=== PATIENT | female | born 1950 | race Caucasian/White ===

== ENCOUNTER → 2022-03-23 | Outpatient (CLI) | payer SELFPAY ==
[2022-03-23 19:45] LABS: Body Fluid QC Type(s) BF1Q; Source- Body Fluid SYNOVIAL
[2022-03-24 13:05] LABS: Pathologist Review Reviewed
== END | disposition home or self-care (01) ==
PROVIDERS: Visit Provider Specialist
DX: M25.461 Effusion, right knee (principal); Z96.651 Presence of right artificial knee joint
CPT/HCPCS: 87015; 87070; 87075; 87101; 87116; 87205; 87206; 89060

== ENCOUNTER 2022-06-10 05:58 | Inpatient (IN) | payer MEDICARE, BC, SELFPAY ==
--- NOTE | 2022-05-27 22:52 | PCM.HP.BLA ---
History and Physical History and Physical [facility] Patient Name: Ana Connolly : 1950 From:? RAJESH PUENTE PA-C? DATE OF SURGERY:? 06/10/2022 SCHEDULED PROCEDURE:? right knee irrigation and debridement with placement of? static antibiotic spacer HISTORY OF PRESENT ILLNESS: Preoperative history and physical exam was performed on May 25, 2022.? This is a 71-year-old female who has had ongoing pain for the past 5-6 months.? Patient states she twisted her knee in December 2021.? She has had a previous total knee arthroplasty in 2008 followed by a quadriceps tear in 2019.? She was treated surgically with a direct repair with suture anchors.? Patient has had difficulty with inclines and stairs after the tendon repair.? She had an injury in December when she was in [place] and had increased pain and inability to extend the knee.? She has been treated with a TROM brace for her knee.? Patient was seen by outside surgeons and was referred to a tertiary care center where she was counseled on extensor mechanism reconstruction with mesh.? Patient did have lab work to review inflammatory markers.? They were elevated with the CRP at 10.8 and ESR is 69.? She had aspiration which she had a positive synovasure.? Patient was also having some calf pain with swelling and tenderness in which she underwent a Doppler ultrasound.? It was found she had a DVT in the right lower leg.? She is being currently managed by her primary care provider Guerda Torrez in which she is currently on Rivaroxaban 20 mg.? After discussion with Dr. Enmanuel Munoz, the patient does wish to proceed with a right knee irrigation and debridement with placement of static antibiotic spacer.? We will proceed with a two-stage procedure.? Patient has medical history pertinent for previous colon cancer in 2016, hypertension, history of DVT.? We are getting clearance from the primary care provider as well as perioperative management of the Xarelto.? Patient currently denies any chest pain, shortness of breath, fevers chills. REVIEW OF SYSTEMS: Review Of Systems: Constitutional: Denies change in appetite, fever and weight change. Cardiovasular: Denies chest pain, heart murmur and irregular heartbeat. Respiratory: Reports wheezing, but denies cough, pneumonia, shortness of breath and tuberculosis. Gastrointestinal: Denies constipation, diarrhea, heartburn, nausea, rectal itching, bloody stools and vomiting. Musculoskeletal: Reports gait disturbance, leg swelling, trouble walking and weakness, but denies pain. Skin: Denies Raynaud's, history of shingles and tattoo. Neurological: Denies ambulatory dysfunction, dizziness, numbness/tingling and tremor. Psychiatric: Denies anxiety, insomnia and stress. Hematologic/Lymphatic: Denies anemia, bleeding/bruising tendency and past transfusion. Reviewed, no changes. PAST MEDICAL HISTORY: Advance Care Plan: Other Directive, LIVING WILL Effective Date: 05/25/2022 Other Directive, POA Effective Date: 05/25/2022 Past Medical History: Medical Problems: Cancer - (2015) COLON High Blood Pressure Covid- 19 - (2019) History Of Blood Clots/ DVT Accidents: RT Quad Tendon Tear - (08/13/2019) Other - RT SPRAINED ANKLE / EARLY 1999'S? Surgical Hx: Cataracts - (2019) , [place] Cataracts - (2016) ,[place] Hernia Repair - (2016) MEDICAL- X2 & OBSTRUCTED BOWEL Hysterectomy - (1999) Tonsillectomy - (1957) Knee Replacement LT - (2013) Knee Replacement RT - (2008) Face Lift - (2009) Tummy Tuck - (2009) Vein Surgery - (1995) Anesthesia Complications: None Assistive Devices: Walker Reviewed and updated. SOCIAL HISTORY: Social History: Marital: .Occupation: Retired.Work Status: Retired.Hand Dominance: Left-handed. Personal Habits:? Cigarette Use: Never Smoked Cigarettes.Smokeless Tobacco: Never Used Smokeless Tobacco.E-Cigarette Use: Never used.Alcohol: Occasionally.Drug Use: Denies Use.Enjoy Exercising: Exercises 1-3 x/month. Reviewed, no changes. VITALS: Ht: 66 Wt: 234lb Wt k.142 BMI: 37.8 BP: 132/88 Pulse: 83 Resp: 18 T: 97.8 T: 36.6C Pain Level: 7 O2SatR: 99 ALLERGIES: No Known Drug Allergy? MEDICATIONS: Xarelto 20 mg 1 by mouth every day, Etodolac 400 mg 1 by mouth twice a day, Latanoprost 0.005 % 1 drops in each eye at bedtime, Pramipexole Dihydrochloride 0.5 mg 1 1/2 by mouth every day, Losartan Potassium 50 mg 1 by mouth every day, Escitalopram Oxalate 10 mg 1 by mouth every day PRE-OP EXAM:? General appearance:NORMAL? ? ? Other: Eyes: Conjunctivae and lids: NORMAL? Pupils: ERR Ears, Nose, Mouth, and Throat: NORMAL? Other: Inspection of lips, teeth and gums: NORMAL? ?Other: Neck: Examination of neck: no masses noted. Respiratory: Assessment of respiratory effort: NORMAL? ?Other: ?Auscultation of lungs: clear to auscultation no wheezes, rhonchi or rales. Cardiovascular:? Auscultation of heart: regular rate and rhythm, no murmurs, gallops or rubs. PHYSICAL EXAMINATION: Patient walks with an antalgic gait with use of walker.? Previous incisions are well healed with the right knee.? She has moderate effusion.? Tenderness to palpation over the medial and lateral joint line.? There is a palpable defect proximal to the patella.? She has 30 lag with flexion to 115.? 3/5 knee extension strength.? Sensation intact to light touch. IMAGING STUDIES: Previous x-rays show a press-fit total knee replacement which appeared to be well fixed.? No gross lucencies are appreciated.? Tibia is in mild varus alignment. Previous MRI report did reveal 80-90% repeat tear of the quadriceps tendon with 7.3 cm of retraction. IMPRESSION: 1.? 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 Hypertension 3.? History of DVT: Currently on Xarelto 4.? Previous history of colon cancer 2016 PLAN: Dr. Enmanuel Munoz did discuss and review with the patient all treatment options including surgical versus nonsurgical options.? Patient does wish to proceed with the above-stated procedure.? Potential risks, benefits, and complications of the procedure were discussed in detail including but not limited to , infection, nerve and blood vessel damage, persistent pain, numbness, tingling, paresthesias, blood clot, pulmonary embolism, and requirement for possible further surgery.? The patient expressed full understanding and has no further questions for the doctor.? Patient does agree to proceed with the above-stated procedure and has signed the surgery consent form. We discussed the current risks associated with COVID 19.? This does include the risk of exposure while in the hospital.? Patient was reassured local hospitals have low infection rates and are taking all necessary precautions to avoid exposure to patients.? In addition, we discussed strategies that can be used to help limit exposure including those that limit the patient's time in the hospital.? Also using strategies to limit the patient's need for continued inpatient services after being discharged from the hospital.? Patient was notified that we will need to comply with any screening or testing the hospital wishes to perform or that surgery may be delayed for any positive results. This dictation was created using voice recognition software. Phonetic and/or grammatical errors may exist. ___? I have re-examined the patient.? There are no clinical changes since date of exam. ___? See progress notes for changes. ___? Dictated on admission Date: ? ? ?Time: Signature:
--- NOTE | 2022-06-02 09:40 | EKG12_ITS ---
Test Reason : PRE-OP Blood Pressure : / mmHG Vent. Rate : 075 BPM Atrial Rate : 075 BPM P-R Int : 178 ms QRS Dur : 092 ms QT Int : 408 ms P-R-T Axes : 052 027 048 degrees QTc Int : 455 ms Sinus rhythm with occasional Premature ventricular complexes Nonspecific T wave abnormality Confirmed by GABINO BELLO, MATTHEW ([id number]), visual effects editor MENDEZ COPPOLA ([id number]) on 06/03/2022 11:32:04 AM Referred By: ARI Confirmed By:MATTHEW LLOYD MD
[2022-06-02 10:26] LABS: Absolute Lymphocyte Count 0.89 X10^3/uL (0.83-4.51); Absolute Neutrophil Count 5.3 X10^3/uL (2.0-7.7); Basophil# 0.04 X10^3/uL; Basophil% 0.6 % (0-1); Eosinophil# 0.31 X10^3/uL; Eosinophils% 4.5 % (0-5); Hematocrit 34.1 % (37-47); Hemoglobin 10.2 g/dL (12.0-15.0); Lymphocyte # 0.89 X10^3/ul (0.83-4.51); Lymphocyte % 12.8 % (19-41); Mean Corp Hgb Conc 29.9 g/dL (32-36); Mean Corpuscular Volume 86.8 fL (81-99); Mean Platelet Vol. 10.4 fl (6.2-12.0); Monocyte% 5.8 % (0-10); NRBC Flagged by Analyzer 0 % (0-5); Neutrophil # 5.27 X10^3/uL (2.7-7.7); Platelet Count 360 K/mm3 (150-450); RBC Distribution Width CV 15.3 % (11.6-14.6); RBC Distribution Width SD 48.7 fl (35.1-43.9); Red Blood Count 3.93 M/mm3 (4.2-5.4); White Blood Count 6.9 K/mm3 (4.4-11.0)
[2022-06-02 10:59] LABS: Magnesium 2.4 mg/dL (1.6-2.6)
[2022-06-02 11:02] LABS: Albumin, Serum 2.7 g/dL (3.2-5.0); Anion Gap 4 (5-15); BUN 19 mg/dL (7-18); BUN/Creat Ratio 29.6 RATIO (10-20); Chloride 105 mmol/L (98-107); Creatinine, Serum 0.64 mg/dL (0.55-1.02); EST Glomerular Filtration Rate 96 mL/min (>60); Est Glom Filt Rate - Afr Amer 117 mL/min (>60); Glucose 103 mg/dL (74-106); Potassium 3.9 mmol/L (3.5-5.1); Sodium Level 138 mmol/L (136-145)
--- NOTE | 2022-06-02 15:24 | CASEMGMT ---
AJIT AU Assessment: TC to pt for initial transition planning/care coordination assessment. AJIT AU introduced self and role at [facility], pt voices understanding and consents to assessment. Pt is currently staying with her sister and the assessment is answered based on her home. Care providers, pharmacy, and demographics verified/updated. 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 She is aware it is not on file at [facility] and she may bring in to be scanned into her chart when she has surgery. LNOK: Ana Alonzo, sister Living Arrangements: Pt lives with sister temporarily in a single story house with 4 steps to get to the main floor with a rail and one step to enter the house. Pt reports now she is I in ADL's and denies concerns at home. Transportation: Pt is not driving currently. Pt sister or brother in law transports pt to medical appts. DME/HHC/SNF: Pt has a FWW and w/c. She denies hx of HHC or SNF stays. Pt states she has been told she may need IV atb and/or a wound vac after surgery. Discussed options of this including HHC vs SNF stay. Pt states she does not have an able cg to learn IV's if she needs it. She states should she need a wound vac or IV atb, she would prefer to go to a SNF. Pt states if she does not need these items, it depends on how well she gets around after surgery as to if she can go home to her sister's house or a SNF. Pt states no further concerns/needs. CM to follow. Advised pt to ask CM if any further question/concerns/needs arise, voices understanding. Pt Goal: TBD pending course of hospitalization Plan: TBD pending course of hospitalization
[2022-06-10] VITALS (13 sets, daily range): BP systolic 88–119; BP diastolic 46–72; PULSE 60–95; RESP 10–18; TEMP 36–37.4; O2SAT 88–100; BMI 37.5
[2022-06-10] MEDS: Lactated Ringers 1,000 ML 999 ML IV ×2 (07:17→13:30)
[2022-06-10] MEDS: Acetaminophen 500 MG Tablet 1000 MG PO ×3 (07:18→22:22)
[2022-06-10] MEDS: Lactated Ringers 1,000 ML 75 ML IV (07:18)
[2022-06-10] MEDS: Gabapentin 600 MG Tablet PO (07:18)
[2022-06-10] MEDS: Celecoxib 200 MG Capsule 400 MG PO (07:18)
[2022-06-10 07:20] LABS: Bedside Glucose 100 mg/dL (74-106)
[2022-06-10] MEDS: Cefazolin 2 GM in 0.9% Normal Saline 100 ML IV (10:35)
[2022-06-10] MEDS: Cefazolin 1 GM/5 ML Vial 2 GM OPERA.SITE (12:12)
[2022-06-10] MEDS: Vancomycin IV 1,000 MG/20 ML Vial 6000 MG OPERA.SITE (12:12)
[2022-06-10] MEDS: dexAMETHasone 10 MG/ML Vial IV (12:16)
[2022-06-10] MEDS: TXA in NS 100ml (Placed in Wound) OPERA.SITE (12:26)
--- NOTE | 2022-06-10 12:52 | OP.PCM_ITS ---
Report of Operation Date of Procedure: 06/10/22 Pre-Operative Diagnosis: 1. 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 Right knee periprosthetic joint infection Post-Operative Diagnosis: 1. 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 Right knee periprosthetic joint infection Surgery/Procedure Performed:: 1. Irrigation debridement right knee with placement of nonbiodegradable antibiotic delivery system and static antibiotic spacer 2. Right knee patellectomy me Description of Surgical Findings:: Patella was removed in its entirety measured at 48 mm wide by 47 mm in height. Surgeon: Enmanuel Munoz wheel and axle inspector: Mynor Ayers Type of Anesthesia: Spinal Anesthesiologist: González Sanchez Special Medications: 2 g Ancef, 1 g TXA at incision, 1 g TXA closure, 10 mg Decadron, joint cocktail (5 mg Duramorph, 30 mL of 0.5% Ropivicaine, 1000 units of epinephrine, 30 mg of Toradol). Additional antibiotics were placed into the cement vancomycin Ancef and tobramycin. Specimen's removed: 3 separate specimens were sent to microbiology Estimated Blood Loss (mL): 200 mL Fluids Replaced: 1300 mL crystalloid Description of Procedure: Implants used: Ashley straight femoral nail 11 mm x 280 mm Procedure: On the date of procedure patient's r lower extremity was marked in the preoperative area. The patient was then taken back to the operating room where the patient was placed on the table in the supine position. All bony prominences were identified a well-padded. Anesthesia assumed control of the C-spine and airway and remained controlled throughout the remainder of the procedure. A tourniquet was placed on the r upper thigh and the leg was prepped in a sterile fashion. The surgeon then scrubbed at this time. Upon reentering the room r lower extremity was draped in a standard orthopedic fashion. A timeout was then called and everyone agreed upon the side, the site, the procedure to be performed, patient's identity and antibiotics given. An Esmarch bandage was used to exsanguinate the extremity and the tourniquet was placed up to 250 mmHg with the knee in flexion. A midline skin incision was made using the previous incision and extending it proximally and distally to identify normal tissue planes. Medial and lateral flaps were developed appropriate releases. At this time we were able to identify the area of the defect in the tissue associated with the retracted quadriceps tendon. We carefully made a midline incision in line with our skin incision through the soft tissues splitting the quadriceps and patella tendons and half. We then did use the Bovie to carefully debride the soft tissue from the patella bony structures. After the patella bone was completely resected it was measured at 48 mm in width x 47 mm in length. At this time an aggressive synovectomy was performed re-creating the medial gutter first, then the suprapatellar pouch than the lateral gutter. Once this was completed the knee was flexed up an osteotome was used to remove the tibial polyethylene. The remainder of the synovium was debrided. The standard deep MCL and lateral collateral release was done. Next our attention was directed to the femur. Where flexible osteotomes and TPS saw were used to break up the implant cement interface. This was done both medially and laterally. After this a bone tamp was used to remove the femur component from the end of the bone. This was done with minimal bone loss. At this time attention was now directed towards the proximal tibia. Possible osteotome and TPS saw were then used to break up the proximal tibia implant interface and stacked osteotomes were used to remove the tibial implant. This was done with minimal bone loss. At this point, the flexible guide was placed up both canals 1 at a time. We first reamed the tibia to 12 mm then reamed the femoral canal to 12 mm. The intramedullary flexible guide yael was removed and based on this reaming we elected to open up a 280 mm x 11 mm [place] femoral nail to help with the static spacer. Final components were verified and opened, 6 liters of normal saline were irrigated throughout the joint under low-pressure lavage. Then the cement was mixed on the back table by hand first using half a batch with the vancomycin and Ancef and tobramycin mixture of cement infused and placing this down the central portion of the nail. Once this was done and the irrigation of the low-pressure lavage was done the tourniquet was let down and hemostasis was obtained. We did not appreciate any arterial bleeding in the posterior knee. Patient did require significant posterior debridement. We then passed the yael retrograde up the femoral canal and then advance it antegrade down the tibial canal in order to get it equally down the femur and tibia. 2 more batches of cement were mixed by hand on the back table with the remainder of the antibiotics in the cement. My cement tester assistant then held traction on the knee while carefully packed the area between the 2 bones with cement. Excess cement was removed and the cement was allowed to cure while the leg was being held in traction. After the cement cured there was rotational stability and minimal motion with flexion. The wound was copiously irrigated with normal saline. Once the final components were placed a dilute Betadine lavage for 3 minutes followed by a chlorhexidine lavage was used and the wound was copiously irrigated with normal saline solution and the remainder of the periarticular injection was given. The wound was closed in a layer mcmillan fashion using #1 vicryl interrupted sutures for the arthrotomy followed by a running looped #1 PDS, 2-0 interrupted Vicryl for the subcuticular layer and douglas for final skin closure. A sterile compressive dressing was then placed. The patient was then awakened from anesthesia, transferred to the [facility] and transferred to the PACU for recovery. Post op plan DVT ppx: Patient will resume her prescribed Xarelto, she has an IVC filter, thigh high compression stockings Follow up: in office in 2 weeks for wound check PT: to start POD #0 at hospital, outpatient PT should be arranged. PJI: Infectious disease will be consulted postoperatively for antibiotic management. My physician cement tester assistant was a vital part of this case. He was important in appropriate retraction during the case, and protection of soft tissues during bony cuts. His intimate knowledge of the case and my steps aided in safe and expedient completion of the procedure as well as appropriate position of the leg during the case. He was also vital in assisting with closure under my direct supervision. Complications No intraoperative complications Admit VTE Documentation VTE Present on Admission: No VTE Mechan Device Prophylaxis: SCD's and Thigh High JUDITH Hose VTE Pharm Prophylaxis ordered?: Yes
--- NOTE | 2022-06-10 13:30 | RAD_ITS ---
STUDY: X-RAY - RIGHT KNEE REASON FOR EXAM: Postoperative evaluation of right knee. TECHNIQUE: 2 view(s) of the knee. COMPARISON: None. FINDINGS: There is removal of an arthroplasty with methylmethacrylate transfixing the distal femur and proximal tibia with an intramedullary yael. There is resection of the patella. There is soft tissue gas in the anterior knee. Electronically Signed: Candido Peres MD at 14:18 EDT , RAD/Knee 1 or 2 Views IMPRESSION: undefined
--- NOTE | 2022-06-10 14:30 | SUR.PHASEI ---
PATIENT GIVEN O.5MG OF DILAUDID BEFORE GOING UP TO THE FLOOR BECAUSE SHE WAS WAITING TO GO UP HER PAIN STARTED IN HER RIGHT LEG. SHE IS RATING IT A 5/10.
--- NOTE | 2022-06-10 15:02 | CON.PCM.ID_ITS ---
Assessment & Plan Assessment/Plan (1) Infection of prosthetic knee joint: PLAN: Now s/p R knee spacer placement 06/10/[address] Munoz. Aspiration 03/2022 with neg cx. Surg cx pending. On cefazolin stefany-op. Will add vanc. Plan will be for 6 weeks iv abx, will have micro lab hold cxs for 2 weeks. Unvaccinated for covid, encouraged her to get the vaccine, she will think about it. Will follow, thank you HPI Consult Data Date of Consult: 06/10/22 HPI Narrative Reason for Consultation: PJI HPI Narrative: SHAYY MASON, is a 71 F who presented today for R knee pain and swelling. Had replacement done in 2008. Had quadriceps tear repair in 2019. In December, t wisted her R ankle, then had ongoing pain in RLE. Aspiration done 03/2022 with neg cx and neg for crystals but (+) synovasure. Recent dx DVT. Taken to OR today by Dr. Munoz for spacer placement. Pain controlled, no fever, no outpt abx. Full ROS performed and neg except as noted above. [facility] Medical History Anemia Arthritis Cancer Chronic cough DVT (deep venous thrombosis) History of edema History of pain when walking History of stress test Hx of vaginal delivery Hypertension Open wound Post-menopausal Restless legs Shortness of breath on exertion Walker as ambulation aid Wears glasses Home Medications cholecalciferol (vitamin D3) 25 mcg (1,000 unit) capsule (Vitamin D3) 25 mcg PO DAILY SUPPLEMENT 05/27/22 [History Last Taken Unknown] escitalopram oxalate 10 mg tablet 10 mg PO DAILY DEPRESSION 05/27/22 [History Last Taken Unknown] etodolac 400 mg tablet 400 mg PO BID PAIN 05/27/22 [History Last Taken Unknown] latanoprost 0.005 % eye drops 1 drp EACH EYE QPM GLAUCOMA 05/27/22 [History Last Taken Unknown] losartan 50 mg tablet 50 mg PO DAILY BP 05/27/22 [History Last Taken 06/10/22] pramipexole 1.5 mg tablet 0.5 mg PO QHS RESTLESS LEG 05/27/22 [History Last Taken Unknown] rivaroxaban 20 mg tablet (Xarelto) 20 mg PO DAILY DVT 05/27/22 [History Last Taken 06/04/22] Allergy/AdvReac Type Severity Reaction Status Date / Time No Known Allergies Allergy Verified 06/10/22 07:03 Surgical History (Updated 05/27/22 @ 09:10 by Bea Tolbert) History of facelift Hx of appendectomy Hx of colonoscopy Hx of hernia repair Hx of hysterectomy Hx of knee surgery Hx of surgical procedure Hx of tonsillectomy Hx of total knee replacement Social History Smoking Status: Never smoker Physical Exam Const alert, oriented x3 and no apparent distress General Appearance: cooperative HEENT normocephalic and head/scalp atraumatic Eyes PERRL and EOMs intact bilaterally Neck supple and No nodes Resp normal air movement and clear to auscultation bilaterally Cardio regular rate and regular rhythm GI soft to palpation, non-tender and non-distended Extremity General Extremity: Negative for edema Skin Skin Narrative: R knee wrapped Neuro CN's II-XII intact bilaterally Lab / Micro Data Attestation: I reviewed the patient's lab results. Result Diagrams: 06/02/22 09:56 06/02/22 09:56 Labs: Laboratory Results - last 24 hr 06/10/22 07:02: POC Glucose 100 Radiology Impression Knee X-Ray 06/10/22 13:30 IMPRESSION: undefined
[2022-06-10] MEDS: Morphine 4 MG/ML Syringe IV ×2 (15:26→19:48)
[2022-06-10] MEDS: 0.9% Saline Lock 10 ML Syringe IV ×2 (15:26→19:48)
[2022-06-10] MEDS: Lactated Ringers 1,000 ML 125 ML IV (15:30)
--- NOTE | 2022-06-10 15:40 | PHA.PHARE_ITS ---
Consult Pharmacy has been consulted to manage selected antiobiotic: Vancomycin Type of Consult: New start Suspected Infection: Other Prior Doses of Antibiotics Received/Current Regimen: the patient received a preop dose of vanc 1500mg IV x1 starting at 07:54 today Labs: Sodium 138 mmol/L (136-145) 06/02/22 09:56 Potassium 3.9 mmol/L (3.5-5.1) 06/02/22 09:56 Chloride 105 mmol/L (98-107) 06/02/22 09:56 Carbon Dioxide 29.0 mmol/L (21.0-32.0) 06/02/22 09:56 Anion Gap 4 (5-15) L 06/02/22 09:56 BUN 19 mg/dL (7-18) H 06/02/22 09:56 Creatinine 0.64 mg/dL (0.55-1.02) 06/02/22 09:56 Est GFR (MDRD) Af Amer 117 mL/min (>60) 06/02/22 09:56 Est GFR (MDRD) Non-Af 96 mL/min (>60) 06/02/22 09:56 BUN/Creatinine Ratio 29.6 RATIO (10-20) H 06/02/22 09:56 Glucose 103 mg/dL (74-106) 06/02/22 09:56 Microbiology: Microbiology 06/10/22 11:58 Tissue - Knee Gram Stain - Final 06/10/22 12:06 Tissue - Knee Gram Stain - Final 06/10/22 12:09 Tissue - Knee Gram Stain - Final 06/02/22 09:56 Swab (Method) Nasal Screen MRSA/MSSA - Final Weight used for dosin.7 kg Estimated Creatinine Clearance: 77ml/min Goal Trough: 15-20 mcg/mL Pharmacy Plan for Drug Dosing: Starting 12 hours after the preop dose, will continue with vanc 1500mg IV q12h per [facility] dosing protocol. A vanc trough will be ordered to be checked before the 4th total dose. The patient's CrCl of 77ml/min was calculated using an adjusted body weight of 77.9kg and SCr rounded up to 0.8 since the patient is >65 years old. Pharmacy Service will continue to monitor and adjust dosing as required. Follow-Up Labs: Trough Vancomycin Labs to be done on [date and time ordered]: 06/11/22 19:30
--- NOTE | 2022-06-10 16:40 | PN.HOSP_ITS ---
Subjective Subjective Patient was seen and examined today at the request of orthopedic surgery, she is postop for removal of knee hardware in the right leg with removal of patella. Patient was seen and evaluated as an outpatient and her she underwent aspiration of her knee which did not grow out any organisms but the aspirate looked pu rulent, it was determined that she should have surgery for removal of hardware in her right knee from a previous right knee replacement done approximately 15 years ago. 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 Chronic medical problems include chronic depression and essential hypertension, patient also had a DVT diagnosed in the right leg approximately 2 months ago, she had a vena caval filter inserted yesterday and she was on Xarelto which was stopped for the surgery. Orthopedic surgery has ordered the Xarelto restarted tomorrow. Infectious diseases saw the patient today and she will need outpatient IV antibiotics, again the organism is not known at this time. At the time of my examination, patient has no complaints of any fevers or chills, she has no complaints of any shortness of breath or chest discomfort. Objective Data Objective Data Vital Signs: Vital Signs Temp Pulse Resp BP Pulse Ox O2 Del Method O2 Flow Rate 97.6 F L 62 15 114/56 L 99 Nasal Cannula 4 06/10/22 14:58 06/10/22 14:58 06/10/22 14:58 06/10/22 14:58 06/10/22 14:58 06/10/22 14:58 06/10/22 14:58 Oxygen Flow Rate (L/min) 4 Oxygen Delivery Method Nasal Cannula Weight: 105.687 kg Body Mass Index (BMI) 37.5 Intake & Output: Intake and Output for Last 24 Hours 06/08/22 06/09/22 06/10/22 23:59 23:59 23:59 Intake Total 2742 / 2742 Balance 2742 / 2742 Lab / Micro Data Result Diagrams: 06/02/22 09:56 06/02/22 09:56 Labs: Laboratory Results - last 24 hr 06/10/22 07:02: POC Glucose 100 Micro: Microbiology 06/10/22 11:58 Tissue - Knee Gram Stain - Final 06/10/22 12:06 Tissue - Knee Gram Stain - Final 06/10/22 12:09 Tissue - Knee Gram Stain - Final 06/02/22 09:56 Swab (Method) Nasal Screen MRSA/MSSA - Final Radiography Diagnostic Testing: Radiology Impression Knee X-Ray 06/10/22 13:30 IMPRESSION: undefined Physical Exam Const alert, oriented x3, no apparent distress, average body habitus and healthy appearing General Appearance: cooperative, well kempt and well developed Orientation / Consciousness: awake, oriented to person, oriented to place and oriented to time HEENT normocephalic, head/scalp atraumatic and moist oral mucous membranes Eyes PERRL, EOMs intact bilaterally and conjunctivae normal Neck supple, no JVD, thyroid normal and no carotid bruits General: trachea midline Resp normal respiratory effort, no retractions, no use of accessory muscles and clear to auscultation bilaterally Auscultation: Negative for rales, rhonchi or wheezes Cardio regular rate, regular rhythm, S1 normal heart sound, S2 normal heart sound, no murmurs, no rub and no gallops GI normal to inspection, nondistended, normoactive bowel sounds, soft to palpation, non-tender and non-distended Skin no rashes or lesions noted General Skin Exam: no breakdown Neuro oriented x3, CN's II-XII intact bilaterally, no focal motor deficits and no sensory deficits noted Sensorium / Orientation: awake and alert Speech: speech normal Psych affect normal Assessment & Plan Assessment/Plan (1) Infection of prosthetic knee joint: PLAN: Plan 1. Essential hypertension-patient is on losartan at home, this will be continued in the hospital #2 chronic depression-patient is on Lexapro, she will continue this medication in the hospital #3 DVT right leg-patient will resume Xarelto tomorrow, again patient underwent insertion of a vena caval filter yesterday by Dr. Frazier in [facility]. 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
[2022-06-10] MEDS: oxyCODONE 5 MG Tablet PO ×2 (18:04→22:22)
[2022-06-10] MEDS: Cefazolin 1 GM/50 ML BAG IV (18:05)
[2022-06-10] MEDS: Ensure Surgery 237 ML LIQUID PO (18:09)
--- NOTE | 2022-06-10 19:37 | NURSING ---
LG AMT DRNG TO RT KNEE DRSG NOTED AFTER GETTING UP TO [facility]. DRSG TO 3 SIDES. DRSG REMOVED AND DISTAL END WAS JUST CONTINUOUSLY OOZING. PRESSURE WAS HELD TO KNEE FOR APPROX 45 MINUTES BEFORE FINALLY RECEIVING ORDERS FROM DR CHAPMAN TO APPLY PRESSURE DRSG.
[2022-06-10] MEDS: Latanoprost 0.005% 1 Bottle 1 DRP EACH EYE (22:07)
[2022-06-10] MEDS: Pramipexole Di-HCl 0.5 MG Tablet PO (22:22)
[2022-06-10] MEDS: Senna/Docusate Sodium 1 Tablet 2 TABLET PO (22:22)
[2022-06-11] MEDS: Cefazolin 1 GM/50 ML BAG IV (01:29)
[2022-06-11] MEDS: oxyCODONE 5 MG Tablet PO ×2 (02:41→22:17)
[2022-06-11 02:46] VITALS: BP 127/57; PULSE 57; RESP 16; TEMP 36.6; O2SAT 99
[2022-06-11] MEDS: Acetaminophen 500 MG Tablet 1000 MG PO ×3 (06:12→22:18)
[2022-06-11 06:13] LABS: Hematocrit 27.6 % (37-47); Hemoglobin 8.3 g/dL (12.0-15.0); Mean Corp Hgb Conc 30.1 g/dL (32-36); Mean Corpuscular Hgb 26.6 pg (27.0-32.0); Mean Corpuscular Volume 88.5 fL (81-99); Mean Platelet Vol. 11.1 fl (6.2-12.0); Platelet Count 304 K/mm3 (150-450); RBC Distribution Width CV 15.3 % (11.6-14.6); RBC Distribution Width SD 49.2 fl (35.1-43.9); Red Blood Count 3.12 M/mm3 (4.2-5.4); White Blood Count 8.6 K/mm3 (4.4-11.0)
[2022-06-11 06:40] LABS: Anion Gap 4 (5-15); BUN 18 mg/dL (7-18); BUN/Creat Ratio 28.8 RATIO (10-20); Calcium,Total 8.3 mg/dL (8.5-10.1); Chloride 105 mmol/L (98-107); Creatinine, Serum 0.62 mg/dL (0.55-1.02); EST Glomerular Filtration Rate 99 mL/min (>60); Est Glom Filt Rate - Afr Amer 120 mL/min (>60); Glucose 136 mg/dL (74-106); Potassium 5.3 mmol/L (3.5-5.1); Sodium Level 138 mmol/L (136-145)
[2022-06-11 06:49] VITALS: O2SAT 97
[2022-06-11 07:49] VITALS: BP 115/50; PULSE 58; RESP 18; TEMP 36.6; O2SAT 97
--- NOTE | 2022-06-11 07:49 | PCM.PN.HOSP ---
Subjective Subjective Complains of knee pain. Just took oral pain meds. Objective Data Objective Data Vital Signs: Vital Signs Temp Pulse Resp BP Pulse Ox O2 Del Method O2 Flow Rate 36.6 C 57 L 16 127/57 H 97 Nasal Cannula 2 06/11/22 02:46 06/11/22 02:46 06/11/22 02:46 06/11/22 02:46 06/11/22 06:49 06/11/22 06:49 06/11/22 06:49 Oxygen Flow Rate (L/min) 2 Oxygen Delivery Method Nasal Cannula Weight: 105.687 kg Body Mass Index (BMI) 37.5 Intake & Output: Intake and Output for Last 24 Hours 06/09/22 06/10/22 06/11/22 23:59 23:59 23:59 Intake Total 5263.67 / 5263.67 1014.58 / 1014.58 Output Total 350 / 350 400 / 400 Balance 4913.67 / 4913.67 614.58 / 614.58 Lab / Micro Data Result Diagrams: 06/11/22 05:35 06/11/22 05:35 Labs: Laboratory Results - last 24 hr 06/11/22 05:35: WBC 8.6, RBC 3.12 L, Hgb 8.3 L, Hct 27.6 L, MCV 88.5, MCH 26.6 L, MCHC 30.1 L, RDW Std Deviation 49.2 H, RDW Coeff of Karina 15.3 H, Plt Count 304, MPV 11.1 06/11/22 05:35: Sodium 138, Potassium 5.3 H, Chloride 105, Carbon Dioxide 29.0, Anion Gap 4 L, BUN 18, Creatinine 0.62, Estim Creat Clear Calc 46.90, Est GFR (MDRD) Af Amer 120, Est GFR (MDRD) Non-Af 99, BUN/Creatinine Ratio 28.8 H, Glucose 136 H, Calcium 8.3 L Micro: Microbiology 06/10/22 11:58 Tissue - Knee Gram Stain - Final 06/10/22 12:06 Tissue - Knee Gram Stain - Final 06/10/22 12:09 Tissue - Knee Gram Stain - Final 06/02/22 09:56 Swab (Method) Nasal Screen MRSA/MSSA - Final Radiography Diagnostic Testing: Radiology Impression Knee X-Ray 06/10/22 13:30 IMPRESSION: undefined Physical Exam Const no apparent distress Constitutional Narrative: up in chair. HEENT head/scalp atraumatic Resp normal respiratory effort, no retractions, no use of accessory muscles and clear to auscultation bilaterally Cardio regular rate, regular rhythm, S1 normal heart sound and S2 normal heart sound GI normal to inspection, nondistended, normoactive bowel sounds and soft to palpation Extremity Extremity Narrative: right leg in immobilizer. 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 (2) Acute blood loss anemia: PLAN: Hg dropped from 10.2 to 8.3 No need for transfusion at this time Monitor Transfuse if Hg 7 or less (3) Hyperkalemia: PLAN: Mild elevation monitor, no treatment at this time Consider DC ARB if persists (4) DVT (deep venous thrombosis): QUALIFIERS: DVT location: lower extremity Affected thrombotic vein of extremity: unspecified vein of extremity Chronicity: chronic Laterality: unspecified laterality Qualified Code(s): I82.509 - Chronic embolism and thrombosis of unspecified deep veins of unspecified lower extremity PLAN: DVT right leg Resumed on Xarelto Patient underwent insertion of a vena caval filter 06/[address] Frazier in [facility]. PLAN: Plan Chronic conditions: Essential hypertension-patient is on losartan at home, this will be continued in the hospital chronic depression-patient is on Lexapro, she will continue this medication in the hospital LEONILA Ayers. Tentative plan is for TCU where ID will continue to follow. Charges/Coding Visit Charges Inpatient E&M: 67459 Subs Hosp L2
[2022-06-11] MEDS: 0.9% Saline Lock 10 ML Syringe IV ×2 (07:54→20:28)
[2022-06-11] MEDS: Cholecalciferol (VIT D3) 25 MCG TABLET (1,000 UNITS) PO (08:05)
[2022-06-11] MEDS: Ensure Surgery 237 ML LIQUID PO ×3 (08:05→17:55)
[2022-06-11] MEDS: Escitalopram Oxalate 10 MG Tablet PO (08:05)
[2022-06-11] MEDS: Senna/Docusate Sodium 1 Tablet 2 TABLET PO ×2 (08:05→21:16)
[2022-06-11] MEDS: Losartan Potassium 50 MG Tablet PO (08:06)
--- NOTE | 2022-06-11 09:38 | CASEMGMT ---
Discussed pt care with Mynor MCGRAW and pt will need IV antibiotics as well as a wound vac. AJIT AU in to pt room, discussed plan with patient as per prior tc pt stated if she had IV's or a wound vac, she would need to go to a facility. Pt states this is still the case as she does not have a cg who can assist at home. Pt states she would like to go to [facility]. Made pt aware AJIT AU will notify SW of this and she will be in with choices for facilities. Pt agreeable.
--- NOTE | 2022-06-11 09:45 | PN.ORTHO_ITS ---
Subjective Subjective The patient was sitting in bedside chair upon examination. Patient denies any chest pain, shortness of breath, dizziness, lightheadedness, nausea or vomiting, or calf pain. Pain is controlled on medications. Patient has had drainage from the incision since yesterday. They have been doing compressive dressing ch anges. Otherwise she has tolerated therapy. Infectious disease is currently involved with management of antibiotics postoperatively. Plan will be for IV antibiotics for 6 weeks postoperatively. Objective Data Objective Data Vital Signs: Vital Signs Temp Pulse Resp BP Pulse Ox O2 Del Method O2 Flow Rate 97.8 F 58 L 18 115/50 L 97 Nasal Cannula 2 06/11/22 07:49 06/11/22 07:49 06/11/22 07:49 06/11/22 07:49 06/11/22 07:49 06/11/22 07:49 06/11/22 07:49 Oxygen Flow Rate (L/min) 2 Oxygen Delivery Method Nasal Cannula Weight: 105.687 kg Body Mass Index (BMI) 37.5 Intake & Output: Intake and Output for Last 24 Hours 06/09/22 06/10/22 06/11/22 23:59 23:59 23:59 Intake Total 5263.67 / 5263.67 1014.58 / 1014.58 Output Total 350 / 350 400 / 400 Balance 4913.67 / 4913.67 614.58 / 614.58 Lab / Micro Data Result Diagrams: 06/11/22 05:35 06/11/22 05:35 Labs: Laboratory Results - last 24 hr 06/11/22 05:35: WBC 8.6, RBC 3.12 L, Hgb 8.3 L, Hct 27.6 L, MCV 88.5, MCH 26.6 L , MCHC 30.1 L, RDW Std Deviation 49.2 H, RDW Coeff of Karina 15.3 H, Plt Count 304, MPV 11.1 06/11/22 05:35: Sodium 138, Potassium 5.3 H, Chloride 105, Carbon Dioxide 29.0, Anion Gap 4 L, BUN 18, Creatinine 0.62, Estim Creat Clear Calc 46.90, Est GFR (MDRD) Af Amer 120, Est GFR (MDRD) Non-Af 99, BUN/Creatinine Ratio 28.8 H, Glucose 136 H, Calcium 8.3 L Micro: Microbiology 06/10/22 12:09 Tissue - Knee Gram Stain - Final 06/10/22 12:09 Tissue - Knee Wound Culture - Preliminary No growth-Final to follow 06/10/22 12:06 Tissue - Knee Gram Stain - Final 06/10/22 11:58 Tissue - Knee Gram Stain - Final 06/10/22 11:58 Tissue - Knee Wound Culture - Preliminary No growth-Final to follow 06/02/22 09:56 Swab (Method) Nasal Screen MRSA/MSSA - Final Radiography Diagnostic Testing: Radiology Impression Knee X-Ray 06/10/22 13:30 IMPRESSION: undefined Physical Exam Narrative Vital signs stable and afebrile. Patient is able to plantarflex and dorsiflex actively. Sensation is intact to light touch to saphenous, sural, superficial and deep peroneal, and tibial distribution. Knee immobilizer in place. This was removed and incision evaluated. Patient does have saturated ABDs and Tino wrap. There was no active drainage upon evaluation of the incision. Patient just finished physical therapy and had increased drainage. No erythema. Negative Homans bilaterally, negative signs and symptoms of DVT. Const alert, oriented x3 and no apparent distress Assessment & Plan Assessment/Plan (1) Infection of prosthetic knee joint: PLAN: 1. S/P irrigation debridement right knee with placement of nonbiodegradable antibiotic delivery system and static antibiotic spacer POD #1 2. Continue Pain Medications: Tylenol and oxycodone 3. DVT Prophylaxis: Patient will resume her Xarelto today. Patient also has an IVC filter 4. PT/OT: Toe-touch weightbearing right lower extremity with knee immobilizer for the first 2 weeks. Plan will be for 50% weightbearing at 2 weeks postoperatively. 5. H & H: 8.3/27.6, asymptomatic. Postoperative anemia secondary to acute bloo d loss from surgery without any intra operative complications. 6. Continue antibiotics per infectious disease: Patient currently on ceftriaxone and vancomycin. Plan will be for PICC line placement and IV antibiotics for 6 weeks postoperatively. Appreciate recommendations with regards to cultures and changes to antibiotics. Currently Gram stain shows no organisms and cultures are pending. 7. Continue postoperative medical management per medicine: Patient with slight elevated potassium and will be monitored per medicine. We will continue to monitor hemoglobin. 8. Encouraged Incentive Spirometry 9. Draining incision: At this time due to the continuous draining patient has been requiring multiple dressing changes. Order for wound VAC placement has been placed in chart. Recommend wound VAC continuous setting 75 mmHg with twice weekly changes. 10. Disposition: Patient currently is not ready for discharge. Patient will require IV antibiotics and PICC line. Patient will also need further assistance upon discharge and will require custodial facility. Case management is currently involved with appropriate discharge planning. Patient did have continued drainage overnight and we will place wound VAC for the right knee. If patient is stable tomorrow and PICC line has been established possible discharge pending insurance. I have reviewed the [place] Automated Rx Reporting System (OARRS) report for this patient for refill pattern and other prescriber involvement as part of the appropriate surveillance for the provision of acute and chronic controlled medications. The report was requested and reviewed on the date of this entry and was considered in the prescribing process. This dictation was created using voice recognition software. Phonetic and/or grammatical errors may exist. (2) DVT (deep venous thrombosis):
--- NOTE | 2022-06-11 09:49 | CASEMGMT ---
Social Work SW in to meet with pt. Introduced self and role at the hospital. Pt voiced understanding and agreeable to discharge planning with this SW. ?A list of SNF providers including quality and resources use date that is consistent with patient's preferred geographical region, medical needs, and insurances network were provided via the [employer] Link.?Pt's preferred provider is [facility]. Pt's second choice is [facility] [place]. SHEELA informed [facility]. [facility] able to accept pt. SW informed pt may be medically ready tomorrow 06/12 per P.A. Mynor COKER informed pt she is accepted at TCU. SW to follow and assist with discharge when pt is medically ready PLAN: TCU, when medically ready. REN Wood
--- NOTE | 2022-06-11 10:14 | PCM.PN.ID ---
Physical Exam Narrative Feeling better, no fever, no n/v/d. Const alert and no apparent distress Resp normal air movement and clear to auscultation bilaterally Cardio regular rate and regular rhythm GI soft to palpation, non-tender and non-distended Skin Skin Narrative: R knee wrapped ID ID: Route of nutrition/ use of supplements: [] Nutritional Intake: [] IV Site: [] Mustafa Catheter: [] Assessment & Plan Assessment/Plan (1) Infection of prosthetic knee joint: PLAN: Now s/p R knee spacer placement 06/10/[address] Munoz. Aspiration 03/2022 with neg cx. Surg cx neg so far. On empiric vanc/ceftriaxone. Plan will be for 6 weeks iv abx with stop date 07/22/22 and weekly labs, will have micro lab hold cxs for 2 weeks. Unvaccinated for covid, encouraged her to get the vaccine, she will think about it. Will follow, d/w director of casework services and ortho. If she does not go to TCU, followup with me in 2 weeks.
[2022-06-11 10:49] VITALS: O2SAT 94
[2022-06-11 15:05] VITALS: BP 104/44; PULSE 75; RESP 18; TEMP 36.6; O2SAT 97
[2022-06-11] MEDS: Rivaroxaban 20 MG Tablet PO (17:55)
[2022-06-11 20:05] VITALS: BP 110/44; PULSE 86; RESP 16; TEMP 36.6; O2SAT 95
[2022-06-11 20:25] LABS: Vancomycin, Trough Level 16.5 ug/mL (5.0-15.0)
[2022-06-11] MEDS: Latanoprost 0.005% 1 Bottle 1 DRP EACH EYE (20:25)
--- NOTE | 2022-06-11 20:49 | PCM.RX.CS ---
Consult Pharmacy has been consulted to manage selected antiobiotic: Vancomycin Type of Consult: Follow-up Suspected Infection: Skin/Soft tissue Prior Doses of Antibiotics Received/Current Regimen: 06/10 @ 0754, 06/10 @ 1936, 06/11 @ 0753 Labs: Sodium 138 mmol/L (136-145) 06/11/22 05:35 Potassium 5.3 mmol/L (3.5-5.1) H 06/11/22 05:35 Chloride 105 mmol/L (98-107) 06/11/22 05:35 Carbon Dioxide 29.0 mmol/L (21.0-32.0) 06/11/22 05:35 Anion Gap 4 (5-15) L 06/11/22 05:35 BUN 18 mg/dL (7-18) 06/11/22 05:35 Creatinine 0.62 mg/dL (0.55-1.02) 06/11/22 05:35 Est GFR (MDRD) Af Amer 120 mL/min (>60) 06/11/22 05:35 Est GFR (MDRD) Non-Af 99 mL/min (>60) 06/11/22 05:35 BUN/Creatinine Ratio 28.8 RATIO (10-20) H 06/11/22 05:35 Glucose 136 mg/dL (74-106) H 06/11/22 05:35 Vancomycin Trough 16.5 ug/mL (5.0-15.0) H 06/11/22 19:30 Microbiology: Microbiology 06/10/22 12:09 Tissue - Knee Gram Stain - Final 06/10/22 12:09 Tissue - Knee Wound Culture - Preliminary No growth-Final to follow 06/10/22 12:06 Tissue - Knee Gram Stain - Final 06/10/22 11:58 Tissue - Knee Gram Stain - Final 06/10/22 11:58 Tissue - Knee Wound Culture - Preliminary No growth-Final to follow 06/02/22 09:56 Swab (Method) Nasal Screen MRSA/MSSA - Final Weight used for dosin.9 kg Estimated Creatinine Clearance: 76 Goal Trough: 15-20 mcg/mL Pharmacy Plan for Drug Dosing: Continue 1500mg q12h Pharmacy Service will continue to monitor and adjust dosing as required. Follow-Up Labs: Trough Vancomycin Labs to be done on [date and time ordered]: 06/13/22 @ 0700
[2022-06-11] MEDS: Pramipexole Di-HCl 0.5 MG Tablet PO (21:16)
[2022-06-12 02:05] VITALS: BP 130/49; PULSE 80; RESP 16; TEMP 37; O2SAT 96
[2022-06-12] MEDS: oxyCODONE 5 MG Tablet PO (06:03)
[2022-06-12] MEDS: Acetaminophen 500 MG Tablet 1000 MG PO (06:04)
[2022-06-12 06:15] LABS: Hematocrit 26.6 % (37-47); Hemoglobin 7.8 g/dL (12.0-15.0); Mean Corp Hgb Conc 29.3 g/dL (32-36); Mean Corpuscular Hgb 25.9 pg (27.0-32.0); Mean Corpuscular Volume 88.4 fL (81-99); Mean Platelet Vol. 10.6 fl (6.2-12.0); Platelet Count 285 K/mm3 (150-450); RBC Distribution Width CV 15.5 % (11.6-14.6); RBC Distribution Width SD 50.4 fl (35.1-43.9); Red Blood Count 3.01 M/mm3 (4.2-5.4); White Blood Count 8.3 K/mm3 (4.4-11.0)
[2022-06-12 06:41] LABS: Anion Gap 3 (5-15); BUN 16 mg/dL (7-18); BUN/Creat Ratio 24.9 RATIO (10-20); Calcium,Total 8.3 mg/dL (8.5-10.1); Chloride 108 mmol/L (98-107); Creatinine, Serum 0.64 mg/dL (0.55-1.02); EST Glomerular Filtration Rate 96 mL/min (>60); Est Glom Filt Rate - Afr Amer 116 mL/min (>60); Glucose 96 mg/dL (74-106); Potassium 4.5 mmol/L (3.5-5.1); Sodium Level 141 mmol/L (136-145)
--- NOTE | 2022-06-12 06:52 | PN.HOSP_ITS ---
Subjective Subjective Feels well. Objective Data Objective Data Vital Signs: Vital Signs Temp Pulse Resp BP Pulse Ox O2 Del Method O2 Flow Rate 37.0 C 80 16 130/49 H 96 Room Air 1 06/12/22 02:05 06/12/22 02:05 06/12/22 02:05 06/12/22 02:05 06/12/22 02:05 06/12/22 02:05 06/11/22 09:17 Oxygen Flow Rate (L/min) 1 Oxygen Delivery Method Room Air Weight: 105.687 kg Body Mass Index (BMI) 37.5 Intake & Output: Intake and Output for Last 24 Hours 06/10/22 06/11/22 06/12/22 23:59 23:59 23:59 Intake Total 5263.67 / 5263.67 3124.58 / 3124.58 41.5 / 41.5 Output Total 350 / 350 900 / 900 Balance 4913.67 / 4913.67 2224.58 / 2224.58 41.5 / 41.5 Lab / Micro Data Result Diagrams: 06/12/22 05:35 06/12/22 05:35 Labs: Laboratory Results - last 24 hr 06/11/22 19:30: Vancomycin Trough 16.5 H 06/12/22 05:35: WBC 8.3, RBC 3.01 L, Hgb 7.8 L, Hct 26.6 L, MCV 88.4, MCH 25.9 L , MCHC 29.3 L, RDW Std Deviation 50.4 H, RDW Coeff of Karina 15.5 H, Plt Count 285, MPV 10.6 06/12/22 05:35: Sodium 141, Potassium 4.5, Chloride 108 H, Carbon Dioxide 30.0, Anion Gap 3 L, BUN 16, Creatinine 0.64, Estim Creat Clear Calc 46.90, Est GFR (MDRD) Af Amer 116, Est GFR (MDRD) Non-Af 96, BUN/Creatinine Ratio 24.9 H, Glucose 96, Calcium 8.3 L Micro: Microbiology 06/10/22 12:09 Tissue - Knee Gram Stain - Final 06/10/22 12:09 Tissue - Knee Wound Culture - Preliminary No growth-Final to follow 06/10/22 12:06 Tissue - Knee Gram Stain - Final 06/10/22 11:58 Tissue - Knee Gram Stain - Final 06/10/22 11:58 Tissue - Knee Wound Culture - Preliminary No growth-Final to follow 06/02/22 09:56 Swab (Method) Nasal Screen MRSA/MSSA - Final Physical Exam Const alert and no apparent distress Resp normal respiratory effort, no retractions, no use of accessory muscles and clear to auscultation bilaterally Cardio regular rate, regular rhythm, S1 normal heart sound and S2 normal heart sound GI normal to inspection, nondistended, normoactive bowel sounds and soft to palpation Psych affect normal Assessment & Plan Assessment/Plan (1) Infection of prosthetic knee joint: QUALIFIERS: Encounter type: subsequent encounter Qualified Code(s): T84.59XD - Infection and inflammatory reaction due to other internal joint prosthesis, subsequent encounter; Z96.659 - Presence of unspecified artificial knee joint PLAN: right knee periprosthetic joint infection status post removal of hardware and patella 06/10 PT and OT will see the patient, Mgmt per orthopedic surgery and ID Follow up cultures On CTX and vancomycin PICC line ordered. (2) Acute blood loss anemia: PLAN: Hg dropped from 10.2 to 7.8 No need for transfusion at this time Monitor Transfuse if Hg 7 or less Add [id number] dose of ferrous sulfate for 2 weeks (3) Hyperkalemia: PLAN: Mild elevation, now resolved monitor, no treatment at this time (4) DVT (deep venous thrombosis): QUALIFIERS: Affected thrombotic vein of extremity: unspecified vein of extremity Chronicity: chronic DVT location: lower extremity Laterality: unspecified laterality Qualified Code(s): I82.509 - Chronic embolism and thrombosis of unspecified deep veins of unspecified lower extremity PLAN: DVT right leg Resumed on Xarelto Patient underwent insertion of a vena caval filter 06/[address] Frazier in [facility]. Patient will need to follow-up with as outpatient to have the filter removed within 6 months. Discussed this with the patient. PLAN: Plan Chronic conditions: * Essential hypertension-patient is on losartan at home, this will be continued in the hospital * chronic depression-patient is on Lexapro, she will continue this medication in the hospital Ok to transfer to TCU from medical standpoint. ID to follow while there. Charges/Coding Visit Charges Inpatient E&M: 85532 Subs Hosp L2
--- NOTE | 2022-06-12 06:59 | PN.ORTHO_ITS ---
Subjective Subjective The patient was sitting in bed sleeping upon examination. Patient denies any chest pain, shortness of breath, dizziness, lightheadedness, nausea or vomiting, or calf pain. Pain is controlled on medications. No adverse overnight events. Patient states sleeping is difficult with the knee immobilizer. However she does not complain of any dizziness or lightheadedness. No episodes of syncope. They did place a wound VAC yesterday and there is currently no drainage in the canister or tubing. Patient states she has struggled with normal movements secondary to the knee immobilizer and no bending of the knee. She is adjusting to this. Plan is for patient to go to the transitional care unit. She does have a drop in hemoglobin but she did come in anemic at 10.2. Her vitals have been stable and she is currently asymptomatic. Infectious disease has also been involved and is managing the antibiotics and she is currently on empiric vancomycin and ceftriaxone. Objective Data Objective Data Vital Signs: Vital Signs Temp Pulse Resp BP Pulse Ox O2 Del Method O2 Flow Rate 98.6 F 80 16 130/49 H 96 Room Air 1 06/12/22 02:05 06/12/22 02:05 06/12/22 02:05 06/12/22 02:05 06/12/22 02:05 06/12/22 02:05 06/11/22 09:17 Oxygen Flow Rate (L/min) 1 Oxygen Delivery Method Room Air Weight: 105.687 kg Body Mass Index (BMI) 37.5 Intake & Output: Intake and Output for Last 24 Hours 06/10/22 06/11/22 06/12/22 23:59 23:59 23:59 Intake Total 5263.67 / 5263.67 3124.58 / 3124.58 41.5 / 41.5 Output Total 350 / 350 900 / 900 Balance 4913.67 / 4913.67 2224.58 / 2224.58 41.5 / 41.5 Lab / Micro Data Result Diagrams: 06/12/22 05:35 06/12/22 05:35 Labs: Laboratory Results - last 24 hr 06/11/22 19:30: Vancomycin Trough 16.5 H 06/12/22 05:35: WBC 8.3, RBC 3.01 L, Hgb 7.8 L, Hct 26.6 L, MCV 88.4, MCH 25.9 L , MCHC 29.3 L, RDW Std Deviation 50.4 H, RDW Coeff of Karina 15.5 H, Plt Count 285, MPV 10.6 06/12/22 05:35: Sodium 141, Potassium 4.5, Chloride 108 H, Carbon Dioxide 30.0, Anion Gap 3 L, BUN 16, Creatinine 0.64, Estim Creat Clear Calc 46.90, Est GFR (MDRD) Af Amer 116, Est GFR (MDRD) Non-Af 96, BUN/Creatinine Ratio 24.9 H, Glucose 96, Calcium 8.3 L Micro: Microbiology 06/10/22 12:09 Tissue - Knee Gram Stain - Final 06/10/22 12:09 Tissue - Knee Wound Culture - Preliminary No growth-Final to follow 06/10/22 12:06 Tissue - Knee Gram Stain - Final 06/10/22 11:58 Tissue - Knee Gram Stain - Final 06/10/22 11:58 Tissue - Knee Wound Culture - Preliminary No growth-Final to follow 06/02/22 09:56 Swab (Method) Nasal Screen MRSA/MSSA - Final Physical Exam Narrative Vital signs stable and afebrile. Knee immobilizer is in place for the right lower extremity. Patient is able to plantarflex and dorsiflex actively. Sensation is intact to light touch to saphenous, sural, superficial and deep peroneal, and tibial distribution. Wound VAC in place with no drainage in the tubing or canister Negative Homans bilaterally, negative signs and symptoms of DVT. Const alert, oriented x3 and no apparent distress Assessment & Plan Assessment/Plan (1) Infection of prosthetic knee joint: QUALIFIERS: Encounter type: subsequent encounter Qualified Code(s): T84.59XD - Infection and inflammatory reaction due to other internal joint prosthesis, subsequent encounter; Z96.659 - Presence of unspecified artificial knee joint PLAN: 1. S/P irrigation debridement right knee with placement of nonbiodegradable antibiotic delivery system and static antibiotic spacer POD #2 2. Continue Pain Medications: Tylenol and oxycodone 3. DVT Prophylaxis: Currently on Xarelto 20 mg for previous DVT. We will continue and follow with primary care provider. Patient also has an IVC filter 4. PT/OT: Toe-touch weightbearing right lower extremity with knee immobilizer for the first 2 weeks. Plan will be for 50% weightbearing at 2 weeks postoperatively. 5. H & H: 7.8/26.6, asymptomatic. Acute on chronic anemia with postoperative anemia secondary to acute blood loss from surgery without any intra operative complications. Patient on June 02, 2022 had preoperative lab work which her hemoglobin was currently at 10.2. Discussed with Dr. Enmanuel Munoz and at this time we will place her on ferrous sulfate and folic acid. I explained to her that patient had chronic anemia which she has not been treated which is affecting her numbers postoperatively. She did voice understanding and states that she has had anemia for very long time. 6. Continue antibiotics per infectious disease: Patient currently on empiric ceftriaxone and vancomycin. PICC line has been placed for IV antibiotics for 6 weeks postoperatively. Infectious disease currently involved and has prescriptions written on the chart. We will follow recommendations per infectious disease with regards to antibiotics. She will be followed by infectious disease while she is at the transitional care unit. Currently there has been no organisms on all 3 specimens and 2 of the 3 no growth with cultures. One of the 3 cultures are currently still pending. 7. Continue postoperative medical management per medicine: Patient's potassium is back to normal limits and currently 4.5. 8. Encouraged Incentive Spirometry 9. Draining incision: Continue with wound VAC which was placed yesterday and there is currently no drainage in the canister or tubing. Recommend wound VAC continuous setting 75 mmHg with twice weekly changes. Recommend continuation of wound VAC until incision appropriately healed. This will be followed by the wound nurse while at the transitional care unit. 10. Disposition: Plan will be for probable discharge to the transitional care unit at [facility] today as long as patient is medically cleared. Orthopedically patient is doing well. She will continue toe-touch weightbearing with physical therapy with use of the knee immobilizer. Continue with the wound VAC as described above. This will be followed by the wound nurse while at the transitional care unit. Continue with antibiotics per infectious disease. Transitional care unit paperwork will be in chart with prescription for narcotic placed on her chart. She will continue with above recommendations as well as follow-up per postop instructions. She has a follow-up with [facility] on June 25, 2022 at 3:30 PM. Appreciate medicine's input on patient while in the hospital. I have reviewed the [place] Automated Rx Reporting System (OARRS) report for this patient for refill pattern and other prescriber involvement as part of the appropriate surveillance for the provision of acute and chronic controlled medications. The report was requested and reviewed on the date of this entry and was considered in the prescribing process. This dictation was created using voice recognition software. Phonetic and/or grammatical errors may exist. (2) DVT (deep venous thrombosis): QUALIFIERS: DVT location: lower extremity Affected thrombotic vein of extremity: unspecified vein of extremity Chronicity: chronic Later ality: unspecified laterality Qualified Code(s): I82.509 - Chronic embolism and thrombosis of unspecified deep veins of unspecified lower extremity
--- NOTE | 2022-06-12 07:10 | PCM.TXEXTCAR ---
Diet Diet Order/Speech Therapy: 06/10/22 16:59 Diet: Regular - General Is pt able to select menu?: Yes Routine Orders/Code Status Routine Lab Work: CBC (Repeat lab work June 13, 2022 following the anemia. Infectious disease also recommends weekly labs.) and BMP Wound(s) RIGHT KNEE: Wound Type: Surgical Incision RIGHT GROIN IVC FILTER INSERTION: Wound Type: Surgical Incision Therapies Weight Bearing: Toe-touch weight bearing (With walker and knee immobilizer in place) Physical Therapy: Eval and Treat Occupational Therapy: Eval and Treat Problem/Diagnosis (1) Infection of prosthetic knee joint: Status: Acute Code(s): T84.59XA - Infection and inflammatory reaction due to other internal joint prosthesis, initial encounter; Z96.659 - Presence of unspecified artificial knee joint Plan: 1. S/P irrigation debridement right knee with placement of nonbiodegradable antibiotic delivery system and static antibiotic spacer POD #2 2. Continue Pain Medications: Tylenol and oxycodone 3. DVT Prophylaxis: Currently on Xarelto 20 mg for previous DVT. We will continue and follow with primary care provider. Patient also has an IVC filter 4. PT/OT: Toe-touch weightbearing right lower extremity with knee immobilizer for the first 2 weeks. Plan will be for 50% weightbearing at 2 weeks postoperatively. 5. H & H: 7.8/26.6, asymptomatic. Acute on chronic anemia with postoperative anemia secondary to acute blood loss from surgery without any intra operative complications. Patient on June 02, 2022 had preoperative lab work which her hemoglobin was currently at 10.2. Discussed with Dr. Enmanuel Munoz and at this time we will place her on ferrous sulfate and folic acid. I explained to her that patient had chronic anemia which she has not been treated which is affecting her numbers postoperatively. She did voice understanding and states that she has had anemia for very long time. 6. Continue antibiotics per infectious disease: Patient currently on empiric ceftriaxone and vancomycin. PICC line has been placed for IV antibiotics for 6 weeks postoperatively. Infectious disease currently involved and has prescriptions written on the chart. We will follow recommendations per infectious disease with regards to antibiotics. She will be followed by infectious disease while she is at the transitional care unit. Currently there has been no organisms on all 3 specimens and 2 of the 3 no growth with cultures. One of the 3 cultures are currently still pending. 7. Continue postoperative medical management per medicine: Patient's potassium is back to normal limits and currently 4.5. 8. Encouraged Incentive Spirometry 9. Draining incision: Continue with wound VAC which was placed yesterday and there is currently no drainage in the canister or tubing. Recommend wound VAC continuous setting 75 mmHg with twice weekly changes. Recommend continuation of wound VAC until incision appropriately healed. This will be followed by the wound nurse while at the transitional care unit. 10. Disposition: Plan will be for probable discharge to the transitional care unit at [facility] today as long as patient is medically cleared. Orthopedically patient is doing well. She will continue toe-touch weightbearing with physical therapy with use of the knee immobilizer. Continue with the wound VAC as described above. This will be followed by the wound nurse while at the transitional care unit. Continue with antibiotics per infectious disease. Transitional care unit paperwork will be in chart with prescription for narcotic placed on her chart. She will continue with above recommendations as well as follow-up per postop instructions. She has a follow-up with [facility] on June 25, 2022 at 3:30 PM. Appreciate medicine's input on patient while in the hospital. I have reviewed the [place] Automated Rx Reporting System (OARRS) report for this patient for refill pattern and other prescriber involvement as part of the appropriate surveillance for the provision of acute and chronic controlled medications. The report was requested and reviewed on the date of this entry and was considered in the prescribing process. This dictation was created using voice recognition software. Phonetic and/or grammatical errors may exist. (2) DVT (deep venous thrombosis): Status: Acute Code(s): I82.409 - Acute embolism and thrombosis of unspecified deep veins of unspecified lower extremity Allergies/Procedures Done in Hospital Allergies No Known Allergies Allergy (Verified 06/10/22 07:03) Procedures: PICC line placement, Wound Vac placement (Continue with wound VAC for right knee incision continuous setting at 75 mmHg with twice weekly changes. Will be followed by wound nurse) and - (Irrigation debridement Right knee with placement of nonbiodegradable antibiotic delivery system and static antibiotic spacer) Type of Care/Length of Stay Estimated LOS: Convalescent Care Less Than 30 days Type of Care Needed: Skilled Rehab Potential: Good Prognosis: Good Additional Orders/Day of Discharge Day of Discharge: 06/12/22 Discharge Plan Admission Admit Date/Time: 06/10/22 05:58 Attending Provider: Enmanuel Munoz Primary Care Provider: Guerda Torrez NP Consulting Providers: James Rojas ; Azam Quezada Discharge Orders/Prescriptions Prescriptions: New ceftriaxone 2 gram recon soln 2 g IV DAILY Qty: 40 0RF Rx Instructions: stop date 07/22/22 dx: knee PJI weekly bmp, cbc, esr, and vanc trough. Fax to [phone] routine picc care with heparin/saline flush per protocol vancomycin 1.5 gram recon soln 1.5 g IV Q12H Qty: 80 0RF Rx Instructions: stop date 07/22/22 dx: knee PJI weekly bmp, cbc, esr, and vanc trough. Fax to [phone] routine picc care with heparin/saline flush per protocol acetaminophen 500 mg Tablet 1,000 mg PO Q8H 30 Days Qty: 180 0RF Rx Instructions: Do not take more than 3000 mg Tylenol in a 24-hour period. ferrous sulfate [FeroSul] 325 mg (65 mg iron) Tablet 325 mg PO QODAY@1200 14 Days Qty: 0 0RF Rx Instructions: Continue 2 weeks postoperatively folic acid 1 mg Tablet 1 mg PO BREAKFAST 14 Days Qty: 14 0RF Rx Instructions: Continue 2 weeks postoperatively oxycodone 5 mg Tablet 5 - 10 mg PO Q4H PRN PRN (Reason: Pain Score 4-10) 7 Days Qty: 60 0RF sennosides-docusate sodium [Stool Softener-Stimulant Laxat] 8.6-50 mg Tablet 2 tab PO BID 3 Days Qty: 12 0RF Rx Instructions: Postoperative anemia secondary to acute blood loss from surgery without any intra operative complications. Continued losartan 50 mg Tablet 50 mg PO DAILY latanoprost 0.005 % Drops 1 drp EACH EYE QPM pramipexole 1.5 mg Tablet 0.75 mg PO QHS Label Comments: TAKE 1 1/2 TAB BEDTIME cholecalciferol (vitamin D3) [Vitamin D3] 25 mcg (1,000 unit) Capsule 25 mcg PO DAILY escitalopram oxalate 10 mg Tablet 10 mg PO DAILY Xarelto 20 mg Tablet 20 mg PO DAILY Label Comments: PT TO STOP 5 DAYS PRIOR-06/04/22 LAST DOSE Rx Instructions: must administer with evening meal Discontinued etodolac 400 mg Tablet 400 mg PO BID Referrals / Follow Up: James Rojas MD [Med Staff - Active Staff] - (per Infectious disease recommendations) Guerda Torrez NP, CARDIAC CATHETERIZATION TECHNOLOGIST-C [Primary Care Provider] - Mynor Ayers PA-C [Med Staff - Adv Practice Prof] - 06/25/22 3:30 pm Disposition Disposition (needs filled in before D/C Order can be placed[facility] (1) DVT (deep venous thrombosis) Qualifiers: Affected thrombotic vein of extremity: unspecified vein of extremity Chronicity: chronic DVT location: lower extremity Laterality: unspecified laterality Qualified Code(s): I82.509 - Chronic embolism and thrombosis of unspecified deep veins of unspecified lower extremity (2) Infection of prosthetic knee joint Qualifiers: Encounter type: subsequent encounter Qualified Code(s): T84.59XD - Infection and inflammatory reaction due to other internal joint prosthesis, subsequent encounter; Z96.659 - Presence of unspecified artificial knee joint
[2022-06-12 07:11] VITALS: O2SAT 93
--- NOTE | 2022-06-12 07:32 | PCM.DC.SUM ---
Providers Date of Admission: 06/10/22 Date of Discharge: 06/12/22 Primary Care Physician: Guerda Torrez, KEVIN Consultations 06/10/22 13:04 Consult: Hospitalist Routine Consulting Provider: Ramón Trejo Reason for Consult: post op med management EMERGENT Consult: No Notified: Yes Date Notified: 06/10/22 Time Notified: 13:04 Method of Notification: via spok Consult: Infectious Disease Routine Consulting Provider: James Rojas Reason for Consult: r knee pji. pt has previously seen dr aguirre EMERGENT Consult: No Notified: Yes Date Notified: 06/10/22 Time Notified: 13:04 Method of Notification: face to face 06/11/22 09:42 Consult: Onc/Wound/event security officer Routine Comment: Reason for Consult:: Drainage from surgery Comments:: Continuous setting 75 mmHg with changes twice weekly Reason For Visit: RT I&D STATIC ANTIBIOTIC SPACER KNEE Diagnosis Discharge Diagnosis (1) Infection of prosthetic knee joint: Status: Acute Code(s): T84.59XA - Infection and inflammatory reaction due to other internal joint prosthesis, initial encounter; Z96.659 - Presence of unspecified artificial knee joint Qualifiers: Encounter type: subsequent encounter Qualified Code(s): T84.59XD - Infection and inflammatory reaction due to other internal joint prosthesis, subsequent encounter; Z96.659 - Presence of unspecified artificial knee joint Plan: 1. S/P irrigation debridement right knee with placement of nonbiodegradable antibiotic delivery system and static antibiotic spacer POD #2 2. Continue Pain Medications: Tylenol and oxycodone 3. DVT Prophylaxis: Currently on Xarelto 20 mg for previous DVT. We will continue and follow with primary care provider. Patient also has an IVC filter 4. PT/OT: Toe-touch weightbearing right lower extremity with knee immobilizer for the first 2 weeks. Plan will be for 50% weightbearing at 2 weeks postoperatively. 5. H & H: 7.8/26.6, asymptomatic. Acute on chronic anemia with postoperative anemia secondary to acute blood loss from surgery without any intra operative complications. Patient on June 02, 2022 had preoperative lab work which her hemoglobin was currently at 10.2. Discussed with Dr. Enmanuel Munoz and at this time we will place her on ferrous sulfate and folic acid. I explained to her that patient had chronic anemia which she has not been treated which is affecting her numbers postoperatively. She did voice understanding and states that she has had anemia for very long time. 6. Continue antibiotics per infectious disease: Patient currently on empiric ceftriaxone and vancomycin. PICC line has been placed for IV antibiotics for 6 weeks postoperatively. Infectious disease currently involved and has prescriptions written on the chart. We will follow recommendations per infectious disease with regards to antibiotics. She will be followed by infectious disease while she is at the transitional care unit. Currently there has been no organisms on all 3 specimens and 2 of the 3 no growth with cultures. One of the 3 cultures are currently still pending. 7. Continue postoperative medical management per medicine: Patient's potassium is back to normal limits and currently 4.5. 8. Encouraged Incentive Spirometry 9. Draining incision: Continue with wound VAC which was placed yesterday and there is currently no drainage in the canister or tubing. Recommend wound VAC continuous setting 75 mmHg with twice weekly changes. Recommend continuation of wound VAC until incision appropriately healed. This will be followed by the wound nurse while at the transitional care unit. 10. Disposition: Plan will be for probable discharge to the transitional care unit at [facility] today as long as patient is medically cleared. Orthopedically patient is doing well. She will continue toe-touch weightbearing with physical therapy with use of the knee immobilizer. Continue with the wound VAC as described above. This will be followed by the wound nurse while at the transitional care unit. Continue with antibiotics per infectious disease. Transitional care unit paperwork will be in chart with prescription for narcotic placed on her chart. She will continue with above recommendations as well as follow-up per postop instructions. She has a follow-up with [facility] on June 25, 2022 at 3:30 PM. Appreciate medicine's input on patient while in the hospital. I have reviewed the [place] Automated Rx Reporting System (OARRS) report for this patient for refill pattern and other prescriber involvement as part of the appropriate surveillance for the provision of acute and chronic controlled medications. The report was requested and reviewed on the date of this entry and was considered in the prescribing process. This dictation was created using voice recognition software. Phonetic and/or grammatical errors may exist. (2) DVT (deep venous thrombosis): Status: Acute Code(s): I82.409 - Acute embolism and thrombosis of unspecified deep veins of unspecified lower extremity Qualifiers: DVT location: lower extremity Affected thrombotic vein of extremity: unspecified vein of extremity Chronicity: chronic Laterality: unspecified laterality Qualified Code(s): I82.509 - Chronic embolism and thrombosis of unspecified deep veins of unspecified lower extremity Medications at Discharge Home Medications cholecalciferol (vitamin D3) 25 mcg (1,000 unit) capsule (Vitamin D3) 25 mcg PO DAILY SUPPLEMENT 05/27/22 escitalopram oxalate 10 mg tablet 10 mg PO DAILY DEPRESSION 05/27/22 latanoprost 0.005 % eye drops 1 drp EACH EYE QPM GLAUCOMA 05/27/22 losartan 50 mg tablet 50 mg PO DAILY BP 05/27/22 pramipexole 1.5 mg tablet 0.75 mg PO QHS RESTLESS LEG 05/27/22 rivaroxaban 20 mg tablet (Xarelto) 20 mg PO DAILY DVT 05/27/22 ceftriaxone 2 gram intravenous solution 2 g IV DAILY #40 ea 06/11/22 vancomycin 1.5 gram intravenous solution 1.5 g IV Q12H #80 ea 06/11/22 acetaminophen 500 mg tablet 1,000 mg PO Q8H 30 days #180 tabs 06/12/22 ferrous sulfate 325 mg (65 mg iron) tablet (FeroSul) 325 mg PO QODAY@1200 14 days #0 tabs 06/12/22 folic acid 1 mg tablet 1 mg PO BREAKFAST 14 days #14 tabs 06/12/22 oxycodone 5 mg tablet 5 - 10 mg PO Q4H PRN PRN Pain Score 4-10 7 days #60 tabs 06/12/22 sennosides 8.6 mg-docusate sodium 50 mg tablet (Stool Softener-Stimulant Laxative) 2 tab PO BID 3 days #12 tabs 06/12/22 Hospital Course Operations - (Right knee irrigation debridement with placement of antibiotic spacer) Summary of Care Provided Hospital Course: Patient is a 71-year-old female who has had ongoing pain for the past 6 months after twisting type injury in December 2021. She had previous total knee arthroplasty in 2008 with quadriceps tear in 2019. She was initially treated with direct repair with suture anchors. She had another injury in December 2021 when she was in [place] and had increased pain and inability to extend the knee. Patient was seen by Dr. Enmanuel Munoz in which she had elevated inflammatory markers and aspiration with positive Synovasure. She also was found to have a DVT in the right lower extremity which was treated with Xarelto 20 mg. After failing conservative measures, the patient opted to proceed with a right knee irrigation debridement with placement of antibiotic spacer. The patient underwent the above-stated procedure on June 10, 2022. Patient did receive perioperative antibiotics. Intraoperatively was uneventful. For details please see dictated operative note. The patient was placed in thigh-high teds, bilateral SCDs, remained stable in recovery. Patient was also placed in a knee immobilizer and currently toe-touch weightbearing for the right lower extremity. Patient was admitted to the 3rd floor at [facility]. The patient's pain was managed with the use of IV and p.o. pain medications. Patient participated in physical therapy. Infectious disease currently involved and is on empiric vancomycin and ceftriaxone. PICC line was placed and she will receive antibiotics for 6 weeks postoperatively. Patient does have acute on chronic anemia in which we will follow with lab work and she was placed on ferrous sulfate and folic acid. She has remained asymptomatic and vitals stable. Medicine was appropriate for discharge on postoperative day 2 and patient was orthopedically stable. A wound VAC was also placed on postoperative day #1 due to continued drainage. We will continue with the wound VAC continuous setting 75 mmHg with twice weekly change. She will be followed at the transitional care unit by the wound nurse. Patient was discharged on postoperative day #2 to transitional care unit at [facility]. Patient was given medications stated below. Patient will follow up with [facility] per postop instructions for reassessment. Weight / BMI Weight Weight: 105.687 kg Body Mass Index (BMI) 37.5 ABG / Lab / Microbiology Data Result Diagrams: 06/12/22 05:35 06/12/22 05:35 Laboratory: Laboratory Results - last 24 hr 06/11/22 19:30: Vancomycin Trough 16.5 H 06/12/22 05:35: WBC 8.3, RBC 3.01 L, Hgb 7.8 L, Hct 26.6 L, MCV 88.4, MCH 25.9 L, MCHC 29.3 L, RDW Std Deviation 50.4 H, RDW Coeff of Karina 15.5 H, Plt Count 285, MPV 10.6 06/12/22 05:35: Sodium 141, Potassium 4.5, Chloride 108 H, Carbon Dioxide 30.0, Anion Gap 3 L, BUN 16, Creatinine 0.64, Estim Creat Clear Calc 46.90, Est GFR (MDRD) Af Amer 116, Est GFR (MDRD) Non-Af 96, BUN/Creatinine Ratio 24.9 H, Glucose 96, Calcium 8.3 L Microbiology: Microbiology 06/10/22 12:09 Tissue - Knee Gram Stain - Final 06/10/22 12:09 Tissue - Knee Wound Culture - Preliminary No growth-Final to follow 06/10/22 12:06 Tissue - Knee Gram Stain - Final 06/10/22 11:58 Tissue - Knee Gram Stain - Final 06/10/22 11:58 Tissue - Knee Wound Culture - Preliminary No growth-Final to follow 06/02/22 09:56 Swab (Method) Nasal Screen MRSA/MSSA - Final Meaningful Use Info Meaningful Use Diagnoses (Choose all that apply): None applicable Discharge Plan Admission Admit Date/Time: 06/10/22 05:58 Attending Provider: Enmanuel Munoz Primary Care Provider: Guerda Torrez PAD EXTRACTION TENDER Consulting Providers: James Rojas ; Azam Quezada Discharge Orders/Prescriptions Prescriptions: New ceftriaxone 2 gram recon soln 2 g IV DAILY Qty: 40 0RF Rx Instructions: stop date 07/22/22 dx: knee PJI weekly bmp, cbc, esr, and vanc trough. Fax to [phone] routine picc care with heparin/saline flush per protocol vancomycin 1.5 gram recon soln 1.5 g IV Q12H Qty: 80 0RF Rx Instructions: stop date 07/22/22 dx: knee PJI weekly bmp, cbc, esr, and vanc trough. Fax to [phone] routine picc care with heparin/saline flush per protocol acetaminophen 500 mg Tablet 1,000 mg PO Q8H 30 Days Qty: 180 0RF Rx Instructions: Do not take more than 3000 mg Tylenol in a 24-hour period. ferrous sulfate [FeroSul] 325 mg (65 mg iron) Tablet 325 mg PO QODAY@1200 14 Days Qty: 0 0RF Rx Instructions: Continue 2 weeks postoperatively folic acid 1 mg Tablet 1 mg PO BREAKFAST 14 Days Qty: 14 0RF Rx Instructions: Continue 2 weeks postoperatively oxycodone 5 mg Tablet 5 - 10 mg PO Q4H PRN PRN (Reason: Pain Score 4-10) 7 Days Qty: 60 0RF sennosides-docusate sodium [Stool Softener-Stimulant Laxat] 8.6-50 mg Tablet 2 tab PO BID 3 Days Qty: 12 0RF Rx Instructions: Postoperative anemia secondary to acute blood loss from surgery without any intra operative complications. Continued losartan 50 mg Tablet 50 mg PO DAILY latanoprost 0.005 % Drops 1 drp EACH EYE QPM pramipexole 1.5 mg Tablet 0.75 mg PO QHS Label Comments: TAKE 1 1/2 TAB BEDTIME cholecalciferol (vitamin D3) [Vitamin D3] 25 mcg (1,000 unit) Capsule 25 mcg PO DAILY escitalopram oxalate 10 mg Tablet 10 mg PO DAILY Xarelto 20 mg Tablet 20 mg PO DAILY Label Comments: PT TO STOP 5 DAYS PRIOR-06/04/22 LAST DOSE Rx Instructions: must administer with evening meal Discontinued etodolac 400 mg Tablet 400 mg PO BID Referrals / Follow Up: James Rojas MD [Med Staff - Active Staff] - (per Infectious disease recommendations) Guerda Torrez NP, PAD EXTRACTION TENDER-C [Primary Care Provider] - Mynor Ayers PA-C [Med Staff - [facility] Practice [facility]] - 06/25/22 3:30 pm Disposition Disposition (needs filled in before D/C Order can be placed): Longterm Facility
[2022-06-12] MEDS: Ensure Surgery 237 ML LIQUID PO (07:55)
[2022-06-12] MEDS: Folic Acid 1 MG Tablet PO (07:55)
[2022-06-12] MEDS: 0.9% Saline Lock 10 ML Syringe IV (07:57)
[2022-06-12 10:00] VITALS: RESP 18
[2022-06-12] MEDS: Senna/Docusate Sodium 1 Tablet 2 TABLET PO (10:03)
[2022-06-12] MEDS: Escitalopram Oxalate 10 MG Tablet PO (10:03)
[2022-06-12] MEDS: Losartan Potassium 50 MG Tablet PO (10:03)
[2022-06-12] MEDS: Cholecalciferol (VIT D3) 25 MCG TABLET (1,000 UNITS) PO (10:04)
--- NOTE | 2022-06-12 10:17 | CASEMGMT ---
Social Work SW in to pt room to inform of discharge to TCU this morning. Pt voiced understanding. SW inquired about family that pt would like this worker to inform. Pt declined, stated she has her cell phone and will call her sister to update her on the plan. SW faxed orders to TCU, place copies on pt chart and originals with pt. Dispo: TCU, skilled level of care [facility]
--- NOTE | 2022-06-12 11:14 | PCM.PN.ID ---
Physical Exam Narrative Having stable pain in knee, no fever, no n/v/d. Const alert and no apparent distress Resp normal air movement and clear to auscultation bilaterally Cardio regular rate and regular rhythm GI soft to palpation, non-tender and non-distended Skin no rashes or lesions noted Skin Narrative: R knee wound vac ID ID: Route of nutrition/ use of supplements: [] Nutritional Intake: [] IV Site: [] Mustafa Catheter: [] Assessment & Plan Assessment/Plan (1) Infection of prosthetic knee joint: QUALIFIERS: Encounter type: subsequent encounter Qualified Code(s): T84.59XD - Infection and inflammatory reaction due to other internal joint prosthesis, subsequent encounter; Z96.659 - Presence of unspecified artificial knee joint PLAN: Now s/p R knee spacer placement 06/10/[address] Munoz. Aspiration 03/2022 with neg cx. Surg cx neg so far. On empiric vanc/ceftriaxone. Plan is for 6 weeks iv abx with stop date 07/22/22 and weekly labs, will have micro lab hold cxs for 2 weeks. Unvaccinated for covid, encouraged her to get the vaccine, she will think about it. Will follow
[2022-06-12 11:18] VITALS: BP 111/47; PULSE 84; RESP 18; TEMP 36.8; O2SAT 98
== END 2022-06-12 11:25 | disposition skilled nursing facility (03) | DRG 464 ==
LOC: ACINP 09:04 → MS3 13:29
PROVIDERS: Anesthesiology; Internal Medicine Infectious Disease; Admitting Provider Specialist; PCP Registered Nurse; Referring Provider Specialist; Visit Provider Specialist
PROC: 0SPC0JZ Removal of Synthetic Substitute from Right Knee Joint, Open Approach (ICD-10-PCS; CPT 27488; principal; 2022-06-10 08:35)
DX: T84.53XA Infection and inflammatory reaction due to internal right knee prosthesis, initial encounter (principal); D62 Acute posthemorrhagic anemia; I82.501 Chronic embolism and thrombosis of unspecified deep veins of right lower extremity; T84.091A Other mechanical complication of internal left hip prosthesis, initial encounter; G25.81 Restless legs syndrome; I10 Essential (primary) hypertension; F41.9 Anxiety disorder, unspecified; E87.5 Hyperkalemia; F32.A Depression, unspecified; Z78.0 Asymptomatic menopausal state; Z79.899 Other long term (current) drug therapy
CPT/HCPCS: 36415; 36569; 73560; 80048; 80202; 82040; 82962; 83735; 85025; 85027; 87015; 87070; 87075; 87077; 87081; 87102; 87116; 87205; 87206; 87426; 93005; 94762; 97162; 97166; 97530; 97535; 99251; C1776; J7040; J7050; J7120; A4216; G0463; J0696; J2405; J3260; J3475

== ENCOUNTER 2022-06-12 11:40 | Inpatient (IN) | payer MEDICARE, BC, SELFPAY ==
[2022-06-12 11:44] VITALS: BP 110/56; PULSE 79; RESP 18; TEMP 36.6; O2SAT 90; BMI 39.5
[2022-06-12] MEDS: oxyCODONE 5 MG Tablet PO ×3 (13:13→22:00)
[2022-06-12] MEDS: Acetaminophen 500 MG Tablet 1000 MG PO ×2 (13:14→21:04)
[2022-06-12] MEDS: Ferrous Sulfate 325 MG Tablet PO (13:14)
--- NOTE | 2022-06-12 13:51 | PCM.HP.STD ---
[facility] - General General Date of Admission: 06/12/22 Date of Service: 06/12/22 Chief Complaint: Here for rehab, intravenous antibiotics. [facility] Emelina MASON, is a 71 Female who presents with right prosthetic knee infection, right quadriceps tendon repair, right lower extremity DVT. 06/10/2022 Dr. Munoz performed right knee explant, antibiotic spacer placement, right patellectomy. 06/11/2022 Right knee pain. PT/OT debility. Vancomycin, Ceftriaxone IV right prosthetic knee infection. Hemoglobin 8.3. Xarelto for right lower extremity DVT. 06/11/2022 Dr. Rojas surgical cultures negative to date. Vancomycin, Ceftriaxone IV x 6 weeks, Stop date 07/22/2022. 06/12/2022 PICC line right upper extremity. Hemoglobin 7.8. Patient had IVC filter 06/09/[address] Frazier. 06/12/2022 Admit to TCU with debility, here for rehabilitation, strengthening, intravenous antibiotics, prior to discharge home alone. [facility] Medical History Anemia Arthritis Cancer Chronic cough DVT (deep venous thrombosis) History of edema History of pain when walking History of stress test Hx of vaginal delivery Hypertension Open wound Post-menopausal Restless legs Shortness of breath on exertion Walker as ambulation aid Wears glasses Home Medications cholecalciferol (vitamin D3) 25 mcg (1,000 unit) capsule (Vitamin D3) 25 mcg PO DAILY SUPPLEMENT 05/27/22 [History Last Taken Unknown] escitalopram oxalate 10 mg tablet 10 mg PO DAILY DEPRESSION 05/27/22 [History Last Taken Unknown] latanoprost 0.005 % eye drops 1 drp EACH EYE QPM GLAUCOMA 05/27/22 [History Last Taken Unknown] losartan 50 mg tablet 50 mg PO DAILY BP 05/27/22 [History Last Taken 06/10/22] pramipexole 1.5 mg tablet 0.75 mg PO QHS RESTLESS LEG 05/27/22 [History Last Taken Unknown] rivaroxaban 20 mg tablet (Xarelto) 20 mg PO DAILY DVT 05/27/22 [History Last Taken 06/04/22] acetaminophen 500 mg tablet 1,000 mg PO Q8H pain 06/12/22 [History Last Taken 06/12/22 06:04] ceftriaxone 2 gram intravenous solution 2 g IV DAILY Antibiotic 06/12/22 [History Last Taken Unknown] ferrous sulfate 325 mg (65 mg iron) tablet (FeroSul) 325 mg PO QODAY@1200 Supplement 06/12/22 [History Last Taken Unknown] folic acid 1 mg tablet 1 mg PO BREAKFAST Supplement 06/12/22 [History Last Taken Unknown] oxycodone 5 mg tablet 5 - 10 mg PO Q4H PRN PRN Pain Score 4-10 7 days #60 tabs 06/12/22 [Rx Last Taken Unknown] sennosides 8.6 mg-docusate sodium 50 mg tablet (Stool Softener-Stimulant Laxative) 2 tab PO BID Constipation 06/12/22 [History Last Taken Unknown] vancomycin 1.5 gram intravenous solution 1.5 g IV Q12H Antibiotic 06/12/22 [History Last Taken Unknown] Allergy/AdvReac Type Severity Reaction Status Date / Time No Known Allergies Allergy Verified 06/10/22 07:03 Surgical History History of facelift Hx of appendectomy Hx of colonoscopy Hx of hernia repair Hx of hysterectomy Hx of knee surgery Hx of surgical procedure Hx of tonsillectomy Hx of total knee replacement Social History (Updated 06/12/22 @ 13:[address] Jerrell Caldera MD) household members: none Smoking Status: Never smoker alcohol intake: current alcohol intake frequency: holidays/special occasions only substance use type: does not use ROS Constitutional Constitutional: Denies chills, fever(s) or weight gain ENT HEENT: Denies headache(s), nasal congestion or nasal discharge Cardiovascular Cardiovascular: Denies chest pain or palpitations Respiratory/Chest Respiratory/Chest: Denies cough, excessive phlegm production or shortness of breath with exertion Gastrointestinal Gastrointestinal: Denies abdominal pain, nausea or vomiting Genitourinary Genitourinary: Denies dysuria Musculoskeletal Musculoskeletal: Denies joint pain or joint swelling Integumentary Integumentary: Denies rash or wounds Neurologic Neurologic: Denies focal weakness, numbness or tingling Psychiatric Psychiatric: Denies anxiety, auditory hallucinations, depression, homicidal ideation or suicidal ideation Vital Signs Vital Signs Vital Signs: 06/12/22 11:44 Temperature 97.9 F Temperature Source Temporal Pulse Rate 79 Respiratory Rate 18 Blood Pressure 110/56 L Blood Pressure Mean 74 Blood Pressure Source Monitor Blood Pressure Position Semi-Fowlers Blood Pressure Location Left Arm Pulse Ox 90 Oxygen Delivery Method Room Air Weight Weight: 111.175 kg Body Mass Index (BMI) 39.5 Physical Exam Const alert General Appearance: cooperative HEENT normocephalic Eyes PERRL and EOMs intact bilaterally Neck supple, no JVD and no carotid bruits Resp normal respiratory effort, normal air movement and clear to auscultation bilaterally Cardio regular rate and regular rhythm GI normal to inspection, nondistended, normoactive bowel sounds, non-tender and non-distended Extremity normal capillary refill Extremity Narrative: Right upper extremity PICC line. Right knee VAC dressing. General Extremity: Negative for edema Skin no rashes or lesions noted General Skin Exam: no breakdown Psych affect normal Appearance: appropriate Assessment & Plan Assessment/Plan (1) Debility: (2) Infection of prosthetic knee joint: QUALIFIERS: Encounter type: subsequent encounter Qualified Code(s): T84.59XD - Infection and inflammatory reaction due to other internal joint prosthesis, subsequent encounter; Z96.659 - Presence of unspecified artificial knee joint (3) Acute blood loss anemia: (4) Hyperkalemia: (5) DVT (deep venous thrombosis): QUALIFIERS: Affected thrombotic vein of extremity: unspecified vein of extremity Chronicity: chronic DVT location: lower extremity Laterality: unspecified laterality Qualified Code(s): I82.509 - Chronic embolism and thrombosis of unspecified deep veins of unspecified lower extremity (6) Hypertension: (7) History of colon cancer: (8) Quadriceps tendon rupture: (9) Glaucoma: PLAN: Plan 71 year old female with below past medical history hospitalized right prosthetic knee infection, right quadriceps tendon tear, underwent right knee explant, antibiotic spacer placement, right patellectomy 06/10/[address] Munoz, admitted to TCU with debility, here for rehabilitation, strengthening, intravenous antibiotics, prior to discharge home alone. Debility - PT/OT. Pain - Tylenol 1000mg q8h, Oxycodone 5-10mg q4h prn. Bowel - senna/colace 2 tablets bid, Dulcolax 10mg daily prn. Adult immunization - Administer pneumonia vaccine, covid19 vaccine, flu vaccine. DVT prophylaxis - Already on Xarelto. Right prosthetic knee infection - Ceftriaxone 2gm iv q24, Vancomycin 1500mg iv q12 thru 07/22/2022, consult Dr. Rojas to follow as needed. Depression - Lexapro 10mg daily. stable chronic custodial use, GDR not recommended. Iron deficiency anemia - Ferrous sulfate 325mg every other day thru 06/24/2022. Folate deficiency - Folic acid 1mg daily thru 06/25/2022. Glaucoma - Latanoprost 0.005% 1gtt ou qhs. Hypertension - Losartan 50mg daily. Restless Leg syndrome - Mirapex 0.75mg qhs. Right lower extremity DVT - Xarelto 20mg daily. Vitamin D deficiency - D3 25mcg daily.
[2022-06-12] MEDS: Senna/Docusate Sodium 1 Tablet 2 TABLET PO (17:30)
[2022-06-12] MEDS: Rivaroxaban 20 MG Tablet PO (17:30)
[2022-06-12] MEDS: 0.9% Saline Lock 10 ML Syringe IV (21:04)
[2022-06-12] MEDS: Pramipexole Di-HCl 0.25 MG Tablet 0.75 MG PO (21:04)
[2022-06-13] MEDS: Escitalopram Oxalate 10 MG Tablet PO (06:45)
[2022-06-13] MEDS: Acetaminophen 500 MG Tablet 1000 MG PO ×3 (06:45→21:58)
[2022-06-13] MEDS: Cholecalciferol (VIT D3) 25 MCG TABLET (1,000 UNITS) PO (06:45)
[2022-06-13] MEDS: Losartan Potassium 50 MG Tablet PO (06:45)
[2022-06-13] MEDS: oxyCODONE 5 MG Tablet PO ×3 (06:49→20:04)
[2022-06-13 08:03] LABS: Absolute Lymphocyte Count 1.23 X10^3/uL (0.83-4.51); Absolute Neutrophil Count 5.4 X10^3/uL (2.0-7.7); Basophil# 0.06 X10^3/uL; Basophil% 0.8 % (0-1); Eosinophil# 0.62 X10^3/uL; Eosinophils% 8.1 % (0-5); Hematocrit 28.6 % (37-47); Hemoglobin 8.7 g/dL (12.0-15.0); Lymphocyte # 1.23 X10^3/ul (0.83-4.51); Mean Corp Hgb Conc 30.4 g/dL (32-36); Mean Corpuscular Hgb 26.6 pg (27.0-32.0); Mean Corpuscular Volume 87.5 fL (81-99); Mean Platelet Vol. 10.4 fl (6.2-12.0); Monocyte# 0.31 X10^3/uL; NRBC Flagged by Analyzer 0 % (0-5); Neutrophil # 5.41 X10^3/uL (2.7-7.7); Neutrophil % 70.6 % (47-70); Platelet Count 317 K/mm3 (150-450); RBC Distribution Width CV 15.8 % (11.6-14.6); RBC Distribution Width SD 50.1 fl (35.1-43.9); Red Blood Count 3.27 M/mm3 (4.2-5.4); White Blood Count 7.7 K/mm3 (4.4-11.0)
[2022-06-13 08:18] LABS: Anion Gap 7 (5-15); BUN 14 mg/dL (7-18); BUN/Creat Ratio 22.8 RATIO (10-20); Calcium,Total 8.6 mg/dL (8.5-10.1); Chloride 103 mmol/L (98-107); Creatinine, Serum 0.62 mg/dL (0.55-1.02); EST Glomerular Filtration Rate 101 mL/min (>60); Est Glom Filt Rate - Afr Amer 122 mL/min (>60); Glucose 102 mg/dL (74-106); Sodium Level 139 mmol/L (136-145)
[2022-06-13 08:25] LABS: Vancomycin, Trough Level 21.5 ug/mL (5.0-15.0)
--- NOTE | 2022-06-13 08:30 | PCM.RX.CS ---
Consult Pharmacy has been consulted to manage selected antiobiotic: Vancomycin Type of Consult: Follow-up Prior Doses of Antibiotics Received/Current Regimen: Medications Vancomycin HCl 1,500 mg/ (Sodium Chloride) 530 mls @ 250 mls/hr IV Q12H BRITTANY Last Admin: 06/12/22 23:12 Dose: Infused Labs: Sodium 139 mmol/L (136-145) 06/13/22 07:30 Potassium 4.0 mmol/L (3.5-5.1) 06/13/22 07:30 Chloride 103 mmol/L (98-107) 06/13/22 07:30 Carbon Dioxide 29.0 mmol/L (21.0-32.0) 06/13/22 07:30 Anion Gap 7 (5-15) 06/13/22 07:30 BUN 14 mg/dL (7-18) 06/13/22 07:30 Creatinine 0.62 mg/dL (0.55-1.02) 06/13/22 07:30 Est GFR (MDRD) Af Amer 122 mL/min (>60) 06/13/22 07:30 Est GFR (MDRD) Non-Af 101 mL/min (>60) 06/13/22 07:30 BUN/Creatinine Ratio 22.8 RATIO (10-20) H 06/13/22 07:30 Glucose 102 mg/dL (74-106) 06/13/22 07:30 Vancomycin Trough 21.5 ug/mL (5.0-15.0) H 06/13/22 07:30 Goal Trough: 15-20 mcg/mL Pharmacy Plan for Drug Dosing: Trough above goal. Was not a true trough but will adjust to 1250mg IV q12h and recheck prior to 4th dose. Pharmacy Service will continue to monitor and adjust dosing as required. Follow-Up Labs: Trough Vancomycin - 06/14 @ 2130
[2022-06-13] MEDS: 0.9% Saline Lock 10 ML Syringe IV ×2 (09:07→21:58)
[2022-06-13] MEDS: Folic Acid 1 MG Tablet PO (09:08)
[2022-06-13 10:00] VITALS: PULSE 85; RESP 18; O2SAT 93
[2022-06-13 10:17] LABS: Erythrocyte Sedimentation Rate 34 mm/hr (0-30)
[2022-06-13] MEDS: Tuberculin,Purif.prot.deriv. 50 TU/ML Vial 0.1 ML ID (11:25)
[2022-06-13 14:58] VITALS: BP 105/48; PULSE 85; RESP 16; TEMP 3.1; TEMP 37.6; O2SAT 93
[2022-06-13] MEDS: Senna/Docusate Sodium 1 Tablet 2 TABLET PO (17:33)
[2022-06-13] MEDS: Rivaroxaban 20 MG Tablet PO (17:33)
[2022-06-13] MEDS: Ensure Plus High Protein 120 ML LIQUID PO (17:47)
--- NOTE | 2022-06-13 18:40 | NURSING ---
Reviewed code status with pt and explained differences. Patient elected to be DNRCC-A no intubation.
[2022-06-13] MEDS: Pramipexole Di-HCl 0.25 MG Tablet 0.75 MG PO (21:58)
[2022-06-13] MEDS: Latanoprost 0.005% 1 Bottle 1 DRP EACH EYE (22:11)
[2022-06-14] MEDS: oxyCODONE 5 MG Tablet PO ×5 (00:14→19:55)
[2022-06-14] MEDS: 0.9% Saline Lock 10 ML Syringe IV ×3 (00:32→22:34)
[2022-06-14] MEDS: Escitalopram Oxalate 10 MG Tablet PO (05:22)
[2022-06-14] MEDS: Acetaminophen 500 MG Tablet 1000 MG PO ×3 (05:22→22:39)
[2022-06-14] MEDS: Losartan Potassium 50 MG Tablet PO (05:22)
[2022-06-14] MEDS: Cholecalciferol (VIT D3) 25 MCG TABLET (1,000 UNITS) PO (05:22)
[2022-06-14 06:52] VITALS: BP 127/54; PULSE 71; RESP 18
[2022-06-14] MEDS: Ensure Plus High Protein 120 ML LIQUID PO ×3 (07:45→16:59)
[2022-06-14] MEDS: Folic Acid 1 MG Tablet PO (07:46)
[2022-06-14] MEDS: Ferrous Sulfate 325 MG Tablet PO (11:40)
[2022-06-14 16:00] VITALS: BP 146/43; PULSE 77; RESP 16; TEMP 35.6; O2SAT 91
[2022-06-14] MEDS: Senna/Docusate Sodium 1 Tablet 2 TABLET PO (16:59)
[2022-06-14] MEDS: Rivaroxaban 20 MG Tablet PO (16:59)
[2022-06-14 20:12] VITALS: PULSE 81; RESP 16; O2SAT 98
[2022-06-14 21:48] LABS: Vancomycin, Trough Level 17.5 ug/mL (5.0-15.0)
--- NOTE | 2022-06-14 22:09 | MDS.RN ---
Addendum entered by Tisha Moreno 06/14/22 23:51: next vanc trough scheduled 06/26/22 @21:30 Original Note: Contacted pharmacist (Azam) regarding vanc trough result, per pharmacist continue vanc as ordered, ok to administer at this time.
--- NOTE | 2022-06-14 22:11 | PCM.RX.CS ---
Consult Pharmacy has been consulted to manage selected antiobiotic: Vancomycin Type of Consult: Follow-up Prior Doses of Antibiotics Received/Current Regimen: Medications Vancomycin HCl 1,250 mg/ (Sodium Chloride) 275 mls @ 167 mls/hr IV Q12H BRITTANY Stop: 07/22/22 23:39 Last Admin: 06/14/22 12:32 Dose: Infused Labs: Sodium 139 mmol/L (136-145) 06/13/22 07:30 Potassium 4.0 mmol/L (3.5-5.1) 06/13/22 07:30 Chloride 103 mmol/L (98-107) 06/13/22 07:30 Carbon Dioxide 29.0 mmol/L (21.0-32.0) 06/13/22 07:30 Anion Gap 7 (5-15) 06/13/22 07:30 BUN 14 mg/dL (7-18) 06/13/22 07:30 Creatinine 0.62 mg/dL (0.55-1.02) 06/13/22 07:30 Est GFR (MDRD) Af Amer 122 mL/min (>60) 06/13/22 07:30 Est GFR (MDRD) Non-Af 101 mL/min (>60) 06/13/22 07:30 BUN/Creatinine Ratio 22.8 RATIO (10-20) H 06/13/22 07:30 Glucose 102 mg/dL (74-106) 06/13/22 07:30 Vancomycin Trough 17.5 ug/mL (5.0-15.0) H 06/14/22 21:07 Weight used for dosin kg Goal Trough: 15-20 mcg/mL Pharmacy Plan for Drug Dosing: Vancomycin trough level was 17.5, within target range of 15-20. Will continue dosing at 1250mg q12h, and re-draw a trough in two days. Pharmacy Service will continue to monitor and adjust dosing as required. Follow-Up Labs: Trough Vancomycin Labs to be done on [date and time ordered]: 06/16/22 @7231
[2022-06-14] MEDS: Latanoprost 0.005% 1 Bottle 1 DRP EACH EYE (22:37)
[2022-06-14] MEDS: Pramipexole Di-HCl 0.25 MG Tablet 0.75 MG PO (22:39)
[2022-06-15] MEDS: oxyCODONE 5 MG Tablet PO ×4 (01:07→17:01)
[2022-06-15] MEDS: Escitalopram Oxalate 10 MG Tablet PO (04:43)
[2022-06-15] MEDS: Senna/Docusate Sodium 1 Tablet 2 TABLET PO ×2 (04:43→16:59)
[2022-06-15] MEDS: Acetaminophen 500 MG Tablet 1000 MG PO ×3 (04:43→21:08)
[2022-06-15] MEDS: Losartan Potassium 50 MG Tablet PO (04:44)
[2022-06-15] MEDS: Cholecalciferol (VIT D3) 25 MCG TABLET (1,000 UNITS) PO (04:44)
[2022-06-15 04:45] VITALS: BP 149/69; PULSE 83
[2022-06-15] MEDS: Ensure Plus High Protein 120 ML LIQUID PO ×4 (08:04→21:06)
[2022-06-15] MEDS: Folic Acid 1 MG Tablet PO (08:04)
[2022-06-15] MEDS: 0.9% Saline Lock 10 ML Syringe IV (09:14)
[2022-06-15 09:31] VITALS: PULSE 90; RESP 18; O2SAT 95
[2022-06-15 15:56] VITALS: BP 117/79; PULSE 58; RESP 18; TEMP 35.7; O2SAT 90
[2022-06-15] MEDS: Rivaroxaban 20 MG Tablet PO (16:58)
[2022-06-15] MEDS: Pramipexole Di-HCl 0.25 MG Tablet 0.75 MG PO (21:08)
[2022-06-15] MEDS: Latanoprost 0.005% 1 Bottle 1 DRP EACH EYE (21:09)
[2022-06-16] MEDS: oxyCODONE 5 MG Tablet PO ×5 (01:12→21:50)
[2022-06-16] MEDS: Senna/Docusate Sodium 1 Tablet 2 TABLET PO ×2 (04:43→17:31)
[2022-06-16] MEDS: Escitalopram Oxalate 10 MG Tablet PO (04:43)
[2022-06-16] MEDS: Acetaminophen 500 MG Tablet 1000 MG PO ×3 (04:43→21:55)
[2022-06-16] MEDS: Cholecalciferol (VIT D3) 25 MCG TABLET (1,000 UNITS) PO (04:43)
[2022-06-16] MEDS: Ensure Plus High Protein 120 ML LIQUID PO ×4 (04:44→21:51)
[2022-06-16] MEDS: Losartan Potassium 50 MG Tablet PO (04:47)
[2022-06-16] MEDS: Folic Acid 1 MG Tablet PO (08:21)
--- NOTE | 2022-06-16 09:33 | PCM.PN.DRR ---
TCU RX Drug Regimen Review Subjective: TCU Admission. 71 YOF hospitalized with right prosthetic knee infection, right quadriceps tendon tear and RLE DVT. Started on vancomycin and ceftriaxone for right prosthetic knee infection. Underwent right knee explant, antibiotic spacer placement, right patellectomy 06/10/[address] Munoz. Admitted to TCU with debility for strengthening and rehabilitation. Objective: Allergies No Known Allergies Allergy (Verified 06/10/22 07:03) Current Medications Generic Name Dose Route Start Last Admin Trade Name Freq PRN Reason Stop Dose Admin Acetaminophen 1,000 mg 06/12/22 14:00 06/16/22 04:43 Acetaminophen 500 Mg Tablet PO 1,000 mg Q8H BRITTANY Administration Bisacodyl 10 mg 06/12/22 14:13 Bisacodyl 5 Mg Tablet PO DAILY PRN Constipation Cholecalciferol 25 mcg 06/13/22 06:00 06/16/22 04:43 Cholecalciferol (Vit D3) 25 Mcg Tablet (1,000 Units) PO 25 mcg DAILY BRITTANY Administration Escitalopram Oxalate 10 mg 06/13/22 06:00 06/16/22 04:43 Escitalopram Oxalate 10 Mg Tablet PO 10 mg DAILY BRITTANY Administration Ferrous Sulfate 325 mg 06/12/22 13:00 06/14/22 11:40 Ferrous Sulfate 325 Mg Tablet PO 06/24/22 12:01 325 mg QODAY@1200 BRITTANY Administration Folic Acid 1 mg 06/13/22 08:00 06/16/22 08:21 Folic Acid 1 Mg Tablet PO 06/25/22 08:01 1 mg BREAKFAST BRITTANY Administration Heparin Sodium (Beef Lung) 50 units 06/12/22 12:14 Heparin Pf Lock 10 Units/Ml 50 Units/5 Ml Syringe IV UD PRN PICC Line Heparin Flush Ceftriaxone Sodium 2 gm/ 50 mls @ 100 mls/hr 06/13/22 10:00 06/15/22 10:15 Sodium Chloride IV 07/22/22 10:01 Infused Q24 BRITTANY Infusion Vancomycin IV-PHARMACY TO DOSE 500 mls @ 250 mls/hr 06/12/22 12:54 1 each/ Sodium Chloride IV X1 PRN Rx to Dose Protocol Sodium Chloride 250 mls @ 15 mls/hr 06/13/22 02:41 06/14/22 09:09 IV 15 mls/hr .[id number] PRN Administration Saline Flush Vancomycin HCl 1,250 mg/ 275 mls @ 167 mls/hr 06/13/22 10:00 06/15/22 23:00 Sodium Chloride IV 07/22/22 23:39 Infused Q12H BRITTANY Infusion Latanoprost 1 drp 06/12/22 22:00 06/15/22 21:09 Latanoprost 0.005% 1 Bottle EACH EYE 1 drp QHS BRITTANY Administration Losartan Potassium 50 mg 06/13/22 06:00 06/16/22 04:47 Losartan Potassium 50 Mg Tablet PO 50 mg DAILY BRITTANY Administration Nutritional Formula (Lactose Free) 120 ml 06/15/22 17:00 06/16/22 04:44 Ensure Plus High Protein 120 Ml Liquid PO 120 ml 4X/DAY BRITTANY Administration Oxycodone HCl 5 - 10 mg 06/12/22 12:15 06/16/22 04:56 Oxycodone 5 Mg Tablet PO 10 mg Q4H PRN PRN Administration Pain Score 4-10 Pramipexole Dihydrochloride 0.75 mg 06/12/22 22:00 06/15/22 21:08 Pramipexole Di-Hcl 0.25 Mg Tablet PO 0.75 mg QHS BRITTANY Administration Rivaroxaban 20 mg 06/12/22 17:00 06/15/22 16:58 Rivaroxaban 20 Mg Tablet PO 20 mg DINNER BRITTANY Administration Senna/Docusate Sodium 2 tablet 06/12/22 18:00 06/16/22 04:43 Senna/Docusate Sodium 1 Tablet PO 2 tablet BID BRITTANY Administration Sodium Chloride 10 - 40 ml 06/12/22 12:14 06/15/22 09:14 0.9% Saline Lock 10 Ml Syringe IV 20 ml UD PRN Administration Open End PICC Flush Sodium Chloride 10 - 40 ml 06/12/22 12:14 0.9 % Nacl (Sterile) Posiflush 10 Ml IV UD PRN Port access or dressing change Tuberculin PPD 0.1 ml 06/20/22 10:00 Tuberculin,Purif.Prot.Deriv. 50 Tu/Ml Vial ID 06/20/22 10:01 X1 ONE Problem List (Last Reviewed 06/12/22 @ 13:[address] Jerrell Caldera MD) Glaucoma (Acute) Quadriceps tendon rupture (Acute) History of colon cancer (Acute) Hypertension (Chronic) Debility (Acute) DVT (deep venous thrombosis) (Acute) Hyperkalemia (Acute) Acute blood loss anemia (Acute) Infection of prosthetic knee joint (Acute) Vital Signs Temp Pulse Resp BP Pulse Ox O2 Del Method 96.3 F L 58 L 18 117/79 90 Room Air 06/15/22 15:56 06/15/22 15:56 06/15/22 15:56 06/15/22 15:56 06/15/22 15:56 06/15/22 15:56 Oxygen Delivery Method Room Air Weight: 111.175 kg Body Mass Index (BMI) 39.5 Sodium 139 mmol/L (136-145) 06/13/22 07:30 Potassium 4.0 mmol/L (3.5-5.1) 06/13/22 07:30 Chloride 103 mmol/L (98-107) 06/13/22 07:30 Carbon Dioxide 29.0 mmol/L (21.0-32.0) 06/13/22 07:30 Anion Gap 7 (5-15) 06/13/22 07:30 BUN 14 mg/dL (7-18) 06/13/22 07:30 Creatinine 0.62 mg/dL (0.55-1.02) 06/13/22 07:30 Est GFR (MDRD) Af Amer 122 mL/min (>60) 06/13/22 07:30 Est GFR (MDRD) Non-Af 101 mL/min (>60) 06/13/22 07:30 BUN/Creatinine Ratio 22.8 RATIO (10-20) H 06/13/22 07:30 Glucose 102 mg/dL (74-106) 06/13/22 07:30 Vancomycin Trough 17.5 ug/mL (5.0-15.0) H 06/14/22 21:07 Assessment/Plan: 1. Pain: acetaminophen 1000mg PO Q8 and oxycodone 5-10mg PO Q4H PRN pain 4-10. Resident has received 17 doses of oxycodone for pain scores of 5-10 in the knee/thigh. Please continue to monitor for increased pain, PRN usage, constipation, and respiratory depression. Resident has not had a documented bowel movement yet. 2. Bowel: senna/docusate 2T PO BID and bisacodyl 10mg PO daily PRN constipation. Please continue to monitor for constipation and PRN usage. No documented bowel movement or doses of bisacodyl. 3. Right prosthetic knee infection: ceftriaxone 2gm IV Q24 thru 07/22/22 and vancomycin IV pharmacy to dose thru 07/22/22. Please continue to monitor renal function, diarrhea and S/S of infection. 4. Iron deficiency anemia: ferrous sulfate 325mg PO every other day thru 06/24/22. Please continue to monitor hemoglobin (last 8.7g/dL), dark stools and constipation. 5. Right lower extremity DVT: rivaroxaban 20mg PO DINNER. Please continue to monitor for S/S of bleeding/DVT and hemoglobin (last 8.7g/dL). 6. Hypertension: losartan 50mg PO daily. Please continue to monitor BP (last 117/79) and renal function. 7. Restless leg syndrome: pramipexole 0.75mg PO QHS. Please continue to monitor for S/S of restless legs. 8. Glaucoma: latanoprost 0.005% 1gtt OU QHS. Please continue to monitor for dry eyes and S/S of glaucoma. 9. Folate and vitamin D deficiency: folic acid 1mg PO daily thru 06/25/22 and cholecalciferol 25mcg PO daily. Please consider ordering a vitamin D level now and then annually if clinically appropriate. Resident does not have one in the chart. Thanks. Assessment/Plan for indications treated with psychotropic medications: 1. Depression: escitalopram 10mg PO daily. Please see physician note regarding GDR. Please continue to monitor for S/S of depression and suicide (black box warning). This medication is on the BEERs list for falls/fractures. Please continue to monitor. Medical chart and medication regimen reviewed. The following medication irregularities or issues were identified: *1. Cholecalciferol 25mcg PO daily. Please consider ordering a vitamin D level now and then annually if clinically appropriate. Resident does not have one in the chart. Thanks. Date of Note:: 06/16/22
[2022-06-16] MEDS: 0.9% Saline Lock 10 ML Syringe IV ×2 (09:50→23:16)
[2022-06-16] MEDS: Ferrous Sulfate 325 MG Tablet PO (11:38)
--- NOTE | 2022-06-16 12:03 | WOUNDNOTE ---
wound photo: right knee
[2022-06-16 16:00] VITALS: BP 112/54; PULSE 79; RESP 18; TEMP 36.3; O2SAT 95
[2022-06-16] MEDS: Rivaroxaban 20 MG Tablet PO (17:32)
[2022-06-16] MEDS: Latanoprost 0.005% 1 Bottle 1 DRP EACH EYE (21:53)
[2022-06-16] MEDS: Pramipexole Di-HCl 0.25 MG Tablet 0.75 MG PO (21:54)
[2022-06-16 22:00] VITALS: PULSE 80; RESP 16; O2SAT 94
[2022-06-16 22:47] LABS: Creatinine, Serum 0.91 mg/dL (0.55-1.02); EST Glomerular Filtration Rate 64 mL/min (>60); Est Glom Filt Rate - Afr Amer 78 mL/min (>60); Estimated Creatinine Clearance 51.54 ml/min
[2022-06-16 22:49] LABS: Vancomycin, Trough Level 17.8 ug/mL (5.0-15.0)
--- NOTE | 2022-06-16 23:15 | NURSING ---
PICC line right arm flushes with some difficulty, no blood return. Vanco trough drawn, within limits. Per pharmacy, to continue current orders.
--- NOTE | 2022-06-16 23:15 | PCM.RX.CS ---
Consult Pharmacy has been consulted to manage selected antiobiotic: Vancomycin Type of Consult: Follow-up Prior Doses of Antibiotics Received/Current Regimen: Medications Vancomycin HCl 1,250 mg/ (Sodium Chloride) 275 mls @ 167 mls/hr IV Q12H BRITTANY Stop: 07/22/22 23:39 Last Admin: 06/16/22 12:52 Dose: Infused Labs: Sodium 139 mmol/L (136-145) 06/13/22 07:30 Potassium 4.0 mmol/L (3.5-5.1) 06/13/22 07:30 Chloride 103 mmol/L (98-107) 06/13/22 07:30 Carbon Dioxide 29.0 mmol/L (21.0-32.0) 06/13/22 07:30 Anion Gap 7 (5-15) 06/13/22 07:30 BUN 14 mg/dL (7-18) 06/13/22 07:30 Creatinine 0.91 mg/dL (0.55-1.02) 06/16/22 21:29 Est GFR (MDRD) Af Amer 78 mL/min (>60) 06/16/22 21:29 Est GFR (MDRD) Non-Af 64 mL/min (>60) 06/16/22 21:29 BUN/Creatinine Ratio 22.8 RATIO (10-20) H 06/13/22 07:30 Glucose 102 mg/dL (74-106) 06/13/22 07:30 Vancomycin Trough 17.8 ug/mL (5.0-15.0) H 06/16/22 21:29 Weight used for dosin kg Goal Trough: 15-20 mcg/mL Pharmacy Plan for Drug Dosing: Vancomycin trough level of 17.8 was within target range of 15-20. Will continue dosing at 1250mg q12h, and re-draw a trough level in 4 days. Pharmacy Service will continue to monitor and adjust dosing as required. Follow-Up Labs: Trough Vancomycin Labs to be done on [date and time ordered]: 06/20/22 @2309
[2022-06-17] MEDS: oxyCODONE 5 MG Tablet PO ×3 (04:13→14:17)
[2022-06-17] MEDS: Losartan Potassium 50 MG Tablet PO (05:47)
[2022-06-17] MEDS: Escitalopram Oxalate 10 MG Tablet PO (05:47)
[2022-06-17] MEDS: Cholecalciferol (VIT D3) 25 MCG TABLET (1,000 UNITS) PO (05:47)
[2022-06-17] MEDS: Acetaminophen 500 MG Tablet 1000 MG PO ×3 (05:48→21:12)
[2022-06-17] MEDS: Ensure Plus High Protein 120 ML LIQUID PO ×2 (05:48→12:50)
[2022-06-17] MEDS: Senna/Docusate Sodium 1 Tablet 2 TABLET PO ×2 (05:48→17:41)
[2022-06-17] MEDS: Folic Acid 1 MG Tablet PO (09:45)
[2022-06-17] MEDS: 0.9% Saline Lock 10 ML Syringe IV (09:48)
--- NOTE | 2022-06-17 11:30 | CASEMGMT ---
Social Work Met with patient to complete initial assessment. Introduced self and role. Verified/updated contacts. Discussed code status and MOLST form. Pt confirms DNR-CCA, no intubation. MOLST completed, placed in Dr folder. Educated to Medicare benefit; benefit period; confirmed pt has no part B benefit, thus no outpatient therapy/ HHC/ DME coverage; 60 consecutive day break in service for new 100 day benefit period; encouraged to contact secondary insurance to ensure copay coverage, specifically if pt needs to return for rehab after knee replacement surgery. Pt expressed understanding. [place] permanently resides in [place], where dtr lives as well - moved there in 2018. Pt began having medical issues in February 2022 and temporarily moved in with sister and SUSAN in [place], [place], Pts plan is to remain living with sister until after right knee replacement and recovery is completed. Pt is aware she will remain TTWB for next 6-8 weeks; goal is to remain in TCU through end of IV ATB 10/12. Encouraged to build ramp to enter sister's home as pt will most likely be TTWB at time of DC prior to surgery. Pt expressed understanding. See SW assessment for further details on mental health history. SW to continue to follow for DC planning and support. Treva Cordoba, HEAVY EQUIPMENT SALES ASSOCIATE NATIONAL EXPANSION RECRUITER
--- NOTE | 2022-06-17 13:10 | CASEMGMT ---
Social Work IDT met with patient, sister and SUSAN for care plan meeting. Discussed patient's progress in PT/OT/SN. Educated to Medicare benefit. Encouraged to contact secondary insurance to ensure copay coverage. Reiterated the 100 day Medicare benefit, no part B coverage, and needing a break in service before restarting Medicare benefit. Pt plans on getting knee replacement in about 8-10 weeks and returning for rehab to use remaining Medicare days. Pt/sister expressed understanding. SW reiterated the offer for ongoing supportive visits. Pt is on IV ATB through 07/22 and TTWB. Pt will return to living with sister. IDT recommending ramp to enter house and pt will be TTWB at time of DC. Provided SUSAN with resources on ramps. SW to continue to follow for discharge planning and support. Treva Cordoba, NOTCHER FOOD SERVICE SALES REPRESENTATIVES
[2022-06-17 14:16] VITALS: BP 128/67
[2022-06-17 16:00] VITALS: BP 116/42; PULSE 72; RESP 17; TEMP 35.7; O2SAT 91
[2022-06-17] MEDS: Rivaroxaban 20 MG Tablet PO (17:41)
[2022-06-17] MEDS: Pramipexole Di-HCl 0.25 MG Tablet 0.75 MG PO (21:12)
[2022-06-17] MEDS: Latanoprost 0.005% 1 Bottle 1 DRP EACH EYE (21:12)
[2022-06-18] MEDS: 0.9% Saline Lock 10 ML Syringe IV ×2 (00:39→10:26)
[2022-06-18] MEDS: oxyCODONE 5 MG Tablet PO ×4 (02:09→21:00)
[2022-06-18] MEDS: Cholecalciferol (VIT D3) 25 MCG TABLET (1,000 UNITS) PO (05:50)
[2022-06-18] MEDS: Escitalopram Oxalate 10 MG Tablet PO (05:50)
[2022-06-18] MEDS: Losartan Potassium 50 MG Tablet PO (05:50)
[2022-06-18] MEDS: Senna/Docusate Sodium 1 Tablet 2 TABLET PO (05:50)
[2022-06-18] MEDS: Acetaminophen 500 MG Tablet 1000 MG PO ×3 (05:51→21:01)
[2022-06-18 07:53] VITALS: BP 153/70; PULSE 87
[2022-06-18] MEDS: Folic Acid 1 MG Tablet PO (08:47)
[2022-06-18] MEDS: Ferrous Sulfate 325 MG Tablet PO (11:56)
--- NOTE | 2022-06-18 12:11 | MDS.RN ---
Pain interview for REFUGIO 06/18/22 completed.
[2022-06-18 15:02] VITALS: BP 111/56; PULSE 79; RESP 16; TEMP 36.2; O2SAT 98
--- NOTE | 2022-06-18 15:32 | CHAPLAIN ---
Type of Pastoral Visit _x__ Initial Visit ___ Follow-up Visit ___ On-call Visit ___ General Patient Visit ___ Spiritual Assessment ___ Family Conference ___ Bereavement ___ Rapid Response ___ Code Blue ___ Other (describe below) Pastoral Care Referral From ___ Patient ___ Family ___ Nurse ___ Physician _x__ Animal Groomer ___ Prescription Clerk Lenses ___ Other (describe below) Sacrament/Intervention _x__ Active listening ___ Anointing ___ Scientologist ___ Bereavement ___ Communion ___ Flavia exploration ___ _x__ Life review _x__ Prayer ___ Reconciliation ___ Sacrament of Sick _x__ Supportive presence ___ Wedding ___ Other (describe below) Pastoral Comments patient was referred by SW for spiritual care support; pt welcomed this surface miner; pt speaks of her health issues and coming to [place] for different doctors and to stay with her sister; SW had identified spiritual distress for this patient and this topic is approached; pt acknowledges her disappointments, and difficulty with falvia and the organized temple of her heritage; pt would welcome support for these concerns in the future; today the patient would only acknowledge the issues and invited this surface miner to return for future visits; pt expects to be in TCU for at least six weeks; prayer and presence were welcomed
[2022-06-18] MEDS: Rivaroxaban 20 MG Tablet PO (17:22)
[2022-06-18] MEDS: Pramipexole Di-HCl 0.25 MG Tablet 0.75 MG PO (21:02)
[2022-06-18] MEDS: Latanoprost 0.005% 1 Bottle 1 DRP EACH EYE (21:03)
[2022-06-18 21:05] VITALS: PULSE 74; RESP 16; O2SAT 96
[2022-06-19] MEDS: oxyCODONE 5 MG Tablet PO ×5 (04:20→21:57)
[2022-06-19] MEDS: Escitalopram Oxalate 10 MG Tablet PO (04:39)
[2022-06-19] MEDS: Acetaminophen 500 MG Tablet 1000 MG PO ×3 (04:39→21:59)
[2022-06-19] MEDS: Losartan Potassium 50 MG Tablet PO (04:39)
[2022-06-19] MEDS: Senna/Docusate Sodium 1 Tablet 2 TABLET PO ×2 (04:39→17:38)
[2022-06-19] MEDS: Cholecalciferol (VIT D3) 25 MCG TABLET (1,000 UNITS) PO (04:39)
[2022-06-19] MEDS: Folic Acid 1 MG Tablet PO (08:00)
[2022-06-19 10:00] VITALS: PULSE 104; RESP 18; O2SAT 93
[2022-06-19] MEDS: 0.9% Saline Lock 10 ML Syringe IV ×2 (10:31→22:02)
--- NOTE | 2022-06-19 11:51 | NURSING ---
Attempted to contact Dr. Rojas's office for consult. Office closed on .
[2022-06-19 13:53] VITALS: BP 149/69; PULSE 84; RESP 14; TEMP 36.6; O2SAT 96
--- NOTE | 2022-06-19 14:21 | NURSING ---
Noise Abatement Engineer Note: Interview and Section F of MDS complete.
--- NOTE | 2022-06-19 14:28 | CASEMGMT ---
Social Work BIMS () and PHQ-9 (05/06) completed for MDS assessment. PHQ-9 score indicates mild depression. SW explored positive responses. Pt identified she is moving slower each day, feels like she is overeating, and has moments of feeling down. Pt expressed when she does feel down she looks at her grandchildren's pictures. Pt expressed at times she feels overwhelmed, a lot going on in her head. SW discussed grounding exercises and offered an anxiety medication. Pt agreed to medication. SW offered ongoing supportive visits. Pt appreciative. SW verbally communicated pt's interest in antianxiety mediation to who was present on unit. agreed and started medication. SW updated pt. Treva Cordoba, LATHE SPOTTER TRAIN CLERK
[2022-06-19] MEDS: Rivaroxaban 20 MG Tablet PO (17:38)
[2022-06-19] MEDS: Pramipexole Di-HCl 0.25 MG Tablet 0.75 MG PO (21:58)
[2022-06-19] MEDS: Latanoprost 0.005% 1 Bottle 1 DRP EACH EYE (21:59)
[2022-06-20] MEDS: oxyCODONE 5 MG Tablet PO ×5 (02:08→20:24)
[2022-06-20 06:15] VITALS: BP 141/78; PULSE 83
[2022-06-20] MEDS: Acetaminophen 500 MG Tablet 1000 MG PO ×3 (06:24→21:48)
[2022-06-20] MEDS: Cholecalciferol (VIT D3) 25 MCG TABLET (1,000 UNITS) PO (06:24)
[2022-06-20] MEDS: Escitalopram Oxalate 20 MG Tablet PO (06:24)
[2022-06-20] MEDS: Losartan Potassium 50 MG Tablet PO (06:24)
[2022-06-20] MEDS: Senna/Docusate Sodium 1 Tablet 2 TABLET PO ×2 (06:24→16:41)
[2022-06-20] MEDS: Ensure Clear 120 ML Liquid PO ×3 (08:04→16:41)
[2022-06-20] MEDS: Folic Acid 1 MG Tablet PO (08:05)
[2022-06-20 08:48] LABS: Absolute Neutrophil Count 3.8 X10^3/uL (2.0-7.7); Basophil# 0.06 X10^3/uL; Eosinophil# 0.44 X10^3/uL; Eosinophils% 7.5 % (0-5); Hemoglobin 9.1 g/dL (12.0-15.0); Lymphocyte % 20.5 % (19-41); Mean Corp Hgb Conc 29.4 g/dL (32-36); Mean Corpuscular Hgb 26.5 pg (27.0-32.0); Mean Corpuscular Volume 90.4 fL (81-99); Mean Platelet Vol. 10.4 fl (6.2-12.0); Monocyte# 0.32 X10^3/uL; Monocyte% 5.5 % (0-10); NRBC Flagged by Analyzer 0 % (0-5); Neutrophil # 3.78 X10^3/uL (2.7-7.7); Neutrophil % 64.6 % (47-70); Platelet Count 290 K/mm3 (150-450); RBC Distribution Width CV 17.2 % (11.6-14.6); RBC Distribution Width SD 54.9 fl (35.1-43.9); Red Blood Count 3.43 M/mm3 (4.2-5.4); White Blood Count 5.9 K/mm3 (4.4-11.0)
[2022-06-20 09:05] LABS: Anion Gap 6 (5-15); BUN 12 mg/dL (7-18); BUN/Creat Ratio 14.6 RATIO (10-20); Calcium,Total 9.1 mg/dL (8.5-10.1); Chloride 105 mmol/L (98-107); Creatinine, Serum 0.82 mg/dL (0.55-1.02); EST Glomerular Filtration Rate 72 mL/min (>60); Est Glom Filt Rate - Afr Amer 87 mL/min (>60); Glucose 132 mg/dL (74-106); Potassium 3.9 mmol/L (3.5-5.1); Sodium Level 138 mmol/L (136-145)
[2022-06-20 09:08] LABS: Erythrocyte Sedimentation Rate 47 mm/hr (0-30)
[2022-06-20] MEDS: 0.9% Saline Lock 10 ML Syringe IV ×2 (09:51→21:49)
[2022-06-20] MEDS: Tuberculin,Purif.prot.deriv. 50 TU/ML Vial 0.1 ML ID (11:03)
[2022-06-20] MEDS: Ferrous Sulfate 325 MG Tablet PO (12:39)
[2022-06-20 16:00] VITALS: BP 131/62; PULSE 92; RESP 18; TEMP 36.8; O2SAT 95
[2022-06-20] MEDS: Rivaroxaban 20 MG Tablet PO (16:41)
[2022-06-20] MEDS: Latanoprost 0.005% 1 Bottle 1 DRP EACH EYE (20:28)
[2022-06-20 20:35] VITALS: O2SAT 95
[2022-06-20] MEDS: Pramipexole Di-HCl 0.25 MG Tablet 0.75 MG PO (21:48)
--- NOTE | 2022-06-20 22:00 | NURSING ---
Had just hung 0 dose of vanco, Tony from pharmacy called and said to stop it d/t high vanc trough, pt received 25ml of dose. Stopped infusion and PICC line flushed, good blood return, pt notified of plans to recheck vanc trough in am.
[2022-06-20 22:07] LABS: Vancomycin, Trough Level 20.5 ug/mL (5.0-15.0)
--- NOTE | 2022-06-20 22:17 | PCM.RX.CS ---
Consult Pharmacy has been consulted to manage selected antiobiotic: Vancomycin Type of Consult: Follow-up Labs: Sodium 138 mmol/L (136-145) 06/20/22 08:23 Potassium 3.9 mmol/L (3.5-5.1) 06/20/22 08:23 Chloride 105 mmol/L (98-107) 06/20/22 08:23 Carbon Dioxide 27.0 mmol/L (21.0-32.0) 06/20/22 08:23 Anion Gap 6 (5-15) 06/20/22 08:23 BUN 12 mg/dL (7-18) 06/20/22 08:23 Creatinine 0.82 mg/dL (0.55-1.02) 06/20/22 08:23 Est GFR (MDRD) Af Amer 87 mL/min (>60) 06/20/22 08:23 Est GFR (MDRD) Non-Af 72 mL/min (>60) 06/20/22 08:23 BUN/Creatinine Ratio 14.6 RATIO (10-20) 06/20/22 08:23 Glucose 132 mg/dL (74-106) H 06/20/22 08:23 Vancomycin Trough 20.5 ug/mL (5.0-15.0) H 06/20/22 21:44 Microbiology: Microbiology 06/19/22 04:43 Nasal Secretion SARS-CoV-2 Antigen (Rapid) - Final Goal Trough: 15-20 mcg/mL Pharmacy Plan for Drug Dosing: Pharmacy Service will continue to monitor and adjust dosing as required. TROUGH 20.5 AT 11 HRS. HOLD CURRENT DOSE (RAN ABOUT 10 MINUTES PRIOR TO STOPPING) AND DRAW RANDOM LEVEL IN 12 HOURS. Follow-Up Labs: Trough Vancomycin Labs to be done on [date and time ordered]: 06/21 @ 0930 RANDOM
[2022-06-21] MEDS: oxyCODONE 5 MG Tablet PO ×5 (02:06→22:43)
[2022-06-21 06:00] VITALS: BP 140/75; PULSE 80
[2022-06-21] MEDS: Cholecalciferol (VIT D3) 25 MCG TABLET (1,000 UNITS) PO (06:11)
[2022-06-21] MEDS: Senna/Docusate Sodium 1 Tablet 2 TABLET PO ×2 (06:11→17:55)
[2022-06-21] MEDS: Escitalopram Oxalate 20 MG Tablet PO (06:11)
[2022-06-21] MEDS: Losartan Potassium 50 MG Tablet PO (06:11)
[2022-06-21] MEDS: Acetaminophen 500 MG Tablet 1000 MG PO ×3 (06:11→22:43)
[2022-06-21] MEDS: Ensure Clear 120 ML Liquid PO ×3 (08:44→17:54)
[2022-06-21] MEDS: Folic Acid 1 MG Tablet PO (08:44)
[2022-06-21] MEDS: 0.9% Saline Lock 10 ML Syringe IV (09:44)
[2022-06-21 10:26] LABS: Vancomycin, Random Level 15.2 ug/mL (0.0-15.0)
[2022-06-21 15:20] VITALS: BP 129/64; PULSE 74; RESP 16; TEMP 36.3; O2SAT 95
[2022-06-21] MEDS: Rivaroxaban 20 MG Tablet PO (17:53)
[2022-06-21] MEDS: Vancomycin IV 1,000 MG/200 ML BAG 200 MG IV (18:00)
--- NOTE | 2022-06-21 19:00 | PCM.RX.CS ---
Consult Pharmacy has been consulted to manage selected antiobiotic: Vancomycin Type of Consult: Follow-up Suspected Infection: Other Labs: Sodium 138 mmol/L (136-145) 06/20/22 08:23 Potassium 3.9 mmol/L (3.5-5.1) 06/20/22 08:23 Chloride 105 mmol/L (98-107) 06/20/22 08:23 Carbon Dioxide 27.0 mmol/L (21.0-32.0) 06/20/22 08:23 Anion Gap 6 (5-15) 06/20/22 08:23 BUN 12 mg/dL (7-18) 06/20/22 08:23 Creatinine 0.82 mg/dL (0.55-1.02) 06/20/22 08:23 Est GFR (MDRD) Af Amer 87 mL/min (>60) 06/20/22 08:23 Est GFR (MDRD) Non-Af 72 mL/min (>60) 06/20/22 08:23 BUN/Creatinine Ratio 14.6 RATIO (10-20) 06/20/22 08:23 Glucose 132 mg/dL (74-106) H 06/20/22 08:23 Vancomycin Trough 20.5 ug/mL (5.0-15.0) H 06/20/22 21:44 Random Vancomycin 15.2 ug/mL (0.0-15.0) H 06/21/22 09:27 Microbiology: Microbiology 06/19/22 04:43 Nasal Secretion SARS-CoV-2 Antigen (Rapid) - Final Goal Trough: 15-20 mcg/mL Pharmacy Plan for Drug Dosing: VANCOMYCIN LEVEL RECEIVED Current Vancomycin Dose: on hold due to elevated trough Number of Doses Received: Vancomycin Level: 15.2 (random level) Hours Since Last Dose: 23.5 Renal Function: SrCr 0.82 Renal Function Trend: Lab/Micro: Vancomycin Plan/Comments: recommend re starting Vancomycin at a dose of 1000mg q12h starting 06/21/22 at 1800. Trough before the 3rd dose Pending Level: 06/23/22 at 0530 Pharmacy Service will continue to monitor and adjust dosing as required. Follow-Up Labs: Trough Vancomycin - 06/23/22 at 0530
[2022-06-21] MEDS: Pramipexole Di-HCl 0.25 MG Tablet 0.75 MG PO (22:43)
[2022-06-21] MEDS: Latanoprost 0.005% 1 Bottle 1 DRP EACH EYE (22:44)
[2022-06-22] MEDS: oxyCODONE 5 MG Tablet PO ×4 (03:30→21:17)
[2022-06-22] MEDS: Acetaminophen 500 MG Tablet 1000 MG PO ×3 (06:20→21:18)
[2022-06-22] MEDS: Senna/Docusate Sodium 1 Tablet 2 TABLET PO ×2 (06:20→17:19)
[2022-06-22] MEDS: Escitalopram Oxalate 20 MG Tablet PO (06:20)
[2022-06-22] MEDS: Cholecalciferol (VIT D3) 25 MCG TABLET (1,000 UNITS) PO (06:20)
[2022-06-22] MEDS: Vancomycin IV 1,000 MG/200 ML BAG 200 MG IV ×2 (06:23→17:30)
[2022-06-22] MEDS: 0.9% Saline Lock 10 ML Syringe IV ×3 (06:23→17:29)
[2022-06-22] MEDS: Losartan Potassium 50 MG Tablet PO (06:30)
[2022-06-22] MEDS: Folic Acid 1 MG Tablet PO (07:48)
[2022-06-22] MEDS: Ensure Clear 120 ML Liquid PO ×2 (08:54→13:57)
[2022-06-22] MEDS: Ferrous Sulfate 325 MG Tablet PO (11:29)
[2022-06-22 14:37] VITALS: BP 133/56; PULSE 80; RESP 18; TEMP 36.2; O2SAT 95
--- NOTE | 2022-06-22 14:37 | WOUNDNOTE ---
wound photo: right knee
--- NOTE | 2022-06-22 14:41 | PCM.PN.ID ---
Physical Exam Narrative Feeling well, no fever, knee is swollen, no n/v/d. Const alert and no apparent distress Resp normal air movement and clear to auscultation bilaterally Cardio regular rate and regular rhythm GI soft to palpation, non-tender and non-distended Extremity General Extremity: edema Skin Skin Narrative: R knee incision healing well ID ID: Route of nutrition/ use of supplements: [] Nutritional Intake: [] IV Site: [] Mustafa Catheter: [] Assessment & Plan Assessment/Plan (1) Infection of prosthetic knee joint: QUALIFIERS: Encounter type: subsequent encounter Qualified Code(s): T84.59XD - Infection and inflammatory reaction due to other internal joint prosthesis, subsequent encounter; Z96.659 - Presence of unspecified artificial knee joint PLAN: Now s/p R knee spacer placement 06/10/[address] Munoz.? Aspiration 03/2022 with neg cx.? Surg cx neg so far.? On empiric vanc/ceftriaxone. Plan is for 6 weeks iv abx with stop date 07/22/22 and weekly labs, micro lab holding cxs for 2 weeks. Will follow, thank you, reviewed photos
[2022-06-22] MEDS: Rivaroxaban 20 MG Tablet PO (17:19)
[2022-06-22 21:00] VITALS: PULSE 81; RESP 16; O2SAT 95
[2022-06-22] MEDS: Pramipexole Di-HCl 0.25 MG Tablet 0.75 MG PO (21:18)
[2022-06-22] MEDS: Latanoprost 0.005% 1 Bottle 1 DRP EACH EYE (21:18)
[2022-06-23] MEDS: oxyCODONE 5 MG Tablet PO ×4 (02:40→18:31)
[2022-06-23] MEDS: Losartan Potassium 50 MG Tablet PO (04:56)
[2022-06-23] MEDS: Cholecalciferol (VIT D3) 25 MCG TABLET (1,000 UNITS) PO (04:56)
[2022-06-23] MEDS: Acetaminophen 500 MG Tablet 1000 MG PO ×3 (04:56→22:30)
[2022-06-23] MEDS: Escitalopram Oxalate 20 MG Tablet PO (04:56)
[2022-06-23] MEDS: Senna/Docusate Sodium 1 Tablet 2 TABLET PO ×2 (04:56→18:30)
[2022-06-23 05:07] VITALS: BP 150/62; PULSE 75; RESP 16
[2022-06-23 06:23] LABS: Vancomycin, Trough Level 15.1 ug/mL (5.0-15.0)
--- NOTE | 2022-06-23 06:34 | PCM.RX.CS ---
Consult Pharmacy has been consulted to manage selected antiobiotic: Vancomycin Type of Consult: Follow-up Suspected Infection: Skin/Soft tissue Prior Doses of Antibiotics Received/Current Regimen: 06/21@ 1800,06/22@0623, 06/22 @ 1733 Labs: Sodium 138 mmol/L (136-145) 06/20/22 08:23 Potassium 3.9 mmol/L (3.5-5.1) 06/20/22 08:23 Chloride 105 mmol/L (98-107) 06/20/22 08:23 Carbon Dioxide 27.0 mmol/L (21.0-32.0) 06/20/22 08:23 Anion Gap 6 (5-15) 06/20/22 08:23 BUN 12 mg/dL (7-18) 06/20/22 08:23 Creatinine 0.82 mg/dL (0.55-1.02) 06/20/22 08:23 Est GFR (MDRD) Af Amer 87 mL/min (>60) 06/20/22 08:23 Est GFR (MDRD) Non-Af 72 mL/min (>60) 06/20/22 08:23 BUN/Creatinine Ratio 14.6 RATIO (10-20) 06/20/22 08:23 Glucose 132 mg/dL (74-106) H 06/20/22 08:23 Vancomycin Trough 15.1 ug/mL (5.0-15.0) H 06/23/22 05:30 Random Vancomycin 15.2 ug/mL (0.0-15.0) H 06/21/22 09:27 Microbiology: Microbiology 06/19/22 04:43 Nasal Secretion SARS-CoV-2 Antigen (Rapid) - Final Estimated Creatinine Clearance: 57 Goal Trough: 15-20 mcg/mL Pharmacy Plan for Drug DosinMG EVERY 12 HOURS Pharmacy Service will continue to monitor and adjust dosing as required. Follow-Up Labs: Trough Vancomycin Labs to be done on [date and time ordered]: 06/24/22 @ 1800
--- NOTE | 2022-06-23 06:38 | NURSING ---
Contacted pharmacist regarding vanc trough level, per pharmacist safe to hang dose at this time, continue as ordered.
[2022-06-23] MEDS: 0.9% Saline Lock 10 ML Syringe IV ×4 (06:42→22:27)
[2022-06-23] MEDS: Vancomycin IV 1,000 MG/200 ML BAG 200 MG IV ×2 (06:42→18:39)
[2022-06-23] MEDS: Folic Acid 1 MG Tablet PO (07:59)
[2022-06-23 10:30] VITALS: PULSE 71; RESP 18; O2SAT 93
--- NOTE | 2022-06-23 11:24 | MDS.RN ---
Information for the mds was obtained from review of the clinical record, interview of resident, staff, and direct observation of resident's care.
[2022-06-23] MEDS: Ensure Clear 120 ML Liquid PO (12:43)
[2022-06-23 15:17] VITALS: BP 127/58; PULSE 77; RESP 18; TEMP 36.4; O2SAT 93
[2022-06-23] MEDS: Rivaroxaban 20 MG Tablet PO (18:30)
[2022-06-23] MEDS: Latanoprost 0.005% 1 Bottle 1 DRP EACH EYE (22:29)
[2022-06-23] MEDS: Pramipexole Di-HCl 0.25 MG Tablet 0.75 MG PO (22:31)
[2022-06-24] MEDS: oxyCODONE 5 MG Tablet PO ×5 (00:02→23:02)
[2022-06-24] MEDS: Senna/Docusate Sodium 1 Tablet 2 TABLET PO (07:01)
[2022-06-24] MEDS: Escitalopram Oxalate 20 MG Tablet PO (07:01)
[2022-06-24] MEDS: Acetaminophen 500 MG Tablet 1000 MG PO ×3 (07:01→20:56)
[2022-06-24] MEDS: Cholecalciferol (VIT D3) 25 MCG TABLET (1,000 UNITS) PO (07:01)
[2022-06-24] MEDS: Losartan Potassium 50 MG Tablet PO (07:02)
[2022-06-24] MEDS: 0.9% Saline Lock 10 ML Syringe IV ×2 (07:02→10:41)
[2022-06-24] MEDS: Vancomycin IV 1,000 MG/200 ML BAG 200 MG IV ×2 (07:02→18:28)
[2022-06-24] MEDS: Folic Acid 1 MG Tablet PO (08:38)
[2022-06-24] MEDS: Ensure Clear 120 ML Liquid PO ×3 (08:41→18:29)
[2022-06-24] MEDS: Pneumococcal Vaccine 20 Valent 0.5 ML Syringe IM (11:39)
[2022-06-24] MEDS: Ferrous Sulfate 325 MG Tablet PO (11:43)
[2022-06-24 15:58] VITALS: BP 141/72; PULSE 80; RESP 16; TEMP 36.7; O2SAT 95
[2022-06-24 18:16] LABS: Vancomycin, Trough Level 16.5 ug/mL (5.0-15.0)
[2022-06-24] MEDS: Rivaroxaban 20 MG Tablet PO (18:29)
[2022-06-24 20:30] VITALS: PULSE 76; RESP 16; O2SAT 94
--- NOTE | 2022-06-24 20:36 | PCM.RX.CS ---
Consult Pharmacy has been consulted to manage selected antiobiotic: Vancomycin Type of Consult: Follow-up Suspected Infection: Skin/Soft tissue Labs: Sodium 138 mmol/L (136-145) 06/20/22 08:23 Potassium 3.9 mmol/L (3.5-5.1) 06/20/22 08:23 Chloride 105 mmol/L (98-107) 06/20/22 08:23 Carbon Dioxide 27.0 mmol/L (21.0-32.0) 06/20/22 08:23 Anion Gap 6 (5-15) 06/20/22 08:23 BUN 12 mg/dL (7-18) 06/20/22 08:23 Creatinine 0.82 mg/dL (0.55-1.02) 06/20/22 08:23 Est GFR (MDRD) Af Amer 87 mL/min (>60) 06/20/22 08:23 Est GFR (MDRD) Non-Af 72 mL/min (>60) 06/20/22 08:23 BUN/Creatinine Ratio 14.6 RATIO (10-20) 06/20/22 08:23 Glucose 132 mg/dL (74-106) H 06/20/22 08:23 Vancomycin Trough 16.5 ug/mL (5.0-15.0) H 06/24/22 17:30 Random Vancomycin 15.2 ug/mL (0.0-15.0) H 06/21/22 09:27 Microbiology: Microbiology 06/19/22 04:43 Nasal Secretion SARS-CoV-2 Antigen (Rapid) - Final Goal Trough: 15-20 mcg/mL Pharmacy Plan for Drug Dosing: VANCOMYCIN LEVEL RECEIVED Current Vancomycin Dose: 1G IV Q12H Number of Doses Received: 8 (of current regimen) Vancomycin Level: 16.5 Hours Since Last Dose: 10.5hr Renal Function: 0.82 (labs from 06/20) Renal Function Trend: stable Lab/Micro: no new data Vancomycin Plan/Comments: patient had a trough drawn which resulted in a value of 16.5 (goal trough 15-20). Will continue to maintain patient on current regimen. Will recheck trough in a few days to assess dosing at that time Pending Level: 06/26/22 @1730 Pharmacy Service will continue to monitor and adjust dosing as required.
[2022-06-24] MEDS: Latanoprost 0.005% 1 Bottle 1 DRP EACH EYE (20:56)
[2022-06-24] MEDS: Pramipexole Di-HCl 0.25 MG Tablet 0.75 MG PO (20:56)
[2022-06-25] MEDS: oxyCODONE 5 MG Tablet PO ×4 (05:35→22:48)
[2022-06-25] MEDS: Vancomycin IV 1,000 MG/200 ML BAG 200 MG IV ×2 (05:37→17:05)
[2022-06-25] MEDS: Losartan Potassium 50 MG Tablet PO (05:42)
[2022-06-25] MEDS: Senna/Docusate Sodium 1 Tablet 2 TABLET PO ×2 (05:42→16:59)
[2022-06-25] MEDS: Escitalopram Oxalate 20 MG Tablet PO (05:42)
[2022-06-25] MEDS: Acetaminophen 500 MG Tablet 1000 MG PO ×3 (05:42→22:50)
[2022-06-25] MEDS: Cholecalciferol (VIT D3) 25 MCG TABLET (1,000 UNITS) PO (05:42)
[2022-06-25 05:45] VITALS: BP 128/72; PULSE 87
[2022-06-25] MEDS: Folic Acid 1 MG Tablet PO (08:32)
[2022-06-25] MEDS: Ensure Clear 120 ML Liquid PO ×2 (08:33→18:38)
[2022-06-25 08:40] VITALS: PULSE 91; RESP 18; O2SAT 94
[2022-06-25 10:25] VITALS: BP 107/62; PULSE 79; RESP 18; TEMP 36.2; O2SAT 96
[2022-06-25] MEDS: 0.9% Saline Lock 10 ML Syringe IV ×2 (10:33→17:05)
--- NOTE | 2022-06-25 15:41 | NURSING ---
PT LEFT BY COT TO SEE DR. CHAPMAN AT 1430.
[2022-06-25] MEDS: Rivaroxaban 20 MG Tablet PO (16:59)
--- NOTE | 2022-06-25 17:19 | NURSING ---
PT RETURNED TO FLOOR AT 1600. NEW ORDERS. OFFICE NEEDS CALLED TO [facility] IF PT IS SUPPOSE TO WEAR IMMOBILIZER.
--- NOTE | 2022-06-25 20:04 | NURSING ---
DR. CHAPMAN OFFICE NEEDS CALLED FOR CARNIFICATION ON INSTRUCTIONS ON WEARING BRACE.
[2022-06-25] MEDS: Pramipexole Di-HCl 0.25 MG Tablet 0.75 MG PO (22:49)
[2022-06-25] MEDS: Latanoprost 0.005% 1 Bottle 1 DRP EACH EYE (22:50)
[2022-06-26] MEDS: oxyCODONE 5 MG Tablet PO ×5 (02:53→23:06)
[2022-06-26] MEDS: Cholecalciferol (VIT D3) 25 MCG TABLET (1,000 UNITS) PO (05:50)
[2022-06-26] MEDS: Senna/Docusate Sodium 1 Tablet 2 TABLET PO ×2 (05:50→17:59)
[2022-06-26] MEDS: Escitalopram Oxalate 20 MG Tablet PO (05:50)
[2022-06-26] MEDS: Acetaminophen 500 MG Tablet 1000 MG PO ×3 (05:50→21:45)
[2022-06-26] MEDS: Losartan Potassium 50 MG Tablet PO (05:51)
[2022-06-26] MEDS: 0.9% Saline Lock 10 ML Syringe IV ×3 (06:29→22:35)
[2022-06-26] MEDS: Vancomycin IV 1,000 MG/200 ML BAG 200 MG IV ×2 (06:29→20:23)
[2022-06-26 10:20] VITALS: PULSE 77; RESP 16; O2SAT 96
[2022-06-26 13:49] VITALS: BP 114/85; PULSE 85; RESP 16; TEMP 36.6; O2SAT 95
[2022-06-26] MEDS: Rivaroxaban 20 MG Tablet PO (18:00)
[2022-06-26 19:25] LABS: Vancomycin, Trough Level 16.7 ug/mL (5.0-15.0)
--- NOTE | 2022-06-26 19:58 | PCM.RX.CS ---
Consult Pharmacy has been consulted to manage selected antiobiotic: Vancomycin Type of Consult: Follow-up Suspected Infection: Skin/Soft tissue Prior Doses of Antibiotics Received/Current Regimen: Currently on 1000mg iv q12h. Labs: Sodium 138 mmol/L (136-145) 06/20/22 08:23 Potassium 3.9 mmol/L (3.5-5.1) 06/20/22 08:23 Chloride 105 mmol/L (98-107) 06/20/22 08:23 Carbon Dioxide 27.0 mmol/L (21.0-32.0) 06/20/22 08:23 Anion Gap 6 (5-15) 06/20/22 08:23 BUN 12 mg/dL (7-18) 06/20/22 08:23 Creatinine 0.82 mg/dL (0.55-1.02) 06/20/22 08:23 Est GFR (MDRD) Af Amer 87 mL/min (>60) 06/20/22 08:23 Est GFR (MDRD) Non-Af 72 mL/min (>60) 06/20/22 08:23 BUN/Creatinine Ratio 14.6 RATIO (10-20) 06/20/22 08:23 Glucose 132 mg/dL (74-106) H 06/20/22 08:23 Vancomycin Trough 16.7 ug/mL (5.0-15.0) H 06/26/22 18:10 Random Vancomycin 15.2 ug/mL (0.0-15.0) H 06/21/22 09:27 Microbiology: Microbiology 06/25/22 14:10 Nasal Secretion SARS-CoV-2 Antigen (Rapid) - Final 06/19/22 04:43 Nasal Secretion SARS-CoV-2 Antigen (Rapid) - Final Weight used for dosin.8 kg Estimated Creatinine Clearance: 57 ml/min Goal Trough: 15-20 mcg/mL Pharmacy Plan for Drug Dosing: Trough today 16.7 and in therapeutic range of 15-20mcg/ml. Last Cr on 06.20.22 was 0.82 with SCrCl ~57 ml/min. Will continue same dose and frequency. New trough level ordered to be done in 4 days. Pharmacy Service will continue to monitor and adjust dosing as required. Follow-Up Labs: Trough Vancomycin - 06.30.22 @1730 before 1800 dose
--- NOTE | 2022-06-26 20:19 | NURSING ---
Addendum entered by Tisha Moreno 06/26/22 20:45: Pharmacist Darren contacts this nurse via phone, states time change not necessary related to vanc trough at 1800 and vanc admin at 2030 due to trough, per Darren hang next dose at 0600 continue with current times. Original Note: contacted pharmacist regarding vanc trough level, per pharmacist continue vanc as ordered.
[2022-06-26] MEDS: Latanoprost 0.005% 1 Bottle 1 DRP EACH EYE (21:43)
[2022-06-26] MEDS: Pramipexole Di-HCl 0.25 MG Tablet 0.75 MG PO (21:46)
[2022-06-27] MEDS: oxyCODONE 5 MG Tablet PO ×5 (05:49→22:21)
[2022-06-27] MEDS: 0.9% Saline Lock 10 ML Syringe IV ×3 (05:52→18:00)
[2022-06-27] MEDS: Cholecalciferol (VIT D3) 25 MCG TABLET (1,000 UNITS) PO (05:55)
[2022-06-27] MEDS: Escitalopram Oxalate 20 MG Tablet PO (05:55)
[2022-06-27] MEDS: Losartan Potassium 50 MG Tablet PO (05:55)
[2022-06-27] MEDS: Acetaminophen 500 MG Tablet 1000 MG PO ×3 (05:55→22:22)
[2022-06-27] MEDS: Senna/Docusate Sodium 1 Tablet 2 TABLET PO ×2 (05:55→18:01)
[2022-06-27] MEDS: Vancomycin IV 1,000 MG/200 ML BAG 200 MG IV ×2 (05:57→18:02)
[2022-06-27 07:37] LABS: Erythrocyte Sedimentation Rate 27 mm/hr (0-30)
[2022-06-27 07:39] LABS: Absolute Neutrophil Count 2.7 X10^3/uL (2.0-7.7); Basophil# 0.08 X10^3/uL; Basophil% 1.8 % (0-1); Eosinophil# 0.48 X10^3/uL; Eosinophils% 10.7 % (0-5); Hematocrit 30.1 % (37-47); Hemoglobin 8.8 g/dL (12.0-15.0); Lymphocyte % 22.2 % (19-41); Mean Corp Hgb Conc 29.2 g/dL (32-36); Mean Corpuscular Hgb 26.7 pg (27.0-32.0); Mean Corpuscular Volume 91.5 fL (81-99); Mean Platelet Vol. 10.9 fl (6.2-12.0); Monocyte# 0.26 X10^3/uL; Monocyte% 5.8 % (0-10); NRBC Flagged by Analyzer 0 % (0-5); Neutrophil # 2.66 X10^3/uL (2.7-7.7); Neutrophil % 59.1 % (47-70); Platelet Count 223 K/mm3 (150-450); RBC Distribution Width CV 18.1 % (11.6-14.6); RBC Distribution Width SD 59.8 fl (35.1-43.9); Red Blood Count 3.29 M/mm3 (4.2-5.4); White Blood Count 4.5 K/mm3 (4.4-11.0)
[2022-06-27 07:49] LABS: Anion Gap 6 (5-15); BUN 10 mg/dL (7-18); BUN/Creat Ratio 14.3 RATIO (10-20); Chloride 106 mmol/L (98-107); EST Glomerular Filtration Rate 87 mL/min (>60); Est Glom Filt Rate - Afr Amer 105 mL/min (>60); Glucose 111 mg/dL (74-106); Potassium 3.6 mmol/L (3.5-5.1); Sodium Level 143 mmol/L (136-145)
[2022-06-27] MEDS: Ensure Clear 120 ML Liquid PO ×3 (08:47→17:59)
[2022-06-27 09:45] VITALS: PULSE 92; RESP 16; O2SAT 93
[2022-06-27 14:35] VITALS: BP 151/60; PULSE 90; RESP 18; TEMP 36.7; O2SAT 99
[2022-06-27] MEDS: Rivaroxaban 20 MG Tablet PO (18:01)
[2022-06-27] MEDS: Pramipexole Di-HCl 0.25 MG Tablet 0.75 MG PO (22:23)
[2022-06-27] MEDS: Latanoprost 0.005% 1 Bottle 1 DRP EACH EYE (22:24)
[2022-06-28] MEDS: oxyCODONE 5 MG Tablet PO ×5 (02:33→20:42)
[2022-06-28 06:00] VITALS: BP 128/70; PULSE 87
[2022-06-28] MEDS: Senna/Docusate Sodium 1 Tablet 2 TABLET PO ×2 (06:41→16:10)
[2022-06-28] MEDS: Cholecalciferol (VIT D3) 25 MCG TABLET (1,000 UNITS) PO (06:42)
[2022-06-28] MEDS: Acetaminophen 500 MG Tablet 1000 MG PO ×3 (06:42→20:44)
[2022-06-28] MEDS: Losartan Potassium 50 MG Tablet PO (06:43)
[2022-06-28] MEDS: Escitalopram Oxalate 20 MG Tablet PO (06:43)
[2022-06-28] MEDS: Vancomycin IV 1,000 MG/200 ML BAG 200 MG IV ×2 (06:44→17:17)
[2022-06-28] MEDS: Ensure Clear 120 ML Liquid PO ×2 (08:09→16:08)
[2022-06-28 10:00] VITALS: RESP 16; O2SAT 94
[2022-06-28] MEDS: 0.9% Saline Lock 10 ML Syringe IV ×2 (10:49→17:22)
[2022-06-28 14:18] VITALS: BP 119/76; PULSE 83; RESP 16; TEMP 36.8; O2SAT 95
[2022-06-28] MEDS: Rivaroxaban 20 MG Tablet PO (16:09)
[2022-06-28] MEDS: Pramipexole Di-HCl 0.25 MG Tablet 0.75 MG PO (20:43)
[2022-06-28] MEDS: Latanoprost 0.005% 1 Bottle 1 DRP EACH EYE (20:46)
[2022-06-29] MEDS: oxyCODONE 5 MG Tablet PO ×5 (00:42→21:34)
[2022-06-29] MEDS: Losartan Potassium 50 MG Tablet PO (05:19)
[2022-06-29] MEDS: Escitalopram Oxalate 20 MG Tablet PO (05:20)
[2022-06-29] MEDS: Acetaminophen 500 MG Tablet 1000 MG PO ×3 (05:20→21:34)
[2022-06-29] MEDS: Senna/Docusate Sodium 1 Tablet 2 TABLET PO ×2 (05:20→17:00)
[2022-06-29] MEDS: Cholecalciferol (VIT D3) 25 MCG TABLET (1,000 UNITS) PO (05:21)
[2022-06-29] MEDS: Vancomycin IV 1,000 MG/200 ML BAG 200 MG IV ×2 (05:25→16:59)
[2022-06-29] MEDS: 0.9% Saline Lock 10 ML Syringe IV ×2 (10:28→16:52)
--- NOTE | 2022-06-29 10:50 | NURSING ---
Resident educated on the COVID 19 Vaccine and she does not want to receive it.
[2022-06-29] MEDS: Ensure Clear 120 ML Liquid PO ×2 (13:06→16:58)
--- NOTE | 2022-06-29 13:48 | PCM.PN.ID ---
Physical Exam Narrative Feeling better, able to do some walking with support. No fever, no n/v/d. Const alert and no apparent distress Resp normal air movement and clear to auscultation bilaterally Cardio regular rate and regular rhythm GI soft to palpation, non-tender and non-distended Skin Skin Narrative: RLE wrapped ID ID: Route of nutrition/ use of supplements: [] Nutritional Intake: [] IV Site: [] Mustafa Catheter: [] Assessment & Plan Assessment/Plan (1) Infection of prosthetic knee joint: QUALIFIERS: Encounter type: subsequent encounter Qualified Code(s): T84.59XD - Infection and inflammatory reaction due to other internal joint prosthesis, subsequent encounter; Z96.659 - Presence of unspecified artificial knee joint PLAN: Now s/p R knee spacer placement 06/10/[address] Munoz.? Aspiration 03/2022 with neg cx.? Surg cx neg after two weeks.? On empiric vanc/ceftriaxone. Plan is for 6 weeks iv abx with stop date 07/22/22 and weekly labs. Tolerating abx well so far. Will follow
[2022-06-29 14:10] VITALS: BP 128/69; PULSE 93; RESP 18; TEMP 36.3; O2SAT 98
--- NOTE | 2022-06-29 15:14 | NURSING ---
Addendum entered by Bridger Ham 06/29/22 15:34: PER BRACE MUST BE WORN WHEN UP AND CAN BE OFF AT REST. Original Note: CALLED DR. CHAPMAN OFFICE FOR CLARIFICATION ON PT LEG BRACE. NURSE STATED SHE WOULD GET BACK WITH US OR SEND A FAX OVER. RN AWARE
[2022-06-29] MEDS: Rivaroxaban 20 MG Tablet PO (16:46)
[2022-06-29] MEDS: Latanoprost 0.005% 1 Bottle 1 DRP EACH EYE (21:33)
[2022-06-29] MEDS: Pramipexole Di-HCl 0.25 MG Tablet 0.75 MG PO (21:34)
[2022-06-29 21:42] VITALS: PULSE 88; RESP 16; O2SAT 97
[2022-06-30] MEDS: oxyCODONE 5 MG Tablet PO ×5 (03:32→22:31)
[2022-06-30] MEDS: Vancomycin IV 1,000 MG/200 ML BAG 200 MG IV ×2 (06:42→17:52)
[2022-06-30] MEDS: Acetaminophen 500 MG Tablet 1000 MG PO ×3 (06:44→22:31)
[2022-06-30] MEDS: Cholecalciferol (VIT D3) 25 MCG TABLET (1,000 UNITS) PO (06:44)
[2022-06-30] MEDS: Escitalopram Oxalate 20 MG Tablet PO (06:44)
[2022-06-30] MEDS: Losartan Potassium 50 MG Tablet PO (06:44)
[2022-06-30] MEDS: Senna/Docusate Sodium 1 Tablet 2 TABLET PO ×2 (06:44→17:01)
[2022-06-30] MEDS: 0.9% Saline Lock 10 ML Syringe IV ×3 (06:44→17:52)
[2022-06-30] MEDS: Ensure Clear 120 ML Liquid PO ×3 (07:32→16:59)
--- NOTE | 2022-06-30 12:43 | WOUNDNOTE ---
wound photo: right knee
[2022-06-30 14:04] VITALS: BP 116/42; PULSE 89; RESP 14; TEMP 36.6; O2SAT 95
[2022-06-30] MEDS: Rivaroxaban 20 MG Tablet PO (17:00)
[2022-06-30 18:36] LABS: Vancomycin, Trough Level 16.4 ug/mL (5.0-15.0)
[2022-06-30 20:28] VITALS: PULSE 87
[2022-06-30] MEDS: Latanoprost 0.005% 1 Bottle 1 DRP EACH EYE (22:30)
[2022-06-30] MEDS: Pramipexole Di-HCl 0.25 MG Tablet 0.75 MG PO (22:30)
--- NOTE | 2022-06-30 23:18 | PCM.RX.CS ---
Consult Pharmacy has been consulted to manage selected antiobiotic: Vancomycin Type of Consult: Follow-up Prior Doses of Antibiotics Received/Current Regimen: Medications Vancomycin HCl (Vancomycin) 1,000 mg in 200 mls @ 200 mls/hr IV Q12H BRITTANY Last Admin: 06/30/22 19:24 Dose: Infused Labs: Sodium 143 mmol/L (136-145) 06/27/22 06:30 Potassium 3.6 mmol/L (3.5-5.1) 06/27/22 06:30 Chloride 106 mmol/L (98-107) 06/27/22 06:30 Carbon Dioxide 31.0 mmol/L (21.0-32.0) 06/27/22 06:30 Anion Gap 6 (5-15) 06/27/22 06:30 BUN 10 mg/dL (7-18) 06/27/22 06:30 Creatinine 0.70 mg/dL (0.55-1.02) 06/27/22 06:30 Est GFR (MDRD) Af Amer 105 mL/min (>60) 06/27/22 06:30 Est GFR (MDRD) Non-Af 87 mL/min (>60) 06/27/22 06:30 BUN/Creatinine Ratio 14.3 RATIO (10-20) 06/27/22 06:30 Glucose 111 mg/dL (74-106) H 06/27/22 06:30 Vancomycin Trough 16.4 ug/mL (5.0-15.0) H 06/30/22 17:16 Random Vancomycin 15.2 ug/mL (0.0-15.0) H 06/21/22 09:27 Microbiology: Microbiology 06/25/22 14:10 Nasal Secretion SARS-CoV-2 Antigen (Rapid) - Final 06/19/22 04:43 Nasal Secretion SARS-CoV-2 Antigen (Rapid) - Final Weight used for dosin kg Estimated Creatinine Clearance: 92 Goal Trough: 15-20 mcg/mL Pharmacy Plan for Drug Dosing: Vancomycin trough level of 16.4 was within target range of 15-20. Will continue dosing at 1000mg q12h, and draw another trough in five days. Pharmacy Service will continue to monitor and adjust dosing as required. Follow-Up Labs: Trough Vancomycin Labs to be done on [date and time ordered]: 07/05/22 @3303
[2022-07-01] MEDS: oxyCODONE 5 MG Tablet PO ×4 (03:44→23:55)
[2022-07-01] MEDS: Escitalopram Oxalate 20 MG Tablet PO (07:00)
[2022-07-01] MEDS: Acetaminophen 500 MG Tablet 1000 MG PO ×3 (07:00→20:24)
[2022-07-01] MEDS: Cholecalciferol (VIT D3) 25 MCG TABLET (1,000 UNITS) PO (07:00)
[2022-07-01] MEDS: Losartan Potassium 50 MG Tablet PO (07:00)
[2022-07-01] MEDS: Vancomycin IV 1,000 MG/200 ML BAG 200 MG IV ×2 (07:01→18:09)
[2022-07-01] MEDS: 0.9% Saline Lock 10 ML Syringe IV ×4 (07:01→23:55)
--- NOTE | 2022-07-01 14:22 | CHAPLAIN ---
Type of Pastoral Visit ___ Initial Visit __x_ Follow-up Visit ___ On-call Visit ___ General Patient Visit ___ Spiritual Assessment ___ Family Conference ___ Bereavement ___ Rapid Response ___ Code Blue ___ Other (describe below) Pastoral Care Referral From __x_ Patient ___ Family ___ Nurse ___ Physician ___ Ammonia Box Tender ___ Jewelry Sales ___ Other (describe below) Sacrament/Intervention _x__ Active listening ___ Anointing ___ Taoism ___ Bereavement ___ Communion ___ Flavia exploration ___ ___ Life review ___ Prayer ___ Reconciliation ___ Sacrament of Sick ___ Supportive presence ___ Wedding ___ Other (describe below) Pastoral Comments follow up visit to check on patient; pt is lying in bed and states that her stomach is upset; pt welcomes a short visit and asks various questions of casual nature; pt would welcome a follow up visit on another day;
[2022-07-01 15:55] VITALS: BP 161/80; PULSE 83; RESP 18; TEMP 36.6; O2SAT 95
[2022-07-01] MEDS: Rivaroxaban 20 MG Tablet PO (16:16)
[2022-07-01] MEDS: Petrolatum 33% Tube 1 APPLIC TOPICAL (16:18)
[2022-07-01] MEDS: Pramipexole Di-HCl 0.25 MG Tablet 0.75 MG PO (20:24)
[2022-07-01] MEDS: Latanoprost 0.005% 1 Bottle 1 DRP EACH EYE (20:24)
[2022-07-02 05:16] VITALS: BP 148/67; PULSE 87; RESP 18; O2SAT 95
[2022-07-02] MEDS: Vancomycin IV 1,000 MG/200 ML BAG 200 MG IV ×2 (05:17→18:24)
[2022-07-02] MEDS: Escitalopram Oxalate 20 MG Tablet PO (05:19)
[2022-07-02] MEDS: Cholecalciferol (VIT D3) 25 MCG TABLET (1,000 UNITS) PO (05:19)
[2022-07-02] MEDS: Acetaminophen 500 MG Tablet 1000 MG PO ×3 (05:19→20:53)
[2022-07-02] MEDS: 0.9% Saline Lock 10 ML Syringe IV (05:19)
[2022-07-02] MEDS: Losartan Potassium 50 MG Tablet PO (05:19)
[2022-07-02] MEDS: Petrolatum 33% Tube 1 APPLIC TOPICAL ×2 (05:20→18:14)
[2022-07-02] MEDS: oxyCODONE 5 MG Tablet PO ×3 (05:57→18:24)
[2022-07-02 16:00] VITALS: BP 126/66; PULSE 79; RESP 16; TEMP 36.5; O2SAT 95
[2022-07-02] MEDS: Senna/Docusate Sodium 1 Tablet 2 TABLET PO (18:14)
[2022-07-02] MEDS: Rivaroxaban 20 MG Tablet PO (18:14)
[2022-07-02] MEDS: Pramipexole Di-HCl 0.25 MG Tablet 0.75 MG PO (20:52)
[2022-07-02] MEDS: Latanoprost 0.005% 1 Bottle 1 DRP EACH EYE (20:54)
[2022-07-02 22:00] VITALS: O2SAT 96
[2022-07-03] MEDS: oxyCODONE 5 MG Tablet PO ×4 (00:49→20:50)
[2022-07-03] MEDS: Losartan Potassium 50 MG Tablet PO (04:58)
[2022-07-03] MEDS: Escitalopram Oxalate 20 MG Tablet PO (04:59)
[2022-07-03] MEDS: Cholecalciferol (VIT D3) 25 MCG TABLET (1,000 UNITS) PO (04:59)
[2022-07-03] MEDS: Acetaminophen 500 MG Tablet 1000 MG PO ×3 (04:59→20:37)
[2022-07-03] MEDS: Senna/Docusate Sodium 1 Tablet 2 TABLET PO (04:59)
[2022-07-03] MEDS: Vancomycin IV 1,000 MG/200 ML BAG 200 MG IV ×2 (05:05→18:07)
[2022-07-03] MEDS: Petrolatum 33% Tube 1 APPLIC TOPICAL ×2 (05:06→18:01)
[2022-07-03 10:00] VITALS: RESP 18; O2SAT 97
[2022-07-03 14:35] VITALS: BP 139/56; PULSE 79; RESP 14; TEMP 36.2; O2SAT 94
[2022-07-03] MEDS: Rivaroxaban 20 MG Tablet PO (18:00)
[2022-07-03] MEDS: Pramipexole Di-HCl 0.25 MG Tablet 0.75 MG PO (20:36)
[2022-07-03] MEDS: Latanoprost 0.005% 1 Bottle 1 DRP EACH EYE (20:39)
[2022-07-04] MEDS: Vancomycin IV 1,000 MG/200 ML BAG 200 MG IV ×2 (04:59→17:44)
[2022-07-04] MEDS: Acetaminophen 500 MG Tablet 1000 MG PO ×3 (05:05→21:20)
[2022-07-04] MEDS: Cholecalciferol (VIT D3) 25 MCG TABLET (1,000 UNITS) PO (05:05)
[2022-07-04] MEDS: Senna/Docusate Sodium 1 Tablet 2 TABLET PO ×2 (05:05→17:34)
[2022-07-04] MEDS: Losartan Potassium 50 MG Tablet PO (05:06)
[2022-07-04] MEDS: Escitalopram Oxalate 20 MG Tablet PO (05:06)
[2022-07-04] MEDS: Petrolatum 33% Tube 1 APPLIC TOPICAL ×2 (05:06→17:33)
[2022-07-04] MEDS: oxyCODONE 5 MG Tablet PO ×2 (05:17→14:40)
[2022-07-04 07:34] LABS: Erythrocyte Sedimentation Rate 28 mm/hr (0-30)
[2022-07-04 07:40] LABS: Absolute Lymphocyte Count 0.91 X10^3/uL (0.83-4.51); Absolute Neutrophil Count 2.6 X10^3/uL (2.0-7.7); Basophil# 0.06 X10^3/uL; Basophil% 1.3 % (0-1); Eosinophil# 0.57 X10^3/uL; Eosinophils% 12.8 % (0-5); Hematocrit 29.5 % (37-47); Hemoglobin 8.8 g/dL (12.0-15.0); Lymphocyte # 0.91 X10^3/ul (0.83-4.51); Lymphocyte % 20.4 % (19-41); Mean Corp Hgb Conc 29.8 g/dL (32-36); Mean Corpuscular Hgb 26.8 pg (27.0-32.0); Mean Corpuscular Volume 89.9 fL (81-99); Mean Platelet Vol. 10.9 fl (6.2-12.0); Monocyte# 0.27 X10^3/uL; Monocyte% 6.1 % (0-10); NRBC Flagged by Analyzer 0 % (0-5); Neutrophil # 2.64 X10^3/uL (2.7-7.7); Neutrophil % 59.4 % (47-70); Platelet Count 225 K/mm3 (150-450); RBC Distribution Width CV 17.5 % (11.6-14.6); RBC Distribution Width SD 58.2 fl (35.1-43.9); Red Blood Count 3.28 M/mm3 (4.2-5.4); White Blood Count 4.5 K/mm3 (4.4-11.0)
[2022-07-04 07:44] LABS: Anion Gap 5 (5-15); BUN 9 mg/dL (7-18); Calcium,Total 9.2 mg/dL (8.5-10.1); Chloride 106 mmol/L (98-107); Creatinine, Serum 0.69 mg/dL (0.55-1.02); EST Glomerular Filtration Rate 88 mL/min (>60); Est Glom Filt Rate - Afr Amer 106 mL/min (>60); Glucose 116 mg/dL (74-106); Potassium 3.7 mmol/L (3.5-5.1); Sodium Level 141 mmol/L (136-145)
[2022-07-04] MEDS: 0.9% Saline Lock 10 ML Syringe IV ×2 (10:18→17:40)
[2022-07-04 16:00] VITALS: BP 147/76; PULSE 88; RESP 17; TEMP 35.7; O2SAT 94
[2022-07-04] MEDS: Rivaroxaban 20 MG Tablet PO (17:35)
[2022-07-04] MEDS: Pramipexole Di-HCl 0.25 MG Tablet 0.75 MG PO (21:20)
[2022-07-04] MEDS: Latanoprost 0.005% 1 Bottle 1 DRP EACH EYE (21:20)
[2022-07-05] MEDS: oxyCODONE 5 MG Tablet PO ×3 (03:25→21:29)
[2022-07-05] MEDS: Vancomycin IV 1,000 MG/200 ML BAG 200 MG IV ×2 (05:56→18:26)
[2022-07-05] MEDS: 0.9% Saline Lock 10 ML Syringe IV ×2 (06:15→09:51)
[2022-07-05] MEDS: Cholecalciferol (VIT D3) 25 MCG TABLET (1,000 UNITS) PO (06:21)
[2022-07-05] MEDS: Losartan Potassium 50 MG Tablet PO (06:21)
[2022-07-05] MEDS: Acetaminophen 500 MG Tablet 1000 MG PO ×3 (06:22→21:30)
[2022-07-05] MEDS: Escitalopram Oxalate 20 MG Tablet PO (06:22)
[2022-07-05] MEDS: Senna/Docusate Sodium 1 Tablet 2 TABLET PO (06:22)
[2022-07-05] MEDS: Petrolatum 33% Tube 1 APPLIC TOPICAL ×2 (06:23→16:52)
[2022-07-05 10:35] VITALS: PULSE 88; RESP 18; O2SAT 95
[2022-07-05 16:00] VITALS: BP 129/54; PULSE 84; RESP 16; TEMP 36.6; O2SAT 97
[2022-07-05] MEDS: Rivaroxaban 20 MG Tablet PO (16:51)
[2022-07-05 18:15] LABS: Vancomycin, Trough Level 15.2 ug/mL (5.0-15.0)
--- NOTE | 2022-07-05 18:18 | NURSING ---
JOAQUIN RAY IN PHARMACY TO RUN VANCOMYCIN.
--- NOTE | 2022-07-05 18:27 | PCM.RX.CS ---
Consult Pharmacy has been consulted to manage selected antiobiotic: Vancomycin Type of Consult: Follow-up Prior Doses of Antibiotics Received/Current Regimen: current dose is vanc 1000mg IV q12h Labs: Sodium 141 mmol/L (136-145) 07/04/22 06:45 Potassium 3.7 mmol/L (3.5-5.1) 07/04/22 06:45 Chloride 106 mmol/L (98-107) 07/04/22 06:45 Carbon Dioxide 30.0 mmol/L (21.0-32.0) 07/04/22 06:45 Anion Gap 5 (5-15) 07/04/22 06:45 BUN 9 mg/dL (7-18) 07/04/22 06:45 Creatinine 0.69 mg/dL (0.55-1.02) 07/04/22 06:45 Est GFR (MDRD) Af Amer 106 mL/min (>60) 07/04/22 06:45 Est GFR (MDRD) Non-Af 88 mL/min (>60) 07/04/22 06:45 BUN/Creatinine Ratio 13.0 RATIO (10-20) 07/04/22 06:45 Glucose 116 mg/dL (74-106) H 07/04/22 06:45 Vancomycin Trough 15.2 ug/mL (5.0-15.0) H 07/05/22 17:29 Random Vancomycin 15.2 ug/mL (0.0-15.0) H 06/21/22 09:27 Microbiology: Microbiology 06/25/22 14:10 Nasal Secretion SARS-CoV-2 Antigen (Rapid) - Final 06/19/22 04:43 Nasal Secretion SARS-CoV-2 Antigen (Rapid) - Final Weight used for dosin.8 kg Estimated Creatinine Clearance: 80 ml/min Goal Trough: 15-20 mcg/mL Pharmacy Plan for Drug Dosing: The vanc trough drawn at 17:29 tonight (approx 11.5 hours after the previous dose) was 15.2. This is again within goal range so will keep same dosing. Will check another trough in 4 days since it is on the lower part of the goal range. Hesitant to increase the dose just yet since a slightly higher dose previously resulted in a high trough a few days ago. The patient's CrCl of 80 ml/min was calculated using an adjusted body weight of 81.5kg. Pharmacy Service will continue to monitor and adjust dosing as required. Follow-Up Labs: Trough Vancomycin Labs to be done on [date and time ordered]: 07/09/22 05:30
[2022-07-05] MEDS: Latanoprost 0.005% 1 Bottle 1 DRP EACH EYE (21:30)
[2022-07-05] MEDS: Pramipexole Di-HCl 0.25 MG Tablet 0.75 MG PO (21:30)
[2022-07-06] MEDS: oxyCODONE 5 MG Tablet PO ×3 (04:39→20:31)
[2022-07-06] MEDS: Cholecalciferol (VIT D3) 25 MCG TABLET (1,000 UNITS) PO (04:42)
[2022-07-06] MEDS: Escitalopram Oxalate 20 MG Tablet PO (04:42)
[2022-07-06] MEDS: Losartan Potassium 50 MG Tablet PO (04:42)
[2022-07-06] MEDS: Acetaminophen 500 MG Tablet 1000 MG PO ×3 (04:42→20:39)
[2022-07-06] MEDS: Petrolatum 33% Tube 1 APPLIC TOPICAL ×2 (04:43→17:17)
[2022-07-06] MEDS: 0.9% Saline Lock 10 ML Syringe IV ×2 (04:43→09:03)
[2022-07-06] MEDS: Senna/Docusate Sodium 1 Tablet 2 TABLET PO ×2 (04:44→17:16)
[2022-07-06] MEDS: Vancomycin IV 1,000 MG/200 ML BAG 200 MG IV ×2 (06:23→17:27)
[2022-07-06 15:34] VITALS: BP 153/74; PULSE 83; RESP 16; TEMP 36.6; O2SAT 95
[2022-07-06] MEDS: Rivaroxaban 20 MG Tablet PO (17:17)
--- NOTE | 2022-07-06 20:11 | PN.TCU_ITS ---
Subjective Subjective Resident seen, examined for regulatory visit. She has no new problems, concerns, issues, complaints. She is tolerating her antibiotics. Objective Data Objective Data Vital Signs: Vital Signs Temp Pulse Resp BP Pulse Ox O2 Del Method 97.9 F 83 16 153/74 H 95 Room Air 07/06/22 15:34 07/06/22 15:34 07/06/22 15:34 07/06/22 15:34 07/06/22 15:34 07/06/22 15:34 Oxygen Delivery Method Room Air Weight: 114.804 kg Body Mass Index (BMI) 39.5 Intake & Output: Intake and Output for Last 24 Hours 07/04/22 07/05/22 07/06/22 23:59 23:59 23:59 Intake Total 1429 / 1429 1609.75 / 1609.75 790 / 790 Balance 1429 / 1429 1609.75 / 1609.75 790 / 790 Lab / Micro Data Result Diagrams: 07/04/22 06:45 07/04/22 06:45 Micro: Microbiology 06/25/22 14:10 Nasal Secretion SARS-CoV-2 Antigen (Rapid) - Final 06/19/22 04:43 Nasal Secretion SARS-CoV-2 Antigen (Rapid) - Final Physical Exam Const alert General Appearance: cooperative HEENT normocephalic Eyes PERRL and EOMs intact bilaterally Neck supple, no JVD and no carotid bruits Resp normal respiratory effort, normal air movement and clear to auscultation bilaterally Cardio regular rate and regular rhythm GI normal to inspection, nondistended, normoactive bowel sounds, non-tender and non-distended Extremity normal capillary refill Extremity Narrative: Right upper extremity PICC line. Right knee VAC dressing. General Extremity: Negative for edema Skin no rashes or lesions noted General Skin Exam: no breakdown Psych affect normal Appearance: appropriate Assessment & Plan Assessment/Plan (1) Debility: (2) Infection of prosthetic knee joint: QUALIFIERS: Encounter type: subsequent encounter Qualified Code(s): T84.59XD - Infection and inflammatory reaction due to other internal joint prosthesis, subsequent encounter; Z96.659 - Presence of unspecified artificial knee joint (3) Acute blood loss anemia: (4) Hyperkalemia: (5) DVT (deep venous thrombosis): QUALIFIERS: DVT location: lower extremity Affected thrombotic v ein of extremity: unspecified vein of extremity Chronicity: chronic Laterality: unspecified laterality Qualified Code(s): I82.509 - Chronic embolism and thrombosis of unspecified deep veins of unspecified lower extremity (6) Hypertension: (7) History of colon cancer: (8) Quadriceps tendon rupture: (9) Glaucoma: PLAN: Plan 71 year old female with below past medical history hospitalized right prosthetic knee infection, right quadriceps tendon tear, underwent right knee explant, antibiotic spacer placement, right patellectomy 06/10/[address] Munoz, admitted to TCU with debility, here for rehabilitation, strengthening, intravenous antibiotics, prior to discharge home alone. * Debility - PT/OT. * Pain - Tylenol 1000mg q8h, Oxycodone 5-10mg q6h prn. * Bowel - senna/colace 2 tablets bid, Dulcolax 10mg daily prn. * Adult immunization - Administer pneumonia vaccine, covid19 vaccine, flu vaccine. * DVT prophylaxis - Already on Xarelto. * Right prosthetic knee infection - Ceftriaxone 2gm iv q24, Vancomycin 1000mg iv q12 thru 07/22/2022, consult Dr. Rojas to follow as needed. * Depression - Lexapro 20mg daily. 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 * Glaucoma - Latanoprost 0.005% 1gtt ou qhs. * Hypertension - Losartan 50mg daily. * Restless Leg syndrome - Mirapex 0.75mg qhs. * Right lower extremity DVT - Xarelto 20mg daily. * Vitamin D deficiency - D3 25mcg daily. * Skin irritation - Eucerin topical bid. Capacity Capacity Assessment Tool Can the patient make a choice & communicate that choice?: Yes Can the patient understand benefits, risks and alternatives?: Yes Can the patient make a logical, rational choice?: Yes Is the choice the patient makes consistent w/ their values?: Yes Is there an impending, emergent risk to the patient?: No Does the patient have an Advance Directive?: Yes Is there a Surrogate Available?: Yes i.e. HCPOA: Yes i.e. close relative (spouse, child, parent, sibling)?: Yes
[2022-07-06] MEDS: Latanoprost 0.005% 1 Bottle 1 DRP EACH EYE (20:39)
[2022-07-06] MEDS: Pramipexole Di-HCl 0.25 MG Tablet 0.75 MG PO (20:40)
[2022-07-07] MEDS: 0.9% Saline Lock 10 ML Syringe IV ×3 (06:12→16:49)
[2022-07-07] MEDS: Vancomycin IV 1,000 MG/200 ML BAG 200 MG IV ×2 (06:15→16:50)
[2022-07-07] MEDS: Losartan Potassium 50 MG Tablet PO (06:17)
[2022-07-07] MEDS: Cholecalciferol (VIT D3) 25 MCG TABLET (1,000 UNITS) PO (06:18)
[2022-07-07] MEDS: Senna/Docusate Sodium 1 Tablet 2 TABLET PO ×2 (06:18→16:50)
[2022-07-07] MEDS: Acetaminophen 500 MG Tablet 1000 MG PO ×3 (06:18→20:08)
[2022-07-07] MEDS: Escitalopram Oxalate 20 MG Tablet PO (06:19)
[2022-07-07] MEDS: Petrolatum 33% Tube 1 APPLIC TOPICAL ×2 (06:20→16:52)
[2022-07-07] MEDS: oxyCODONE 5 MG Tablet PO ×3 (08:12→20:14)
[2022-07-07 08:36] VITALS: O2SAT 96
[2022-07-07 14:56] VITALS: BP 150/80; PULSE 90; RESP 16; TEMP 36.5; O2SAT 98
--- NOTE | 2022-07-07 15:10 | CHAPLAIN ---
Type of Pastoral Visit ___ Initial Visit _x__ Follow-up Visit ___ On-call Visit ___ General Patient Visit ___ Spiritual Assessment ___ Family Conference ___ Bereavement ___ Rapid Response ___ Code Blue ___ Other (describe below) Pastoral Care Referral From _x__ Patient ___ Family ___ Nurse ___ Physician ___ Change Agent ___ Medical Underwriter ___ Other (describe below) Sacrament/Intervention _x__ Active listening ___ Anointing ___ Samaritan ___ Bereavement ___ Communion _x__ Flavia exploration ___ _x__ Life review _x__ Prayer ___ Reconciliation ___ Sacrament of Sick _x__ Supportive presence ___ Wedding ___ Other (describe below) Pastoral Comments patient was able to talk more about her emotional and spiritual distress with past family decisions and divorce; pt is tearful at times; pt receives affirmation and words of compassion for her situation; pt expresses her worries about the treatment not being effective and that I would have to do this all over again; presence and prayer given
[2022-07-07] MEDS: Rivaroxaban 20 MG Tablet PO (16:51)
[2022-07-07] MEDS: Latanoprost 0.005% 1 Bottle 1 DRP EACH EYE (20:07)
[2022-07-07] MEDS: Pramipexole Di-HCl 0.25 MG Tablet 0.75 MG PO (20:08)
[2022-07-08] MEDS: oxyCODONE 5 MG Tablet PO ×3 (04:40→21:27)
[2022-07-08] MEDS: Escitalopram Oxalate 20 MG Tablet PO (04:40)
[2022-07-08] MEDS: Losartan Potassium 50 MG Tablet PO (04:40)
[2022-07-08] MEDS: Vancomycin IV 1,000 MG/200 ML BAG 200 MG IV ×2 (04:40→17:43)
[2022-07-08] MEDS: Acetaminophen 500 MG Tablet 1000 MG PO ×3 (04:40→21:27)
[2022-07-08] MEDS: Senna/Docusate Sodium 1 Tablet 2 TABLET PO ×2 (04:40→17:44)
[2022-07-08] MEDS: Petrolatum 33% Tube 1 APPLIC TOPICAL ×2 (04:40→17:45)
[2022-07-08] MEDS: Cholecalciferol (VIT D3) 25 MCG TABLET (1,000 UNITS) PO (04:40)
[2022-07-08] MEDS: 0.9% Saline Lock 10 ML Syringe IV (09:03)
[2022-07-08 15:29] VITALS: BP 143/74; PULSE 99; RESP 16; TEMP 37; O2SAT 95
[2022-07-08] MEDS: Rivaroxaban 20 MG Tablet PO (17:44)
[2022-07-08] MEDS: Pramipexole Di-HCl 0.25 MG Tablet 0.75 MG PO (21:26)
[2022-07-08] MEDS: Latanoprost 0.005% 1 Bottle 1 DRP EACH EYE (21:29)
[2022-07-08 22:00] VITALS: PULSE 100; RESP 18; O2SAT 96
[2022-07-09] MEDS: oxyCODONE 5 MG Tablet PO ×4 (05:09→22:56)
[2022-07-09] MEDS: Losartan Potassium 50 MG Tablet PO (05:10)
[2022-07-09] MEDS: Escitalopram Oxalate 20 MG Tablet PO (05:10)
[2022-07-09] MEDS: Acetaminophen 500 MG Tablet 1000 MG PO ×3 (05:11→20:41)
[2022-07-09] MEDS: Senna/Docusate Sodium 1 Tablet 2 TABLET PO ×2 (05:11→16:52)
[2022-07-09] MEDS: Cholecalciferol (VIT D3) 25 MCG TABLET (1,000 UNITS) PO (05:13)
[2022-07-09] MEDS: Petrolatum 33% Tube 1 APPLIC TOPICAL (05:13)
[2022-07-09] MEDS: Vancomycin IV 1,000 MG/200 ML BAG 200 MG IV ×2 (06:02→16:54)
--- NOTE | 2022-07-09 06:21 | PHA.PHARE_ITS ---
Consult Pharmacy has been consulted to manage selected antiobiotic: Vancomycin Type of Consult: Follow-up Labs: Sodium 141 mmol/L (136-145) 07/04/22 06:45 Potassium 3.7 mmol/L (3.5-5.1) 07/04/22 06:45 Chloride 106 mmol/L (98-107) 07/04/22 06:45 Carbon Dioxide 30.0 mmol/L (21.0-32.0) 07/04/22 06:45 Anion Gap 5 (5-15) 07/04/22 06:45 BUN 9 mg/dL (7-18) 07/04/22 06:45 Creatinine 0.69 mg/dL (0.55-1.02) 07/04/22 06:45 Est GFR (MDRD) Af Amer 106 mL/min (>60) 07/04/22 06:45 Est GFR (MDRD) Non-Af 88 mL/min (>60) 07/04/22 06:45 BUN/Creatinine Ratio 13.0 RATIO (10-20) 07/04/22 06:45 Glucose 116 mg/dL (74-106) H 07/04/22 06:45 Vancomycin Trough 15.0 ug/mL (5.0-15.0) 07/09/22 05:25 Random Vancomycin 15.2 ug/mL (0.0-15.0) H 06/21/22 09:27 Microbiology: Microbiology 06/25/22 14:10 Nasal Secretion SARS-CoV-2 Antigen (Rapid) - Final 06/19/22 04:43 Nasal Secretion SARS-CoV-2 Antigen (Rapid) - Final Goal Trough: 15-20 mcg/mL Pharmacy Plan for Drug Dosing: VANCOMYCIN LEVEL RECEIVED Current Vancomycin Dose: 1000mg IV Q12hr Number of Doses Received: 35 Vancomycin Level: 15 Hours Since Last Dose: 11.5hr Renal Function: 0.69 Renal Function Trend: stable Lab/Micro: no new Vancomycin Plan/Comments: Trough drawn and resulted in a value of 15 (goal 15- 20). The patient has had multiple troughs within therapeutic range. Will continue current dose and recheck a trough in 7 days since troughs have been therapeutic. If renal function changes, will draw a trough sooner Pending Level: 07/15/22 @0530 Pharmacy Service will continue to monitor and adjust dosing as required.
[2022-07-09 07:17] VITALS: BP 152/65; PULSE 99
--- NOTE | 2022-07-09 08:57 | NURSING ---
Addendum entered by Shonda Garcia 07/09/22 14:55: results of xrays faxed to DR Munoz, will await any orders if needed Addendum entered by Shonda Garcia 07/09/22 10:19: new order for xray knee and femur. pt off unit to xray via wc at this time Original Note: Dr Munoz's office notified of pt c/o RT lateral thigh pain, sharp, aching 07/20 no redness/warmth/fevers. awaiting return call for orders. pt suppose to see him on 07/20 but may need sooner appt.
[2022-07-09] MEDS: 0.9% Saline Lock 10 ML Syringe IV ×2 (09:05→16:55)
--- NOTE | 2022-07-09 09:58 | RAD_ITS ---
STUDY: X-RAY - RIGHT KNEE REASON FOR EXAM: Female, 71 years old. Proximal and distal thigh pain TECHNIQUE: 3 view(s) of the knee. COMPARISON: Comparison is made with prior study dated 06/10/2022. FINDINGS: The patient is status post fusion of the knee joint with a intramedullary yael fixation device. There has been no change. Diffuse soft tissue swelling. RAD/Knee 1 or 2 Views IMPRESSION: Status post fusion of the knee joint. Diffuse soft tissue swelling. Electronically Signed: Helder Saab MD at 14:22 EDT ,
--- NOTE | 2022-07-09 10:15 | RAD_ITS ---
STUDY: X-RAY - RIGHT FEMUR REASON FOR STUDY: Female, 71 years old. Distal and proximal thigh pain status post surgery TECHNIQUE: 4 view(s) of the femur. COMPARISON: None. FINDINGS: Severe degree of joint space narrowing of the hip joint with acetabular spurring as well as degenerative spur formation along the femoral head. The patient is status post intramedullary yael fixation of the knee joint. Soft tissue swelling RAD/Femur Min 2 Views IMPRESSION: Severe degree of joint space narrowing of the right hip joint with degenerative spur formation as described. Fusion of the knee joint with an intramedullary yael fixation device. Electronically Signed: Helder Saab MD at 14:21 EDT ,
[2022-07-09 13:48] VITALS: BP 113/62; PULSE 85; RESP 18; TEMP 36.2; O2SAT 96
[2022-07-09] MEDS: Rivaroxaban 20 MG Tablet PO (16:52)
--- NOTE | 2022-07-09 18:37 | NURSING ---
picc dressing changed, flushes well but no blood return. will udpate dr arnett
[2022-07-09] MEDS: Latanoprost 0.005% 1 Bottle 1 DRP EACH EYE (20:42)
[2022-07-09] MEDS: Pramipexole Di-HCl 0.25 MG Tablet 0.75 MG PO (20:42)
[2022-07-09 22:47] VITALS: O2SAT 95
[2022-07-10] MEDS: oxyCODONE 5 MG Tablet PO ×4 (05:10→19:58)
[2022-07-10] MEDS: Losartan Potassium 50 MG Tablet PO (05:11)
[2022-07-10] MEDS: Escitalopram Oxalate 20 MG Tablet PO (05:11)
[2022-07-10] MEDS: Senna/Docusate Sodium 1 Tablet 2 TABLET PO ×2 (05:11→17:47)
[2022-07-10] MEDS: Cholecalciferol (VIT D3) 25 MCG TABLET (1,000 UNITS) PO (05:11)
[2022-07-10] MEDS: Vancomycin IV 1,000 MG/200 ML BAG 200 MG IV ×2 (05:29→17:46)
[2022-07-10] MEDS: Acetaminophen 500 MG Tablet 1000 MG PO ×3 (05:30→19:58)
[2022-07-10] MEDS: 0.9% Saline Lock 10 ML Syringe IV ×2 (10:43→17:47)
--- NOTE | 2022-07-10 10:48 | CASEMGMT ---
Social Work Left message with sister requesting to bring in copies of pt's advanced directives. Treva Cordoba, GENERAL CONTRACTOR WAGE CONCILIATOR
[2022-07-10] MEDS: Alteplase 2 MG/2 ML Vial IV (15:03)
[2022-07-10 16:00] VITALS: BP 146/62; PULSE 82; RESP 16; TEMP 36.5; O2SAT 97
[2022-07-10] MEDS: Rivaroxaban 20 MG Tablet PO (17:47)
[2022-07-10] MEDS: Petrolatum 33% Tube 1 APPLIC TOPICAL (17:48)
[2022-07-10] MEDS: Pramipexole Di-HCl 0.25 MG Tablet 0.75 MG PO (19:58)
[2022-07-10] MEDS: Latanoprost 0.005% 1 Bottle 1 DRP EACH EYE (19:59)
[2022-07-11] MEDS: oxyCODONE 5 MG Tablet PO ×4 (01:16→20:38)
[2022-07-11] MEDS: Menthol/Lanolin/Calamine/Znox 113 GM Tube 1 APPLIC TOPICAL ×2 (06:04→17:40)
[2022-07-11] MEDS: Senna/Docusate Sodium 1 Tablet 2 TABLET PO ×2 (06:05→17:37)
[2022-07-11] MEDS: Escitalopram Oxalate 20 MG Tablet PO (06:05)
[2022-07-11] MEDS: Losartan Potassium 50 MG Tablet PO (06:05)
[2022-07-11] MEDS: Acetaminophen 500 MG Tablet 1000 MG PO ×3 (06:05→20:39)
[2022-07-11] MEDS: Cholecalciferol (VIT D3) 25 MCG TABLET (1,000 UNITS) PO (06:05)
[2022-07-11] MEDS: Vancomycin IV 1,000 MG/200 ML BAG 200 MG IV ×2 (06:06→17:40)
[2022-07-11] MEDS: Petrolatum 33% Tube 1 APPLIC TOPICAL ×2 (06:06→17:39)
[2022-07-11 06:26] LABS: Absolute Lymphocyte Count 1.19 X10^3/uL (0.83-4.51); Absolute Neutrophil Count 3.2 X10^3/uL (2.0-7.7); Basophil# 0.05 X10^3/uL; Eosinophils% 7.7 % (0-5); Hematocrit 31.3 % (37-47); Hemoglobin 9.5 g/dL (12.0-15.0); Lymphocyte # 1.19 X10^3/ul (0.83-4.51); Lymphocyte % 22.8 % (19-41); Mean Corp Hgb Conc 30.4 g/dL (32-36); Mean Corpuscular Hgb 26.8 pg (27.0-32.0); Mean Corpuscular Volume 88.2 fL (81-99); Mean Platelet Vol. 10.2 fl (6.2-12.0); Monocyte# 0.35 X10^3/uL; Monocyte% 6.7 % (0-10); NRBC Flagged by Analyzer 0 % (0-5); Neutrophil % 61.4 % (47-70); Platelet Count 243 K/mm3 (150-450); RBC Distribution Width CV 17.5 % (11.6-14.6); RBC Distribution Width SD 57.4 fl (35.1-43.9); Red Blood Count 3.55 M/mm3 (4.2-5.4); White Blood Count 5.2 K/mm3 (4.4-11.0)
[2022-07-11 06:52] LABS: Anion Gap 6 (5-15); BUN 14 mg/dL (7-18); BUN/Creat Ratio 20.6 RATIO (10-20); Chloride 106 mmol/L (98-107); Creatinine, Serum 0.68 mg/dL (0.55-1.02); EST Glomerular Filtration Rate 90 mL/min (>60); Erythrocyte Sedimentation Rate 32 mm/hr (0-30); Est Glom Filt Rate - Afr Amer 109 mL/min (>60); Glucose 99 mg/dL (74-106); Potassium 3.8 mmol/L (3.5-5.1); Sodium Level 140 mmol/L (136-145)
[2022-07-11 12:33] VITALS: BP 130/52; PULSE 87; RESP 18; TEMP 37.1; O2SAT 96
[2022-07-11] MEDS: Rivaroxaban 20 MG Tablet PO (17:37)
[2022-07-11] MEDS: 0.9% Saline Lock 10 ML Syringe IV (17:38)
[2022-07-11] MEDS: Pramipexole Di-HCl 0.25 MG Tablet 0.75 MG PO (20:40)
[2022-07-11] MEDS: Latanoprost 0.005% 1 Bottle 1 DRP EACH EYE (20:40)
[2022-07-12] MEDS: oxyCODONE 5 MG Tablet PO ×4 (01:51→19:13)
[2022-07-12] MEDS: Cholecalciferol (VIT D3) 25 MCG TABLET (1,000 UNITS) PO (06:47)
[2022-07-12] MEDS: Senna/Docusate Sodium 1 Tablet 2 TABLET PO ×2 (06:48→18:05)
[2022-07-12] MEDS: Acetaminophen 500 MG Tablet 1000 MG PO ×3 (06:48→20:12)
[2022-07-12] MEDS: Petrolatum 33% Tube 1 APPLIC TOPICAL ×2 (06:49→18:05)
[2022-07-12] MEDS: Losartan Potassium 50 MG Tablet PO (06:49)
[2022-07-12] MEDS: Escitalopram Oxalate 20 MG Tablet PO (06:49)
[2022-07-12] MEDS: Vancomycin IV 1,000 MG/200 ML BAG 200 MG IV ×2 (06:59→18:06)
[2022-07-12] MEDS: 0.9% Saline Lock 10 ML Syringe IV ×3 (07:03→18:06)
[2022-07-12 14:29] VITALS: BP 131/50; PULSE 103; RESP 18; TEMP 36.8; O2SAT 93
[2022-07-12] MEDS: Rivaroxaban 20 MG Tablet PO (18:04)
[2022-07-12] MEDS: Pramipexole Di-HCl 0.25 MG Tablet 0.75 MG PO (20:12)
[2022-07-12] MEDS: Latanoprost 0.005% 1 Bottle 1 DRP EACH EYE (20:14)
[2022-07-13] MEDS: oxyCODONE 5 MG Tablet PO ×4 (02:13→21:13)
[2022-07-13] MEDS: Vancomycin IV 1,000 MG/200 ML BAG 200 MG IV ×2 (05:49→17:45)
[2022-07-13] MEDS: Senna/Docusate Sodium 1 Tablet 2 TABLET PO ×2 (05:49→17:33)
[2022-07-13] MEDS: Escitalopram Oxalate 20 MG Tablet PO (05:50)
[2022-07-13] MEDS: Cholecalciferol (VIT D3) 25 MCG TABLET (1,000 UNITS) PO (05:50)
[2022-07-13] MEDS: Acetaminophen 500 MG Tablet 1000 MG PO ×3 (05:50→21:14)
[2022-07-13] MEDS: Losartan Potassium 50 MG Tablet PO (05:50)
[2022-07-13] MEDS: Menthol/Lanolin/Calamine/Znox 113 GM Tube 1 APPLIC TOPICAL (05:53)
--- NOTE | 2022-07-13 09:02 | NURSING ---
Addendum entered by Bridger Ham 07/13/22 11:36: PT IS TO BE TOE TOUCH WEIGHT BEARING AND ORDER FOR DOPPLER OF RIGHT LEG. Addendum entered by Bridger Ham 07/13/22 10:26: PT RETURNED TO FLOOR WITH TRANSPORT FROM APPOINTMENT. NEW ORDERS. Original Note: PT LEFT BY TRANSPORT AT [address] CHAPMAN.
--- NOTE | 2022-07-13 10:32 | NURSING ---
order to do doppler RLE d/t posterior knee pain
[2022-07-13] MEDS: 0.9% Saline Lock 10 ML Syringe IV ×3 (10:57→20:03)
--- NOTE | 2022-07-13 13:24 | NURSING ---
physical therapy technician reported doppler negative.
[2022-07-13 14:00] VITALS: PULSE 97; RESP 18; O2SAT 96
[2022-07-13 14:25] VITALS: BP 146/77; PULSE 89; RESP 21; TEMP 36.8; O2SAT 94
[2022-07-13] MEDS: Rivaroxaban 20 MG Tablet PO (17:33)
[2022-07-13] MEDS: Latanoprost 0.005% 1 Bottle 1 DRP EACH EYE (21:13)
[2022-07-13] MEDS: Pramipexole Di-HCl 0.25 MG Tablet 0.75 MG PO (21:15)
[2022-07-13] MEDS: Petrolatum 33% Tube 1 APPLIC TOPICAL (21:15)
[2022-07-14] MEDS: oxyCODONE 5 MG Tablet PO ×4 (02:20→22:30)
[2022-07-14] MEDS: Petrolatum 33% Tube 1 APPLIC TOPICAL ×2 (05:25→22:31)
[2022-07-14] MEDS: Vancomycin IV 1,000 MG/200 ML BAG 200 MG IV ×2 (05:26→17:08)
[2022-07-14] MEDS: 0.9% Saline Lock 10 ML Syringe IV ×3 (05:26→17:03)
[2022-07-14] MEDS: Menthol/Lanolin/Calamine/Znox 113 GM Tube 1 APPLIC TOPICAL (05:33)
[2022-07-14] MEDS: Senna/Docusate Sodium 1 Tablet 2 TABLET PO ×2 (05:34→17:00)
[2022-07-14] MEDS: Losartan Potassium 50 MG Tablet PO (05:34)
[2022-07-14] MEDS: Escitalopram Oxalate 20 MG Tablet PO (05:34)
[2022-07-14] MEDS: Cholecalciferol (VIT D3) 25 MCG TABLET (1,000 UNITS) PO (05:35)
[2022-07-14] MEDS: Acetaminophen 500 MG Tablet 1000 MG PO ×3 (05:35→22:32)
[2022-07-14 13:41] VITALS: BP 161/76; PULSE 108; RESP 21; TEMP 36.7; O2SAT 94
[2022-07-14] MEDS: Rivaroxaban 20 MG Tablet PO (17:00)
[2022-07-14 22:30] VITALS: BP 134/83; PULSE 98; RESP 18; TEMP 36.2; O2SAT 92
[2022-07-14] MEDS: Pramipexole Di-HCl 0.25 MG Tablet 0.75 MG PO (22:31)
[2022-07-14] MEDS: Latanoprost 0.005% 1 Bottle 1 DRP EACH EYE (22:32)
[2022-07-15] MEDS: oxyCODONE 5 MG Tablet PO ×4 (03:28→18:42)
[2022-07-15 06:00] VITALS: BP 140/62; PULSE 83; RESP 17; TEMP 36; O2SAT 96
[2022-07-15] MEDS: Cholecalciferol (VIT D3) 25 MCG TABLET (1,000 UNITS) PO (06:46)
[2022-07-15 06:47] LABS: Vancomycin, Trough Level 11.7 ug/mL (5.0-15.0)
[2022-07-15] MEDS: Escitalopram Oxalate 20 MG Tablet PO (06:47)
[2022-07-15] MEDS: Petrolatum 33% Tube 1 APPLIC TOPICAL ×2 (06:47→18:44)
[2022-07-15] MEDS: Losartan Potassium 50 MG Tablet PO (06:47)
[2022-07-15] MEDS: Acetaminophen 500 MG Tablet 1000 MG PO ×3 (06:47→21:37)
[2022-07-15] MEDS: Senna/Docusate Sodium 1 Tablet 2 TABLET PO ×2 (06:47→18:39)
--- NOTE | 2022-07-15 07:09 | PCM.RX.CS ---
Consult Pharmacy has been consulted to manage selected antiobiotic: Vancomycin Type of Consult: Follow-up Prior Doses of Antibiotics Received/Current Regimen: current dose is vanc 1000mg IV q12h Labs: Sodium 140 mmol/L (136-145) 07/11/22 06:11 Potassium 3.8 mmol/L (3.5-5.1) 07/11/22 06:11 Chloride 106 mmol/L (98-107) 07/11/22 06:11 Carbon Dioxide 28.0 mmol/L (21.0-32.0) 07/11/22 06:11 Anion Gap 6 (5-15) 07/11/22 06:11 BUN 14 mg/dL (7-18) 07/11/22 06:11 Creatinine 0.68 mg/dL (0.55-1.02) 07/11/22 06:11 Est GFR (MDRD) Af Amer 109 mL/min (>60) 07/11/22 06:11 Est GFR (MDRD) Non-Af 90 mL/min (>60) 07/11/22 06:11 BUN/Creatinine Ratio 20.6 RATIO (10-20) H 07/11/22 06:11 Glucose 99 mg/dL (74-106) 07/11/22 06:11 Vancomycin Trough 11.7 ug/mL (5.0-15.0) 07/15/22 05:18 Random Vancomycin 15.2 ug/mL (0.0-15.0) H 06/21/22 09:27 Microbiology: Microbiology 06/25/22 14:10 Nasal Secretion SARS-CoV-2 Antigen (Rapid) - Final 06/19/22 04:43 Nasal Secretion SARS-CoV-2 Antigen (Rapid) - Final Weight used for dosin kg Estimated Creatinine Clearance: 80ml/min Goal Trough: 15-20 mcg/mL Pharmacy Plan for Drug Dosing: The vanc trough drawn at 05:18 today (approximately 12 hours after the previous dose) was 11.7. The trough has consistently been dropping slightly in the goal range the last few draws and now it is below goal so will increase dose to 1250mg IV q12h, starting this morning since this dose has not been given yet. Will order another trough before the 4th new dose tomorrow night. The patient's CrCl of 80ml/min was calculated using an adjusted body weight. Pharmacy Service will continue to monitor and adjust dosing as required. Follow-Up Labs: Trough Vancomycin Labs to be done on [date and time ordered]: 07/16/22 19:30
[2022-07-15] MEDS: 0.9% Saline Lock 10 ML Syringe IV ×3 (08:35→20:01)
--- NOTE | 2022-07-15 11:45 | CASEMGMT ---
Social Work Spoke with pt about DC plans. Pt states she will be ready to DC after her IV ATB are finished. Pt does not have part B benefits to cover DME or therapy. SW offered to make referrals and get pricing. Pt denies therapy needs and will complete HEP. Pt requesting hospital bed. SW spoke with [facility] Liaison for pricing - $150 for 10 months rental. Pt would like hospital bed private pay. SW made referral to [facility]. Sister to transport at DC. Plan: DC to sister's home 07/23, hospital bed Treva Cordoba, HANNAH MCCLURE
[2022-07-15 14:39] VITALS: BP 135/68; PULSE 85; RESP 16; TEMP 36.2; O2SAT 97
--- NOTE | 2022-07-15 17:43 | DS.PCM_ITS ---
Providers Date of Admission: 06/12/22 Primary Care Physician: KEVIN Stock Consultations 06/12/22 12:28 Consult: Onc/Wound/straight slicing machine operator Routine Comment: 06/12/22 14:13 Consult: Infectious Disease Routine Consulting Provider: James Rojas Reason for Consult: Right knee PJI, s/p explant, spacer placement. EMERGENT Consult: No MD Notified: Yes Date Notified: 06/22/22 Time Notified: 09:13 Method of Notification: Verbal Comments:: Spoke with Trini Reason For Visit: RIGHT I & D STATIC ANTIOBIOTIC SPACER OF KNEE Diagnosis Discharge Diagnosis (1) Debility: Status: Acute Code(s): R53.81 - Other malaise (2) Infection of prosthetic knee joint: Status: Acute Code(s): T84.59XA - Infection and inflammatory reaction due to other internal joint prosthesis, initial encounter; Z96.659 - Presence of unspecified artificial knee joint Qualifiers: Encounter type: subsequent encounter Qualified Code(s): T84.59XD - Infection and inflammatory reaction due to other internal joint prosthesis, subsequent encounter; Z96.659 - Presence of unspecified artificial knee joint (3) Acute blood loss anemia: Status: Acute Code(s): D62 - Acute posthemorrhagic anemia (4) Hyperkalemia: Status: Acute Code(s): E87.5 - Hyperkalemia (5) DVT (deep venous thrombosis): Status: Acute Code(s): I82.409 - Acute embolism and thrombosis of unspecified deep veins of unspecified lower extremity Qualifiers: DVT location: lower extremity Affected thrombotic vein of extremity: unspecified vein of extremity Chronicity: chronic Laterality: unspecified laterality Qualified Code(s): I82.509 - Chronic embolism and thrombosis of unspecified deep veins of unspecified lower extremity (6) Hypertension: Status: Chronic Code(s): I10 - Essential (primary) hypertension (7) History of colon cancer: Status: Acute Code(s): Z85.038 - Personal history of other malignant neoplasm of large intestine (8) Quadriceps tendon rupture: Status: Acute Code(s): S76.119A - Strain of unspecified quadriceps muscle, fascia and tendon, initial encounter (9) Glaucoma: Status: Acute Code(s): H40.9 - Unspecified glaucoma Plan 71 year old female with below past medical history hospitalized right prosthetic knee infection, right quadriceps tendon tear, underwent right knee explant, antibiotic spacer placement, right patellectomy 06/10/[address] Munoz, admitted to TCU with debility, here for rehabilitation, strengthening, intrave nous antibiotics, prior to discharge home alone. * Debility - PT/OT. * Pain - Tylenol 1000mg q8h, Oxycodone 5-10mg q6h prn. * Bowel - senna/colace 2 tablets bid, Dulcolax 10mg daily prn. * Adult immunization - Administer pneumonia vaccine, covid19 vaccine, flu vaccine. * DVT prophylaxis - Already on Xarelto. * Right prosthetic knee infection - Ceftriaxone 2gm iv q24, Vancomycin 1000mg iv q12 thru 07/22/2022, consult Dr. Rojas to follow as needed. * Depression - Lexapro 20mg daily. stable chronic mcfp use, GDR not recommended. * Glaucoma - Latanoprost 0.005% 1gtt ou qhs. * Hypertension - Losartan 50mg daily. * Restless Leg syndrome - Mirapex 0.75mg qhs. * Right lower extremity DVT - Xarelto 20mg daily. * Vitamin D deficiency - D3 25mcg daily. * Skin irritation - Eucerin topical bid. Medications at Discharge Home Medications cholecalciferol (vitamin D3) 25 mcg (1,000 unit) capsule (Vitamin D3) 25 mcg PO DAILY SUPPLEMENT 05/27/22 latanoprost 0.005 % eye drops 1 drp EACH EYE QPM GLAUCOMA 05/27/22 losartan 50 mg tablet 50 mg PO DAILY BP 05/27/22 pramipexole 1.5 mg tablet 0.75 mg PO QHS RESTLESS LEG 05/27/22 rivaroxaban 20 mg tablet (Xarelto) 20 mg PO DAILY DVT 05/27/22 acetaminophen 500 mg tablet 1,000 mg PO Q8H pain 06/12/22 sennosides 8.6 mg-docusate sodium 50 mg tablet (Stool Softener-Stimulant Laxative) 2 tab PO BID Constipation 06/12/22 escitalopram oxalate 20 mg tablet 20 mg PO DAILY 30 days #30 tabs 07/15/22 oxycodone 5 mg tablet 5 - 10 mg PO Q4H PRN PRN Pain Score 4-10 7 days #42 tabs 07/15/22 Hospital Course Operations - (See below.) Procedures None Summary of Care Provided Minutes Spent on Discharge: 35 Hospital Course: 71 year old female with below past medical history hospitalized right prosthetic knee infection, right quadriceps tendon tear, underwent right knee explant, antibiotic spacer placement, right patellectomy 06/10/[address] Munoz, admitted to TCU with debility, here for rehabilitation, strengthening, intravenous antibiotics, prior to discharge home alone. Discharge to sister Gali silva 07/23/2022, Hospital bed. Physical Exam Const alert General Appearance: cooperative HEENT normocephalic Eyes PERRL and EOMs intact bilaterally Neck supple, no JVD and no carotid bruits Resp normal respiratory effort, normal air movement and clear to auscultation bilaterally Cardio regular rate and regular rhythm GI normal to inspection, nondistended, normoactive bowel sounds, non-tender and non-distended Extremity normal capillary refill General Extremity: Negative for edema Skin no rashes or lesions noted General Skin Exam: no breakdown Psych affect normal Appearance: appropriate Weight / BMI Weight Weight: 112.945 kg Body Mass Index (BMI) 39.5 ABG / Lab / Microbiology Data Result Diagrams: 07/11/22 06:11 07/11/22 06:11 Laboratory: Laboratory Results - last 24 hr 07/15/22 05:18: Vancomycin Trough 11.7 Microbiology: Microbiology 06/25/22 14:10 Nasal Secretion SARS-CoV-2 Antigen (Rapid) - Final 06/19/22 04:43 Nasal Secretion SARS-CoV-2 Antigen (Rapid) - Final D/C Instructions Discharge Diet: No restrictions Discharge Activity: Return to Normal Activity, May Shower and Use Walker Weight Bearing Status: Toe touch weight bearing (Right lower extremity.) Call your doctor if you observe: Fever of 101 or Higher, Inability to urinate, Inability to have a bowel movement, Shortness of breath, Dizziness, Fainting spells, Swelling in the ankles, Chest pain and Uncontrolled pain Please Follow Up With: Rusty Munoz MD When: 1 week. Meaningful Use Info Meaningful Use Diagnoses (Choose all that apply): None applicable Discharge Plan Admission Admit Date/Time: 06/12/22 11:40 Primary Reason for Your Visit: Debility. Attending Provider: Jerrell Caldera Chi Primary Care Provider: Guerda Torrez NP Consulting Providers: James Rojas Instructions Additional Instructions / Restrictions: Discharge to sister Gali silva 07/23/2022, Hospital bed. Discharge Orders/Prescriptions Prescriptions: New oxycodone 5 mg Tablet 5 - 10 mg PO Q4H PRN PRN (Reason: Pain Score 4-10) 7 Days Qty: 42 0RF escitalopram oxalate 20 mg Tablet 20 mg PO DAILY 30 Days Qty: 30 0RF Continued losartan 50 mg Tablet 50 mg PO DAILY latanoprost 0.005 % Drops 1 drp EACH EYE QPM pramipexole 1.5 mg Tablet 0.75 mg PO QHS Label Comments: TAKE 1 1/2 TAB BEDTIME cholecalciferol (vitamin D3) [Vitamin D3] 25 mcg (1,000 unit) Capsule 25 mcg PO DAILY Xarelto 20 mg Tablet 20 mg PO DAILY Label Comments: PT TO STOP 5 DAYS PRIOR-06/04/22 LAST DOSE Rx Instructions: must administer with evening meal sennosides-docusate sodium [Stool Softener-Stimulant Laxat] 8.6-50 mg tablet 2 tab PO BID Rx Instructions: Postoperative anemia secondary to acute blood loss from surgery without any intra operative complications. acetaminophen 500 mg tablet 1,000 mg PO Q8H Rx Instructions: Do not take more than 3000 mg Tylenol in a 24-hour period. Discontinued escitalopram oxalate 10 mg Tablet 10 mg PO DAILY oxycodone 5 mg Tablet 5 - 10 mg PO Q4H PRN PRN (Reason: Pain Score 4-10) 7 Days Qty: 60 0RF ceftriaxone 2 gram recon soln 2 g IV DAILY Rx Instructions: stop date 07/22/22 dx: knee PJI weekly bmp, cbc, esr, and vanc trough. Fax to [phone] routine picc care with heparin/saline flush per protocol ferrous sulfate [FeroSul] 325 mg (65 mg iron) tablet 325 mg PO QODAY@1200 Rx Instructions: Continue 2 weeks postoperatively folic acid 1 mg tablet 1 mg PO BREAKFAST Rx Instructions: Continue 2 weeks postoperatively vancomycin 1.5 gram recon soln 1.5 g IV Q12H Rx Instructions: stop date 07/22/22 dx: knee PJI weekly bmp, cbc, esr, and vanc trough. Fax to [phone] routine picc care with heparin/saline flush per protocol Referrals / Follow Up: nEmanuel Munoz MD [Med Staff - Active Staff] - Guerda Torrez NP, PROFILE SAW OPERATOR-C [Primary Care Provider] - Disposition Disposition (needs filled in before D/C Order can be placed): Home, Self Care
[2022-07-15] MEDS: Rivaroxaban 20 MG Tablet PO (18:39)
[2022-07-15] MEDS: Latanoprost 0.005% 1 Bottle 1 DRP EACH EYE (21:37)
[2022-07-15] MEDS: Pramipexole Di-HCl 0.25 MG Tablet 0.75 MG PO (21:37)
[2022-07-16] MEDS: oxyCODONE 5 MG Tablet PO ×4 (02:52→22:21)
[2022-07-16] MEDS: Acetaminophen 500 MG Tablet 1000 MG PO ×3 (06:13→21:32)
[2022-07-16] MEDS: Cholecalciferol (VIT D3) 25 MCG TABLET (1,000 UNITS) PO (06:13)
[2022-07-16] MEDS: Losartan Potassium 50 MG Tablet PO (06:13)
[2022-07-16] MEDS: Escitalopram Oxalate 20 MG Tablet PO (06:13)
[2022-07-16] MEDS: Senna/Docusate Sodium 1 Tablet 2 TABLET PO (06:13)
[2022-07-16] MEDS: Petrolatum 33% Tube 1 APPLIC TOPICAL ×2 (06:19→21:31)
[2022-07-16 06:20] VITALS: BP 139/74; PULSE 103; RESP 16
[2022-07-16] MEDS: 0.9% Saline Lock 10 ML Syringe IV ×2 (07:51→21:26)
--- NOTE | 2022-07-16 14:00 | NURSING ---
PICC DRESSING CHANGED,PT TOLERATED WELL.
--- NOTE | 2022-07-16 15:21 | CHAPLAIN ---
Type of Pastoral Visit ___ Initial Visit _x__ Follow-up Visit ___ On-call Visit ___ General Patient Visit ___ Spiritual Assessment ___ Family Conference ___ Bereavement ___ Rapid Response ___ Code Blue ___ Other (describe below) Pastoral Care Referral From _x__ Patient ___ Family ___ Nurse ___ Physician ___ Cartographic Engineer ___ Audit Manager ___ Other (describe below) Sacrament/Intervention ___ Active listening ___ Anointing ___ Scientology ___ Bereavement ___ Communion ___ Flavia exploration ___ ___ Life review ___ Prayer ___ Reconciliation ___ Sacrament of Sick _x__ Supportive presence ___ Wedding ___ Other (describe below) Pastoral Comments patient is pleasant and thankful for offer of support and visit; pt states that she has had a busy day and welcomes a visit at a different time; pt gives brief update on her care and on her plans for discharge; pt concern is that her illness will be resolved
[2022-07-16 15:50] VITALS: BP 145/48; PULSE 83; RESP 17; TEMP 36.4; O2SAT 93
[2022-07-16] MEDS: Rivaroxaban 20 MG Tablet PO (16:48)
[2022-07-16 16:53] VITALS: PULSE 85; RESP 18; O2SAT 94
[2022-07-16 20:19] LABS: Vancomycin, Trough Level 14.4 ug/mL (5.0-15.0)
[2022-07-16] MEDS: Pramipexole Di-HCl 0.25 MG Tablet 0.75 MG PO (21:32)
[2022-07-16] MEDS: Latanoprost 0.005% 1 Bottle 1 DRP EACH EYE (21:32)
--- NOTE | 2022-07-17 00:17 | PCM.RX.CS ---
Consult Pharmacy has been consulted to manage selected antiobiotic: Vancomycin Type of Consult: Follow-up Labs: Sodium 140 mmol/L (136-145) 07/11/22 06:11 Potassium 3.8 mmol/L (3.5-5.1) 07/11/22 06:11 Chloride 106 mmol/L (98-107) 07/11/22 06:11 Carbon Dioxide 28.0 mmol/L (21.0-32.0) 07/11/22 06:11 Anion Gap 6 (5-15) 07/11/22 06:11 BUN 14 mg/dL (7-18) 07/11/22 06:11 Creatinine 0.68 mg/dL (0.55-1.02) 07/11/22 06:11 Est GFR (MDRD) Af Amer 109 mL/min (>60) 07/11/22 06:11 Est GFR (MDRD) Non-Af 90 mL/min (>60) 07/11/22 06:11 BUN/Creatinine Ratio 20.6 RATIO (10-20) H 07/11/22 06:11 Glucose 99 mg/dL (74-106) 07/11/22 06:11 Vancomycin Trough 14.4 ug/mL (5.0-15.0) 07/16/22 19:06 Random Vancomycin 15.2 ug/mL (0.0-15.0) H 06/21/22 09:27 Microbiology: Microbiology 06/25/22 14:10 Nasal Secretion SARS-CoV-2 Antigen (Rapid) - Final 06/19/22 04:43 Nasal Secretion SARS-CoV-2 Antigen (Rapid) - Final Goal Trough: 15-20 mcg/mL Pharmacy Plan for Drug Dosing: Pharmacy Service will continue to monitor and adjust dosing as required. TROUGH 14.1 @ 11 HRS. INCREASE TO 1500 MG Q12H AND FOLLOW UP TROUGH PRIOR TO 4TH DOSE Follow-Up Labs: Trough Vancomycin Labs to be done on [date and time ordered]: 07/18 @ 1930
[2022-07-17] MEDS: Petrolatum 33% Tube 1 APPLIC TOPICAL ×2 (04:32→17:28)
[2022-07-17] MEDS: Menthol/Lanolin/Calamine/Znox 113 GM Tube 1 APPLIC TOPICAL (04:32)
[2022-07-17] MEDS: Losartan Potassium 50 MG Tablet PO (04:32)
[2022-07-17] MEDS: Senna/Docusate Sodium 1 Tablet 2 TABLET PO ×2 (04:33→17:25)
[2022-07-17] MEDS: Acetaminophen 500 MG Tablet 1000 MG PO ×3 (04:33→21:00)
[2022-07-17] MEDS: Cholecalciferol (VIT D3) 25 MCG TABLET (1,000 UNITS) PO (04:33)
[2022-07-17] MEDS: oxyCODONE 5 MG Tablet PO ×4 (04:34→22:03)
[2022-07-17] MEDS: Escitalopram Oxalate 20 MG Tablet PO (04:52)
[2022-07-17 15:20] VITALS: BP 136/62; PULSE 86; RESP 14; TEMP 37.3; O2SAT 97
[2022-07-17] MEDS: Rivaroxaban 20 MG Tablet PO (17:25)
[2022-07-17] MEDS: Latanoprost 0.005% 1 Bottle 1 DRP EACH EYE (21:01)
[2022-07-17] MEDS: Pramipexole Di-HCl 0.25 MG Tablet 0.75 MG PO (21:01)
[2022-07-17 22:00] VITALS: PULSE 84; RESP 16; O2SAT 97
[2022-07-17] MEDS: 0.9% Saline Lock 10 ML Syringe IV (22:07)
[2022-07-18] MEDS: Acetaminophen 500 MG Tablet 1000 MG PO ×3 (06:59→20:48)
[2022-07-18] MEDS: Escitalopram Oxalate 20 MG Tablet PO (06:59)
[2022-07-18] MEDS: Losartan Potassium 50 MG Tablet PO (06:59)
[2022-07-18] MEDS: Cholecalciferol (VIT D3) 25 MCG TABLET (1,000 UNITS) PO (06:59)
[2022-07-18] MEDS: oxyCODONE 5 MG Tablet PO ×3 (06:59→20:47)
[2022-07-18] MEDS: Petrolatum 33% Tube 1 APPLIC TOPICAL ×2 (07:00→18:40)
[2022-07-18 07:12] VITALS: BP 142/60; PULSE 87; RESP 16
[2022-07-18 07:41] LABS: Absolute Lymphocyte Count 0.72 X10^3/uL (0.83-4.51); Absolute Neutrophil Count 4.1 X10^3/uL (2.0-7.7); Basophil# 0.05 X10^3/uL; Basophil% 0.9 % (0-1); Eosinophil# 0.31 X10^3/uL; Eosinophils% 5.6 % (0-5); Hemoglobin 8.9 g/dL (12.0-15.0); Lymphocyte # 0.72 X10^3/ul (0.83-4.51); Lymphocyte % 13.1 % (19-41); Mean Corp Hgb Conc 29.7 g/dL (32-36); Mean Corpuscular Hgb 26.6 pg (27.0-32.0); Mean Corpuscular Volume 89.6 fL (81-99); Mean Platelet Vol. 11.4 fl (6.2-12.0); Monocyte# 0.33 X10^3/uL; NRBC Flagged by Analyzer 0 % (0-5); Neutrophil # 4.06 X10^3/uL (2.7-7.7); Platelet Count 220 K/mm3 (150-450); RBC Distribution Width SD 56.2 fl (35.1-43.9); Red Blood Count 3.35 M/mm3 (4.2-5.4); White Blood Count 5.5 K/mm3 (4.4-11.0)
[2022-07-18 07:51] LABS: Erythrocyte Sedimentation Rate 22 mm/hr (0-30)
[2022-07-18 07:56] LABS: Anion Gap 5 (5-15); BUN 12 mg/dL (7-18); Calcium,Total 8.7 mg/dL (8.5-10.1); Chloride 105 mmol/L (98-107); EST Glomerular Filtration Rate 104 mL/min (>60); Est Glom Filt Rate - Afr Amer 126 mL/min (>60); Glucose 101 mg/dL (74-106); Potassium 3.6 mmol/L (3.5-5.1); Sodium Level 139 mmol/L (136-145)
[2022-07-18] MEDS: 0.9% Saline Lock 10 ML Syringe IV (08:26)
[2022-07-18 15:04] VITALS: BP 144/55; PULSE 89; RESP 18; TEMP 36.2; O2SAT 95
[2022-07-18] MEDS: Rivaroxaban 20 MG Tablet PO (18:39)
[2022-07-18] MEDS: Pramipexole Di-HCl 0.25 MG Tablet 0.75 MG PO (20:47)
[2022-07-18] MEDS: Latanoprost 0.005% 1 Bottle 1 DRP EACH EYE (20:50)
[2022-07-18 20:54] LABS: Vancomycin, Trough Level 19.2 ug/mL (5.0-15.0)
[2022-07-18 21:48] VITALS: O2SAT 96
[2022-07-19] MEDS: Acetaminophen 500 MG Tablet 1000 MG PO ×3 (05:27→20:10)
[2022-07-19] MEDS: Escitalopram Oxalate 20 MG Tablet PO (05:28)
[2022-07-19] MEDS: Losartan Potassium 50 MG Tablet PO (05:28)
[2022-07-19] MEDS: Cholecalciferol (VIT D3) 25 MCG TABLET (1,000 UNITS) PO (05:28)
[2022-07-19] MEDS: Petrolatum 33% Tube 1 APPLIC TOPICAL ×2 (05:29→17:28)
[2022-07-19] MEDS: oxyCODONE 5 MG Tablet PO ×4 (05:31→20:07)
[2022-07-19] MEDS: Menthol/Lanolin/Calamine/Znox 113 GM Tube 1 APPLIC TOPICAL (05:33)
--- NOTE | 2022-07-19 07:23 | RAD_ITS ---
We are attempting to reach an attending provider to discuss findings. An addendum with communication details will be sent when the communication is complete. EXAM: XR CHEST, 2 VIEWS CLINICAL INDICATION: Cough TECHNIQUE: Frontal and lateral views of the chest. This report was created using [employer] report generation technology. COMPARISON: None. FINDINGS: LUNGS AND PLEURAL SPACES: Suspicious 2.5 cm right perihilar mass. No pneumothorax. No effusion. HEART: Mild cardiomegaly. MEDIASTINUM: Central airways and mediastinal contour are unremarkable. BONES/JOINTS: Unremarkable. SOFT TISSUES: Unremarkable. RAD/Chest PA and Lateral IMPRESSION: Suspicious 2.5 cm right perihilar mass. RECOMMENDATION: CT chest with IV contrast for further evaluation. Electronically Signed: Chapito Day MD at 8:21 EDT ,
--- NOTE | 2022-07-19 07:25 | NURSING ---
Pt c/o intermittent cough and states she coughed up bloody sputum 2 days ago. Also states having shortness of breath on exertion. Dr. Caldera notified and CXR ordered.
--- NOTE | 2022-07-19 09:04 | NURSING ---
Call from radiology that they have critical results from xray, want to speak with Dr. Caldera. Had corner cutter machine operator page Dr. Caldera to call radiologist. Call from Dr. Caldera to RN regarding xray results, new verbal orders for patient to have chest CT with contrast after mass shown on xray. Order faxed to CT.
[2022-07-19 10:39] VITALS: BP 141/64; PULSE 87; RESP 18; TEMP 36.9; O2SAT 95
[2022-07-19 10:54] VITALS: RESP 18; O2SAT 96
[2022-07-19] MEDS: Potassium Chloride Oral Tablet 20 MEQ PO (15:02)
[2022-07-19] MEDS: Furosemide 40 MG Tablet PO (15:03)
[2022-07-19] MEDS: Rivaroxaban 20 MG Tablet PO (17:27)
[2022-07-19] MEDS: Pramipexole Di-HCl 0.25 MG Tablet 0.75 MG PO (20:10)
[2022-07-19] MEDS: Latanoprost 0.005% 1 Bottle 1 DRP EACH EYE (20:11)
[2022-07-20] MEDS: oxyCODONE 5 MG Tablet PO ×4 (02:59→21:42)
[2022-07-20] MEDS: Acetaminophen 500 MG Tablet 1000 MG PO ×3 (04:53→21:42)
[2022-07-20] MEDS: Losartan Potassium 50 MG Tablet PO (04:54)
[2022-07-20] MEDS: Escitalopram Oxalate 20 MG Tablet PO (04:54)
[2022-07-20] MEDS: Senna/Docusate Sodium 1 Tablet 2 TABLET PO ×2 (04:54→17:11)
--- NOTE | 2022-07-20 04:56 | PCM.RX.CS ---
Consult Pharmacy has been consulted to manage selected antiobiotic: Vancomycin Type of Consult: Follow-up Labs: Sodium 139 mmol/L (136-145) 07/18/22 06:53 Potassium 3.6 mmol/L (3.5-5.1) 07/18/22 06:53 Chloride 105 mmol/L (98-107) 07/18/22 06:53 Carbon Dioxide 29.0 mmol/L (21.0-32.0) 07/18/22 06:53 Anion Gap 5 (5-15) 07/18/22 06:53 BUN 12 mg/dL (7-18) 07/18/22 06:53 Creatinine 0.60 mg/dL (0.55-1.02) 07/18/22 06:53 Est GFR (MDRD) Af Amer 126 mL/min (>60) 07/18/22 06:53 Est GFR (MDRD) Non-Af 104 mL/min (>60) 07/18/22 06:53 BUN/Creatinine Ratio 20.0 RATIO (10-20) 07/18/22 06:53 Glucose 101 mg/dL (74-106) 07/18/22 06:53 Vancomycin Trough 19.2 ug/mL (5.0-15.0) H 07/18/22 19:35 Random Vancomycin 15.2 ug/mL (0.0-15.0) H 06/21/22 09:27 Microbiology: Microbiology 06/25/22 14:10 Nasal Secretion SARS-CoV-2 Antigen (Rapid) - Final 06/19/22 04:43 Nasal Secretion SARS-CoV-2 Antigen (Rapid) - Final Goal Trough: 15-20 mcg/mL Pharmacy Plan for Drug Dosing: Pharmacy Service will continue to monitor and adjust dosing as required. Follow-Up Labs: Trough Vancomycin Labs to be done on [date and time ordered]: LAB NOT DRAWN, RESHEDULE PRIOR TO NEXT DOSE
[2022-07-20] MEDS: Furosemide 40 MG Tablet PO (05:02)
[2022-07-20] MEDS: Petrolatum 33% Tube 1 APPLIC TOPICAL (05:03)
[2022-07-20 08:00] VITALS: PULSE 91; RESP 18; O2SAT 95
[2022-07-20] MEDS: Cholecalciferol (VIT D3) 25 MCG TABLET (1,000 UNITS) PO (08:26)
[2022-07-20] MEDS: Potassium Chloride Oral Tablet 20 MEQ PO (08:27)
[2022-07-20 08:37] LABS: Vancomycin, Trough Level 23.5 ug/mL (5.0-15.0)
--- NOTE | 2022-07-20 09:01 | NURSING ---
PER PHARMACY, HOLD THE 0800 VANCOMYCIN. TROF WAS 23.5
[2022-07-20] MEDS: 0.9% Saline Lock 10 ML Syringe IV (09:07)
--- NOTE | 2022-07-20 14:26 | PCM.RX.CS ---
Consult Pharmacy has been consulted to manage selected antiobiotic: Vancomycin Type of Consult: Follow-up Labs: Sodium 139 mmol/L (136-145) 07/18/22 06:53 Potassium 3.6 mmol/L (3.5-5.1) 07/18/22 06:53 Chloride 105 mmol/L (98-107) 07/18/22 06:53 Carbon Dioxide 29.0 mmol/L (21.0-32.0) 07/18/22 06:53 Anion Gap 5 (5-15) 07/18/22 06:53 BUN 12 mg/dL (7-18) 07/18/22 06:53 Creatinine 0.60 mg/dL (0.55-1.02) 07/18/22 06:53 Est GFR (MDRD) Af Amer 126 mL/min (>60) 07/18/22 06:53 Est GFR (MDRD) Non-Af 104 mL/min (>60) 07/18/22 06:53 BUN/Creatinine Ratio 20.0 RATIO (10-20) 07/18/22 06:53 Glucose 101 mg/dL (74-106) 07/18/22 06:53 Vancomycin Trough 23.5 ug/mL (5.0-15.0) H 07/20/22 07:38 Random Vancomycin 15.2 ug/mL (0.0-15.0) H 06/21/22 09:27 Microbiology: Microbiology 06/25/22 14:10 Nasal Secretion SARS-CoV-2 Antigen (Rapid) - Final 06/19/22 04:43 Nasal Secretion SARS-CoV-2 Antigen (Rapid) - Final Goal Trough: 15-20 mcg/mL Pharmacy Plan for Drug Dosing: Trough resulted at 25.3. Vancomycin doses held on 07/20/22 due to elevated trough. Medication due to be stopped 07/22/22. Dr. Rojas consulted, and agreed to stop medication as of today, 07/20/22. Pharmacy Service will continue to monitor and adjust dosing as required.
[2022-07-20 14:38] VITALS: BP 143/80; PULSE 100; RESP 17; TEMP 36.8; O2SAT 92
[2022-07-20] MEDS: Rivaroxaban 20 MG Tablet PO (17:12)
[2022-07-20] MEDS: Latanoprost 0.005% 1 Bottle 1 DRP EACH EYE (21:41)
[2022-07-20] MEDS: Pramipexole Di-HCl 0.25 MG Tablet 0.75 MG PO (21:42)
[2022-07-21] MEDS: Acetaminophen 500 MG Tablet 1000 MG PO ×3 (06:31→19:57)
[2022-07-21] MEDS: Furosemide 40 MG Tablet PO (06:31)
[2022-07-21] MEDS: Losartan Potassium 50 MG Tablet PO (06:31)
[2022-07-21] MEDS: Escitalopram Oxalate 20 MG Tablet PO (06:31)
[2022-07-21] MEDS: Cholecalciferol (VIT D3) 25 MCG TABLET (1,000 UNITS) PO (06:31)
[2022-07-21] MEDS: oxyCODONE 5 MG Tablet PO ×3 (06:33→19:56)
[2022-07-21] MEDS: 0.9% Saline Lock 10 ML Syringe IV ×2 (06:33→09:42)
[2022-07-21] MEDS: Petrolatum 33% Tube 1 APPLIC TOPICAL (06:36)
[2022-07-21] MEDS: Potassium Chloride Oral Tablet 20 MEQ PO (08:03)
--- NOTE | 2022-07-21 10:07 | PCM.PN.ID ---
Physical Exam Narrative Feeling ok, having increasing BLE edema, mild R knee redness. No fever. No new tenderness. Const alert and no apparent distress Resp normal air movement and clear to auscultation bilaterally Cardio regular rate and regular rhythm GI soft to palpation, non-tender and non-distended Extremity General Extremity: edema Skin Skin Narrative: R knee incision well healed, some redness around anterior knee ID ID: Route of nutrition/ use of supplements: [] Nutritional Intake: [] IV Site: [] Mustafa Catheter: [] Assessment & Plan Assessment/Plan (1) Infection of prosthetic knee joint: QUALIFIERS: Encounter type: subsequent encounter Qualified Code(s): T84.59XD - Infection and inflammatory reaction due to other internal joint prosthesis, subsequent encounter; Z96.659 - Presence of unspecified artificial knee joint PLAN: Now s/p R knee spacer placement 06/10/[address] Munoz.? Aspiration 03/2022 with neg cx.? Surg cx neg after two weeks.? On empiric vanc/ceftriaxone. Plan is for 6 weeks iv abx with stop date 07/22/22 and weekly labs. Tolerating abx well. Once off abx, will follow up with Dr. Munoz to discuss timing of 2nd stage. Will follow
--- NOTE | 2022-07-21 10:35 | NURSING ---
IN TO SEE PT.
[2022-07-21 15:03] VITALS: BP 139/70; PULSE 82; RESP 18; TEMP 36.5; O2SAT 95
[2022-07-21] MEDS: Rivaroxaban 20 MG Tablet PO (17:30)
[2022-07-21] MEDS: Senna/Docusate Sodium 1 Tablet 2 TABLET PO (17:30)
[2022-07-21] MEDS: Pramipexole Di-HCl 0.25 MG Tablet 0.75 MG PO (19:58)
[2022-07-21] MEDS: Latanoprost 0.005% 1 Bottle 1 DRP EACH EYE (19:58)
[2022-07-21 21:27] VITALS: PULSE 84; RESP 16; O2SAT 96
[2022-07-21 23:11] VITALS: O2SAT 95
[2022-07-22] MEDS: oxyCODONE 5 MG Tablet PO ×3 (04:56→21:27)
[2022-07-22] MEDS: Senna/Docusate Sodium 1 Tablet 2 TABLET PO ×2 (05:04→18:28)
[2022-07-22] MEDS: Acetaminophen 500 MG Tablet 1000 MG PO ×3 (05:04→21:27)
[2022-07-22] MEDS: Escitalopram Oxalate 20 MG Tablet PO (05:05)
[2022-07-22] MEDS: Cholecalciferol (VIT D3) 25 MCG TABLET (1,000 UNITS) PO (05:05)
[2022-07-22] MEDS: Furosemide 40 MG Tablet PO ×2 (05:05→14:15)
[2022-07-22] MEDS: Losartan Potassium 50 MG Tablet PO (05:05)
[2022-07-22] MEDS: Petrolatum 33% Tube 1 APPLIC TOPICAL ×2 (05:06→18:29)
--- NOTE | 2022-07-22 05:42 | NURSING ---
Pt R knee is reddened and warm to the touch. RLE is 2+ pitting. Dr. Rojas visited 07/21 and noted the swelling and redness. Note left for Dr. Caldera asking if he wants to do another doppler or increase lasix. RN aware.
[2022-07-22] MEDS: Potassium Chloride Oral Tablet 20 MEQ PO (08:20)
[2022-07-22 16:00] VITALS: BP 163/58; PULSE 88; RESP 16; TEMP 37; O2SAT 94
--- NOTE | 2022-07-22 16:22 | CASEMGMT ---
Social Work Followed up with pt on postponing discharge due to new medical concerns arising. Educated pt to insurance continuing to cover her for future days to get things resolved, but still pt's decision on discharge remaining 07/22. Pt understands the benefit of staying longer but if she is unable to get answers or fixes on what is going, she would prefer to be at home. SW expressed understanding and pt can make a decision after speaking with Dr. Caldera. Pt appreciative. Treva Cordoba, HEALTH NURSE CLIENT SUPPORT ANALYST
[2022-07-22] MEDS: Rivaroxaban 20 MG Tablet PO (18:28)
--- NOTE | 2022-07-22 18:45 | NURSING ---
Dr. Caldera and this RN in room to speak with patient around 1730. Dr caldera assessed right knee, noted redness/swelling. Last dose of antibiotic completed today. Doppler negative for DVT. Per Dr. Caldera, cancel discharge at this time and update Dr. Munoz about knee assessment. Per Dr. Caldera, Dr. Munoz will make call on what to do next. Patient verbalized understanding, tearful at times and states she's afraid she'll need surgery again. She is in agreement to stay and wait on orders from Dr. Munoz. PICC line to stay in place for now.
[2022-07-22] MEDS: Latanoprost 0.005% 1 Bottle 1 DRP EACH EYE (21:27)
[2022-07-22] MEDS: Pramipexole Di-HCl 0.25 MG Tablet 0.75 MG PO (21:27)
[2022-07-22] MEDS: 0.9% Saline Lock 10 ML Syringe IV (21:31)
[2022-07-23] MEDS: Furosemide 40 MG Tablet PO ×2 (05:13→13:44)
[2022-07-23] MEDS: Escitalopram Oxalate 20 MG Tablet PO (05:13)
[2022-07-23] MEDS: Losartan Potassium 50 MG Tablet PO (05:13)
[2022-07-23] MEDS: Cholecalciferol (VIT D3) 25 MCG TABLET (1,000 UNITS) PO (05:13)
[2022-07-23] MEDS: Senna/Docusate Sodium 1 Tablet 2 TABLET PO (05:13)
[2022-07-23] MEDS: oxyCODONE 5 MG Tablet PO ×3 (05:14→22:08)
[2022-07-23] MEDS: Acetaminophen 500 MG Tablet 1000 MG PO ×3 (05:14→22:08)
[2022-07-23] MEDS: 0.9% Saline Lock 10 ML Syringe IV ×3 (05:17→15:14)
[2022-07-23] MEDS: Potassium Chloride Oral Tablet 20 MEQ PO (08:43)
[2022-07-23] MEDS: Petrolatum 33% Tube 1 APPLIC TOPICAL ×2 (08:47→17:32)
--- NOTE | 2022-07-23 09:08 | NURSING ---
Spoke with Anh in Dr. Munoz's office. She will speak with Dr. Munoz and return call with his orders.
--- NOTE | 2022-07-23 09:51 | NURSING ---
Received return call from Anh in Dr. Munoz's office, he ordered a repeat CBC, CRP AND ESR. Will add orders.
[2022-07-23 10:00] VITALS: PULSE 78; RESP 18; O2SAT 99
[2022-07-23 10:57] LABS: Erythrocyte Sedimentation Rate 25 mm/hr (0-30)
[2022-07-23 10:59] LABS: Absolute Lymphocyte Count 0.86 X10^3/uL (0.83-4.51); Basophil# 0.06 X10^3/uL; Basophil% 1.1 % (0-1); Eosinophil# 0.32 X10^3/uL; Eosinophils% 5.7 % (0-5); Hematocrit 32.5 % (37-47); Hemoglobin 9.7 g/dL (12.0-15.0); Lymphocyte # 0.86 X10^3/ul (0.83-4.51); Lymphocyte % 15.4 % (19-41); Mean Corp Hgb Conc 29.8 g/dL (32-36); Mean Corpuscular Hgb 26.4 pg (27.0-32.0); Mean Corpuscular Volume 88.6 fL (81-99); Mean Platelet Vol. 10.7 fl (6.2-12.0); Monocyte# 0.31 X10^3/uL; Monocyte% 5.6 % (0-10); NRBC Flagged by Analyzer 0 % (0-5); Neutrophil % 71.8 % (47-70); Platelet Count 301 K/mm3 (150-450); RBC Distribution Width CV 16.9 % (11.6-14.6); RBC Distribution Width SD 54.5 fl (35.1-43.9); Red Blood Count 3.67 M/mm3 (4.2-5.4); White Blood Count 5.6 K/mm3 (4.4-11.0)
[2022-07-23 13:49] VITALS: BP 126/59; PULSE 90; RESP 18; TEMP 36.8; O2SAT 96
--- NOTE | 2022-07-23 13:50 | NURSING ---
Contacted Dr. Munoz's office to see if they had reviewed the faxed labs. Anh to contact Dr. Munoz to see if he has reviewed the labs yet.
--- NOTE | 2022-07-23 15:55 | NURSING ---
Received call from Anh in Dr. Munoz's office. He ordered an xray of right knee. Will add order.
--- NOTE | 2022-07-23 16:10 | RAD_ITS ---
STUDY: X-RAY - RIGHT KNEE REASON FOR EXAM: Female, 71 years old. Edema and redness TECHNIQUE: 3 view(s) of the knee. COMPARISON: None. FINDINGS: There is arthrodesis with an intramedullary yael extending from the distal femur across the knee joint into the proximal tibia. There is bone cement seen extending across this site. This intramedullary yael extends anterior to the distal femoral shaft. There is modest soft tissue edema throughout the imaged portion of the thigh and knee and leg. RAD/Knee 3 Views IMPRESSION: Arthrodesis of the knee as above. Electronically Signed: Ramón Lopez MD, BALBIR at 16:47 EDT ,
--- NOTE | 2022-07-23 16:49 | NURSING ---
Received call from Dr. Munoz's officer, per his order pt to be NPO after midnight for surgery in am.
--- NOTE | 2022-07-23 17:24 | NURSING ---
Notified Dr. Munoz that pt is currently on Xarelto, per Dr. Munoz hold Xarelto.
[2022-07-23] MEDS: Menthol/Lanolin/Calamine/Znox 113 GM Tube 1 APPLIC TOPICAL (17:32)
[2022-07-23] MEDS: Pramipexole Di-HCl 0.25 MG Tablet 0.75 MG PO (22:08)
[2022-07-23] MEDS: Latanoprost 0.005% 1 Bottle 1 DRP EACH EYE (22:09)
--- NOTE | 2022-07-24 12:17 | NURSING ---
R' LEAVING UNIT AT THIS TIME FOR SURGERY.
--- NOTE | 2022-07-24 13:44 | HP.PCM_ITS ---
HPI - General General Date of Admission: 06/12/22 Date of Service: 07/24/22 Chief Complaint: Right leg pain HPI Narrative SHAYY MASON, is a 71 F who presents with right leg pain. Patient has a static antibiotic spacer with intramedullary nail spanning her tibia and femur. She was getting ready for discharge when she developed increased swelling in her thigh. She was seen in the office a week ago and had good intramedullary purchase of the nail. However after obtaining blood work showing relatively stable infectious inflammatory lab work compared to previous lab work we elected to get x-rays. This showed a anterior cortical breach of the femoral aspect of the intramedullary nail used to stabilize the static antibiotic spacer. Patient reports 9 out of 10 pain worse with motion better with immobilization. She is recently completed her antibiotics for two-stage revision. She is on Xarelto for DVT prophylaxis/treatment related to recent surgery and previous DVT. She took Xarelto 2 evenings ago. She did not have a dose yesterday. [facility] Medical History Anemia Arthritis Cancer Chronic cough DVT (deep venous thrombosis) History of edema History of pain when walking History of stress test Hx of vaginal delivery Hypertension Open wound Post-menopausal Restless legs Shortness of breath on exertion Walker as ambulation aid Wears glasses Home Medications cholecalciferol (vitamin D3) 25 mcg (1,000 unit) capsule (Vitamin D3) 25 mcg PO DAILY SUPPLEMENT 05/27/22 [History Last Taken Unknown] latanoprost 0.005 % eye drops 1 drp EACH EYE QPM GLAUCOMA 05/27/22 [History Last Taken Unknown] losartan 50 mg tablet 50 mg PO DAILY BP 05/27/22 [History Last Taken 06/10/22] pramipexole 1.5 mg tablet 0.75 mg PO QHS RESTLESS LEG 05/27/22 [History Last Taken Unknown] rivaroxaban 20 mg tablet (Xarelto) 20 mg PO DAILY DVT 05/27/22 [History Last Taken 06/04/22] acetaminophen 500 mg tablet 1,000 mg PO Q8H pain 06/12/22 [History Last Taken 06/12/22 06:04] sennosides 8.6 mg-docusate sodium 50 mg tablet (Stool Softener-Stimulant Laxative) 2 tab PO BID Constipation 06/12/22 [History Last Taken Unknown] escitalopram oxalate 20 mg tablet 20 mg PO DAILY 30 days #30 tabs 07/15/22 [Rx Last Taken Unknown] oxycodone 5 mg tablet 5 - 10 mg PO Q4H PRN PRN Pain Score 4-10 7 days #42 tabs 07/15/22 [Rx Last Taken Unknown] Allergy/AdvReac Type Severity Reaction Status Date / Time No Known Allergies Allergy Verified 06/10/22 07:03 Surgical History History of facelift Hx of appendectomy Hx of colonoscopy Hx of hernia repair Hx of hysterectomy Hx of knee surgery Hx of surgical procedure Hx of tonsillectomy Hx of total knee replacement Social History (Updated 06/12/22 @ 13:[address] Jerrell Caldera MD) household members: none Smoking Status: Never smoker alcohol intake: current alcohol intake frequency: holidays/special occasions only substance use type: does not use ROS Constitutional Constitutional: Reports systems reviewed and no addt'l complaints, except as documented Eyes Eyes: Reports systems reviewed and no addt'l complaints, except as documented ENT HEENT: Reports systems reviewed and no addt'l complaints, except as documented Cardiovascular Cardiovascular: Reports systems reviewed and no addt'l complaints, except as documented Respiratory/Chest Respiratory/Chest: Reports systems reviewed and no addt'l complaints, except as documented Gastrointestinal Gastrointestinal: Reports systems reviewed and no addt'l complaints, except as documented Genitourinary Genitourinary: Reports systems reviewed and no addt'l complaints, except as documented Musculoskeletal Musculoskeletal: Reports systems reviewed and no addt'l complaints, except as documented Integumentary Integumentary: Reports systems reviewed and no addt'l complaints, except as documented Neurologic Neurologic: Reports systems reviewed and no addt'l complaints, except as documented Psychiatric Psychiatric: Reports systems reviewed and no addt'l complaints, except as documented Endocrine Endocrinology: Reports systems reviewed and no addt'l complaints, except as documented Hematologic/Lymphatic Hematologic/Lymphatic: Reports systems reviewed and no addt'l complaints, except as documented Allergic/Immunologic Allergic/Immunologic: Reports systems reviewed and no addt'l complaints, except as documented Vital Signs Vital Signs Vital Signs: 07/23/22 13:49 07/23/22:00 07/24/22 10:00 Temperature 98.2 F Temperature Source Temporal Pulse Rate 90 Pulse Strength Normal (2+) Normal (2+) Respiratory Rate 18 Blood Pressure 126/59 H Blood Pressure Mean 81 Blood Pressure Source Monitor Blood Pressure Position Sitting Blood Pressure Location Left Arm Pulse Ox 96 Oxygen Delivery Method Room Air Weight Weight: 254 lb 4.8 oz Body Mass Index (BMI) 39.5 Physical Exam Const alert, oriented x3 and no apparent distress HEENT normocephalic Eyes PERRL Neck No nuchal rigidity Resp normal respiratory effort Cardio Cardio Narrative: Regular pulse rate GI non-distended Extremity Extremity Narrative: Right lower extremity shows swollen edematous extremity. There is some mild erythema likely reactive in nature. There is swelling of the knee. There is pain with motion. Otherwise neurovascular intact distally. Skin Skin Narrative: Previous incision is healed well. Mild reactive erythema is appreciated likely related to underlying swelling. Neuro oriented x3 Psych mental status grossly normal Results Medical Records Data Attestation: I reviewed the patient's medical records Lab / Micro Data Attestation: I reviewed the patient's lab results. Result Diagrams: 07/23/22 10:39 07/18/22 06:53 Radiology Impression Knee X-Ray 07/23/22 16:10 IMPRESSION: Arthrodesis of the knee as above. Electronically Signed: Ramón Lopez MD, BALBIR at 16:47 EDT , There is anterior cortical breach of the proximal intramedullary nail through the anterior cortex of the femur. Assessment & Plan Assessment/Plan (1) Infection of total right knee replacement: PLAN: Patient is currently under my care for static antibiotic spacer with use of intramedullary device for a two-stage revision of her right knee with failed extensor mechanism and associated infection. During the course of her recovery patient has developed an anterior cortical breach in her femur. This was noted yesterday. Her Xarelto was taken in the evening prior. This was discontinued in order to proceed with surgical intervention today. We are doing a percutaneous procedure. Based on this we have elected to proceed in a shorter than 48-hour window in order to stabilize her leg and allow for mobilization. Images have been reviewed with the patient and her family. I spent time at the bedside answering all their questions. They understand that today's plan is to stabilize the leg using external fixator. This should allow us to continue with eventual reconstruction of her knee however may increase risk of infection down the road due to pin sites. Additionally we discussed risks of surgery and additional risks of care including loss of extremity, loss of life, infections, DVTs PEs and blood loss. Patient and her family agree to proceed with surgical intervention today patient is been adequately consented. Antibiotics on-call to the operating room. After stabilize a fracture patient will be transferred back to the transitional care unit if she remains stable and will continue with outpatient care. [facility] Office:
--- NOTE | 2022-07-24 15:25 | DCINST_ITS ---
Discharge Instructions Diet Discharge Diet: No restrictions Activity Discharge Activity: May Not Drive and Use Walker Weight Bearing Status: Toe touch weight bearing (Right lower extremity.) Keep extremity elevated above heart level: Operative Extremity Dressing / Incision Call your doctor if you observe: Fever of 101 or Higher, Inability to urinate, Inability to have a bowel movement, Shortness of breath, Dizziness, Fainting spells, Swelling in the ankles, Chest pain and Uncontrolled pain Remove Dressing in: 2 days Additional Dressing/Incision Instructions:: On postop day 2 remove dressing and begin pin care. Pin site should be cleaned with 50-50 mixture of hydrogen peroxide and water twice daily. A Q-tip should be used to remove any crusted areas or eschar. Follow Up Care Please Follow Up With: Rusty Munoz MD When: 2 weeks. Prior to that visit patient should have orders already for CBC, ESR and CRP. Test Results: Test results from this visit will be discussed in further detail at your follow- up appointment, if applicable. Discharge Plan Admission Admit Date/Time: 06/12/22 11:40 Primary Reason for Your Visit: Debility. Attending Provider: Jerrell Caldera Chi Primary Care Provider: Guerda Torrez NP Consulting Providers: James Rojas Instructions Additional Instructions / Restrictions: Discharge to sister Gali silva 07/23/2022, Hospital bed. Discharge Orders/Prescriptions Prescriptions: New oxycodone 5 mg Tablet 5 - 10 mg PO Q4H PRN PRN (Reason: Pain Score 4-10) 7 Days Qty: 42 0RF escitalopram oxalate 20 mg Tablet 20 mg PO DAILY 30 Days Qty: 30 0RF Continued losartan 50 mg Tablet 50 mg PO DAILY latanoprost 0.005 % Drops 1 drp EACH EYE QPM pramipexole 1.5 mg Tablet 0.75 mg PO QHS Label Comments: TAKE 1 1/2 TAB BEDTIME cholecalciferol (vitamin D3) [Vitamin D3] 25 mcg (1,000 unit) Capsule 25 mcg PO DAILY Xarelto 20 mg Tablet 20 mg PO DAILY Label Comments: PT TO STOP 5 DAYS PRIOR-06/04/22 LAST DOSE Rx Instructions: must administer with evening meal sennosides-docusate sodium [Stool Softener-Stimulant Laxat] 8.6-50 mg tablet 2 tab PO BID Rx Instructions: Postoperative anemia secondary to acute blood loss from surgery without any intra operative complications. acetaminophen 500 mg tablet 1,000 mg PO Q8H Rx Instructions: Do not take more than 3000 mg Tylenol in a 24-hour period. Discontinued escitalopram oxalate 10 mg Tablet 10 mg PO DAILY oxycodone 5 mg Tablet 5 - 10 mg PO Q4H PRN PRN (Reason: Pain Score 4-10) 7 Days Qty: 60 0RF ceftriaxone 2 gram recon soln 2 g IV DAILY Rx Instructions: stop date 07/22/22 dx: knee PJI weekly bmp, cbc, esr, and vanc trough. Fax to [phone] routine picc care with heparin/saline flush per protocol ferrous sulfate [FeroSul] 325 mg (65 mg iron) tablet 325 mg PO QODAY@1200 Rx Instructions: Continue 2 weeks postoperatively folic acid 1 mg tablet 1 mg PO BREAKFAST Rx Instructions: Continue 2 weeks postoperatively vancomycin 1.5 gram recon soln 1.5 g IV Q12H Rx Instructions: stop date 07/22/22 dx: knee PJI weekly bmp, cbc, esr, and vanc trough. Fax to [phone] routine picc care with heparin/saline flush per protocol Referrals / Follow Up: Enmanuel Munoz MD [Med Staff - Active Staff] - Guerda Torrez NP, SENIOR PRODUCTION MANAGER-C [Primary Care Provider] - Disposition Disposition (needs filled in before D/C Order can be placed): Home, Self Care
--- NOTE | 2022-07-24 15:30 | PCM.OPRPT ---
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 H&P was performed. All parties were consented her sisters were at bedside. Patient agreed to proceed with surgery in the right lower extremity was marked for surgical intervention. Patient was brought back to the operating room where she was transferred the table in the supine position. She was then set up and a spinal anesthetic was administered. After anesthesia ministered spinal anesthetic patient was placed back in supine position and anesthesia assumed control of the C-spine and airway throughout the remainder the procedure. At this time a bump was placed underneath the right hip and blankets were placed underneath the right lower extremity in order to help place the patient in appropriate extension. Live x-ray was used to verify that prior to draping we had appropriate alignment of the lower extremity and nail would reduce appropriately back into the femoral intramedullary canal. Once was done we are happy with the position in the proximal were adequately placed underneath the leg the right lower extremity was prepped in a sterile fashion while the surgeon scrubbed. Upon reentering the room the right lower extremity was draped in a sterile repeat fashion and timeout was called. When agreed upon the side, the site, the shoe to be performed, patient's identity and antibiotics given. Based on the placement of the nail and main concern for our future reconstruction we carefully brought in the fluoroscopic machine prior to making any skin incisions and verified the placement of the proximal pins. After placing the first pin appropriately proximal to the nail using live x-ray to verify the depth and AP position we also verify the position and proximity to the lesser trochanter and hip. After this we identified that we could place on the other pin proximally in order to again keep it from our future plan surgical site. After placing this pin under fluoroscopic guidance we again directed our attention distally. Initial pin placement was based on the length of the 600 mm bar. The guide was used to jordan the skin into skin incisions were made. An attempt to verify our position we then noted that our proximal incision overlap the nail. We again measured with our 600 mm bar and determined to make a go further distal in order to place appropriate pins. 1 more distal hole was marked and made. After making all skin next for the pins blunt dissection was taken down to the bone both on the femur and the tibia. Once we were down to bone on both stab incisions we then drilled anterior to posterior in the tibia bicortically. 2 5.0 mm pins were placed anterior to posterior in line with our femoral pins which were placed anterior to posterior. Once these pins were placed we carefully began constructing our device leaving at least 2 finger space between the skin and the bars. We used two 600 mm x 11 mm bars for the construct. Prior to final tightening live x-ray was used to verify that the knee was in appropriate extension on the lateral view with the nail restored back into the intramedullary canal. Once this was done final tightening commenced we were able to test the stability of the construct which under live fluoroscopy showed good stability. The additional stab incision was closed using nylon suture. Xeroform dressing was placed around the remainder of the stab incisions where the pins were through the skin. Gauze was placed around the stab incisions and Curlex was wrapped around these areas. Finally an Tino bandage was placed. Patient was awakened by anesthesia and transferred back to the PACU for recovery. Postop plan for this patient: Patient will remain toe-touch weightbearing. She will continue her antibiotic holiday and repeat infection lab work in 2 weeks. She should return to the office in 2 weeks for a skin check. The dressing should be removed 48 hours after surgery and pin care should begin. Pin care should be done 2 times every 24 hours using a 50-50 mixture of hydrogen peroxide and water carefully removing any crust or eschar around the pin sites. Patient can resume her Xarelto tomorrow. Complications No intraoperative complications Admit VTE Documentation VTE Present on Admission: No VTE Mechan Device Prophylaxis: SCD's and Thigh High JUDITH Hose VTE Pharm Prophylaxis ordered?: Yes
[2022-07-24 16:42] VITALS: BP 135/56; PULSE 80; RESP 16; TEMP 36.8; O2SAT 96
--- NOTE | 2022-07-24 16:48 | NURSING ---
R' BACK FROM SURGERY FROM EXTERNAL FIXATOR. VS OBTAINED. DENIES PAIN AT THIS TIME. RLE ELEVATED. TOES WARM/MOBILE. HAS IV LEFT JUGULAR.
[2022-07-24] MEDS: Acetaminophen 500 MG Tablet 1000 MG PO ×2 (16:51→19:57)
[2022-07-24] MEDS: oxyCODONE 5 MG Tablet PO (18:32)
--- NOTE | 2022-07-24 18:35 | NURSING ---
NEW ORDERS PER DR CHAPMAN ENTERED. MAY RESUME XARELTO TOMORROW. DRESSING TO BE REMOVED POST OP DAY 2 WITH PIN SITE CARE BID. NEEDS TO F/U IN TWO WEEKS WITH LABS ORDERED PRIOR TO TAKE ALONG- CBC, ESR, CRP. TTWB RLE. ELEVATE RLE ABOVE HEART LEVEL. CONTINUE ANTIBIOTIC HOLIDAY.
[2022-07-24] MEDS: Alteplase 2 MG/2 ML Vial IV (19:48)
[2022-07-24] MEDS: Pramipexole Di-HCl 0.25 MG Tablet 0.75 MG PO (19:56)
[2022-07-24] MEDS: Latanoprost 0.005% 1 Bottle 1 DRP EACH EYE (19:58)
[2022-07-24 20:15] VITALS: PULSE 101; RESP 16; O2SAT 92
--- NOTE | 2022-07-24 21:00 | NURSING ---
Patient back from surgery this evening, requesting left jugular IV be discontinued because of discomfort. PICC sluggish to flush and no blood return. Order from Dr. Caldera for cathflo. Cathflo administered, PICC line now flushing easily, getting blood return. IV removed.
--- NOTE | 2022-07-24 21:25 | RAD_ITS ---
INDICATION: ex-fix -- in PACU EXAMINATION/TECHNIQUE: X-RAY - RIGHT XR Knee 1 or 2 Views 2 VIEWS COMPARISON: 07/09/2020 FINDINGS: SOFT TISSUES: No soft tissue swelling or gas. No radiopaque foreign body. BONES/JOINTS: Redemonstration of intramedullary yael arthrodesis of the knee. There is unchanged alignment. No fracture or hardware failure. Remaining bony elements have normal appearance. RAD/Knee 1 or 2 Views IMPRESSION: 1. Intramedullary yael arthrodesis of the RIGHT knee. No acute fracture or hardware failure. Electronically Signed: Johnny Melchor MD at 22:02 EDT ,
[2022-07-25] MEDS: oxyCODONE 5 MG Tablet PO ×4 (00:42→21:05)
[2022-07-25] MEDS: Menthol/Lanolin/Calamine/Znox 113 GM Tube 1 APPLIC TOPICAL ×2 (04:49→17:08)
[2022-07-25] MEDS: Escitalopram Oxalate 20 MG Tablet PO (04:50)
[2022-07-25] MEDS: Losartan Potassium 50 MG Tablet PO (04:50)
[2022-07-25] MEDS: Acetaminophen 500 MG Tablet 1000 MG PO ×3 (04:51→21:04)
[2022-07-25] MEDS: Cholecalciferol (VIT D3) 25 MCG TABLET (1,000 UNITS) PO (04:51)
[2022-07-25] MEDS: Petrolatum 33% Tube 1 APPLIC TOPICAL (04:53)
[2022-07-25] MEDS: Potassium Chloride Oral Tablet 20 MEQ PO (07:46)
[2022-07-25] MEDS: Ensure Clear 120 ML Liquid PO ×3 (07:51→17:10)
[2022-07-25] MEDS: Furosemide 40 MG Tablet PO ×2 (09:08→14:22)
[2022-07-25 09:10] VITALS: PULSE 93; RESP 18; O2SAT 95
[2022-07-25 14:55] VITALS: BP 156/70; PULSE 89; RESP 20; TEMP 37; O2SAT 95
[2022-07-25] MEDS: Rivaroxaban 20 MG Tablet PO (17:13)
[2022-07-25] MEDS: 0.9% Saline Lock 10 ML Syringe IV ×2 (18:19→20:26)
[2022-07-25] MEDS: Pramipexole Di-HCl 0.25 MG Tablet 0.75 MG PO (21:05)
[2022-07-25] MEDS: Latanoprost 0.005% 1 Bottle 1 DRP EACH EYE (21:06)
[2022-07-26] MEDS: oxyCODONE 5 MG Tablet PO ×3 (03:33→21:11)
[2022-07-26] MEDS: 0.9% Saline Lock 10 ML Syringe IV ×2 (03:35→10:30)
[2022-07-26] MEDS: Menthol/Lanolin/Calamine/Znox 113 GM Tube 1 APPLIC TOPICAL (05:45)
[2022-07-26] MEDS: Furosemide 40 MG Tablet PO ×2 (05:46→13:30)
[2022-07-26] MEDS: Losartan Potassium 50 MG Tablet PO (05:46)
[2022-07-26] MEDS: Senna/Docusate Sodium 1 Tablet 2 TABLET PO ×2 (05:47→17:19)
[2022-07-26] MEDS: Petrolatum 33% Tube 1 APPLIC TOPICAL ×2 (05:47→21:12)
[2022-07-26] MEDS: Acetaminophen 500 MG Tablet 1000 MG PO ×3 (05:47→21:12)
[2022-07-26] MEDS: Escitalopram Oxalate 20 MG Tablet PO (05:48)
[2022-07-26] MEDS: Cholecalciferol (VIT D3) 25 MCG TABLET (1,000 UNITS) PO (05:48)
[2022-07-26] MEDS: Potassium Chloride Oral Tablet 20 MEQ PO (08:17)
[2022-07-26] MEDS: Ensure Clear 120 ML Liquid PO ×2 (11:41→17:22)
[2022-07-26 14:32] VITALS: BP 116/62; PULSE 91; RESP 20; TEMP 36.6; O2SAT 95
[2022-07-26] MEDS: Rivaroxaban 20 MG Tablet PO (17:19)
[2022-07-26 20:00] VITALS: PULSE 77; RESP 16; O2SAT 97
[2022-07-26] MEDS: Pramipexole Di-HCl 0.25 MG Tablet 0.75 MG PO (21:11)
[2022-07-26] MEDS: Latanoprost 0.005% 1 Bottle 1 DRP EACH EYE (21:12)
[2022-07-27] MEDS: oxyCODONE 5 MG Tablet PO ×3 (04:22→18:55)
[2022-07-27] MEDS: Escitalopram Oxalate 20 MG Tablet PO (05:52)
[2022-07-27] MEDS: Cholecalciferol (VIT D3) 25 MCG TABLET (1,000 UNITS) PO (05:52)
[2022-07-27] MEDS: Furosemide 40 MG Tablet PO ×2 (05:52→14:16)
[2022-07-27] MEDS: Losartan Potassium 50 MG Tablet PO (05:52)
[2022-07-27] MEDS: Acetaminophen 500 MG Tablet 1000 MG PO ×3 (05:53→20:53)
[2022-07-27 06:13] VITALS: BP 116/55; PULSE 76; RESP 16
[2022-07-27] MEDS: Potassium Chloride Oral Tablet 20 MEQ PO (08:41)
[2022-07-27] MEDS: Petrolatum 33% Tube 1 APPLIC TOPICAL ×2 (08:42→18:54)
--- NOTE | 2022-07-27 09:05 | RAD_ITS ---
STUDY: X-RAY - RIGHT TIBIA AND FIBULA REASON FOR EXAM: Female, 71 years old. Pain TECHNIQUE: 2 view(s) of the tibia and fibula were obtained. COMPARISON: Comparison is made with prior study dated 07/24/2022. FINDINGS: Months again, there is evidence of an intramedullary yael fixation device transfixing the knee joint with the opaque cement at the level of the knee joint. The alignment is unchanged. No acute fracture or failure is seen. Normal visualized fibula. Soft tissue swelling. RAD/Tibia & Fibula 2 Views IMPRESSION: Stable examination with intramedullary yael fixation device and arthrodesis of the right knee. Electronically Signed: Helder Saab MD at 13:24 EDT ,
[2022-07-27] MEDS: 0.9 % NaCl (Sterile) Posiflush 10 mL IV (10:29)
--- NOTE | 2022-07-27 14:02 | NURSING ---
Call from Dr. Munoz's office that he does not want to see patient until after discharge. Pin care to be done 2x/day with 50/50 hydrogen peroxide and water. Orders already in place.
[2022-07-27 14:14] VITALS: BP 117/55; PULSE 96; RESP 16; TEMP 36.4; O2SAT 96
--- NOTE | 2022-07-27 15:49 | NURSING ---
Removed old dressings around pins, Cleansed with 1/2 NS and 1/2 hydrogen peroxide around each pin. Covered with split gauze and secured with tape. Pt tolerated well. No redness or odor noted, minimal serosang drainage from each pin.
[2022-07-27] MEDS: Rivaroxaban 20 MG Tablet PO (18:55)
[2022-07-27] MEDS: Pramipexole Di-HCl 0.25 MG Tablet 0.75 MG PO (20:52)
[2022-07-27] MEDS: Menthol/Lanolin/Calamine/Znox 113 GM Tube 1 APPLIC TOPICAL (20:53)
[2022-07-27] MEDS: Latanoprost 0.005% 1 Bottle 1 DRP EACH EYE (20:55)
[2022-07-28] MEDS: oxyCODONE 5 MG Tablet PO ×2 (03:27→13:24)
--- NOTE | 2022-07-28 05:22 | PCA ---
patient is doing great at moving around getting to the bathroom. patient hopes to go home on 07/28
[2022-07-28 05:35] LABS: Absolute Lymphocyte Count 1.31 X10^3/uL (0.83-4.51); Absolute Neutrophil Count 3.1 X10^3/uL (2.0-7.7); Basophil# 0.06 X10^3/uL; Basophil% 1.1 % (0-1); Eosinophil# 0.49 X10^3/uL; Eosinophils% 9.1 % (0-5); Hematocrit 34.3 % (37-47); Hemoglobin 10.2 g/dL (12.0-15.0); Lymphocyte # 1.31 X10^3/ul (0.83-4.51); Lymphocyte % 24.3 % (19-41); Mean Corp Hgb Conc 29.7 g/dL (32-36); Mean Corpuscular Hgb 26.1 pg (27.0-32.0); Mean Corpuscular Volume 87.7 fL (81-99); Mean Platelet Vol. 10.7 fl (6.2-12.0); Monocyte# 0.37 X10^3/uL; Monocyte% 6.9 % (0-10); NRBC Flagged by Analyzer 0 % (0-5); Neutrophil # 3.13 X10^3/uL (2.7-7.7); Neutrophil % 58.2 % (47-70); Platelet Count 311 K/mm3 (150-450); RBC Distribution Width SD 54.3 fl (35.1-43.9); Red Blood Count 3.91 M/mm3 (4.2-5.4); White Blood Count 5.4 K/mm3 (4.4-11.0)
[2022-07-28 06:00] LABS: Anion Gap 7 (5-15); BUN 15 mg/dL (7-18); BUN/Creat Ratio 21.6 RATIO (10-20); Calcium,Total 8.8 mg/dL (8.5-10.1); Chloride 104 mmol/L (98-107); EST Glomerular Filtration Rate 88 mL/min (>60); Est Glom Filt Rate - Afr Amer 106 mL/min (>60); Glucose 102 mg/dL (74-106); Potassium 3.8 mmol/L (3.5-5.1); Sodium Level 141 mmol/L (136-145)
[2022-07-28] MEDS: Escitalopram Oxalate 20 MG Tablet PO (06:27)
[2022-07-28] MEDS: Cholecalciferol (VIT D3) 25 MCG TABLET (1,000 UNITS) PO (06:27)
[2022-07-28] MEDS: Losartan Potassium 50 MG Tablet PO (06:27)
[2022-07-28] MEDS: Petrolatum 33% Tube 1 APPLIC TOPICAL (06:28)
[2022-07-28] MEDS: Acetaminophen 500 MG Tablet 1000 MG PO ×2 (06:28→13:22)
[2022-07-28] MEDS: Potassium Chloride Oral Tablet 20 MEQ PO (07:58)
--- NOTE | 2022-07-28 09:39 | CASEMGMT ---
Social Work Spoke with pt whom is requesting to DC home today. IDT agreeable. Family to transport. No needs to order. Pt has hospital bed set up at home. Plan: DC home with sister and SUSAN 07/28, no needs Treva Cordoba ,STATISTICAL MODELER AMBULATORY CARE NURSE
[2022-07-28 10:15] VITALS: PULSE 90; RESP 18; O2SAT 97
--- NOTE | 2022-07-28 11:40 | CASEMGMT ---
Social Work BIMS and PHQ-9 completed for MDS assessment. Treva Cordoba, WARD NURSE NURSING HOME DIRECTOR
[2022-07-28 11:48] VITALS: BP 118/70; PULSE 87; RESP 18; TEMP 36.9; O2SAT 97
--- NOTE | 2022-07-28 14:11 | NURSING ---
Picc Line Discontinued per order. Trim length 39cm Tip Intact and Vaseline dressing applied. Pt tolerated removal of Picc well.
== END 2022-07-28 13:55 | disposition home or self-care (01) | DRG 949 ==
PROVIDERS: Internal Medicine Infectious Disease; Specialist; Admitting Provider Family Medicine Geriatric Medicine; PCP Registered Nurse; Visit Provider Family Medicine Geriatric Medicine
DX: T84.53XD Infection and inflammatory reaction due to internal right knee prosthesis, subsequent encounter (principal); D62 Acute posthemorrhagic anemia; I82.501 Chronic embolism and thrombosis of unspecified deep veins of right lower extremity; I10 Essential (primary) hypertension; G25.81 Restless legs syndrome; E53.8 Deficiency of other specified B group vitamins; E87.5 Hyperkalemia; E55.9 Vitamin D deficiency, unspecified; S76.111D Strain of right quadriceps muscle, fascia and tendon, subsequent encounter; Z23 Encounter for immunization; H40.9 Unspecified glaucoma; Y79.2 Prosthetic and other implants, materials and accessory orthopedic devices associated with adverse incidents; Z79.899 Other long term (current) drug therapy; Z79.01 Long term (current) use of anticoagulants; F32.A Depression, unspecified
CPT/HCPCS: 36415; 71046; 73552; 73560; 73562; 73590; 80048; 80202; 82565; 85025; 85652; 86140; 87426; 87811; 90677; 97110; 97116; 97162; 97165; 97530; 97535; 97802; 97803; G0009; J2997; J7040; J7050; J7120; A4216; J0696

== ENCOUNTER → 2022-07-13 | Outpatient (CLI) | payer BC, SELFPAY ==
--- NOTE | 2022-07-13 11:56 | VDLE_ITS ---
Reason For Study: RLE PAIN RIGHT GSV is normal. CFV is compressible, spontaneous, phasic, competent and demonstrates normal augmentation. FV is compressible, spontaneous, phasic, competent and demonstrates normal augmentation. POP V is compressible, spontaneous, phasic, competent and demonstrates normal augmentation. PTV is compressible. RT PerV is compressible. NON-VASCULAR structure measuring 1.4 x 1.2 in transverse and courses from proximal/medial calf to mid/medial calf. Procedure This is a venous duplex using B-mode, color flow and spectral Doppler. Exam performed portable in patient room. The study was technically difficult. Due to swelling & difficulty tolerating probe pressure. A preliminary report was called and/or faxed to RN @ [facility]. VL/Venous Duplex US, Unilateral Interpretation Summary Deep veins of the right lower extremity are patent and compressible segmentally . There is no evidence of right lower extremity deep vein thrombosis. The right great sapheno us vein appears patent and compressible segmentally. NON-VASCULAR structure measuring 1.4 x 1.2 in transverse and courses from proxi mal/medial calf to mid/medial calf. Ordering Physician: Jerrell Caldera Chi Referring Physician: Guerda Torrez Performed By: Jennifer Valdes, ALTHEA, RVT
== END | disposition home or self-care (01) ==
LOC: CVS 11:55
PROVIDERS: PCP Registered Nurse; Referring Provider Family Medicine Geriatric Medicine; Visit Provider Family Medicine Geriatric Medicine
DX: M79.661 Pain in right lower leg (principal)
CPT/HCPCS: 93971

== ENCOUNTER → 2022-07-19 | Outpatient (CLI) | payer BC, SELFPAY ==
--- NOTE | 2022-07-19 09:24 | CT_ITS ---
EXAM: CT CHEST WITH INTRAVENOUS CONTRAST CLINICAL INDICATION: Suspicious right perihilar mass on chest x-ray. TECHNIQUE: Helically acquired images were obtained of the chest with intravenous contrast. This CT exam was performed using one or more of the following dose reduction techniques: automated exposure control, adjustment of the mA and/or kV according to patient size, and/or use of iterative reconstruction technique. This report was created using [employer] Net[employer] report generation technology. CONTRAST: IV 100mL Isovue-370 RADIATION DOSE: CTDIvol = 16.45 mGy, DLP = 677.64 mGy-cm COMPARISON: None. FINDINGS: LUNGS AND PLEURAL SPACES: No right perihilar mass. Dilated right pulmonary vein more than the left pulmonary vein near the left atrium. Minimal interlobular septal thickening. Bilateral small posterior pleural fluid, left more than right. No suspicious pulmonary nodules or infiltrates. No pneumothorax. HEART: Mild cardiomegaly. Normal pericardium. MEDIASTINUM: Unremarkable. No mediastinal or hilar adenopathy. Esophagus is unremarkable. No hiatal hernia. THYROID: Unremarkable. No thyroid lesions. BONES/JOINTS: Mild old anterior wedge compression fractures involving T5, T6, T7 and T8 vertebral bodies. No suspicious lytic or blastic abnormality. VASCULATURE: 18 mm diameter right lower lobe pulmonary artery at the right main pulmonary artery bifurcation suspicious for pulmonary arterial hypertension. CT/Chest WITH Contrast IMPRESSION: 1. Dilated right pulmonary artery behind the right main pulmonary artery bifurcation is suspicious for mild pulmonary arterial hypertension. This accounts for the mass in the right perihilar region seen on chest x-ray. 2. No CT evidence of pulmonary nodule or mass in the chest. 3. Mild bilateral posterior pleural fluid, left more than right. 4. Cardiomegaly. 5. Mild interlobular septal thickening in both lungs uncertain for chronic CHF. Advise clinical correlation. 6. Multiple old anterior wedge compression fractures involving T5 down to T8 vertebral bodies. Electronically Signed: Chapito Day MD at 10:55 EDT ,
== END | disposition home or self-care (01) ==
LOC: RAD 09:19
PROVIDERS: PCP Registered Nurse; Visit Provider Family Medicine Geriatric Medicine
DX: R91.8 Other nonspecific abnormal finding of lung field (principal)
CPT/HCPCS: 71260; Q9967; A4216

== ENCOUNTER → 2022-07-22 | Outpatient (CLI) | payer BC, SELFPAY ==
--- NOTE | 2022-07-22 09:50 | VDLE_ITS ---
Reason For Study: LEG SWELLING RIGHT GSV is normal. CFV is compressible, spontaneous, competent and demonstrates pulsatile venous flow. FV is compressible, spontaneous, competent and demonstrates pulsatile venous flow. POP V is compressible, spontaneous, competent and demonstrates pulsatile venous flow. T/P Trunk is compressible. PTV is compressible. RT PerV is compressible. Lymph Node measuring 2.30cm x 1.17cm noted in the right inguinal canal. Edema noted in right calf. Procedure This is a venous duplex using B-mode, color flow and spectral Doppler. Exam performed portable in patient room. The exam was diagnostic. Technically difficult study due to edema and patient immobility. A preliminary report was called and/or faxed to TCU floor. VL/Venous Duplex US, Unilateral Interpretation Summary Deep veins of the right lower extremity are patent and compressible segmentally . Valvular competence appears intact within the deep venous system on the right . The right great sap henous vein appears patent and compressible segmentally. Prominent right inguinal lymph node Limited study due to edema Ordering Physician: Jerrell Caldera Chi Referring Physician: Jerrell Caldera Chi Performed By: David Truong RVT
== END | disposition home or self-care (01) ==
LOC: CVS 09:49
PROVIDERS: PCP Registered Nurse; Referring Provider Family Medicine Geriatric Medicine; Visit Provider Family Medicine Geriatric Medicine
DX: R60.0 Localized edema (principal)
CPT/HCPCS: 93971

== ENCOUNTER 2022-07-24 13:21 | Day surgery (SDC) | payer BC, SELFPAY ==
[2022-07-24 12:45] VITALS: BP 130/65; PULSE 81; RESP 16; TEMP 37.6; O2SAT 95; BMI 41.0
[2022-07-24] MEDS: Cefazolin 2 GM in 0.9% Normal Saline 100 ML IV (14:00)
--- NOTE | 2022-07-24 14:00 | RAD_ITS ---
CLINICAL HISTORY: EXTERNAL FIXATOR Date: 07/24/2022 2:21 PM Date of : 1950 Images assigned to this order were provided in conjunction with a surgical procedure performed in the operating room/procedural suite. Please see operative report for details. Fluoroscopic images: 6 Fluoroscopic time: 39.9 seconds Cumulative dose: 8.93, mGym2; NA; mGy Imaging documents intramedullary yael fixation/arthrodesis of the RIGHT knee. There is normal alignment. Refer to procedural note for complete description. Impressions: 1. Fluoroscopic guidance for surgical planning and confirmation Electronically Signed: Johnny Melchor MD at 17:49 EDT , RAD/Knee 1 or 2 Views IMPRESSION: undefined
[2022-07-24 15:22] VITALS: BP 103/55; BP 130/64; PULSE 67; RESP 16; TEMP 36.4; O2SAT 94
[2022-07-24 15:30] VITALS: BP 105/49; BP 130/64; PULSE 67; RESP 16; O2SAT 92
[2022-07-24 15:45] VITALS: BP 114/53; BP 130/64; PULSE 70; RESP 16; O2SAT 95
[2022-07-24 16:00] VITALS: BP 121/82; BP 130/64; PULSE 72; RESP 16; TEMP 36.4; O2SAT 99
[2022-07-24 16:16] VITALS: BP 130/64; BP 146/66; PULSE 73; RESP 16; O2SAT 100
== END 2022-07-24 23:59 | disposition short-term general hospital (02) ==
LOC: SDC 07-27 13:21
PROVIDERS: PCP Registered Nurse; Visit Provider Specialist
PROC: (CPT 27570; principal; 2022-07-24 07:55)
DX: T84.53XA Infection and inflammatory reaction due to internal right knee prosthesis, initial encounter (principal); I10 Essential (primary) hypertension; R05.3 Chronic cough; G25.81 Restless legs syndrome; Z79.899 Other long term (current) drug therapy; Z78.0 Asymptomatic menopausal state; Z86.718 Personal history of other venous thrombosis and embolism
CPT/HCPCS: 27187; 01210; 73560; 76000; C1776

== ENCOUNTER → 2022-08-06 | Outpatient (CLI) | payer BC, SELFPAY ==
[2022-08-06 13:46] LABS: Erythrocyte Sedimentation Rate 17 mm/hr (0-30)
[2022-08-06 13:48] LABS: Absolute Lymphocyte Count 1.15 X10^3/uL (0.83-4.51); Absolute Neutrophil Count 4.5 X10^3/uL (2.0-7.7); Basophil# 0.05 X10^3/uL; Basophil% 0.8 % (0-1); Eosinophil# 0.33 X10^3/uL; Eosinophils% 5.2 % (0-5); Hematocrit 39.5 % (37-47); Hemoglobin 12.2 g/dL (12.0-15.0); Lymphocyte # 1.15 X10^3/ul (0.83-4.51); Mean Corp Hgb Conc 30.9 g/dL (32-36); Mean Corpuscular Hgb 27.1 pg (27.0-32.0); Mean Corpuscular Volume 87.6 fL (81-99); Mean Platelet Vol. 11.5 fl (6.2-12.0); Monocyte# 0.31 X10^3/uL; Monocyte% 4.9 % (0-10); NRBC Flagged by Analyzer 0 % (0-5); Neutrophil # 4.54 X10^3/uL (2.7-7.7); Neutrophil % 70.9 % (47-70); Platelet Count 293 K/mm3 (150-450); RBC Distribution Width CV 16.2 % (11.6-14.6); RBC Distribution Width SD 52.4 fl (35.1-43.9); Red Blood Count 4.51 M/mm3 (4.2-5.4); White Blood Count 6.4 K/mm3 (4.4-11.0)
[2022-08-06 13:50] LABS: CRP 4.81 mg/L (0.0-3.0)
== END | disposition home or self-care (01) ==
LOC: LAB 12:46
PROVIDERS: PCP Registered Nurse; Referring Provider Specialist; Visit Provider Specialist
DX: Z96.651 Presence of right artificial knee joint (principal)
CPT/HCPCS: 36415; 85025; 85652; 86140

== ENCOUNTER 2022-10-21 09:48 | Inpatient (IN) | payer MEDICARE, BC, SELFPAY ==
--- NOTE | 2022-10-02 08:12 | HP.PCM_ITS ---
History and Physical History and Physical [facility] Patient Name: Ana Connolly : 1950 From:? RAJESH PUENTE PA-C? DATE OF SURGERY:? 10/21/2022 SCHEDULED PROCEDURE:? Removal antibiotic spacer with revision right total knee replacement and extensor mechanism repair HISTORY OF PRESENT ILLNESS: Preoperative history and physical exam was performed on October 01, 2022.? This is a 72-year-old female who has extensive history of right knee surgery.? Patient has had previous right total knee arthroplasty in 2008 followed by a quadriceps tear in 2019.? She was treated surgically with a direct repair with suture anchors.? Patient had difficulty with incline and stairs after the tendon repair.? She had an injury in December 2021 when she was in [place] having increased pain and inability to extend the knee.? She was treated at that time with the TROM brace.? She was seen by outside surgeon and at that time referred to a tertiary care center to consider extensor mechanism reconstruction with mesh.? Patient had increased inflammatory markers.? She had a positive synovasure.? She was also found to have a DVT in the right lower leg and which she is currently being managed by primary care provider Guerda Torrez currently taking Rivaroxaban 20 mg.? On June 10, 2022 patient had a right knee irrigation and debridement with placement of static antibiotic spacer by Dr. Enmanuel Munoz.? She was placed on IV antibiotics followed by infectious disease for 6 weeks.? Postoperatively patient had complaints of continued swelling and pain in the knee while at the transitional care unit.? X-rays were obtained that [facility] on July 23, 2022 which did reveal cortical breech of the proximal intramedullary yael breaching the anterior distal femur.? Patient required to undergo an external fixator on July 24, [address] Enmanuel Munoz.? Patient was much more comfortable since the external fixator.? She has continued weightbearing restrictions on the right lower extremity.? Patient today had aspiration by Dr. Enmanuel Munoz.? She does report someone did twist her ankle while putting on a shoe which caused some increased pain.? The pin sites have been clean and stable.? She reports no recent chest pain, shortness of breath, fevers chills or recent infections.? She has been worked up by her primary care physician for hernia type problems which have been going on for years.? We are obtaining surgical clearance from the primary care physician as well as stopping the Xarelto perioperatively.? She will resume this postopera tively.? After discussion with Dr. Enmanuel Munoz the patient does wish to proceed with removal antibiotic spacer with revision right total knee replacement with extensor mechanism repair.? Patient has medical history pertinent for hypertension, previous DVT, previous colon cancer.? Currently denies any chest pain or shortness of breath. REVIEW OF SYSTEMS: Review Of Systems: Constitutional: Denies change in appetite, fever and weight change. Cardiovasular: Denies chest pain, heart murmur and irregular heartbeat. Respiratory: Reports wheezing, but denies cough, pneumonia, shortness of breath and tuberculosis. Gastrointestinal: Denies constipation, diarrhea, heartburn, nausea, rectal itching, bloody stools and vomiting. Musculoskeletal: Reports gait disturbance, leg swelling, trouble walking and weakness, but denies pain. Skin: Denies Raynaud's, history of shingles and tattoo. Neurological: Denies ambulatory dysfunction, dizziness, numbness/tingling and tremor. Psychiatric: Denies anxiety, insomnia and stress. Hematologic/Lymphatic: Denies anemia, bleeding/bruising tendency and past transfusion. Reviewed, no changes. PAST MEDICAL HISTORY: Advance Care Plan: Other Directive, LIVING WILL Effective Date: 05/25/2022 Other Directive, POA Effective Date: 05/25/2022 Past Medical History: Medical Problems: Cancer - (2016) COLON High Blood Pressure Covid- 19 - (2019) History Of Blood Clots/ DVT Accidents: RT Quad Tendon Tear - (08/13/2019) Other - RT SPRAINED ANKLE / EARLY 2000'S? Surgical Hx: Cataracts - (2019) -[place], [place] Cataracts - (2016) -[facility] Hernia Repair - (2016) TM MEDICAL- X2 & OBSTRUCTED BOWEL Hysterectomy - (1999) Tonsillectomy - (1957) Knee Replacement LT - (2013) Knee Replacement RT - (2008) Face Lift - (2009) Tummy Tuck - (2009) Vein Surgery - (1995) Removal Of Right Total Knee W/ Placement Of Antibiotic Spacer - (06/10/2022) SAW @ [facility] Placement of uniplanar external fixator right knee - (07/24/2022) Dr. Munoz @ [facility] Anesthesia Complications: None Assistive Devices: Walker Reviewed, no changes. SOCIAL HISTORY: Social History: Marital: .Occupation: Retired.Work Status: Retired.Hand Dominance: Left-handed. Personal Habits:? Cigarette Use: Never Smoked Cigarettes.Smokeless Tobacco: Never Used Smokeless Tobacco.E-Cigarette Use: Never used.Alcohol: Occasionally.Drug Use: Denies Use.Enjoy Exercising: Exercises 1-3 x/month. Reviewed, no changes. VITALS: BP: 128/80 Pulse: 77 T: 98.0 T: 36.7C Pain Level: 5 O2SatR: 98 ALLERGIES: No Known Drug Allergy No Known Substance Allergies? MEDICATIONS: Amoxicillin 500 mg 4 by mouth 1 h prior to dental procedure, Doxycycline Monohydrate 100 mg 1 by mouth twice a day Begin medication 2 weeks prior to surgery, Acetaminophen 500 mg Do not take more than 3000 mg Tylenol in a 24-hour period., Oxycodone HCL 5 mg every 4 hours as needed, Folic Acid 1 mg 1 by mouth every day, Pramipexole Dihydrochloride 1.5 mg AT bedtime, Latanoprost 0.005 % 1 drops in each eye at bedtime, Losartan Potassium 50 mg 1 by mouth every day, Escitalopram Oxalate 10 mg 1 by mouth every day, Vitamin D3 25 mcg (1000 Ut) take 1 capsule by mouth daily for vitamin, Xarelto 20 mg 1 by mouth every day PRE-OP EXAM:? General appearance:NORMAL? ? ? Other: Eyes: Conjunctivae and lids: NORMAL? Pupils: ERR Ears, Nose, Mouth, and Throat: NORMAL? Other: Inspection of lips, teeth and gums: NORMAL? ?Other: Neck: Examination of neck: no masses noted. Respiratory: Assessment of respiratory effort: NORMAL? ?Other: ?Auscultation of lungs: clear to auscultation no wheezes, rhonchi or rales. Cardiovascular:? Auscultation of heart: regular rate and rhythm, no murmurs, gallops or rubs. PHYSICAL EXAMINATION: Patient currently presents today in wheelchair.? She is nonweightbearing on the right lower extremity.? On exam the external fixator is stable with the pin sites appearing healthy and no signs of drainage or infection.? Continued knee effusion.? Sensation was intact to light touch to sural, saphenous, superficial/deep peroneal, and tibial distribution.? Patient was able to wiggle her toes and flex her ankle.? She does have some mild ankle pain. IMAGING STUDIES: Previous x-rays from our office reveal stable static antibiotic spacer with external fixator in place. IMPRESSION: 1.? Right knee static antibiotic spacer with external fixator with previous quad tendon tear 2.? Hypertension 3.? History of DVT: Currently on Rivaroxaban 4.? History of colon cancer PLAN: Dr. Enmanuel Munoz did discuss and review with the patient all treatment options including surgical versus nonsurgical options.? Patient does wish to proceed with the above-stated procedure.? Potential risks, benefits, and complications of the procedure were discussed in detail including but not limited to , infection, nerve and blood vessel damage, persistent pain, numbness, tingling, paresthesias, blood clot, pulmonary embolism, and requirement for possible further surgery.? The patient expressed full understanding and has no further questions for the doctor.? Patient does agree to proceed with the above-stated procedure and has signed the surgery consent form.? We will undergo preoperative lab work. We discussed the current risks associated with COVID 19.? This does include the risk of exposure while in the hospital.? Patient was reassured local hospitals have low infection rates and are taking all necessary precautions to avoid exposure to patients.? In addition, we discussed strategies that can be used to help limit exposure including those that limit the patient's time in the hospital.? Also using strategies to limit the patient's need for continued inpatient services after being discharged from the hospital.? Patient was notified that we will need to comply with any screening or testing the hospital wishes to perform or that surgery may be delayed for any positive results. This dictation was created using voice recognition software. Phonetic and/or grammatical errors may exist. ___? I have re-examined the patient.? There are no clinical changes since date of exam. ___? See progress notes for changes. ___? Dictated on admission Date: ? ? ?Time: Signature:
[2022-10-21] VITALS (10 sets, daily range): BP systolic 97–136; BP diastolic 45–94; PULSE 59–80; RESP 12–18; TEMP 36.3–36.7; O2SAT 2–100; BMI 36.3
[2022-10-21] MEDS: Lactated Ringers 1,000 ML 999 ML IV (07:52)
[2022-10-21 08:05] LABS: Magnesium 2.2 mg/dL (1.6-2.6)
[2022-10-21] MEDS: Gabapentin 600 MG Tablet PO (08:08)
[2022-10-21] MEDS: Acetaminophen 500 MG Tablet 1000 MG PO ×3 (08:08→21:00)
[2022-10-21 08:30] LABS: Bedside Glucose 92 mg/dL (74-106)
--- NOTE | 2022-10-21 10:45 | BON_PTH ---
PATIENT: SHAYY MASON LOC: [facility] U#:[id number] AGE/SX: 72/F ROOM: [facility]305 RE10/21/[address]: Dr. Enmanuel Munoz MD : 1950 BED: 1 DIS: 10/24/2022 SPEC #: [id number] RECD: 10/21/22 16:18 STATUS: CHELLE REQ #: [id number] TORY: 10/21/22 10:[address]: Enmanuel Munoz DEPT: SURGICAL PATHOLOGY RECD BY: Belkis Arndt ENTERED: 10/22/22 09:58 SP TYPE: Bone OTHR DR: MD Dr. Amira Hastings Dr., MD Dr. Paige Pierce, MD Elizabeth Steiner, CALIBRATOR BAROMETERS-C Tissues: Bone of lower extremity, NOS Procedures: Decalcification bone/plaque Surgery Specimen Level IV HEADER OPERATION: ERAS, removal antibiotic spacer, revision total knee replacement PRE-OP DIAGNOSIS: Right knee static antibiotic spacer with external fixator with previous quad tendon tear TISSUE SUBMITTED: Right femur bone MICROSCOPIC DIAGNOSIS Right femur bone, total joint resection: Severe degenerative joint disease. AM:meredith 10/28/2022 MICROSCOPIC DESCRIPTION Slides are reviewed. GROSS DESCRIPTION Received in fixative is one container labeled with the patient's name and designated right femur bone. The specimen consists of a distal portion of the femoral bone measuring 13 x 8 x 4 cm. The articular surface shows area of erosion. The femoral condyle at the articular surface shows area of erosion. A circular defect is noted consistent with previous spacer. Also present in the container is a detached piece of bone measuring 7.5 x 5 x 1 cm. A central defect is also noted in the portion of bone. The detached portion represents the tibial condyle portion. Mechanical Cad Designer sections are submitted in four cassettes after decalcification. Cassette 1 contains the proximal resection margin femoral bone. / SJ:meredith 10/22/2022 TC:3 CPT: 05140, 05277
[2022-10-21] MEDS: Cefazolin 2 GM in 0.9% Normal Saline 100 ML IV (11:10)
[2022-10-21] MEDS: dexAMETHasone 10 MG/ML Vial IV (11:30)
[2022-10-21] MEDS: Vancomycin IV 1,000 MG/20 ML Vial 1000 MG OPERA.SITE (13:30)
--- NOTE | 2022-10-21 15:45 | PCM.OPRPT ---
Report of Operation Date of Procedure: 10/21/22 Pre-Operative Diagnosis: Right distal femur fracture with previous external fixator Right knee chronic extensor mechanism disruption Right knee antibiotic spacer with previous periprosthetic joint infection Post-Operative Diagnosis: Right distal femur fracture with previous external fixator Right knee chronic extensor mechanism disruption Right knee antibiotic spacer with previous periprosthetic joint infection Surgery/Procedure Performed:: 1. Removal right knee uniplanar external fixator 2. Right knee revision total knee replacement with distal femoral hinged prosthesis. Entire tibial and femoral components 3. Removal nonbiodegradable antibiotic delivery system right knee 4. Mesh repair chronic extensor mechanism disruption 5. Placement long-leg cast right lower extremity Description of Surgical Findings:: Stable mesh repair. Stable well fixed hinged component. Surgeon: Enmanuel Munoz him clerk: Mynor Ayers Type of Anesthesia: Spinal General Anesthesia and Spinal Anesthesiologist: Erasmo Olmos Special Medications: 2 g Ancef, redosed after 2 hours of incision time. TXA. 1 g vancomycin powder in cement. Specimen's removed: 3 separate specimens were sent to microbiology Drains: Superior medial drain. Estimated Blood Loss (mL): 300 Fluids Replaced: 2000 ml Description of Procedure: On the date of the procedure patient was met in the preoperative area. The operative plan was again discussed and verified with the patient. All parties agreed the right lower extremity was appropriate extremity. Patient was then brought back to the operating room where anesthesia assumed control of the C-spine and airway and remained to control throughout the procedure. After administering spinal anesthesia in the PACU patient was transferred to the bed and placed in the supine position. Anesthesia was administered again with anesthesia and control of the C-spine and airway. At this time a bump was placed underneath the right hip and the right lower extremity was positioned and prepped for surgical intervention. Once the patient was in appropriate position timeout was called and everyone agreed we would be removing the external fixator on the right lower extremity. Components were removed and the pins were removed from the femur and tibial bones and curettaged out the wound. At this time the right lower extremity was then prepped in a sterile fashion. We used chlorhexidine and alcohol prep around the incision and on the foot. Throughout the remainder the extremity Betadine prep was used due to the open pin sites for the external fixator. Prior to this we did use our Bard mesh 10 x 14 inch implant we folded it 8 times and used #1 Ethibond locking sutures in order to sew it into place. This was done sterilely and then placed safely on the back table in a sterile place. After preparing the mesh we had broke scrub in order to position the patient and remove the pins. As the leg was being prepped in a sterile fashion we again scrubbed for the procedure. The right lower extremity was then draped in a standard orthopedic fashion. Timeout was called over and agreed upon the site, the site, the procedure to be performed, patient's identity and antibiotics given. Incision was marked out for a long anterior incision using the previous knee replacement incision for medial parapatellar approach. Sterile tourniquet was used and the leg was elevated for extended period of time and tourniquet was placed up to 250 mmHg. At this time incision was then taken through skin sharply and deep dissection was taken down with Bovie cautery to control hemostasis. We carefully created medial and lateral flaps in order to mobilize tissue in preparation for the extensor reconstruction. Once we were done with this we incised the extensor mechanism similar to a medial parapatellar arthrotomy in order to establish adequate lateral tissue. Once we were into the joint we carefully used an osteotome to break up the cement mantle. The intramedullary nail had been filled with antibiotic cement. This nonbiodegradable delivery system was then removed from the knee by driving it proximally into the femur to remove it from the tibia and then removing it distally from the femur. Once the nail was removed as well as the antibiotic spacer, we carefully debrided the distal femur fracture area of soft tissue and excised the bone at the most proximal portion of the fracture. This was placed on the back table to use for measurement for prosthesis. We then carefully debrided around the tibia and expose the tibia proximally. The extra medullary guide was placed in the proximal tibia for a neutral cut. Carefully used a saw to cut the tibia. We debrided any additional tissue from the canal. The canal was then reamed and we reamed for a size C tibial cone. The trial component was then placed and we used the trial component to punch the keel. Once this was done her attention was directed back towards the femur where the femoral canal was reamed to 15 mm using the flexible reamers. Once this was completed we trialed with a 13 mm x 127 mm stem with a 70 mm body and small distal femoral component for the right side. We were able to feel the medial malleolus on the contralateral side on the table and leg lengths felt appropriate with the patient laying on the table. Additionally the soft tissues appear to be adequately tensioned with a 10 mm polyethylene implant. We carefully marked the rotation of the femur and tibia with the Bovie and removed the trial components. The wound was frank irrigated out with 6 L normal saline while implants were assembled on the back table. Our mesh implant was marked at 5 cm and brought up with the rest of the implants. A half batch of tobramycin cement with 1 g of vancomycin was mixed by hand and after assembling the femur the body portion of the femur was coated with antibiotic laden cement. 2 batches of cement were mixed for the tibia. The cement restrictor was put into place. The cone was put into place. The mesh was then placed to be 5 cm of depth after coating it with cement distally and the tibial canal was pressurized. After the tibial canal was pressurized the tibial implant was impacted into place. We held the tibial implant in place until the cemented cured. The mesh contract was adequately secured. At this time we directed our attention towards the femur where the cement was mixed for the femoral canal. The femoral canal was pressurized and the distal femoral implant was put into place in the appropriate rotation based on previous markings. After the cemented cured we again trialed with a 10 mm polyethylene which gave us adequate leg lengths and appropriate tissue tensioning. The final implants were then opened trials were removed and the hinge component was constructed. Tourniquet was let down at this point and hemostasis was obtained. We then began the reconstruction of the soft tissues with the mesh carefully sewing the mesh over the vastus lateralis making sure soft tissue was on the posterior portion of the mesh so as not to abrade the implants. The VMO was then medialized in order to bring the VMO over top of the mesh. These were sewn into place using #1 Nurolon interrupted sutures reinforced with #2 FiberWire suture. Prior to closing the VMO we did place a drain medially through the knee we are able to see the tissue layers and no vital structures were punctured. We then closed down the VMO with interrupted sutures. Knee was held in complete extension during this time. We also irrigated out the wound with Betadine and chlorhexidine prior to final closure. Once this layer was closed and copiously irrigated out the superficial layer and began closing. Proximally closed with #1 Vicryl for deep fatty layer. We closed the deep soft tissues #1 Vicryl and skin with 2-0 Vicryl. Approximate skin was closed with Vicryl. Final closure was done with nylon sutures. We then directed our attention to the previous pin sites from the external fixator. Any unhealthy skin was ellipsed and nylon suture was used to close these areas. Xeroform dressing was placed over the wound. Sterile dressings were then placed with a compressive dressing over top. At this time the sterile drapes were removed and the leg remained in extension throughout. We then constructed a long-leg cast including the foot up to the thigh. Once the cast is adequately cured it was windowed anteriorly. The drain was brought through the window. The dressings deep remained over the wound to keep it covered. The window was then replaced and a elastic dressing was used to hold the window into place. Patient was then awakened by anesthesia and transferred to the PACU for recovery. My physician delivery table operator (PE) was a vital part of this case. They were important in appropriate retraction during the case, and protection of soft tissues during bony cuts. Their intimate knowledge of the case and my steps aided in safe and expedient completion of the procedure as well as appropriate position of the leg during the case. They were also vital in assisting with closure under my direct supervision. Postop plan: We will continue to assess the wound while in house. We will consider wound VAC dressing as needed for drainage. Plan will be for 12 weeks of cast immobilization we will continue to check the wound at the 2-week visit and remove sutures. Plan will be to change the cast at a minimum in 6 weeks. After 3 months we will begin range of motion with a hinged brace full-time over the following 3 months. We will allow 45 degrees flexion for the first month, 60 degrees flexion for the second month and up to 90 degrees for the third month. Patient will be able to bear weight with brace locked in extension at that time. We will focus on active gravity flexion exercises in the brace. DVT prophylaxis: Patient will resume Xarelto tomorrow for history of VTE, patient will remain on her doxycycline postoperatively as we follow wound cultures and wound healing. We will use this for a minimum of 4 weeks. Patient will be toe-touch weightbearing. Implants: Ashley distal femoral replacement 13 mm x 127 mm femoral stem with 70 mm body and small right distal femur, 10 mm polyethylene. 3 degree bumper. S2 tibial baseplate with 80 mm stem. Size C tibial cone. Due to the complex nature of this case and this patient's history modifier 22 should be considered. Standard revision total knee replacement takes roughly 120 minutes. This case took at least 240 minutes. Extenuating circumstances addressed during surgery are patient severe adhesions related to prolonged static antibiotic spacer. Significant tissue atrophy and tissue mobilization in order to perform the appropriate extensor mechanism reconstruction and tenuous closure related to tenuous tissues from multiple previous surgeries. Complications none Admit VTE Documentation VTE Present on Admission: No VTE Mechan Device Prophylaxis: SCD's VTE Pharm Prophylaxis ordered?: Yes
--- NOTE | 2022-10-21 15:51 | PN.HOSP_ITS ---
Subjective Subjective The patient is a 72 y/o F w/ PMHx: Obesity, RLS, HTN, Hx VTE, Anxiety and Depression, Chronic anemia who presents to the [facility] on 10/21/22 secondary to history of extensive right knee surgery including previous right total knee arthroplasty in 2008 unfortunately following which she had a quadriceps tear in 2019 which was treated surgically with increasing pain and debility with outside facility tertiary care provider evaluation while on a trip to [place] with positive Synovasure increased inflammatory markers with DVT diagnosis at that time with follow-up 06/10/2022 right knee irrigation and debridement with placement of static antibiotic spacer per Dr. Munoz with ABX therapy x6 weeks per infectious disease who now represents for removal of antibiotic spacer with revision of right total knee replacement and extensor mechanism repair. Hospitalist service consultation requested for medical management. Pain currently denies any pain. She is able to move her toes and reports normal sensation. She is awake and alert and notes she has actually moved to [place] but came back specifically to have surgery per Dr. Munoz. Patient denies fevers, chills, nausea, emesis, abdominal pain, chest pain or dyspnea. Objective Data Objective Data Vital Signs: Vital Signs Temp Pulse Resp BP Pulse Ox O2 Del Method 98 F 80 18 125/64 H 98 Room Air 10/21/22 07:54 10/21/22 07:54 10/21/22 07:54 10/21/22 07:54 10/21/22 07:54 10/21/22 07:54 Oxygen Delivery Method Room Air Weight: 225 lb Body Mass Index (BMI) 36.3 Intake & Output: Intake and Output for Last 24 Hours 10/19/22 10/20/22 10/21/22 23:59 23:59 23:59 Intake Total 212 / 212 Balance 212 / 212 Lab / Micro Data Labs: Laboratory Results - last 24 hr 10/21/22 07:45: Magnesium 2.2 10/21/22 07:51: POC Glucose 92 Micro: Microbiology 10/01/22 14:17 Fluid - Synovial (joint) Gram Stain - Final 10/01/22 14:17 Fluid - Synovial (joint) Body Fluid Culture - Final Culture exhibits no growth. 10/01/22 14:17 Fluid - Synovial (joint) Anaerobic Culture - Final No growth in 5 days. Physical Exam Narrative Physical Examination: General: Awake, alert, oriented x 3 and cooperative, laying in the PACU bed, notes pain controlled, status post recent intervention per Dr. Munoz. Skin: Normal color, normal turgor, no icterus, no cyanosis except right lower extremity which is elevated and in a very lengthy cast from toes to knee, able to wiggle toes and sensation intact. HEENT: AT/NC, EOMI, PERRLA, mildly dry MM, no carotid bruits or JVD noted. Lungs: CTA bilaterally, moderate effort, mild decrease BL bases, no rales, ronchi or wheezing. Heart: Regular rate and rhythm; no gallop, rub audible. Abdomen: Soft, obese, NTTP, ND, distant normal BS, no HSM. Extremities: No cyanosis, no clubbing, see skin. Neurological: Patient awake, alert, oriented as noted, cognitive function intact; pupils equally reactive to light and accommodation, cranial nerves II- XII grossly normal, moving all 4 extremities except expected limitation right lower extremity given recent surgery with significant casting, strength accordingly moderately to severely global decreased. Psychiatric: Affect appears normal, very talkative, no acute evidence of depressive or anxiety feelings. Assessment & Plan Assessment/Plan (1) Joint infection: PLAN: Plan The patient is a 72 y/o F w/ PMHx: Obesity, RLS, HTN, Hx VTE, Anxiety and Depression, Chronic anemia who presents to the [facility] on 10/21/[address] Munoz for removal of antibiotic spacer with revision of right total knee replacement and extensor mechanism repair. Hospitalist service consultation requested for medical management. #1. Severe Right Knee Osteoarthritis, Hx periprosthetic joint infection s/p abx spacer placement prior: As noted patient treated with 6-week course of antibiotic therapy and 06/10/2022 right knee I&D with placement static antibiotic spacer per Dr. Munoz at that time, admitted per Dr. Munoz for removal antibiotic spacer with revision right total knee replacement and extensor mechanism repair, post-operative pain management, bowel regimen, DVT Prophylaxis, PT/OT/CM per Orthopedic surgery discretion. #2. Chronic anemia, normocytic: Most recent noted hemoglobin prior 08/06/22 12.2; however, prior to this baseline appears primarily 8-9, will encourage trending especially given recent OR. #3 restless leg syndrome: We will continue patient home nightly pramipexole regimen. #4. Hypertension: Continue home regimen including losartan, PRN hydralazine. #5. Obesity: Weight loss and lifestyle changes encouraged. #6. History of VTE: Patient with history of DVT, resume patient home Xarelto regimen once cleared by surgery given recent OR. #7. Anxiety and depression: We will continue patient home Lexapro regimen. #8. Glaucoma: We will continue patient home eyedrops. #9. DVT prophylaxis: SCDs, resumption of patient home Xarelto regimen once cleared per surgery. Admission Evaluation Time spent evaluating chart, patient history, patient evaluation, care planning and discussion with specialists: 50 minutes. Charges/Coding Visit Charges Inpatient E&M: 27227 [facility] Hosp L3
--- NOTE | 2022-10-21 16:07 | RAD_ITS ---
INDICATION: post op EXAMINATION/TECHNIQUE: X-RAY - RIGHT XR Knee 1 or 2 Views 2 VIEWS COMPARISON: 07/24/2022 FINDINGS: Status post revision arthroplasty in overall anatomic alignment. Subcutaneous emphysema anterior to the prosthesis with surgical drain in place. No acute fracture or pathologic lucency identified. RAD/Knee 1 or 2 Views IMPRESSION: Status post revision arthroplasty right knee. Electronically Signed: Shiv Gilbert MD at 16:53 EST ,
[2022-10-21] MEDS: Lactated Ringers 1,000 ML 125 ML IV (17:57)
[2022-10-21] MEDS: oxyCODONE 5 MG Tablet PO ×2 (18:15→22:16)
[2022-10-21] MEDS: Cefazolin 1 GM/50 ML BAG IV (18:35)
[2022-10-21] MEDS: Pramipexole Di-HCl 0.25 MG Tablet 0.75 MG PO (21:00)
[2022-10-21] MEDS: Senna/Docusate Sodium 1 Tablet 2 TABLET PO (21:01)
[2022-10-21] MEDS: Latanoprost 0.005% 1 Bottle 1 DRP EACH EYE (21:17)
[2022-10-22] VITALS (8 sets, daily range): BP systolic 100–126; BP diastolic 47–62; PULSE 73–81; RESP 18–20; TEMP 36.2–36.9; O2SAT 94–97
[2022-10-22] MEDS: Ketorolac 15 MG/ML Vial IV ×2 (00:41→08:15)
[2022-10-22] MEDS: Morphine 4 MG/ML Syringe IV ×3 (00:53→18:33)
[2022-10-22] MEDS: oxyCODONE 5 MG Tablet PO ×4 (02:17→17:48)
[2022-10-22] MEDS: Cefazolin 1 GM/50 ML BAG IV (02:23)
--- NOTE | 2022-10-22 04:32 | NURSING ---
Patient states not able to ambulate in hallway. Is too nauseous. Patient has been dry heaving much of the shift despite Zofran and Phenergan.
[2022-10-22 06:23] LABS: Hematocrit 32.9 % (37-47); Hemoglobin 10.2 g/dL (12.0-15.0); Mean Corpuscular Hgb 27.3 pg (27.0-32.0); Mean Corpuscular Volume 88.2 fL (81-99); Mean Platelet Vol. 11.4 fl (6.2-12.0); Platelet Count 219 K/mm3 (150-450); RBC Distribution Width CV 16.6 % (11.6-14.6); Red Blood Count 3.73 M/mm3 (4.2-5.4); White Blood Count 10.6 K/mm3 (4.4-11.0)
[2022-10-22] MEDS: Acetaminophen 500 MG Tablet 1000 MG PO ×3 (06:38→21:09)
[2022-10-22 07:01] LABS: Anion Gap 6 (5-15); BUN 20 mg/dL (7-18); BUN/Creat Ratio 29.1 RATIO (10-20); Calcium,Total 8.8 mg/dL (8.5-10.1); Chloride 102 mmol/L (98-107); Creatinine, Serum 0.69 mg/dL (0.55-1.02); EST Glomerular Filtration Rate 89 mL/min (>60); Est Glom Filt Rate - Afr Amer 108 mL/min (>60); Glucose 128 mg/dL (74-106); Potassium 4.6 mmol/L (3.5-5.1); Sodium Level 137 mmol/L (136-145)
[2022-10-22] MEDS: Ensure Surgery 237 ML LIQUID PO ×2 (08:02→11:58)
[2022-10-22] MEDS: FLU VACC QS2022-23(6MOS UP)/PF 60 MCG/0.5 ML SYRINGE IM (08:03)
[2022-10-22] MEDS: Losartan Potassium 50 MG Tablet PO (08:04)
[2022-10-22] MEDS: Escitalopram Oxalate 20 MG Tablet PO (08:04)
[2022-10-22] MEDS: Cholecalciferol (VIT D3) 25 MCG TABLET (1,000 UNITS) PO (08:04)
[2022-10-22] MEDS: Famotidine 20 MG Tablet PO (08:04)
[2022-10-22] MEDS: Senna/Docusate Sodium 1 Tablet 2 TABLET PO ×2 (08:04→21:09)
[2022-10-22] MEDS: Doxycycline 100 MG CAPSULE PO ×2 (08:04→21:10)
[2022-10-22] MEDS: 0.9% Saline Lock 10 ML Syringe IV ×4 (08:15→21:11)
--- NOTE | 2022-10-22 08:44 | WOUNDNOTE ---
wound photo: right knee
--- NOTE | 2022-10-22 08:50 | PN.HOSP_ITS ---
Subjective Subjective Sitting up in chair, reports primarily having pain in right ankle and foot, no other complaints at this time Objective Data Objective Data Vital Signs: Vital Signs Temp Pulse Resp BP Pulse Ox O2 Del Method O2 Flow Rate 98 F 73 18 100/51 L 94 Room Air 2 10/22/22 08:40 10/22/22 08:40 10/22/22 08:40 10/22/22 08:40 10/22/22 08:40 10/22/22 08:40 10/21/22 20:50 Oxygen Flow Rate (L/min) 2 Oxygen Delivery Method Room Air Weight: 102.058 kg Body Mass Index (BMI) 36.3 Intake & Output: Intake and Output for Last 24 Hours 10/20/22 10/21/22 10/22/22 23:59 23:59 23:59 Intake Total 1262 / 1262 1050 / 1050 Output Total 90 / 90 1080 / 1080 Balance 1172 / 1172 -30 / -30 Lab / Micro Data Result Diagrams: 10/22/22 04:28 10/22/22 04:28 Labs: Laboratory Results - last 24 hr 10/22/22 04:28: WBC 10.6, RBC 3.73 L, Hgb 10.2 L, Hct 32.9 L, MCV 88.2, MCH 27.3, MCHC 31.0 L, RDW Std Deviation 54.0 H, RDW Coeff of Karina 16.6 H, Plt Count 219, MPV 11.4 10/22/22 04:28: Sodium 137, Potassium 4.6, Chloride 102, Carbon Dioxide 29.0, Anion Gap 6, BUN 20 H, Creatinine 0.69, Estim Creat Clear Calc 46.20, Est GFR (MDRD) Af Amer 108, Est GFR (MDRD) Non-Af 89, BUN/Creatinine Ratio 29.1 H, Glucose 128 H, Calcium 8.8 Micro: Microbiology 10/01/22 14:17 Fluid - Synovial (joint) Gram Stain - Final 10/01/22 14:17 Fluid - Synovial (joint) Body Fluid Culture - Final Culture exhibits no growth. 10/01/22 14:17 Fluid - Synovial (joint) Anaerobic Culture - Final No growth in 5 days. Radiography Diagnostic Testing: Radiology Impression Knee X-Ray 10/21/22 16:07 IMPRESSION: Status post revision arthroplasty right knee. Electronically Signed: Shiv Gilbert MD at 16:53 EST Reading Location ID and State: [facility] / [place] Tel , Service support , Physical Exam Const alert and no apparent distress Constitutional Narrative: Oriented HEENT normocephalic and head/scalp atraumatic Eyes Eyes Narrative: EOM grossly intact, anicteric Neck supple Resp normal respiratory effort and clear to auscultation bilaterally Cardio regular rate and regular rhythm GI soft to palpation, non-tender and non-distended Extremity Extremity Narrative: Right lower extremity in hard cast Neuro Neuro Narrative: No overt focal deficits appreciated Psych Psych Narrative: Cooperative Assessment & Plan Assessment/Plan (1) Joint infection: PLAN: Plan #Severe right knee OA, history of periprosthetic joint infection status post antibiotic spacer placement previously Treated with 6-week course of antibiotic therapy in May and had a right knee I&D with placement static antibiotic spacer per Dr. Munoz at the time She was admitted for removal of spacer and revision of right total knee and extensor mechanism repair and had this completed 10/21 She is to continue doxycycline per surgery and has cultures pending Further management per surgery #Chronic normocytic anemia Continue to monitor #RLS Continue pramipexole #Hypertension He has been on the soft side, losartan decreased to 25 mg #Obesity Weight loss and lifestyle encouraged #History of VTE Does have history of DVT, resume Xarelto once cleared by surgery given recent OR #History of anxiety and depression Continue Lexapro #Glaucoma Continue eyedrops #DVT prophylaxis: SCDs, resumption of patient home Xarelto this evening Charges/Coding Visit Charges Inpatient E&M: 78000 Subs Hosp L2
--- NOTE | 2022-10-22 12:01 | CASEMGMT ---
Social Work SW spoke to MARILUZ Astorga, who stated pt in long leg cast, with little to no help at home and will need to go somewhere for physical therapy. Pt had recent stay at [facility]. SW to follow. REN Wood
--- NOTE | 2022-10-22 12:28 | CASEMGMT ---
AJIT AU Assessment: Face to Face with pt for initial transition planning/care coordination assessment. AJIT AU introduced self and role at [facility], pt voices understanding and consents to assessment. Pt is A/O x4 and answers all questions appropriately at this time. Pt sitting up in chair in no distress. Care providers, pharmacy, and demographics verified/updated. Admitting Dx: R removal antibiotic spacer, R knee revision PCP:Guerda Torrez RECRUITMENT COORDINATOR Specialists:alejandra Munoz Pharmacy: [facility] Insurance: Medicare A only, [place] Prescription Benefit: yes LNOK: Ana Diss, sister Living Arrangements: Pt lives with sister and brother in law in a single story home with a ramp to enter. Pt reports her sister cooks meals and assists with LB dressing. Pt bathes self. Transportation: Pt sister transports pt to medical appts. DME/HHC/SNF: Pt has a w/c, bedside table, hospital bed, BSC, shower bench and FWW. Pt denies having HHC and has been to [facility] in the past. Pt reports her sister just had surgery this week and is her main cg who will no longer be able to assist her d/t her own condition. Pt lives in [place] but came to [place] for surgery and has been living with her sister since last February. Spoke with PA who states pt will need SNF as pt is not going to be able to care for herself. SW already updated on this. Pt is agreeable to this. Pt states no further concerns/needs. CM to follow. Advised pt to ask CM if any further question/concerns/needs arise, voices understanding. Pt Goal: SNF Plan: SNF
--- NOTE | 2022-10-22 12:34 | PN.ORTHO_ITS ---
Subjective Subjective The patient was sitting in bedside chair upon examination. Patient denies any chest pain, shortness of breath, dizziness, lightheadedness, nausea or vomiting, or calf pain. Patient is complaining of some ankle and heel pain. She states this is more painful than the knee. It did improve when she went from the bed to the chair. She has not a long-leg cast for 3 months postoperatively. She is also placed back on her Xarelto due to her previous history of DVT. A Hemovac drain is in place in which there is been approximately 580 cc drainage over the past to 4-hour shifts. Patient denies any chest pain or shortness of breath. She has worked with therapy and Occupational Therapy with regards to transfers. Patient will require placement postoperatively due to the significant limitations for her right lower extremity. She is on antibiotics for 4 weeks postoperatively. Objective Data Objective Data Vital Signs: Vital Signs Temp Pulse Resp BP Pulse Ox O2 Del Method O2 Flow Rate 98 F 73 18 100/51 L 94 Room Air 2 10/22/22 08:40 10/22/22 08:40 10/22/22 08:40 10/22/22 08:40 10/22/22 08:40 10/22/22 08:40 10/21/22 20:50 Oxygen Flow Rate (L/min) 2 Oxygen Delivery Method Room Air Weight: 102.058 kg Body Mass Index (BMI) 36.3 Intake & Output: Intake and Output for Last 24 Hours 10/20/22 10/21/22 10/22/22 23:59 23:59 23:59 Intake Total 1262 / 1262 1050 / 1050 Output Total 90 / 90 1220 / 1220 Balance 1172 / 1172 -170 / -170 Lab / Micro Data Result Diagrams: 10/22/22 04:28 10/22/22 04:28 Labs: Laboratory Results - last 24 hr 10/22/22 04:28: WBC 10.6, RBC 3.73 L, Hgb 10.2 L, Hct 32.9 L, MCV 88.2, MCH 27.3, MCHC 31.0 L, RDW Std Deviation 54.0 H, RDW Coeff of Karina 16.6 H, Plt Count 219, MPV 11.4 10/22/22 04:28: Sodium 137, Potassium 4.6, Chloride 102, Carbon Dioxide 29.0, Anion Gap 6, BUN 20 H, Creatinine 0.69, Estim Creat Clear Calc 46.20, Est GFR (MDRD) Af Amer 108, Est GFR (MDRD) Non-Af 89, BUN/Creatinine Ratio 29.1 H, Glucose 128 H, Calcium 8.8 Micro: Microbiology 10/01/22 14:17 Fluid - Synovial (joint) Gram Stain - Final 10/01/22 14:17 Fluid - Synovial (joint) Body Fluid Culture - Final Culture exhibits no growth. 10/01/22 14:17 Fluid - Synovial (joint) Anaerobic Culture - Final No growth in 5 days. Radiography Diagnostic Testing: Radiology Impression Knee X-Ray 10/21/22 16:07 IMPRESSION: Status post revision arthroplasty right knee. Electronically Signed: Shiv Gilbert MD at 16:53 EST , Physical Exam Narrative Vital signs stable and afebrile. Patient did have some lower blood pressure but she denies any dizziness or lightheadedness. Sensation is intact to her toes. Patient currently is in a long-leg cast which is windowed to evaluate the incision. The window had to be extended approximately so that we could get full coverage for the wound VAC. Wound VAC nurse did come in and place wound VAC over the incision at this time. Patient had no difficulties with cutting of the cast to extend the window. She is complaining of some ankle and foot pain. There is no skin breakdown or irritation around the toes/end of the cast. There is no skin breakdown or irritation over the proximal cast. She is able to wiggle her toes and capillary refill is less than 2 seconds. Negative Homans bilaterally, negative signs and symptoms of DVT. Const alert, oriented x3 and no apparent distress Assessment & Plan Assessment/Plan (1) Status post revision of total replacement of right knee: PLAN: 1. 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 Continue Pain Medications: Tylenol and oxycodone 3. DVT Prophylaxis: Xarelto. Patient has been resumed on her normal Xarelto from previous DVT 4. PT/OT: Toe-touch weightbearing. Patient is currently in a long-leg cast and continue to focus and work on transfers 5. H & H: 10.2/32.9, asymptomatic. Postoperative anemia secondary to acute blood loss from surgery without any intra operative complications. Patient has had chronic anemia in which previous labs have ranged anywhere from 8-9 with her hemoglobin. Preoperatively she was at 12.1. We will continue to monitor CBC while in the hospital 6. Long-leg lower extremity cast: The cast today I had to extend the window approximately so that the wound VAC could be appropriately placed. Patient tolerated the procedure well. She does complain of some ankle/foot pain. I did discuss case with Dr. Enmanuel Munoz. At this time I discussed with the nurse and physical therapy that anytime patient has leg propped pillows must be over the entire cast to prevent any leveraging or possible pressure areas. I also discussed this with the patient. We will continue to monitor this as patient does have a very well-padded long-leg cast. 7. Continue antibiotics while following cultures: Cultures are currently pending. Patient is currently on doxycycline for a minimum of 4 weeks postoperatively. 8. Continue postoperative medical management per medicine 9. Continue with Hemovac drain: There is been 580 cc of drainage over the past to 4-hour shifts. There is currently drainage in the Hemovac drain at this time. We will continue to keep this drain in place until there is less than 50 cc over 24 to 48 hours of drainage. Case was discussed with Dr. Enmanuel Munoz. 10. Encouraged Incentive Spirometry 11. Disposition: We will continue to monitor the patient with her cast and lab work. Cultures are currently pending. She will continue with the antibiotic as prescribed. Patient will continue to focus and work with occupational/physical therapy with regards to transfers. Patient lives home with her sister who recently underwent surgery as well. She will most likely need placed for continued treatment. Case management is currently involved for appropriate discharge planning. With regards to the drain we will hold off of pulling the drain until it is less than 50 cc over 48 hours. Patient will continue with the wound VAC while in the hospital here. Depending upon incision as well as possible draining patient may require to go to residential facility with wound VAC. Patient will continue with her DVT prophylaxis Xarelto. I have reviewed the [place] Automated Rx Reporting System (OARRS) report for this patient for refill pattern and other prescriber involvement as part of the appropriate surveillance for the provision of acute and chronic controlled medications. The report was requested and reviewed on the date of this entry and was considered in the prescribing process. This dictation was created using voice recognition software. Phonetic and/or grammatical errors may exist.
--- NOTE | 2022-10-22 16:07 | CASEMGMT ---
Social Work SW met with pt and introduced self and role of SW. SW spoke with pt regarding discharge plan and pt confirms that she will need SNF. A list of SNF providers including quality and resource use data and consistent with the patient?s preferred geographic region, medical needs, and insurance network were provided from the [employer] Guide. Pt preferred provider is [facility]. SW requested pt review list for additional choices should [facility] be unable to accept. Referral sent to [facility] via [facility]. Plan: [facility], pending acceptance REN Loredo
[2022-10-22] MEDS: Rivaroxaban 20 MG Tablet PO (17:09)
[2022-10-22] MEDS: Latanoprost 0.005% 1 Bottle 1 DRP EACH EYE (21:09)
[2022-10-22] MEDS: Pramipexole Di-HCl 0.25 MG Tablet 0.75 MG PO (21:10)
--- NOTE | 2022-10-22 21:27 | NURSING ---
Patient requests all four bed rails up at this time.
[2022-10-23] MEDS: oxyCODONE 5 MG Tablet PO ×5 (00:48→22:34)
[2022-10-23 04:07] VITALS: BP 112/61; PULSE 89; RESP 18; TEMP 36.8; O2SAT 93
[2022-10-23] MEDS: Acetaminophen 500 MG Tablet 1000 MG PO ×3 (04:48→21:45)
[2022-10-23 06:30] LABS: Hematocrit 30.3 % (37-47); Hemoglobin 9.3 g/dL (12.0-15.0); Mean Corp Hgb Conc 30.7 g/dL (32-36); Mean Corpuscular Volume 87.8 fL (81-99); Mean Platelet Vol. 11.5 fl (6.2-12.0); Platelet Count 212 K/mm3 (150-450); RBC Distribution Width CV 16.9 % (11.6-14.6); RBC Distribution Width SD 53.8 fl (35.1-43.9); Red Blood Count 3.45 M/mm3 (4.2-5.4); White Blood Count 7.8 K/mm3 (4.4-11.0)
--- NOTE | 2022-10-23 06:54 | PCM.PN.ORT ---
Subjective Subjective The patient was sitting in bed upon examination. Patient denies any chest pain, shortness of breath, dizziness, lightheadedness, nausea or vomiting, or calf pain. Patient still complains of pain around the anterior ankle and swelling. She states she is now able to wiggle and move her foot today more than yesterday. She does state when she takes the medications the pain in the leg is tolerable. We have continued to monitor output from the Hemovac drain. Since yesterday patient has had a total of 400 cc output. At each change every 4-6 hours there has been less output. There is no drainage in the canister or tubing of the wound VAC. Case management is working on pre-CERT for appropriate discharge planning. Patient will require retirement facility. Objective Data Objective Data Vital Signs: Vital Signs Temp Pulse Resp BP Pulse Ox O2 Del Method O2 Flow Rate 98.2 F 89 18 112/61 93 Room Air 2 10/23/22 04:07 10/23/22 04:07 10/23/22 04:07 10/23/22 04:07 10/23/22 04:07 10/23/22 04:07 10/21/22 20:50 Oxygen Flow Rate (L/min) 2 Oxygen Delivery Method Room Air Weight: 102.058 kg Body Mass Index (BMI) 36.3 Intake & Output: Intake and Output for Last 24 Hours 10/21/22 10/22/22 10/23/22 23:59 23:59 23:59 Intake Total 1262 / 1262 1050 / 1050 Output Total 90 / 90 1400 / 2000 680 / 680 Balance 1172 / 1172 -350 / -950 -680 / -680 Lab / Micro Data Result Diagrams: 10/23/22 05:55 10/22/22 04:28 Labs: Laboratory Results - last 24 hr 10/22/22 04:28: Sodium 137, Potassium 4.6, Chloride 102, Carbon Dioxide 29.0, Anion Gap 6, BUN 20 H, Creatinine 0.69, Estim Creat Clear Calc 46.20, Est GFR (MDRD) Af Amer 108, Est GFR (MDRD) Non-Af 89, BUN/Creatinine Ratio 29.1 H, Glucose 128 H, Calcium 8.8 10/23/22 05:55: WBC 7.8, RBC 3.45 L, Hgb 9.3 L, Hct 30.3 L, MCV 87.8, MCH 27.0, MCHC 30.7 L, RDW Std Deviation 53.8 H, RDW Coeff of Karina 16.9 H, Plt Count 212, MPV 11.5 Micro: Microbiology 10/21/22 Unknown Tissue - Knee Gram Stain - Final 10/21/22 Unknown Tissue - Knee Gram Stain - Final 10/21/22 Unknown Tissue - Knee Wound Culture - Preliminary No growth-Final to follow 10/21/22 Unknown Wound - Knee Gram Stain - Final 10/01/22 14:17 Fluid - Synovial (joint) Gram Stain - Final 10/01/22 14:17 Fluid - Synovial (joint) Body Fluid Culture - Final Culture exhibits no growth. 10/01/22 14:17 Fluid - Synovial (joint) Anaerobic Culture - Final No growth in 5 days. Physical Exam Narrative Vital signs stable and afebrile. Long-leg cast is fitting well with no cast breakdown or skin irritation. Patient was able to wiggle her toes. The sensation to her toes were intact. Capillary refills less than 2 seconds. Patient does feel today she is able to have a little bit more movement with her foot and toes. Wound VAC in place with no drainage in canister or tubing Hemovac drain in place with mild output in canister Const alert, oriented x3 and no apparent distress Assessment & Plan Assessment/Plan (1) Status post revision of total replacement of right knee: PLAN: 1. 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 Continue Pain Medications: Tylenol and oxycodone 3. DVT Prophylaxis: Xarelto. Patient has been resumed on her normal Xarelto from previous DVT 4. PT/OT: Toe-touch weightbearing. Patient is currently in a long-leg cast and continue to focus and work on transfers 5. H & H: 9.3.3, asymptomatic. Postoperative anemia secondary to acute blood loss from surgery without any intra operative complications. Patient has had chronic anemia in which previous labs have ranged anywhere from 8-9 with her hemoglobin. Preoperatively she was at 12.1. Patient does report she has been on folic acid and ferrous sulfate in the past when she has been in [place]. Prior to that she states she has always been anemic and never treated for it while living in [place]. We will start ferrous sulfate and folic acid today. 6. Long-leg lower extremity cast: Overall the cast is without any breakdown or skin irritation. Patient does continue to complain of some pain and throbbing along the anterior ankle and heel. We have been supporting the cast with pillow from the proximal cast to the heel. Must be completely supported along entire cast to prevent leveraging. Patient does report that when she takes the pain medications her pain is tolerable at the lower leg. If she continues to complain of this throbbing and pain may have to bivalve the cast to assess skin. We would then have to put more fiberglass casting over the bivalved. I discussed this yesterday with Enmanuel Munoz and the patient this morning. We will continue to monitor this over the next couple days. 7. Continue antibiotics while following cultures: Labs were reviewed and on Gram stain no organisms seen. Cultures are pending. Patient is currently on doxycycline for a minimum of 4 weeks postoperatively. 8. Continue postoperative medical management per medicine 9. Continue with Hemovac drain: Output every 4-6 hours has been trending down. Since October 22 with last output at 6 AM patient has had 400 cc output over the past 24-48 hours. We will continue to keep the Hemovac drain in until there is less than 50 cc output in a 24-hour period. This may require Hemovac drain to be discontinued at retirement facility possibly. This was discussed yesterday with Dr. Enmanuel Munoz. 10. Encouraged Incentive Spirometry 11. Disposition: We will continue to monitor the patient with her cast and lab work. She will continue with the antibiotic as prescribed. Patient will continue to focus and work with occupational/physical therapy with regards to transfers. Patient lives home with her sister who recently underwent surgery as well. She will most likely need placed for continued treatment. Case management is currently involved for appropriate discharge planning. With regards to the drain we will hold off of pulling the drain until it is less than 50 cc over 24-48 hours. Patient will continue with the wound VAC while in the hospital here. Depending upon incision as well as possible draining patient may require to go to retirement facility with wound VAC. Patient will continue with her DVT prophylaxis Xarelto. Case management currently involved and we are waiting pre-CERT for retirement facility. At this time patient is not ready for discharge as we need to continue to monitor the cast and her pain. Also monitor Hemovac drain. I have reviewed the [place] Automated Rx Reporting System (OARRS) report for this patient for refill pattern and other prescriber involvement as part of the appropriate surveillance for the provision of acute and chronic controlled medications. The report was requested and reviewed on the date of this entry and was considered in the prescribing process. This dictation was created using voice recognition software. Phonetic and/or grammatical errors may exist.
--- NOTE | 2022-10-23 08:04 | WOUNDNOTE ---
Wound VAC dressing in place to the right knee. good seal noted at 75mmHg low continuous suction. no drainage noted in the canister. Pt states she is awaiting approval to be discharged to [facility].
[2022-10-23] MEDS: Senna/Docusate Sodium 1 Tablet 2 TABLET PO ×2 (08:11→21:45)
[2022-10-23] MEDS: Ferrous Sulfate 325 MG Tablet PO ×2 (08:12→17:48)
[2022-10-23] MEDS: Folic Acid 1 MG Tablet PO (08:12)
[2022-10-23] MEDS: Losartan Potassium 25 MG Tablet PO (08:12)
[2022-10-23] MEDS: Cholecalciferol (VIT D3) 25 MCG TABLET (1,000 UNITS) PO (08:12)
[2022-10-23] MEDS: Famotidine 20 MG Tablet PO (08:12)
[2022-10-23] MEDS: Escitalopram Oxalate 20 MG Tablet PO (08:12)
[2022-10-23] MEDS: Doxycycline 100 MG CAPSULE PO ×2 (08:12→21:45)
--- NOTE | 2022-10-23 08:16 | PN.HOSP_ITS ---
Subjective Subjective Still having pain in her right foot but denies other complaints Objective Data Objective Data Vital Signs: Vital Signs Temp Pulse Resp BP Pulse Ox O2 Del Method O2 Flow Rate 98.2 F 89 18 112/61 93 Room Air 2 10/23/22 04:07 10/23/22 04:07 10/23/22 04:07 10/23/22 04:07 10/23/22 04:07 10/23/22 04:07 10/21/22 20:50 Oxygen Flow Rate (L/min) 2 Oxygen Delivery Method Room Air Weight: 102.058 kg Body Mass Index (BMI) 36.3 Intake & Output: Intake and Output for Last 24 Hours 10/21/22 10/22/22 10/23/22 23:59 23:59 23:59 Intake Total 1262 / 1262 1050 / 1050 Output Total 1400 / 2000 680 / 680 Balance 1172 / 1172 -350 / -950 -680 / -680 Lab / Micro Data Result Diagrams: 10/23/22 05:55 10/22/22 04:28 Labs: Laboratory Results - last 24 hr 10/23/22 05:55: WBC 7.8, RBC 3.45 L, Hgb 9.3 L, Hct 30.3 L, MCV 87.8, MCH 27.0, MCHC 30.7 L, RDW Std Deviation 53.8 H, RDW Coeff of Karina 16.9 H, Plt Count 212, MPV 11.5 Micro: Microbiology 10/21/22 Unknown Tissue - Knee Gram Stain - Final 10/21/22 Unknown Tissue - Knee Wound Culture - Final No growth aerobically. 10/21/22 Unknown Wound - Knee Gram Stain - Final 10/21/22 Unknown Wound - Knee Wound Culture - Final No growth aerobically. 10/21/22 Unknown Tissue - Knee Gram Stain - Final 10/01/22 14:17 Fluid - Synovial (joint) Gram Stain - Final 10/01/22 14:17 Fluid - Synovial (joint) Body Fluid Culture - Final Culture exhibits no growth. 10/01/22 14:17 Fluid - Synovial (joint) Anaerobic Culture - Final No growth in 5 days. Physical Exam Const alert and no apparent distress Constitutional Narrative: Oriented HEENT normocephalic and head/scalp atraumatic Eyes Eyes Narrative: EOM grossly intact, anicteric Neck supple Resp normal respiratory effort and clear to auscultation bilaterally Cardio regular rate and regular rhythm GI soft to palpation, non-tender and non-distended Extremity Extremity Narrative: Right lower extremity in hard cast Neuro Neuro Narrative: No overt focal deficits appreciated Psych Psych Narrative: Cooperative Assessment & Plan Assessment/Plan (1) Joint infection: PLAN: Plan #Severe right knee OA, history of periprosthetic joint infection status post antibiotic spacer placement previously Treated with 6-week course of antibiotic therapy in May and had a right knee I&D with placement static antibiotic spacer per Dr. Munoz at the time She was admitted for removal of spacer and revision of right total knee and ext ensor mechanism repair and had this completed 10/21 She is to continue doxycycline per surgery and has cultures pending Further management per surgery #Chronic normocytic anemia Continue to monitor 10/23: Agree with iron and folate supplementation, does have history of colon cancer and is post to have every 3-year colonoscopies but missed her last 1 due to current health problems. Strongly advised to reschedule this #RLS Continue pramipexole #Hypertension He has been on the soft side, losartan decreased to 25 mg #Obesity Weight loss and lifestyle encouraged #History of VTE Does have history of DVT Xarelto resumed #History of anxiety and depression Continue Lexapro #Glaucoma Continue eyedrops #DVT prophylaxis: Xarelto Charges/Coding Visit Charges Inpatient E&M: 90326 Subs Hosp L1
[2022-10-23 09:00] VITALS: BP 103/44; PULSE 88; RESP 18; TEMP 36.8; O2SAT 95
--- NOTE | 2022-10-23 11:14 | CASEMGMT ---
Social Work Collaborating with Mynor MCGRAW, Mynor reports that patient will be medically cleared for discharge over the weekend. Telephone call to [facility], as this was patient first choice of facility and they did not have a bed at the time. Elva reports to have a bed for patient on Wednesday and able to accept patient on Wednesday. Mynor reports that patient will be medically cleared by Wednesday. Ray to complete transfer to extended care form and signed medication list prior to patient discharge on Wednesday. This manager social services met with patient in room. Patient preference continues to be TCU. Patient agreeable to this manager social services [facility] and request for this manager social services to update patient sister. Telephone call to patient sister, Ana. Ana updated on above information and agreeable to discharge plan. This manager social services [facility]. Green Sheet on chart. Medical team updated. PLAN: [facility] wednesday. Proposed discharge date: 10/25/2022 Maurizio YOUNG, HODAN
[2022-10-23] MEDS: Ensure Surgery 237 ML LIQUID PO (11:36)
[2022-10-23] MEDS: 0.9% Saline Lock 10 ML Syringe IV ×2 (12:04→14:18)
[2022-10-23] MEDS: Morphine 2 MG/ML Syringe IV (12:04)
[2022-10-23] MEDS: Morphine 4 MG/ML Syringe IV (14:18)
[2022-10-23 15:00] VITALS: BP 119/57; PULSE 82; RESP 18; TEMP 37.2; O2SAT 98
[2022-10-23] MEDS: Rivaroxaban 20 MG Tablet PO (17:48)
[2022-10-23] MEDS: Pramipexole Di-HCl 0.25 MG Tablet 0.75 MG PO (20:33)
[2022-10-23 20:35] VITALS: BP 118/54; PULSE 87; RESP 16; TEMP 37.2; O2SAT 97
[2022-10-23] MEDS: Latanoprost 0.005% 1 Bottle 1 DRP EACH EYE (21:45)
[2022-10-24] MEDS: oxyCODONE 5 MG Tablet PO ×5 (02:34→21:10)
[2022-10-24 02:35] VITALS: BP 120/52; PULSE 89; RESP 16; TEMP 37.1; O2SAT 97
[2022-10-24] MEDS: Acetaminophen 500 MG Tablet 1000 MG PO ×3 (06:35→21:11)
[2022-10-24 07:20] LABS: Hematocrit 29.3 % (37-47); Hemoglobin 9.1 g/dL (12.0-15.0); Mean Corp Hgb Conc 31.1 g/dL (32-36); Mean Corpuscular Hgb 27.3 pg (27.0-32.0); Mean Platelet Vol. 11.4 fl (6.2-12.0); Platelet Count 184 K/mm3 (150-450); RBC Distribution Width CV 17.2 % (11.6-14.6); Red Blood Count 3.33 M/mm3 (4.2-5.4); White Blood Count 6.3 K/mm3 (4.4-11.0)
[2022-10-24 07:53] VITALS: BP 126/64; PULSE 105; RESP 16; TEMP 37.3; O2SAT 97
[2022-10-24] MEDS: Morphine 4 MG/ML Syringe IV (07:56)
[2022-10-24] MEDS: 0.9% Saline Lock 10 ML Syringe IV (07:57)
[2022-10-24] MEDS: Ferrous Sulfate 325 MG Tablet PO ×2 (08:03→16:58)
[2022-10-24] MEDS: Folic Acid 1 MG Tablet PO (08:03)
--- NOTE | 2022-10-24 08:42 | PN.HOSP_ITS ---
Subjective Subjective Tearful this morning due to the continued pain in her ankle and foot that she said she does not think she can bear for 8 weeks. Aside from the pain in her legs she has no other complaints Objective Data Objective Data Vital Signs: Vital Signs Temp Pulse Resp BP Pulse Ox O2 Del Method O2 Flow Rate 99.1 F 105 H 16 126/64 H 97 Room Air 2 10/24/22 07:53 10/24/22 07:53 10/24/22 07:53 10/24/22 07:53 10/24/22 07:53 10/24/22 07:53 10/21/22 20:50 Oxygen Flow Rate (L/min) 2 Oxygen Delivery Method Room Air Weight: 102.058 kg Body Mass Index (BMI) 36.3 Intake & Output: Intake and Output for Last 24 Hours 10/22/22 10/23/22 10/24/22 23:59 23:59 23:59 Intake Total 1050 / 1050 800 / 800 Output Total 1400 / 2000 2290 / 2290 530 / 530 Balance -350 / -950 -1490 / -1490 -530 / -530 Lab / Micro Data Result Diagrams: 10/24/22 06:38 10/22/22 04:28 Labs: Laboratory Results - last 24 hr 10/24/22 06:38: WBC 6.3, RBC 3.33 L, Hgb 9.1 L, Hct 29.3 L, MCV 88.0, MCH 27.3, MCHC 31.1 L, RDW Std Deviation 55.0 H, RDW Coeff of Karina 17.2 H, Plt Count 184, MPV 11.4 Micro: Microbiology 10/21/22 Unknown Tissue - Knee Gram Stain - Final 10/21/22 Unknown Tissue - Knee Wound Culture - Final No growth aerobically. 10/21/22 Unknown Tissue - Knee Gram Stain - Final 10/21/22 Unknown Tissue - Knee Wound Culture - Final No growth aerobically. 10/21/22 Unknown Wound - Knee Gram Stain - Final 10/21/22 Unknown Wound - Knee Wound Culture - Final No growth aerobically. 10/01/22 14:17 Fluid - Synovial (joint) Gram Stain - Final 10/01/22 14:17 Fluid - Synovial (joint) Body Fluid Culture - Final Culture exhibits no growth. 10/01/22 14:17 Fluid - Synovial (joint) Anaerobic Culture - Final No growth in 5 days. Physical Exam Const alert Constitutional Narrative: Oriented, tearful and uncomfortable HEENT normocephalic and head/scalp atraumatic Eyes Eyes Narrative: EOM grossly intact, anicteric Neck supple Resp normal respiratory effort and clear to auscultation bilaterally Cardio regular rate and regular rhythm GI soft to palpation, non-tender and non-distended Extremity Extremity Narrative: Right lower extremity in hard cast Neuro Neuro Narrative: No overt focal deficits appreciated Psych Psych Narrative: Cooperative, tearful when talking about her pain that she is not sure if she sugey l be able to handle it for 8 weeks Assessment & Plan Assessment/Plan (1) Joint infection: PLAN: Plan #Severe right knee OA, history of periprosthetic joint infection status post antibiotic spacer placement previously Treated with 6-week course of antibiotic therapy in May and had a right knee I&D with placement static antibiotic spacer per Dr. Munoz at the time She was admitted for removal of spacer and revision of right total knee and extensor mechanism repair and had this completed 10/21 She is to continue doxycycline per surgery and has cultures pending Further management per surgery 10/24: Continues to report pain in right ankle and foot that she says she is not sure if she can bear for 8 weeks. Currently being watched for improvement. Management per primary. Pain medication on board #Chronic normocytic anemia Continue to monitor 10/23: Agree with iron and folate supplementation, does have history of colon cancer and is post to have every 3-year colonoscopies but missed her last 1 due to current health problems. Strongly advised to reschedule this 10/24: On iron, hemoglobin slightly down today but no evidence of bleeding and likely secondary to blood draws and recent surgery. On senna docusate twice daily #RLS Continue pramipexole #Hypertension He has been on the soft side, losartan had been decreased to 25 mg Blood pressure starting to improve, low threshold to resume increased dose though suspect it is in part due to pain Check BMP in the a.m. #Obesity Weight loss and lifestyle encouraged #History of VTE Does have history of DVT Xarelto resumed #History of anxiety and depression Continue Lexapro #Glaucoma Continue eyedrops #DVT prophylaxis: Xarelto Charges/Coding Visit Charges Inpatient E&M: 81944 Subs Hosp L2
[2022-10-24] MEDS: Famotidine 20 MG Tablet PO (09:16)
[2022-10-24] MEDS: Losartan Potassium 25 MG Tablet PO (09:16)
[2022-10-24] MEDS: Escitalopram Oxalate 20 MG Tablet PO (09:16)
[2022-10-24] MEDS: Doxycycline 100 MG CAPSULE PO ×2 (09:16→21:12)
[2022-10-24] MEDS: Cholecalciferol (VIT D3) 25 MCG TABLET (1,000 UNITS) PO (09:16)
[2022-10-24] MEDS: Senna/Docusate Sodium 1 Tablet 2 TABLET PO ×2 (09:16→21:12)
--- NOTE | 2022-10-24 11:57 | PCM.PN.ORT ---
Subjective Subjective The patient was sitting in bed upon examination. Patient denies any chest pain, shortness of breath, dizziness, lightheadedness, nausea or vomiting, or calf pain. Patient is still complaining of significant pain in the anterior ankle. Case was discussed with Dr. Enmanuel Munoz. At this time we will need to bivalve the cast to assess underlying skin and and relieve some pressure. Patient denies numbness and tingling. Objective Data Objective Data Vital Signs: Vital Signs Temp Pulse Resp BP Pulse Ox O2 Del Method O2 Flow Rate 99.1 F 105 H 16 126/64 H 97 Room Air 2 10/24/22 07:53 10/24/22 07:53 10/24/22 07:53 10/24/22 07:53 10/24/22 07:53 10/24/22 07:53 10/21/22 20:50 Oxygen Flow Rate (L/min) 2 Oxygen Delivery Method Room Air Weight: 102.058 kg Body Mass Index (BMI) 36.3 Intake & Output: Intake and Output for Last 24 Hours 10/22/22 10/23/22 10/24/22 23:59 23:59 23:59 Intake Total 1050 / 1050 800 / 800 Output Total 1400 / 2000 2290 / 2290 530 / 530 Balance -350 / -950 -1490 / -1490 -530 / -530 Lab / Micro Data Result Diagrams: 10/24/22 06:38 10/22/22 04:28 Labs: Laboratory Results - last 24 hr 10/24/22 06:38: WBC 6.3, RBC 3.33 L, Hgb 9.1 L, Hct 29.3 L, MCV 88.0, MCH 27.3, MCHC 31.1 L, RDW Std Deviation 55.0 H, RDW Coeff of Karina 17.2 H, Plt Count 184, MPV 11.4 Micro: Microbiology 10/21/22 Unknown Tissue - Knee Gram Stain - Final 10/21/22 Unknown Tissue - Knee Wound Culture - Final No growth aerobically. 10/21/22 Unknown Tissue - Knee Gram Stain - Final 10/21/22 Unknown Tissue - Knee Wound Culture - Final No growth aerobically. 10/21/22 Unknown Wound - Knee Gram Stain - Final 10/21/22 Unknown Wound - Knee Wound Culture - Final No growth aerobically. 10/01/22 14:17 Fluid - Synovial (joint) Gram Stain - Final 10/01/22 14:17 Fluid - Synovial (joint) Body Fluid Culture - Final Culture exhibits no growth. 10/01/22 14:17 Fluid - Synovial (joint) Anaerobic Culture - Final No growth in 5 days. Physical Exam Narrative Vital signs stable and afebrile. Patient did have one reading of mild tachycardia. She denies any chest pain or shortness of breath. Patient's long-leg cast is without any breakdown or skin irritation.. Sensation is intact to light touch to saphenous, sural, superficial and deep peroneal, and tibial distribution. Cast window was removed and assessed dressing with a wound VAC. Wound VAC has no drainage in the canister or tubing. Hemovac drain in place with mild output Sensation was intact to light touch to the toes. Capillary refills less than 2 seconds.. Const alert, oriented x3 and no apparent distress Assessment & Plan Assessment/Plan (1) Status post revision of total replacement of right knee: PLAN: 1. 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 Continue Pain Medications: Tylenol and oxycodone 3. DVT Prophylaxis: Xarelto. Patient has been resumed on her normal Xarelto from previous DVT 4. PT/OT: Toe-touch weightbearing. Patient is currently in a long-leg cast and continue to focus and work on transfers 5. H & H: 9.1/2 9.3, asymptomatic. Postoperative anemia secondary to acute blood loss from surgery without any intra operative complications. Patient has had chronic anemia in which previous labs have ranged anywhere from 8-9 with her hemoglobin. Preoperatively she was at 12.1. Patient does report she has been on folic acid and ferrous sulfate in the past when she has been in [place]. Prior to that she states she has always been anemic and never treated for it while living in [place]. Continue with folic acid and ferrous sulfate. Discussed with the patient that she will need to continue to follow primary care physician for her anemia. 6. Long-leg lower extremity cast: Patient was having significant pain in the anterior ankle. The cast was bivalved and that cast portion was removed. The skin was assessed with minimal erythema over the anterior ankle at the crease. The lateral and medial ankle are without any pressure changes. No pressure sores or changes on the heel. I did then place more padding over the anterior lower leg, ankle and dorsum of the foot. Patient was placed back in the long-leg cast with the bivalved piece trimmed to proximal to the ankle joint. I then reinforced the lower extremity of the cast with new fiberglass casting taking it up to the distal portion of the window. I then reinforced the proximal cast above the window with new fiberglass cast. Patient sensation was intact after new casting. She states the pressure off the anterior ankle significantly improved. She still has some pressure along the medial ankle. Overall she does feel better since bivalving the cast. This was discussed and reviewed with Dr. Enmanuel Munoz. 7. Continue antibiotics while following cultures: Cultures were reviewed and on Gram stain no organisms seen. No growth on cultures. Patient is currently on doxycycline for a minimum of 4 weeks postoperatively. 8. Continue postoperative medical management per medicine 9. Continue with Hemovac drain: There has been 240 cc output since last measure reading yesterday. We will continue to keep the Hemovac drain in until there is less than 50 cc output in a 24-hour period. Case was discussed with the charge nurse and our wound nurse does have the capability of removing the drain once there is been less than 50 cc output in 24-hour period. This will need to be done at the transitional care unit most likely. 10. Encouraged Incentive Spirometry 11. Disposition: We will continue to monitor the patient with her cast and lab work. She will continue with the antibiotic as prescribed. Patient will continue to focus and work with occupational/physical therapy with regards to transfers. Patient lives home with her sister who recently underwent surgery as well. She will most likely need placed for continued treatment. Case management did state that patient has clearance to go to the transitional care unit at [facility] tomorrow. We will plan on discharge tomorrow as long as patient is medically stable. With regards to the drain we will hold off of pulling the drain until it is less than 50 cc over 24-48 hours. Patient will continue with the wound VAC while in the hospital here. Depending upon incision as well as possible draining patient may require to go to half-way facility with wound VAC. Patient will continue with her DVT prophylaxis Xarelto. I have reviewed the [place] Automated Rx Reporting System (OARRS) report for this patient for refill pattern and other prescriber involvement as part of the appropriate surveillance for the provision of acute and chronic controlled medications. The report was requested and reviewed on the date of this entry and was considered in the prescribing process. This dictation was created using voice recognition software. Phonetic and/or grammatical errors may exist.
[2022-10-24 14:34] VITALS: BP 156/68; PULSE 74; RESP 16; TEMP 36.9; O2SAT 97
[2022-10-24] MEDS: Rivaroxaban 20 MG Tablet PO (16:58)
[2022-10-24] MEDS: Latanoprost 0.005% 1 Bottle 1 DRP EACH EYE (21:10)
[2022-10-24] MEDS: Pramipexole Di-HCl 0.25 MG Tablet 0.75 MG PO (21:11)
[2022-10-24 22:00] VITALS: BP 115/50; PULSE 88; RESP 16; TEMP 36.7; O2SAT 97
[2022-10-25] MEDS: Acetaminophen 500 MG Tablet 1000 MG PO (05:45)
[2022-10-25] MEDS: oxyCODONE 5 MG Tablet PO (05:45)
[2022-10-25 05:59] VITALS: BP 115/62; PULSE 80; RESP 16; TEMP 36.7; O2SAT 100
[2022-10-25 06:24] LABS: Absolute Lymphocyte Count 1.59 X10^3/uL (0.83-4.51); Absolute Neutrophil Count 3.9 X10^3/uL (2.0-7.7); Basophil# 0.03 X10^3/uL; Basophil% 0.5 % (0-1); Eosinophil# 0.36 X10^3/uL; Eosinophils% 5.7 % (0-5); Hematocrit 29.6 % (37-47); Hemoglobin 8.8 g/dL (12.0-15.0); Lymphocyte # 1.59 X10^3/ul (0.83-4.51); Lymphocyte % 25.1 % (19-41); Mean Corp Hgb Conc 29.7 g/dL (32-36); Mean Corpuscular Hgb 26.6 pg (27.0-32.0); Mean Corpuscular Volume 89.4 fL (81-99); Mean Platelet Vol. 11.9 fl (6.2-12.0); Monocyte# 0.42 X10^3/uL; Monocyte% 6.6 % (0-10); NRBC Flagged by Analyzer 0 % (0-5); Neutrophil % 61.5 % (47-70); Platelet Count 194 K/mm3 (150-450); RBC Distribution Width CV 17.4 % (11.6-14.6); RBC Distribution Width SD 57.1 fl (35.1-43.9); Red Blood Count 3.31 M/mm3 (4.2-5.4); White Blood Count 6.3 K/mm3 (4.4-11.0)
[2022-10-25 06:59] LABS: Anion Gap 1 (5-15); BUN 17 mg/dL (7-18); BUN/Creat Ratio 29.8 RATIO (10-20); Calcium,Total 8.5 mg/dL (8.5-10.1); Chloride 105 mmol/L (98-107); Creatinine, Serum 0.57 mg/dL (0.55-1.02); EST Glomerular Filtration Rate 110 mL/min (>60); Est Glom Filt Rate - Afr Amer 133 mL/min (>60); Glucose 104 mg/dL (74-106); Sodium Level 137 mmol/L (136-145)
--- NOTE | 2022-10-25 07:41 | PN.HOSP_ITS ---
Subjective Subjective f/u total knee revision, currently casted, on doxy. No complaints today, pain much improved Objective Data Objective Data Vital Signs: Vital Signs Temp Pulse Resp BP Pulse Ox O2 Del Method O2 Flow Rate 98.1 F 80 16 115/62 100 Room Air 2 10/25/22 05:59 10/25/22 05:59 10/25/22 05:59 10/25/22 05:59 10/25/22 05:59 10/25/22 05:59 10/21/22 20:50 Oxygen Flow Rate (L/min) 2 Oxygen Delivery Method Room Air Weight: 102.058 kg Body Mass Index (BMI) 36.3 Intake & Output: Intake and Output for Last 24 Hours 10/23/22 10/24/22 10/25/22 23:59 23:59 23:59 Intake Total 800 / 800 Output Total 2290 / 2290 1070 / 1070 Balance -1490 / -1490 -1070 / -1070 Lab / Micro Data Result Diagrams: 10/25/22 05:35 10/25/22 05:35 Labs: Laboratory Results - last 24 hr 10/25/22 05:35: WBC 6.3, RBC 3.31 L, Hgb 8.8 L, Hct 29.6 L, MCV 89.4, MCH 26.6 L , MCHC 29.7 L, RDW Std Deviation 57.1 H, RDW Coeff of Karina 17.4 H, Plt Count 194, MPV 11.9, Immature Gran % (Auto) 0.600, Neut % (Auto) 61.5, Lymph % (Auto) 25.1, [place] % (Auto) 6.6, Eos % (Auto) 5.7 H, Baso % (Auto) 0.5, Absolute Neuts (auto) 3.9, Absolute Lymphs (auto) 1.59, Nucleated RBC % 0 10/25/22 05:35: Sodium 137, Potassium 4.0, Chloride 105, Carbon Dioxide 31.0, Anion Gap 1 L, BUN 17, Creatinine 0.57, Estim Creat Clear Calc 46.20, Est GFR (MDRD) Af Amer 133, Est GFR (MDRD) Non-Af 110, BUN/Creatinine Ratio 29.8 H, Glucose 104, Calcium 8.5 Micro: Microbiology 10/21/22 Unknown Wound - Knee Gram Stain - Final 10/21/22 Unknown Wound - Knee Wound Culture - Final No growth aerobically. 10/21/22 Unknown Wound - Knee Anaerobic Culture - Preliminary No growth in 48 hours. 10/21/22 Unknown Tissue - Knee Gram Stain - Final 10/21/22 Unknown Tissue - Knee Wound Culture - Final No growth aerobically. 10/21/22 Unknown Tissue - Knee Anaerobic Culture - Preliminary No growth in 48 hours. 10/21/22 Unknown Tissue - Knee Gram Stain - Final 10/21/22 Unknown Tissue - Knee Wound Culture - Final No growth aerobically. 10/21/22 Unknown Tissue - Knee Anaerobic Culture - Preliminary No growth in 48 hours. 10/01/22 14:17 Fluid - Synovial (joint) Gram Stain - Final 10/01/22 14:17 Fluid - Synovial (joint) Body Fluid Culture - Final Culture exhibits no growth. 10/01/22 14:17 Fluid - Synovial (joint) Anaerobic Culture - Final No growth in 5 days. Physical Exam Const alert Constitutional Narrative: Oriented HEENT normocephalic and head/scalp atraumatic Eyes Eyes Narrative: EOM grossly intact, anicteric Neck supple Resp normal respiratory effort and clear to auscultation bilaterally Cardio regular rate and regular rhythm GI soft to palpation, non-tender and non-distended Extremity Extremity Narrative: Right lower extremity in hard cast Neuro Neuro Narrative: No overt focal deficits appreciated Psych Psych Narrative: Cooperative Assessment & Plan Assessment/Plan (1) Joint infection: PLAN: Plan #Severe right knee OA, history of periprosthetic joint infection status post antibiotic spacer placement previously Treated with 6-week course of antibiotic therapy in May and had a right knee I&D with placement static antibiotic spacer per Dr. Munoz at the time She was admitted for removal of spacer and revision of right total knee and extensor mechanism repair and had this completed 10/21 She is to continue doxycycline per surgery and has cultures pending Further management per surgery 10/24: Continues to report pain in right ankle and foot that she says she is not sure if she can bear for 8 weeks. Currently being watched for improvement. Management per primary. Pain medication on board 10/25: Cast bivalved yesterday with improvement in pain #Chronic normocytic anemia Continue to monitor 10/23: Agree with iron and folate supplementation, does have history of colon cancer and is post to have every 3-year colonoscopies but missed her last 1 due to current health problems. Strongly advised to reschedule this 10/24: On iron, hemoglobin slightly down today but no evidence of bleeding and likely secondary to blood draws and recent surgery. On senna docusate twice daily #RLS Continue pramipexole #Hypertension He has been on the soft side, losartan had been decreased to 25 mg Blood pressure starting to improve, low threshold to resume increased dose though suspect it is in part due to pain Check BMP in the a.m. 10/25: Improved. No significant abnormalities on BMP. 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
--- NOTE | 2022-10-25 08:44 | PN.ORTHO_ITS ---
Subjective Subjective The patient was sitting in bed upon examination. Patient denies any chest pain, shortness of breath, dizziness, lightheadedness, nausea or vomiting, or calf pain. Pain is controlled on medications. No adverse overnight events. Patient is feeling much better today after bivalving the cast yesterday. The pressure and pain in her ankle has significantly improved. We do have clearance to send patient to TCU today. She has had drop in her hemoglobin to 8.8 but she is asymptomatic. Vitals have been stable. Case was discussed with hospitalist and we will have them continue to monitor hemoglobin while at the transitional care unit. Objective Data Objective Data Vital Signs: Vital Signs Temp Pulse Resp BP Pulse Ox O2 Del Method O2 Flow Rate 98.1 F 80 16 115/62 100 Room Air 2 10/25/22 05:59 10/25/22 05:59 10/25/22 05:59 10/25/22 05:59 10/25/22 05:59 10/25/22 05:59 10/21/22 20:50 Oxygen Flow Rate (L/min) 2 Oxygen Delivery Method Room Air Weight: 102.058 kg Body Mass Index (BMI) 36.3 Intake & Output: Intake and Output for Last 24 Hours 10/23/22 10/24/22 10/25/22 23:59 23:59 23:59 Intake Total 800 / 800 Output Total 2290 / 2290 1070 / 1070 Balance -1490 / -1490 -1070 / -1070 Lab / Micro Data Result Diagrams: 10/25/22 05:35 10/25/22 05:35 Labs: Laboratory Results - last 24 hr 10/25/22 05:35: WBC 6.3, RBC 3.31 L, Hgb 8.8 L, Hct 29.6 L, MCV 89.4, MCH 26.6 L , MCHC 29.7 L, RDW Std Deviation 57.1 H, RDW Coeff of Karina 17.4 H, Plt Count 194, MPV 11.9, Immature Gran % (Auto) 0.600, Neut % (Auto) 61.5, Lymph % (Auto) 25.1, [place] % (Auto) 6.6, Eos % (Auto) 5.7 H, Baso % (Auto) 0.5, Absolute Neuts (auto) 3.9, Absolute Lymphs (auto) 1.59, Nucleated RBC % 0 10/25/22 05:35: Sodium 137, Potassium 4.0, Chloride 105, Carbon Dioxide 31.0, Anion Gap 1 L, BUN 17, Creatinine 0.57, Estim Creat Clear Calc 46.20, Est GFR (MDRD) Af Amer 133, Est GFR (MDRD) Non-Af 110, BUN/Creatinine Ratio 29.8 H, Glucose 104, Calcium 8.5 Micro: Microbiology 10/21/22 Unknown Wound - Knee Gram Stain - Final 10/21/22 Unknown Wound - Knee Wound Culture - Final No growth aerobically. 10/21/22 Unknown Wound - Knee Anaerobic Culture - Preliminary No growth in 48 hours. 10/21/22 Unknown Tissue - Knee Gram Stain - Final 10/21/22 Unknown Tissue - Knee Wound Culture - Final No growth aerobically. 10/21/22 Unknown Tissue - Knee Anaerobic Culture - Preliminary No growth in 48 hours. 10/21/22 Unknown Tissue - Knee Gram Stain - Final 10/21/22 Unknown Tissue - Knee Wound Culture - Final No growth aerobically. 10/21/22 Unknown Tissue - Knee Anaerobic Culture - Preliminary No growth in 48 hours. 10/01/22 14:17 Fluid - Synovial (joint) Gram Stain - Final 10/01/22 14:17 Fluid - Synovial (joint) Body Fluid Culture - Final Culture exhibits no growth. 10/01/22 14:17 Fluid - Synovial (joint) Anaerobic Culture - Final No growth in 5 days. Physical Exam Narrative Vital signs stable and afebrile. Patient's long-leg cast is fitting well with no breakdown or skin irritation. She feels much better today once the cast has been bivalved yesterday. She is able to wiggle her toes. Sensation intact to all toes. Capillary refills less than 2 seconds[address]ound VAC in place with no drainage in the canister or tubing Hemovac in place with mild to moderate output. Const alert, oriented x3 and no apparent distress Assessment & Plan Assessment/Plan (1) Status post revision of total replacement of right knee: PLAN: 1. 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 Continue Pain Medications: Tylenol and oxycodone 3. DVT Prophylaxis: Xarelto. Patient has been resumed on her normal Xarelto from previous DVT 4. PT/OT: Toe-touch weightbearing. Patient is currently in a long-leg cast and continue to focus and work on transfers 5. H & H: 8.8/29.6, asymptomatic. Postoperative anemia secondary to acute blood loss from surgery without any intra operative complications. Patient has had chronic anemia in which previous labs have ranged anywhere from 8-9 with her hemoglobin. Preoperatively she was at 12.1. Patient does report she has been on folic acid and ferrous sulfate in the past when she has been in [place]. Prior to that she states she has always been anemic and never treated for it while living in [place]. Continue with folic acid and ferrous sulfate. Discussed with the patient that she will need to continue to follow primary care physician for her anemia. Case was also discussed with hospitalist and they are okay with discharge today. Continue to monitor CBC at the transitional care unit. 6. Long-leg lower extremity cast: Patient is doing much better today with regards to the long-leg cast. The pressure and pain is significantly improved. There is no cast breakdown or skin irritation. 7. Continue antibiotics while following cultures: Cultures were reviewed and on Gram stain no organisms seen. No growth on cultures. Patient is currently on doxycycline for a minimum of 4 weeks postoperatively. 8. Continue postoperative medical management per medicine 9. Continue with Hemovac drain: There has been 40 cc output since last measure reading yesterday but there is mild to moderate amount in Hemovac. We will continue to keep the Hemovac drain in until there is less than 50 cc output in a 24-hour period. Case was discussed with the charge nurse and our wound nurse does have the capability of removing the drain once there is been less than 50 cc output in 24-hour period. This will need to be done at the transitional care unit most likely. This was discussed with the wound nurse and we will put order in the chart for removal once there is less than 50 cc output in a 24-hour period. 10. Encouraged Incentive Spirometry 11. Continue with wound VAC: There is been no drainage in the canister or tubing. Continue wound VAC at 75 mmHg continuous with changes on Wednesday and . Okay to stop wound VAC after 2 changes with no drainage or if there is any significant skin irritation. 12. Disposition: Patient is orthopedically stable at this time. Case was discussed with the hospitalist and they are okay with discharge to the transitional care unit today. We will continue to have them monitor her hemoglobin with CBC while at the transitional care unit. Patient has been resumed on her Xarelto for previous DVT. She will continue this postoperatively for DVT prophylaxis. She will use oxycodone and Tylenol for pain control. Patient has already had a bowel movement and can use the senna as needed at this time. Patient will continue with the antibiotic for 4 weeks at the minimum postoperatively. I again discussed with the patient the postoperative recovery in which we will utilize the long-leg cast for a total of 3 months. At her 6- week visit this will be taken down and a new cast will be placed on. Eventually after 3 months she will be placed in a hinged brace full-time over the following 3 months. There will be a gradual progression of range of motion with physical therapy at that time. Patient does have postoperative follow-up already schedu led for x-rays and suture removal. She will follow-up per postop instructions. Prescription will be attached to the chart and discharged to the transitional care unit will be placed. Please contact orthopedics upon discharge with any concerns or questions I have reviewed the [place] Automated Rx Reporting System (OARRS) report for this patient for refill pattern and other prescriber involvement as part of the appropriate surveillance for the provision of acute and chronic controlled medications. The report was requested and reviewed on the date of this entry and was considered in the prescribing process. This dictation was created using voice recognition software. Phonetic and/or grammatical errors may exist.
--- NOTE | 2022-10-25 08:55 | TREXTCAR_ITS ---
Diet Diet Order/Speech Therapy: 10/22/22 07:55 Diet: Regular - General Type of Dietary Supplement:: Ensure Surgery Is pt able to select menu?: Yes Diet Comments: Ensure Surgery 3 times a day with meals Routine Orders/Code Status Routine Lab Work: CBC (Continue to monitor patient's hemoglobin with CBC on October 26, 2022) Wound(s) RIGHT KNEE/LEG: Wound Type: Continue with long-leg cast for 3 months postoperatively Dressing Change: applied KCI wound VAC (Continue wound VAC at 75 mmHg continuous setting with dressing changes on Wednesday and ) Therapies Weight Bearing: Toe-touch weight bearing Extremity Affected:: Right Lower (On elevation of the right lower extremity must have the entire cast supported with pillows or blankets.) Physical Therapy: Eval and Treat Occupational Therapy: Eval and Treat Problem/Diagnosis (1) Status post revision of total replacement of right knee: Status: Acute Code(s): Z96.651 - Presence of right artificial knee joint Plan: 1. 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 Continue Pain Medications: Tylenol and oxycodone 3. DVT Prophylaxis: Xarelto. Patient has been resumed on her normal Xarelto from previous DVT 4. PT/OT: Toe-touch weightbearing. Patient is currently in a long-leg cast and continue to focus and work on transfers 5. H & H: 8.8/29.6, asymptomatic. Postoperative anemia secondary to acute blood loss from surgery without any intra operative complications. Patient has had chronic anemia in which previous labs have ranged anywhere from 8-9 with her hemoglobin. Preoperatively she was at 12.1. Patient does report she has been on folic acid and ferrous sulfate in the past when she has been in [place]. Prior to that she states she has always been anemic and never treated for it while living in [place]. Continue with folic acid and ferrous sulfate. Discussed with the patient that she will need to continue to follow primary care physician for her anemia. Case was also discussed with hospitalist and they are okay with discharge today. Continue to monitor CBC at the transitional care unit. 6. Long-leg lower extremity cast: Patient is doing much better today with regards to the long-leg cast. The pressure and pain is significantly improved. There is no cast breakdown or skin irritation. 7. Continue antibiotics while following cultures: Cultures were reviewed and on Gram stain no organisms seen. No growth on cultures. Patient is currently on doxycycline for a minimum of 4 weeks postoperatively. 8. Continue postoperative medical management per medicine 9. Continue with Hemovac drain: There has been 40 cc output since last measure reading yesterday but there is mild to moderate amount in Hemovac. We will continue to keep the Hemovac drain in until there is less than 50 cc output in a 24-hour period. Case was discussed with the charge nurse and our wound nurse does have the capability of removing the drain once there is been less than 50 cc output in 24-hour period. This will need to be done at the transitional care unit most likely. This was discussed with the wound nurse and we will put order in the chart for removal once there is less than 50 cc output in a 24-hour period. 10. Encouraged Incentive Spirometry 11. Continue with wound VAC: There is been no drainage in the canister or tubing. Continue wound VAC at 75 mmHg continuous with changes on Wednesday and . Okay to stop wound VAC after 2 changes with no drainage or if there is any significant skin irritation. 12. Disposition: Patient is orthopedically stable at this time. Case was discussed with the hospitalist and they are okay with discharge to the transitional care unit today. We will continue to have them monitor her hemoglobin with CBC while at the transitional care unit. Patient has been resumed on her Xarelto for previous DVT. She will continue this postoperatively for DVT prophylaxis. She will use oxycodone and Tylenol for pain control. Patient has already had a bowel movement and can use the senna as needed at this time. Patient will continue with the antibiotic for 4 weeks at the minimum postoperatively. I again discussed with the patient the postoperative recovery in which we will utilize the long-leg cast for a total of 3 months. At her 6- week visit this will be taken down and a new cast will be placed on. Eventually after 3 months she will be placed in a hinged brace full-time over the following 3 months. There will be a gradual progression of range of motion with physical therapy at that time. Patient does have postoperative follow-up already scheduled for x-rays and suture removal. She will follow-up per postop instructions. Prescription will be attached to the chart and discharged to the transitional care unit will be placed. Please contact orthopedics upon discharge with any concerns or questions I have reviewed the [place] Automated Rx Reporting System (OARRS) report for this patient for refill pattern and other prescriber involvement as part of the appropriate surveillance for the provision of acute and chronic controlled medications. The report was requested and reviewed on the date of this entry and was considered in the prescribing process. This dictation was created using voice recognition software. Phonetic and/or grammatical errors may exist. 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) Type of Care/Length of Stay Estimated LOS: Convalescent Care Less Than 30 days Type of Care Needed: Skilled Rehab Potential: Good Prognosis: Good Additional Orders/Day of Discharge Day of Discharge: 10/25/22 Discharge Plan Admission Admit Date/Time: 10/21/22 09:48 Attending Provider: Enmanuel Munoz Primary Care Provider: Guerda Torrez NP Consulting Providers: Cleopatra Werner ; Amira Haynes ; Amira Bell ; Radhika Gallegos Discharge Orders/Prescriptions Prescriptions: New ferrous sulfate [FeroSul] 325 mg (65 mg iron) Tablet 325 mg PO BIDCM 30 Days Qty: 60 0RF folic acid 1 mg Tablet 1 mg PO BREAKFAST 30 Days Qty: 30 0RF oxycodone 5 mg Tablet 5 - 10 mg PO Q4H PRN PRN (Reason: Pain Score 4-10) 7 Days Qty: 42 0RF sennosides-docusate sodium [Stool Softener-Stimulant Laxat] 8.6-50 mg Tablet 2 tab PO BID 1 Days Qty: 4 0RF Rx Instructions: As needed if any constipation Continued losartan 50 mg Tablet 50 mg PO DAILY latanoprost 0.005 % Drops 1 drp EACH EYE QPM pramipexole 1.5 mg Tablet 0.75 mg PO QHS Label Comments: TAKE 1 1/2 TAB BEDTIME cholecalciferol (vitamin D3) [Vitamin D3] 25 mcg (1,000 unit) Capsule 25 mcg PO DAILY Xarelto 20 mg Tablet 20 mg PO DAILY Label Comments: PT TO STOP PER PCP Rx Instructions: must administer with evening meal acetaminophen 500 mg tablet 1,000 mg PO Q8H Rx Instructions: Do not take more than 3000 mg Tylenol in a 24-hour period. escitalopram oxalate [Lexapro] 20 mg tablet 20 mg PO DAILY doxycycline monohydrate 100 mg tablet 100 mg PO BID Label Comments: TAKE 1 TABLET BY MOUTH TWICE A DAY BEGIN MEDICATION 2 WEEKS PRIOR TO SURGERY Discontinued oxycodone 5 mg Tablet 5 - 10 mg PO Q4H PRN PRN (Reason: Pain Score 4-10) 7 Days Qty: 42 0RF Referrals / Follow Up: Guerda Torrez NP, [facility] [Primary Care Provider] - Mynor Ayers PA-C [Med Staff - Adv Practice Prof] - 11/05/22 Disposition Disposition (needs filled in before D/C Order can be placed): [facility]
[2022-10-25 08:59] VITALS: BP 115/44; PULSE 88; RESP 16; TEMP 36.4; O2SAT 96
--- NOTE | 2022-10-25 09:08 | PCM.DC.SUM ---
Providers Date of Admission: 10/21/22 Date of Discharge: 10/25/22 Primary Care Physician: KEVIN Stock Consultations 10/21/22 09:48 Consult: Hospitalist Routine Consulting Provider: [facility] Reason for Consult: post op med management EMERGENT Consult: No MD Notified: Yes Date Notified: 10/21/22 Time Notified: 16:00 Method of Notification: via text 10/22/22 13:38 Consult: Onc/Wound/poultry trimmer Routine Comment: Reason for Consult:: wound VAC right knee Reason For Visit: rt removal antibiotic spacer, rt knee revision Diagnosis Discharge Diagnosis (1) Status post revision of total replacement of right knee: Status: Acute Code(s): Z96.651 - Presence of right artificial knee joint Plan: 1. 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 Continue Pain Medications: Tylenol and oxycodone 3. DVT Prophylaxis: Xarelto. Patient has been resumed on her normal Xarelto from previous DVT 4. PT/OT: Toe-touch weightbearing. Patient is currently in a long-leg cast and continue to focus and work on transfers 5. H & H: 8.8/29.6, asymptomatic. Postoperative anemia secondary to acute blood loss from surgery without any intra operative complications. Patient has had chronic anemia in which previous labs have ranged anywhere from 8-9 with her hemoglobin. Preoperatively she was at 12.1. Patient does report she has been on folic acid and ferrous sulfate in the past when she has been in [place]. Prior to that she states she has always been anemic and never treated for it while living in [place]. Continue with folic acid and ferrous sulfate. Discussed with the patient that she will need to continue to follow primary care physician for her anemia. Case was also discussed with hospitalist and they are okay with discharge today. Continue to monitor CBC at the transitional care unit. 6. Long-leg lower extremity cast: Patient is doing much better today with regards to the long-leg cast. The pressure and pain is significantly improved. There is no cast breakdown or skin irritation. 7. Continue antibiotics while following cultures: Cultures were reviewed and on Gram stain no organisms seen. No growth on cultures. Patient is currently on doxycycline for a minimum of 4 weeks postoperatively. 8. Continue postoperative medical management per medicine 9. Continue with Hemovac drain: There has been 40 cc output since last measure reading yesterday but there is mild to moderate amount in Hemovac. We will continue to keep the Hemovac drain in until there is less than 50 cc output in a 24-hour period. Case was discussed with the charge nurse and our wound nurse does have the capability of removing the drain once there is been less than 50 cc output in 24-hour period. This will need to be done at the transitional care unit most likely. This was discussed with the wound nurse and we will put order in the chart for removal once there is less than 50 cc output in a 24-hour period. 10. Encouraged Incentive Spirometry 11. Continue with wound VAC: There is been no drainage in the canister or tubing. Continue wound VAC at 75 mmHg continuous with changes on Wednesday and . Okay to stop wound VAC after 2 changes with no drainage or if there is any significant skin irritation. 12. Disposition: Patient is orthopedically stable at this time. Case was discussed with the hospitalist and they are okay with discharge to the transitional care unit today. We will continue to have them monitor her hemoglobin with CBC while at the transitional care unit. Patient has been resumed on her Xarelto for previous DVT. She will continue this postoperatively for DVT prophylaxis. She will use oxycodone and Tylenol for pain control. Patient has already had a bowel movement and can use the senna as needed at this time. Patient will continue with the antibiotic for 4 weeks at the minimum postoperatively. I again discussed with the patient the postoperative recovery in which we will utilize the long-leg cast for a total of 3 months. At her 6-week visit this will be taken down and a new cast will be placed on. Eventually after 3 months she will be placed in a hinged brace full-time over the following 3 months. There will be a gradual progression of range of motion with physical therapy at that time. Patient does have postoperative follow-up already scheduled for x-rays and suture removal. She will follow-up per postop instructions. Prescription will be attached to the chart and discharged to the transitional care unit will be placed. Please contact orthopedics upon discharge with any concerns or questions I have reviewed the [place] Automated Rx Reporting System (OARRS) report for this patient for refill pattern and other prescriber involvement as part of the appropriate surveillance for the provision of acute and chronic controlled medications. The report was requested and reviewed on the date of this entry and was considered in the prescribing process. This dictation was created using voice recognition software. Phonetic and/or grammatical errors may exist. Medications at Discharge Home Medications cholecalciferol (vitamin D3) 25 mcg (1,000 unit) capsule (Vitamin D3) 25 mcg PO DAILY SUPPLEMENT 05/27/22 latanoprost 0.005 % eye drops 1 drp EACH EYE QPM GLAUCOMA 05/27/22 losartan 50 mg tablet 50 mg PO DAILY BP 05/27/22 pramipexole 1.5 mg tablet 0.75 mg PO QHS RESTLESS LEG 05/27/22 rivaroxaban 20 mg tablet (Xarelto) 20 mg PO DAILY DVT 05/27/22 acetaminophen 500 mg tablet 1,000 mg PO Q8H pain 06/12/22 doxycycline monohydrate 100 mg tablet 100 mg PO BID ANTIBIOTIC 10/07/22 escitalopram oxalate 20 mg tablet (Lexapro) 20 mg PO DAILY ANTIDEPRESSANT 10/07/22 ferrous sulfate 325 mg (65 mg iron) tablet (FeroSul) 325 mg PO BIDCM 30 days #60 tabs 10/25/22 folic acid 1 mg tablet 1 mg PO BREAKFAST 30 days #30 tabs 10/25/22 oxycodone 5 mg tablet 5 - 10 mg PO Q4H PRN PRN Pain Score 4-10 7 days #42 tabs 10/25/22 sennosides 8.6 mg-docusate sodium 50 mg tablet (Stool Softener-Stimulant Laxative) 2 tab PO BID 1 day #4 tabs 10/25/22 Hospital Course Operations total knee replacement (Removal right knee uniplanar external fixator with removal of antibiotic spacer with revision right total knee arthroplasty with distal femoral hinged prosthesis and 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 Patient had previous right total knee arthroplasty in 2008 followed by quadriceps tear in 2019. She was treated at outside institution surgically with a direct repair with suture anchors. She had another injury in December 2021 when she was in [place] having increased pain and inability to extend the knee. She was treated at that time with a T ROM brace. She was also found to have a DVT in the lower leg at that time and has been treated with Xarelto 20 mg. On June 10, 2022 patient had a right knee irrigation and debridement with placement of static antibiotic spacer due to increased inflammatory markers and positive synovasure. She was treated postoperatively at that time with IV antibiotics and followed by infectious disease. She had complaints while at the transitional care unit in the knee in which she was using a knee immobilizer. 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 This required patient to undergo external fixator on July 24, [address] Enmanuel Munoz. 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 The patient underwent the above-stated procedure on October 21, 2022. Patient did receive perioperative antibiotics. Intraoperatively was uneventful. For details please see dictated operative note. The patient was placed in a long-leg cast intraoperatively which was then windowed to evaluate the incision. Patient remained stable in recovery. Patient was admitted to the 3rd floor at [facility]. The patient's pain was managed with the use of IV and p.o. pain medications. Patient participated in physical therapy. Patient did have significant complaints postoperatively with pressure around the anterior ankle and medial ankle. Ultimately we had to bivalve the cast and assess the ankle. There was no appreciable pressure ulcers. The area was then well padded and additional fiberglass casting was placed to hold the bivalved portion of the cast. Patient had significant improvement the next day after this procedure. Patient was discharged on postoperative day #4 to [facility] transitional care unit. Patient was given medications stated below. Patient will continue with her Xarelto as she has been treated for previous DVT in the past. She will also be placed and continue on doxycycline for 4 weeks postoperatively at the minimum. Patient also required placement of a wound VAC over the incision in which the wound nurse placed through the windowed portion. This wound VAC remained stable with no drainage in the canister or tubing. We will continue to have the wound nurse monitor this at the transitional care unit. Patient has also had Hemovac drain in place in which we have seen output trending downward. We will continue to keep this Hemovac drain in place until there is less than 50 cc output in a 24-hour period. Wound VAC nurse will remove this once this has been achieved. Patient will follow up with [facility] per postop instructions for reassessment as well as x-rays and suture removal. Physical Exam Narrative Vital signs stable and afebrile. Patient's long-leg cast is fitting well with no breakdown or skin irritation.? She feels much better today once the cast has been bivalved yesterday.? She is able to wiggle her toes.? Sensation intact to all toes.? Capillary refills less than 2 seconds. Wound VAC in place with no drainage in the canister or tubing Hemovac in place with mild to moderate output. Const alert, oriented x3 and no apparent distress Weight / BMI Weight Weight: 102.058 kg Body Mass Index (BMI) 36.3 ABG / Lab / Microbiology Data Result Diagrams: 10/25/22 05:35 10/25/22 05:35 Laboratory: Laboratory Results - last 24 hr 10/25/22 05:35: WBC 6.3, RBC 3.31 L, Hgb 8.8 L, Hct 29.6 L, MCV 89.4, MCH 26.6 L, MCHC 29.7 L, RDW Std Deviation 57.1 H, RDW Coeff of Karina 17.4 H, Plt Count 194, MPV 11.9, Immature Gran % (Auto) 0.600, Neut % (Auto) 61.5, Lymph % (Auto) 25.1, Sargent % (Auto) 6.6, Eos % (Auto) 5.7 H, Baso % (Auto) 0.5, Absolute Neuts (auto) 3.9, Absolute Lymphs (auto) 1.59, Nucleated RBC % 0 10/25/22 05:35: Sodium 137, Potassium 4.0, Chloride 105, Carbon Dioxide 31.0, Anion Gap 1 L, BUN 17, Creatinine 0.57, Estim Creat Clear Calc 46.20, Est GFR (MDRD) Af Amer 133, Est GFR (MDRD) Non-Af 110, BUN/Creatinine Ratio 29.8 H, Glucose 104, Calcium 8.5 Microbiology: Microbiology 10/21/22 Unknown Wound - Knee Gram Stain - Final 10/21/22 Unknown Wound - Knee Wound Culture - Final No growth aerobically. 10/21/22 Unknown Wound - Knee Anaerobic Culture - Preliminary No growth in 48 hours. 10/21/22 Unknown Tissue - Knee Gram Stain - Final 10/21/22 Unknown Tissue - Knee Wound Culture - Final No growth aerobically. 10/21/22 Unknown Tissue - Knee Anaerobic Culture - Preliminary No growth in 48 hours. 10/21/22 Unknown Tissue - Knee Gram Stain - Final 10/21/22 Unknown Tissue - Knee Wound Culture - Final No growth aerobically. 10/21/22 Unknown Tissue - Knee Anaerobic Culture - Preliminary No growth in 48 hours. 10/01/22 14:17 Fluid - Synovial (joint) Gram Stain - Final 10/01/22 14:17 Fluid - Synovial (joint) Body Fluid Culture - Final Culture exhibits no growth. 10/01/22 14:17 Fluid - Synovial (joint) Anaerobic Culture - Final No growth in 5 days. Meaningful Use Info Meaningful Use Diagnoses (Choose all that apply): None applicable Discharge Plan Admission Admit Date/Time: 10/21/22 09:48 Attending Provider: Enmanuel Munoz Primary Care Provider: Guerda Torrez NP Consulting Providers: Cleopatra Werner ; Amira Haynes ; Amira Bell ; Radhika Gallegos Discharge Orders/Prescriptions Prescriptions: New ferrous sulfate [FeroSul] 325 mg (65 mg iron) Tablet 325 mg PO BIDCM 30 Days Qty: 60 0RF folic acid 1 mg Tablet 1 mg PO BREAKFAST 30 Days Qty: 30 0RF oxycodone 5 mg Tablet 5 - 10 mg PO Q4H PRN PRN (Reason: Pain Score 4-10) 7 Days Qty: 42 0RF sennosides-docusate sodium [Stool Softener-Stimulant Laxat] 8.6-50 mg Tablet 2 tab PO BID 1 Days Qty: 4 0RF Rx Instructions: As needed if any constipation Continued losartan 50 mg Tablet 50 mg PO DAILY latanoprost 0.005 % Drops 1 drp EACH EYE QPM pramipexole 1.5 mg Tablet 0.75 mg PO QHS Label Comments: TAKE 1 1/2 TAB BEDTIME cholecalciferol (vitamin D3) [Vitamin D3] 25 mcg (1,000 unit) Capsule 25 mcg PO DAILY Xarelto 20 mg Tablet 20 mg PO DAILY Label Comments: PT TO STOP PER PCP Rx Instructions: must administer with evening meal acetaminophen 500 mg tablet 1,000 mg PO Q8H Rx Instructions: Do not take more than 3000 mg Tylenol in a 24-hour period. escitalopram oxalate [Lexapro] 20 mg tablet 20 mg PO DAILY doxycycline monohydrate 100 mg tablet 100 mg PO BID Label Comments: TAKE 1 TABLET BY MOUTH TWICE A DAY BEGIN MEDICATION 2 WEEKS PRIOR TO SURGERY Discontinued oxycodone 5 mg Tablet 5 - 10 mg PO Q4H PRN PRN (Reason: Pain Score 4-10) 7 Days Qty: 42 0RF Referrals / Follow Up: Guerda Torrez NP, [facility] [Primary Care Provider] - Mynor Ayers PAJose AngelC [Med Staff - [facility] Practice [facility]] - 11/05/22 Disposition Disposition (needs filled in before D/C Order can be placed): Senior Living Facility
[2022-10-25] MEDS: Ensure Surgery 237 ML LIQUID PO ×2 (09:16→12:54)
[2022-10-25] MEDS: Ferrous Sulfate 325 MG Tablet PO (09:22)
[2022-10-25] MEDS: Escitalopram Oxalate 20 MG Tablet PO (09:22)
[2022-10-25] MEDS: Folic Acid 1 MG Tablet PO (09:22)
[2022-10-25] MEDS: Doxycycline 100 MG CAPSULE PO (09:22)
[2022-10-25] MEDS: Senna/Docusate Sodium 1 Tablet 2 TABLET PO (09:23)
[2022-10-25] MEDS: Famotidine 20 MG Tablet PO (09:23)
[2022-10-25] MEDS: Cholecalciferol (VIT D3) 25 MCG TABLET (1,000 UNITS) PO ×2 (09:23)
[2022-10-25] MEDS: Losartan Potassium 25 MG Tablet PO (09:23)
== END 2022-10-24 14:50 | disposition skilled nursing facility (03) | DRG 467 ==
LOC: MS3 10-22 06:13
PROVIDERS: Anesthesiology; Internal Medicine; Admitting Provider Specialist; PCP Registered Nurse; Referring Provider Specialist; Visit Provider Specialist
PROC: 0SPC08Z Removal of Spacer from Right Knee Joint, Open Approach (ICD-10-PCS; principal; 2022-10-21 10:20)
DX: Z47.33 Aftercare following explantation of knee joint prosthesis (principal); D62 Acute posthemorrhagic anemia; M17.11 Unilateral primary osteoarthritis, right knee; G25.81 Restless legs syndrome; F41.9 Anxiety disorder, unspecified; I10 Essential (primary) hypertension; E66.9 Obesity, unspecified; F32.A Depression, unspecified; H40.9 Unspecified glaucoma; Z68.36 Body mass index [BMI] 36.0-36.9, adult; X58.XXXA Exposure to other specified factors, initial encounter; Z96.653 Presence of artificial knee joint, bilateral; Z79.01 Long term (current) use of anticoagulants; Z79.899 Other long term (current) drug therapy; Z86.718 Personal history of other venous thrombosis and embolism; Z86.16 Personal history of COVID-19; Z85.038 Personal history of other malignant neoplasm of large intestine; Z23 Encounter for immunization
CPT/HCPCS: 36415; 73560; 80048; 82962; 83735; 85025; 85027; 87015; 87070; 87075; 87101; 87102; 87116; 87205; 87206; 87426; 88305; 88311; 97110; 97116; 97162; 97166; 97530; 97535; C1776; G0008; J7120; 90686; A4216; J2405

== ENCOUNTER 2022-10-25 14:55 | Inpatient (IN) | payer MEDICARE, BC, SELFPAY ==
[2022-10-25 15:27] VITALS: BP 114/57; PULSE 88; RESP 18; TEMP 36.9; O2SAT 100; BMI 38.4
[2022-10-25 15:53] VITALS: BP 114/57; PULSE 88; RESP 18; TEMP 36.9; O2SAT 100
--- NOTE | 2022-10-25 16:07 | HP.PCM_ITS ---
[facility] - General General Date of Admission: 10/25/22 Date of Service: 10/26/22 Chief Complaint: Here for rehabilitation. [facility] Narrative SHAYY MASON, is a 72 Female who presents with followin10/21/2022 Dr. Munoz performed removal right knee fixator, right knee revision total knee arthroplasty, removal right knee spacer, MESH repair chronic extensor mechanism, placement right lower extremity long leg cast. 10/22/2022 Right ankle, right foot pain. Doxycycline, cultures pending. 10/23/2022 Right foot pain. 10/24/2022 Tearful, right foot, right ankle pain. 10/25/2022 Pain improved. 10/25/2022 Admit to TCU with debility, here for rehabilitation, strengthening, prior to discharge home alone. [facility] Medical History (Updated 10/25/22 @ 16:[address] Jerrell Caldera MD) Anemia Arthritis Cancer Chronic cough DVT (deep venous thrombosis) History of edema History of pain when walking History of stress test Hx of vaginal delivery Hypertension Open wound Post-menopausal Restless legs Shortness of breath on exertion Walker as ambulation aid Wears glasses Home Medications cholecalciferol (vitamin D3) 25 mcg (1,000 unit) capsule (Vitamin D3) 25 mcg PO DAILY SUPPLEMENT 05/27/22 [History Last Taken 10/20/22] latanoprost 0.005 % eye drops 1 drp EACH EYE QPM GLAUCOMA 05/27/22 [History Last Taken 10/20/22] losartan 50 mg tablet 50 mg PO DAILY BP 05/27/22 [History Last Taken 10/20/22] pramipexole 1.5 mg tablet 0.75 mg PO QHS RESTLESS LEG 05/27/22 [History Last Taken 10/20/22] rivaroxaban 20 mg tablet (Xarelto) 20 mg PO DAILY DVT 05/27/22 [History Last Taken 10/16/22] acetaminophen 500 mg tablet 1,000 mg PO Q8H pain 06/12/22 [History Last Taken 10/20/22] doxycycline monohydrate 100 mg tablet 100 mg PO BID ANTIBIOTIC 10/07/22 [History Last Taken 10/20/22] escitalopram oxalate 20 mg tablet (Lexapro) 20 mg PO DAILY ANTIDEPRESSANT 10/07/22 [History Last Taken 10/20/22] ferrous sulfate 325 mg (65 mg iron) tablet (FeroSul) 325 mg PO BIDCM Supplement 10/25/22 [History Last Taken Unknown] folic acid 1 mg tablet 1 mg PO BREAKFAST Supplement 10/25/22 [History Last Taken Unknown] oxycodone 5 mg tablet 5 - 10 mg PO Q4H PRN PRN Pain Score 4-10 7 days #42 tabs 10/25/22 [Rx Last Taken Unknown] sennosides 8.6 mg-docusate sodium 50 mg tablet (Stool Softener-Stimulant Laxative) 2 tab PO BID Constipation 10/25/22 [History Last Taken Unknown] Allergy/AdvReac Type Severity Reaction Status Date / Time No Known Allergies Allergy Verified 10/21/22 08:06 Surgical History (Updated 10/25/22 @ 16:[address] Jerrell Caldera MD) History of facelift History of surgical procedure Hx of appendectomy Hx of colonoscopy Hx of hernia repair Hx of hysterectomy Hx of knee surgery Hx of surgical procedure Hx of surgical procedure Hx of surgical procedure Hx of tonsillectomy Hx of total knee replacement Social History household members: none Smoking Status: Never smoker alcohol intake: current alcohol intake frequency: holidays/special occasions only substance use type: does not use ROS Constitutional Constitutional: Denies chills, fever(s) or weight gain ENT HEENT: Denies headache(s), nasal congestion or nasal discharge Cardiovascular Cardiovascular: Denies chest pain or palpitations Respiratory/Chest Respiratory/Chest: Denies cough, excessive phlegm production or shortness of breath with exertion Gastrointestinal Gastrointestinal: Denies abdominal pain, nausea or vomiting Genitourinary Genitourinary: Denies dysuria Musculoskeletal Musculoskeletal: Denies joint pain or joint swelling Integumentary Integumentary: Denies rash or wounds Neurologic Neurologic: Denies focal weakness, numbness or tingling Psychiatric Psychiatric: Denies anxiety, auditory hallucinations, depression, homicidal ideation or suicidal ideation Vital Signs Vital Signs Vital Signs: 10/25/22 15:27 10/25/22 15:53 Temperature 98.4 F 98.4 F Temperature Source Temporal Temporal Pulse Rate 88 88 Respiratory Rate 18 18 Blood Pressure 114/57 L 114/57 L Blood Pressure Mean 76 76 Blood Pressure Source Monitor Monitor Blood Pressure Position Sitting Supine Blood Pressure Location Left Arm Left Arm Pulse Ox 100 100 Oxygen Delivery Method Room Air Room Air Weight Weight: 107.91 kg Body Mass Index (BMI) 38.4 Physical Exam Const alert General Appearance: cooperative HEENT normocephalic Eyes PERRL and EOMs intact bilaterally Neck supple, no JVD and no carotid bruits Resp normal respiratory effort, normal air movement and clear to auscultation bilaterally Cardio regular rate and regular rhythm GI normal to inspection, nondistended, normoactive bowel sounds, non-tender and non-distended Extremity normal capillary refill Extremity Narrative: Right lower extremity long leg cast. General Extremity: Negative for edema Skin no rashes or lesions noted General Skin Exam: no breakdown Psych affect normal Appearance: appropriate Results Lab / Micro Data Result Diagrams: 10/26/22 05:36 10/26/22 05:36 Assessment & Plan Assessment/Plan (1) Debility: (2) Infection of prosthetic right knee joint: (3) Rupture of right quadriceps tendon: (4) Depression: (5) Iron deficiency anemia: (6) Glaucoma: (7) Hypertension: (8) Restless leg syndrome: (9) Deep vein thrombosis, lower right extremity: (10) Vitamin D deficiency: PLAN: Plan 72 year old female with below past medical history hospitalized for removal right knee fixator, right knee revision TKA, removal right knee spacer, MESH repair chronic extensor mechanism, placement right lower extremity long leg cast 10/21/[address] Munoz, admitted to TCU with debility, here for rehabilitation, strengthening, prior to discharge home alone. * Debility - PT/OT. * Pain - Tylenol 1000mg q8, Oxycodone 5-10mg q4h prn. * Bowel - senna/colace 2 tablets bid, Dulcolax 10mg pr x 1 prn, MOM 30ml po x 1 prn. * Adult immunization - Administer pneumonia vaccine, covid19 vaccine, flu vaccine as appropriate. * DVT prophylaxis - Not necessary, already on Xarelto. * Right prosthetic knee injection status post explant spacer/right knee revision TKA - Doxycycline 100mg bid thru 11/21/2022. * Depression - Lexapro 20mg daily, stable chronic mcfp use, GDR not recommended. * Iron deficiency anemia - Ferrous sulfate 325mg bidcm. * Folate deficiency - Folic acid 1mg daily. * Glaucoma - Latanoprost 1gtt ou qpm. * Hypertension - Losartan 50mg daily. * Restless Leg syndrome - Mirapex 0.25mg qhs. * Vitamin D deficiency - D3 25mcg daily. * Right lower extremity DVT - Xarelto 20mg daily.
[2022-10-25] MEDS: Ferrous Sulfate 325 MG Tablet PO (17:48)
[2022-10-25] MEDS: Rivaroxaban 20 MG Tablet PO (17:48)
[2022-10-25] MEDS: Doxycycline 100 MG CAPSULE PO (17:48)
[2022-10-25] MEDS: Senna/Docusate Sodium 1 Tablet 2 TABLET PO (17:48)
[2022-10-25] MEDS: oxyCODONE 5 MG Tablet PO (17:53)
[2022-10-25] MEDS: Latanoprost 0.005% 1 Bottle 1 DRP EACH EYE (20:30)
[2022-10-25] MEDS: Pramipexole Di-HCl 0.25 MG Tablet 0.75 MG PO (20:33)
[2022-10-25] MEDS: Acetaminophen 500 MG Tablet 1000 MG PO (20:33)
--- NOTE | 2022-10-25 21:00 | NURSING ---
Paged Dr. Caldera w/ return phone call within minutes. Requested a purewick until evaluated per therapy to promote patient safety d/t cast from groin to toes. Verbal order read back approving use of purewick.
[2022-10-26] MEDS: Losartan Potassium 50 MG Tablet PO (05:10)
[2022-10-26] MEDS: Escitalopram Oxalate 20 MG Tablet PO (05:10)
[2022-10-26] MEDS: Doxycycline 100 MG CAPSULE PO ×2 (05:10→17:23)
[2022-10-26] MEDS: Cholecalciferol (VIT D3) 25 MCG TABLET (1,000 UNITS) PO (05:10)
[2022-10-26] MEDS: Acetaminophen 500 MG Tablet 1000 MG PO ×3 (05:10→21:39)
[2022-10-26] MEDS: oxyCODONE 5 MG Tablet PO ×3 (05:11→21:38)
[2022-10-26] MEDS: Senna/Docusate Sodium 1 Tablet 2 TABLET PO ×2 (05:11→17:23)
[2022-10-26 05:59] LABS: Absolute Lymphocyte Count 1.33 X10^3/uL (0.83-4.51); Absolute Neutrophil Count 3.6 X10^3/uL (2.0-7.7); Basophil# 0.03 X10^3/uL; Basophil% 0.5 % (0-1); Eosinophil# 0.35 X10^3/uL; Hematocrit 29.2 % (37-47); Lymphocyte # 1.33 X10^3/ul (0.83-4.51); Lymphocyte % 22.9 % (19-41); Mean Corp Hgb Conc 30.8 g/dL (32-36); Mean Corpuscular Hgb 27.4 pg (27.0-32.0); Mean Platelet Vol. 11.2 fl (6.2-12.0); Monocyte# 0.43 X10^3/uL; Monocyte% 7.4 % (0-10); NRBC Flagged by Analyzer 0 % (0-5); Neutrophil # 3.64 X10^3/uL (2.7-7.7); Neutrophil % 62.7 % (47-70); Platelet Count 204 K/mm3 (150-450); RBC Distribution Width CV 17.6 % (11.6-14.6); RBC Distribution Width SD 57.4 fl (35.1-43.9); Red Blood Count 3.28 M/mm3 (4.2-5.4); White Blood Count 5.8 K/mm3 (4.4-11.0)
[2022-10-26 06:32] LABS: Anion Gap 5 (5-15); BUN 17 mg/dL (7-18); Calcium,Total 8.7 mg/dL (8.5-10.1); Chloride 105 mmol/L (98-107); EST Glomerular Filtration Rate 128 mL/min (>60); Est Glom Filt Rate - Afr Amer 155 mL/min (>60); Glucose 103 mg/dL (74-106); Sodium Level 141 mmol/L (136-145)
[2022-10-26] MEDS: Folic Acid 1 MG Tablet PO (07:56)
[2022-10-26] MEDS: Ferrous Sulfate 325 MG Tablet PO ×2 (07:56→17:22)
--- NOTE | 2022-10-26 09:26 | NURSING ---
Internet Specialist Note; Activity Asset: Mane Perez has returned to TCU fallowing her second surgery. She continues to be independent in her choice of daily activities. When not in therapy Ana has a smartphone, tablet and laptop. She will watch TV, visit w/family, the java web developer and the therapy dog. Ana will attend small activities such as bingo and crafts when felling better. Will offer in room visits and activities till then.
[2022-10-26] MEDS: Tuberculin,Purif.prot.deriv. 50 TU/ML Vial 0.1 ML ID (11:06)
[2022-10-26] MEDS: Ensure Plus High Protein 120 ML LIQUID PO ×2 (13:37→17:25)
--- NOTE | 2022-10-26 15:03 | CASEMGMT ---
Social Work Met with patient. Pt known to this worker from previous admission. Confirmed no changes to previous assessment, MOLST or code status of DNR-CCA, no intubation. Pt is NWB on RLE with a wound vac. Pt has f/u appt with on 11/05. SW educated to Medicare benefit. SW confirmed pt did have a break in service to get new benefit period. Pt's goal is to return home living with sister and SUSAN in [place], [place], until recovery and can return home to [place], where pt permanently resides. SW to continue to follow. Treva Cordoba, MANAGER BUSINESS MANAGEMENT HOUSE SITTER
--- NOTE | 2022-10-26 15:04 | NURSING ---
Resident educated on the COVID 19 vaccine and does not want to receive it.
--- NOTE | 2022-10-26 15:31 | WOUNDNOTE ---
wound photo: right knee
[2022-10-26 16:00] VITALS: BP 115/58; PULSE 85; RESP 17; TEMP 36.4; O2SAT 95
[2022-10-26] MEDS: Rivaroxaban 20 MG Tablet PO (17:22)
[2022-10-26] MEDS: Pramipexole Di-HCl 0.25 MG Tablet 0.75 MG PO (21:39)
[2022-10-26] MEDS: Latanoprost 0.005% 1 Bottle 1 DRP EACH EYE (21:39)
[2022-10-26] MEDS: 0.9% Saline Lock 10 ML Syringe IV (21:42)
[2022-10-27] MEDS: oxyCODONE 5 MG Tablet PO ×4 (01:46→21:34)
[2022-10-27] MEDS: Doxycycline 100 MG CAPSULE PO ×2 (06:17→17:43)
[2022-10-27] MEDS: Acetaminophen 500 MG Tablet 1000 MG PO ×3 (06:17→21:23)
[2022-10-27] MEDS: Senna/Docusate Sodium 1 Tablet 2 TABLET PO ×2 (06:17→17:43)
[2022-10-27] MEDS: Cholecalciferol (VIT D3) 25 MCG TABLET (1,000 UNITS) PO (06:17)
[2022-10-27] MEDS: Escitalopram Oxalate 20 MG Tablet PO (06:19)
[2022-10-27] MEDS: Losartan Potassium 50 MG Tablet PO (06:25)
[2022-10-27 06:27] VITALS: BP 130/64; PULSE 70; RESP 16
[2022-10-27] MEDS: Ferrous Sulfate 325 MG Tablet PO ×2 (08:13→17:42)
[2022-10-27] MEDS: Ensure Plus High Protein 120 ML LIQUID PO ×3 (08:13→17:45)
[2022-10-27] MEDS: Folic Acid 1 MG Tablet PO (08:14)
--- NOTE | 2022-10-27 11:38 | PHA.CONS_ITS ---
TCU RX Drug Regimen Review Subjective: TCU Admission. 72 YOF hospitalized for removal right knee fixator, right knee revision TKA, removal right knee spacer, MESH repair chronic extensor mechanism, placement right lower extremity long leg cast 10/21/[address] Munoz. Admitted to TCU with debility for strengthening and rehabilitation. Objective: Allergies No Known Allergies Allergy (Verified 10/21/22 08:06) Current Medications Generic Name Dose Route Start Last Admin Trade Name Freq PRN Reason Stop Dose Admin Acetaminophen 1,000 mg 10/25/22 22:00 10/27/22 06:17 Acetaminophen 500 Mg Tablet PO 1,000 mg Q8 BRITTANY Administration Bisacodyl 10 mg 10/25/22 16:22 Bisacodyl 10 Mg Suppository RC X1 PRN CONSTIPATION Cholecalciferol 25 mcg 10/26/22 06:00 10/27/22 06:17 Cholecalciferol (Vit D3) 25 Mcg Tablet (1,000 Units) PO 25 mcg DAILY BRITTANY Administration Doxycycline Monohydrate 100 mg 10/25/22 18:00 10/27/22 06:17 Doxycycline 100 Mg Capsule PO 11/21/22 23:59 100 mg BID BRITTANY Administration Escitalopram Oxalate 20 mg 10/26/22 06:00 10/27/22 06:19 Escitalopram Oxalate 20 Mg Tablet PO 20 mg DAILY BRITTANY Administration Ferrous Sulfate 325 mg 10/25/22 17:00 10/27/22 08:13 Ferrous Sulfate 325 Mg Tablet PO 325 mg BIDCM BRITTANY Administration Folic Acid 1 mg 10/26/22 08:00 10/27/22 08:14 Folic Acid 1 Mg Tablet PO 1 mg BREAKFAST BRITTANY Administration Latanoprost 1 drp 10/25/22 21:00 10/26/22 21:39 Latanoprost 0.005% 1 Bottle EACH EYE 1 drp QPM BRITTANY Administration Losartan Potassium 50 mg 10/26/22 06:00 10/27/22 06:25 Losartan Potassium 50 Mg Tablet PO 50 mg DAILY BRITTANY Administration Magnesium Hydroxide 30 ml 10/25/22 16:22 Magnesium Hydroxide 30 Ml Udc PO X1 PRN CONSTIPATION Nutritional Formula (Lactose Free) 120 ml 10/26/22 12:45 10/27/22 08:13 Ensure Plus High Protein 120 Ml Liquid PO 120 ml TIDCM BRITTANY Administration Oxycodone HCl 5 - 10 mg 10/25/22 15:35 10/27/22 08:16 Oxycodone 5 Mg Tablet PO 10 mg Q4H PRN PRN Administration Pain Score 4-10 Pramipexole Dihydrochloride 0.75 mg 10/25/22 22:00 10/26/22 21:39 Pramipexole Di-Hcl 0.25 Mg Tablet PO 0.75 mg QHS BRITTANY Administration Rivaroxaban 20 mg 10/25/22 17:00 10/26/22 17:22 Rivaroxaban 20 Mg Tablet PO 20 mg DINNER BRITTANY Administration Senna/Docusate Sodium 2 tablet 10/25/22 18:00 10/27/22 06:17 Senna/Docusate Sodium 1 Tablet PO 2 tablet BID BRITTANY Administration Sodium Chloride 10 - 40 ml 10/25/22 15:40 10/26/22 21:42 0.9% Saline Lock 10 Ml Syringe IV 10 ml UD PRN Administration SALINE FLUSH Tuberculin PPD 0.1 ml 11/02/22 10:00 Tuberculin,Purif.Prot.Deriv. 50 Tu/Ml Vial ID 11/02/22 10:01 X1 ONE Problem List (Last Reviewed 10/25/22 @ 16:[address] Jerrell Caldera MD) Vitamin D deficiency (Acute) Deep vein thrombosis, lower right extremity (Acute) Restless leg syndrome (Acute) Hypertension (Chronic) Glaucoma (Acute) Iron deficiency anemia (Acute) Depression (Acute) Rupture of right quadriceps tendon (Acute) Infection of prosthetic right knee joint (Acute) Debility (Acute) Vital Signs Temp Pulse Resp BP Pulse Ox O2 Del Method 97.5 F L 70 16 130/64 H 95 Room Air 10/26/22 16:00 10/27/22 06:27 10/27/22 06:27 10/27/22 06:27 10/26/22 16:00 10/26/22 16:00 Oxygen Delivery Method Room Air Weight: 108.726 kg Body Mass Index (BMI) 38.4 Sodium 141 mmol/L (136-145) 10/26/22 05:36 Potassium 4.0 mmol/L (3.5-5.1) 10/26/22 05:36 Chloride 105 mmol/L (98-107) 10/26/22 05:36 Carbon Dioxide 31.0 mmol/L (21.0-32.0) 10/26/22 05:36 Anion Gap 5 (5-15) 10/26/22 05:36 BUN 17 mg/dL (7-18) 10/26/22 05:36 Creatinine 0.50 mg/dL (0.55-1.02) L 10/26/22 05:36 Est GFR (MDRD) Af Amer 155 mL/min (>60) 10/26/22 05:36 Est GFR (MDRD) Non-Af 128 mL/min (>60) 10/26/22 05:36 BUN/Creatinine Ratio 34.0 RATIO (10-20) H 10/26/22 05:36 Glucose 103 mg/dL (74-106) 10/26/22 05:36 Assessment/Plan: 1. Pain: acetaminophen 1000mg PO Q8 and oxycodone 5-10mg PO Q4H PRN pain 4-10. Resident has had 6 doses of oxycodone for pain ranging from 6-9 in the RL E/knee/claire. Please continue to monitor for increased pain, PRN usage, constipation and respiratory depression. 2. Bowel: senna/docusate 2T PO BID, bisacodyl 10mg RC x1 PRN constipation and MOM 30mL PO x1 PRN constipation. Resident has not had any PRN doses. Last documented bowel movement from 10/25. Please continue to monitor for constipation and PRN usage. 3. Right prosthetic knee injection s/p explant spacer/right knee revision TKA: doxycycline 100mg PO BID thru 11/21/22. Please continue to monitor for S/S of infection and diarrhea. 4. Hypertension: losartan 50mg PO daily. Please continue to monitor for BP (last 130/64), renal function and potassium (last 4mmol/L). 5. RLE DVT: rivaroxaban 20mg PO dinner. Please continue to monitor for S/S of bleeding, hemoglobin (last 9g/dL) and renal function. 6. Iron deficiency anemia: ferrous sulfate 325mg PO BIDCM. Please continue to monitor hemoglobin, constipation and dark stools. 7. Restless leg syndrome: pramipexole 0.75mg PO QHS. Please continue to monitor for S/S of RLS. 8. Glaucoma: latanoprost 0.005% 1gtt OU QPM. Please continue to monitor for S/S of glaucoma. 9. Folate and vitamin D deficiencies: folic acid 1mg PO daily and c holecalciferol 25mcg PO daily. Please consider ordering a vitamin D level as this resident does not have one in the chart. Thanks. Assessment/Plan for indications treated with psychotropic medications: 1. Depression: escitalopram 20mg PO daily. Please see physician note regarding GDR. Please continue to monitor for suicidal ideation (black box warning), falls/fractures (BEERs medication), sodium (last 141mmol/L) and weight gain. Medical chart and medication regimen reviewed. The following medication irregularities or issues were identified: *1. Cholecalciferol 25mcg PO daily. Please consider ordering a vitamin D level as this resident does not have one in the chart. Thanks. Date of Note:: 10/27/22
[2022-10-27 14:00] VITALS: BP 113/44; PULSE 83; RESP 16; TEMP 36.4; O2SAT 92
[2022-10-27] MEDS: Rivaroxaban 20 MG Tablet PO (17:42)
[2022-10-27 21:00] VITALS: PULSE 73; RESP 16; O2SAT 98
[2022-10-27] MEDS: Latanoprost 0.005% 1 Bottle 1 DRP EACH EYE (21:23)
[2022-10-27] MEDS: Pramipexole Di-HCl 0.25 MG Tablet 0.75 MG PO (21:23)
[2022-10-28] MEDS: 0.9% Saline Lock 10 ML Syringe IV ×2 (05:24→21:00)
[2022-10-28] MEDS: oxyCODONE 5 MG Tablet PO ×3 (05:29→16:56)
[2022-10-28] MEDS: Losartan Potassium 50 MG Tablet PO (05:30)
[2022-10-28] MEDS: Doxycycline 100 MG CAPSULE PO ×2 (05:30→16:59)
[2022-10-28] MEDS: Escitalopram Oxalate 20 MG Tablet PO (05:30)
[2022-10-28] MEDS: Cholecalciferol (VIT D3) 25 MCG TABLET (1,000 UNITS) PO (05:30)
[2022-10-28] MEDS: Senna/Docusate Sodium 1 Tablet 2 TABLET PO (05:30)
[2022-10-28] MEDS: Acetaminophen 500 MG Tablet 1000 MG PO ×3 (05:30→21:03)
[2022-10-28] MEDS: Ferrous Sulfate 325 MG Tablet PO ×2 (08:16→16:58)
[2022-10-28] MEDS: Ensure Plus High Protein 120 ML LIQUID PO ×3 (08:16→16:58)
[2022-10-28] MEDS: Folic Acid 1 MG Tablet PO (08:16)
--- NOTE | 2022-10-28 09:57 | CASEMGMT ---
Social Work IDT met with patient and sister for care plan meeting. Discussed patient's progress in PT/OT/SN. Educated to Medicare benefit. Pt has part A only but does have a secondary insurance. Encouraged to contact secondary insurance to ensure copay coverage. Pt has wound vac to knee and is TTWBS to RLE. Pt follows up with on 11/04. Pt's goal is to return home with sister and SUSAN for assistance. SW to coordinate DC services as needed. SW to continue to follow. HANNAH DelgadoW
[2022-10-28 14:38] VITALS: BP 116/59; PULSE 78; RESP 20; TEMP 35.4; O2SAT 95
[2022-10-28] MEDS: Juven (unflavored) Packet 1 PACKET PO (16:57)
[2022-10-28] MEDS: Rivaroxaban 20 MG Tablet PO (16:58)
[2022-10-28] MEDS: Pramipexole Di-HCl 0.25 MG Tablet 0.75 MG PO (21:03)
[2022-10-28] MEDS: Latanoprost 0.005% 1 Bottle 1 DRP EACH EYE (21:03)
[2022-10-29] MEDS: oxyCODONE 5 MG Tablet PO ×2 (05:34→20:18)
[2022-10-29] MEDS: Cholecalciferol (VIT D3) 25 MCG TABLET (1,000 UNITS) PO (05:35)
[2022-10-29] MEDS: Acetaminophen 500 MG Tablet 1000 MG PO ×3 (05:35→20:19)
[2022-10-29] MEDS: Senna/Docusate Sodium 1 Tablet 2 TABLET PO ×2 (05:35→17:42)
[2022-10-29] MEDS: Escitalopram Oxalate 20 MG Tablet PO (05:35)
[2022-10-29] MEDS: Losartan Potassium 50 MG Tablet PO (05:35)
[2022-10-29] MEDS: Doxycycline 100 MG CAPSULE PO ×2 (05:36→17:41)
[2022-10-29 05:42] VITALS: BP 128/53; PULSE 74; RESP 16
[2022-10-29] MEDS: Juven (unflavored) Packet 1 PACKET PO ×2 (07:57→17:42)
[2022-10-29] MEDS: Ferrous Sulfate 325 MG Tablet PO ×2 (07:57→17:42)
[2022-10-29] MEDS: Folic Acid 1 MG Tablet PO (07:57)
[2022-10-29] MEDS: Ensure Plus High Protein 120 ML LIQUID PO ×3 (08:02→17:42)
--- NOTE | 2022-10-29 09:31 | WOUNDNOTE ---
wound photo: right knee
[2022-10-29 14:37] VITALS: BP 128/48; PULSE 74; RESP 20; TEMP 36.6; O2SAT 96
[2022-10-29] MEDS: Rivaroxaban 20 MG Tablet PO (17:42)
[2022-10-29] MEDS: Latanoprost 0.005% 1 Bottle 1 DRP EACH EYE (20:18)
[2022-10-29] MEDS: Pramipexole Di-HCl 0.25 MG Tablet 0.75 MG PO (20:19)
[2022-10-29 22:00] VITALS: PULSE 98; RESP 16; O2SAT 98
[2022-10-30] MEDS: Acetaminophen 500 MG Tablet 1000 MG PO ×3 (05:10→20:18)
[2022-10-30] MEDS: Cholecalciferol (VIT D3) 25 MCG TABLET (1,000 UNITS) PO (05:11)
[2022-10-30] MEDS: Losartan Potassium 50 MG Tablet PO (05:11)
[2022-10-30] MEDS: Escitalopram Oxalate 20 MG Tablet PO (05:11)
[2022-10-30] MEDS: Doxycycline 100 MG CAPSULE PO ×2 (05:11→17:13)
[2022-10-30] MEDS: Senna/Docusate Sodium 1 Tablet 2 TABLET PO ×2 (05:11→17:12)
[2022-10-30] MEDS: Folic Acid 1 MG Tablet PO (07:38)
[2022-10-30] MEDS: Juven (unflavored) Packet 1 PACKET PO ×2 (07:38→17:11)
[2022-10-30] MEDS: Ferrous Sulfate 325 MG Tablet PO ×2 (07:38→17:11)
[2022-10-30] MEDS: Ensure Plus High Protein 120 ML LIQUID PO ×3 (07:41→17:16)
[2022-10-30] MEDS: oxyCODONE 5 MG Tablet PO (09:57)
[2022-10-30 09:58] VITALS: PULSE 68
--- NOTE | 2022-10-30 10:33 | CASEMGMT ---
Social Work BIMS () and PHQ-9 (01/04) completed for MDS assessment. Treva Cordoba MSW LEGAL EXECUTIVE
[2022-10-30 15:40] VITALS: BP 107/31; PULSE 77; RESP 18; TEMP 36.1; O2SAT 96
[2022-10-30] MEDS: Rivaroxaban 20 MG Tablet PO (17:12)
[2022-10-30] MEDS: Latanoprost 0.005% 1 Bottle 1 DRP EACH EYE (20:16)
[2022-10-30] MEDS: Pramipexole Di-HCl 0.25 MG Tablet 0.75 MG PO (20:18)
[2022-10-31] MEDS: Acetaminophen 500 MG Tablet 1000 MG PO ×3 (04:58→20:32)
[2022-10-31] MEDS: Senna/Docusate Sodium 1 Tablet 2 TABLET PO ×2 (04:58→18:07)
[2022-10-31] MEDS: Doxycycline 100 MG CAPSULE PO ×2 (04:59→18:07)
[2022-10-31] MEDS: Escitalopram Oxalate 20 MG Tablet PO (04:59)
[2022-10-31] MEDS: Losartan Potassium 50 MG Tablet PO (04:59)
[2022-10-31] MEDS: Cholecalciferol (VIT D3) 25 MCG TABLET (1,000 UNITS) PO (04:59)
[2022-10-31 05:00] VITALS: BP 129/51; PULSE 77
[2022-10-31] MEDS: Ensure Plus High Protein 120 ML LIQUID PO ×3 (07:58→18:05)
[2022-10-31] MEDS: Folic Acid 1 MG Tablet PO (07:59)
[2022-10-31] MEDS: Juven (unflavored) Packet 1 PACKET PO ×2 (07:59→18:06)
[2022-10-31] MEDS: Ferrous Sulfate 325 MG Tablet PO ×2 (07:59→18:06)
[2022-10-31 10:00] VITALS: PULSE 80; RESP 16; O2SAT 97
[2022-10-31] MEDS: oxyCODONE 5 MG Tablet PO (12:59)
[2022-10-31 16:00] VITALS: BP 130/49; PULSE 80; RESP 17; TEMP 36.1; O2SAT 95
[2022-10-31] MEDS: Rivaroxaban 20 MG Tablet PO (18:06)
[2022-10-31] MEDS: Latanoprost 0.005% 1 Bottle 1 DRP EACH EYE (20:31)
[2022-10-31] MEDS: Pramipexole Di-HCl 0.25 MG Tablet 0.75 MG PO (20:32)
[2022-11-01] MEDS: Doxycycline 100 MG CAPSULE PO ×2 (04:50→17:40)
[2022-11-01] MEDS: Cholecalciferol (VIT D3) 25 MCG TABLET (1,000 UNITS) PO (04:50)
[2022-11-01] MEDS: Senna/Docusate Sodium 1 Tablet 2 TABLET PO (04:51)
[2022-11-01] MEDS: Losartan Potassium 50 MG Tablet PO (04:51)
[2022-11-01] MEDS: Escitalopram Oxalate 20 MG Tablet PO (04:52)
[2022-11-01] MEDS: Acetaminophen 500 MG Tablet 1000 MG PO ×3 (04:52→20:40)
[2022-11-01] MEDS: Ensure Plus High Protein 120 ML LIQUID PO ×3 (07:53→17:38)
[2022-11-01] MEDS: Juven (unflavored) Packet 1 PACKET PO ×2 (07:53→17:39)
[2022-11-01] MEDS: Ferrous Sulfate 325 MG Tablet PO ×2 (07:54→17:41)
[2022-11-01] MEDS: Folic Acid 1 MG Tablet PO (07:55)
[2022-11-01 13:15] VITALS: PULSE 86; RESP 16; O2SAT 96
[2022-11-01 16:00] VITALS: BP 115/64; PULSE 86; RESP 19; TEMP 36.2; O2SAT 95
[2022-11-01] MEDS: Rivaroxaban 20 MG Tablet PO (17:41)
[2022-11-01] MEDS: Latanoprost 0.005% 1 Bottle 1 DRP EACH EYE (20:37)
[2022-11-01] MEDS: Pramipexole Di-HCl 0.25 MG Tablet 0.75 MG PO (20:38)
[2022-11-02] MEDS: Doxycycline 100 MG CAPSULE PO ×2 (05:55→17:39)
[2022-11-02] MEDS: Losartan Potassium 50 MG Tablet PO (05:55)
[2022-11-02] MEDS: Acetaminophen 500 MG Tablet 1000 MG PO ×3 (05:56→20:25)
[2022-11-02] MEDS: Cholecalciferol (VIT D3) 25 MCG TABLET (1,000 UNITS) PO (05:56)
[2022-11-02] MEDS: Escitalopram Oxalate 20 MG Tablet PO (05:56)
[2022-11-02 05:59] LABS: Absolute Lymphocyte Count 1.46 X10^3/uL (0.83-4.51); Absolute Neutrophil Count 3.7 X10^3/uL (2.0-7.7); Basophil# 0.04 X10^3/uL; Basophil% 0.7 % (0-1); Eosinophil# 0.41 X10^3/uL; Eosinophils% 6.7 % (0-5); Hematocrit 29.1 % (37-47); Lymphocyte # 1.46 X10^3/ul (0.83-4.51); Lymphocyte % 23.9 % (19-41); Mean Corp Hgb Conc 30.9 g/dL (32-36); Mean Corpuscular Hgb 28.1 pg (27.0-32.0); Mean Corpuscular Volume 90.9 fL (81-99); Mean Platelet Vol. 10.4 fl (6.2-12.0); Monocyte# 0.44 X10^3/uL; Monocyte% 7.2 % (0-10); NRBC Flagged by Analyzer 0 % (0-5); Neutrophil # 3.71 X10^3/uL (2.7-7.7); Neutrophil % 60.8 % (47-70); Platelet Count 256 K/mm3 (150-450); RBC Distribution Width CV 18.5 % (11.6-14.6); RBC Distribution Width SD 59.9 fl (35.1-43.9); White Blood Count 6.1 K/mm3 (4.4-11.0)
[2022-11-02 06:22] LABS: Anion Gap 4 (5-15); BUN 25 mg/dL (7-18); BUN/Creat Ratio 43.3 RATIO (10-20); Calcium,Total 8.5 mg/dL (8.5-10.1); Chloride 109 mmol/L (98-107); Creatinine, Serum 0.58 mg/dL (0.55-1.02); EST Glomerular Filtration Rate 109 mL/min (>60); Est Glom Filt Rate - Afr Amer 131 mL/min (>60); Glucose 103 mg/dL (74-106); Sodium Level 141 mmol/L (136-145)
[2022-11-02] MEDS: Folic Acid 1 MG Tablet PO (08:19)
[2022-11-02] MEDS: Juven (unflavored) Packet 1 PACKET PO ×2 (08:19→17:40)
[2022-11-02] MEDS: Ferrous Sulfate 325 MG Tablet PO ×2 (08:19→17:39)
[2022-11-02] MEDS: Ensure Plus High Protein 120 ML LIQUID PO ×2 (08:19→11:57)
--- NOTE | 2022-11-02 09:00 | NURSING ---
Marriage Counselor Minister Note: MDS for 11/01/2022 complete
[2022-11-02] MEDS: Tuberculin,Purif.prot.deriv. 50 TU/ML Vial 0.1 ML ID (11:13)
[2022-11-02 14:17] VITALS: BP 130/58; PULSE 96; RESP 14; TEMP 36.7; O2SAT 97
--- NOTE | 2022-11-02 16:55 | NURSING ---
Pt accidently pulled out Hemovac to right knee. Jennifer updated and a dry sterile dressing placed.
[2022-11-02] MEDS: Rivaroxaban 20 MG Tablet PO (17:39)
[2022-11-02] MEDS: Pramipexole Di-HCl 0.25 MG Tablet 0.75 MG PO (20:25)
[2022-11-02] MEDS: Latanoprost 0.005% 1 Bottle 1 DRP EACH EYE (20:25)
[2022-11-02 20:45] VITALS: O2SAT 98
[2022-11-02] MEDS: oxyCODONE 5 MG Tablet PO (20:45)
[2022-11-03] MEDS: Escitalopram Oxalate 20 MG Tablet PO (05:17)
[2022-11-03] MEDS: Cholecalciferol (VIT D3) 25 MCG TABLET (1,000 UNITS) PO (05:17)
[2022-11-03] MEDS: Acetaminophen 500 MG Tablet 1000 MG PO ×3 (05:18→20:23)
[2022-11-03] MEDS: Doxycycline 100 MG CAPSULE PO ×2 (05:18→17:33)
[2022-11-03] MEDS: Losartan Potassium 50 MG Tablet PO (05:18)
[2022-11-03 05:20] VITALS: BP 105/45; PULSE 77
[2022-11-03] MEDS: Ensure Plus High Protein 120 ML LIQUID PO ×3 (08:00→17:32)
[2022-11-03] MEDS: Folic Acid 1 MG Tablet PO (08:01)
[2022-11-03] MEDS: Juven (unflavored) Packet 1 PACKET PO ×2 (08:01→17:33)
[2022-11-03] MEDS: Ferrous Sulfate 325 MG Tablet PO ×2 (08:01→17:34)
[2022-11-03 08:14] VITALS: PULSE 85; RESP 16; O2SAT 98
--- NOTE | 2022-11-03 13:15 | MDS.RN ---
Information for the mds was obtained from review of the clinical record, interview of resident, staff, and direct observation of resident's care.
[2022-11-03 13:49] VITALS: BP 123/68; PULSE 85; RESP 18; TEMP 36.1; O2SAT 97
--- NOTE | 2022-11-03 14:49 | WOUNDNOTE ---
wound photo: right knee
[2022-11-03] MEDS: Rivaroxaban 20 MG Tablet PO (17:34)
[2022-11-03] MEDS: Latanoprost 0.005% 1 Bottle 1 DRP EACH EYE (20:22)
[2022-11-03] MEDS: Pramipexole Di-HCl 0.25 MG Tablet 0.75 MG PO (20:23)
[2022-11-04] MEDS: Losartan Potassium 50 MG Tablet PO (05:20)
[2022-11-04] MEDS: Cholecalciferol (VIT D3) 25 MCG TABLET (1,000 UNITS) PO (05:20)
[2022-11-04] MEDS: Escitalopram Oxalate 20 MG Tablet PO (05:20)
[2022-11-04] MEDS: Doxycycline 100 MG CAPSULE PO ×2 (05:20→17:23)
[2022-11-04] MEDS: Acetaminophen 500 MG Tablet 1000 MG PO ×3 (05:21→21:02)
[2022-11-04] MEDS: Ferrous Sulfate 325 MG Tablet PO ×2 (07:56→17:21)
[2022-11-04] MEDS: Folic Acid 1 MG Tablet PO (07:56)
[2022-11-04] MEDS: Ensure Plus High Protein 120 ML LIQUID PO ×2 (07:56→17:22)
[2022-11-04] MEDS: Juven (unflavored) Packet 1 PACKET PO ×2 (07:57→17:21)
[2022-11-04] MEDS: oxyCODONE 5 MG Tablet PO (12:29)
--- NOTE | 2022-11-04 14:53 | NURSING ---
Addendum entered by Minda Foster 11/04/22 17:28: Patient back to room around 3:30, sutures removed. All written orders from MD visit are already active. Original Note: Patient off unit by transport @ 1310 for doctor appointment.
[2022-11-04] MEDS: Rivaroxaban 20 MG Tablet PO (17:22)
[2022-11-04 21:00] VITALS: PULSE 99; RESP 18
[2022-11-04] MEDS: Latanoprost 0.005% 1 Bottle 1 DRP EACH EYE (21:02)
[2022-11-04] MEDS: Pramipexole Di-HCl 0.25 MG Tablet 0.75 MG PO (21:02)
[2022-11-05] MEDS: oxyCODONE 5 MG Tablet PO (02:50)
[2022-11-05] MEDS: Cholecalciferol (VIT D3) 25 MCG TABLET (1,000 UNITS) PO (06:11)
[2022-11-05] MEDS: Doxycycline 100 MG CAPSULE PO ×2 (06:11→17:27)
[2022-11-05] MEDS: Escitalopram Oxalate 20 MG Tablet PO (06:11)
[2022-11-05] MEDS: Acetaminophen 500 MG Tablet 1000 MG PO ×3 (06:11→21:01)
[2022-11-05] MEDS: Losartan Potassium 50 MG Tablet PO (06:11)
[2022-11-05 06:39] VITALS: BP 126/51; PULSE 68; RESP 18
[2022-11-05] MEDS: Ferrous Sulfate 325 MG Tablet PO ×2 (08:00→17:27)
[2022-11-05] MEDS: Juven (unflavored) Packet 1 PACKET PO ×2 (08:00→17:28)
[2022-11-05] MEDS: Folic Acid 1 MG Tablet PO (08:00)
[2022-11-05] MEDS: Ensure Plus High Protein 120 ML LIQUID PO ×3 (08:02→17:28)
[2022-11-05 14:02] VITALS: BP 124/56; PULSE 84; RESP 16; TEMP 36.5; O2SAT 95
[2022-11-05] MEDS: Rivaroxaban 20 MG Tablet PO (17:27)
[2022-11-05] MEDS: Latanoprost 0.005% 1 Bottle 1 DRP EACH EYE (19:52)
[2022-11-05] MEDS: Pramipexole Di-HCl 0.25 MG Tablet 0.75 MG PO (19:53)
[2022-11-05 20:15] VITALS: PULSE 70; RESP 18; O2SAT 97
[2022-11-06 05:50] VITALS: BP 147/75; PULSE 72
[2022-11-06] MEDS: Doxycycline 100 MG CAPSULE PO ×2 (06:03→17:46)
[2022-11-06] MEDS: Acetaminophen 500 MG Tablet 1000 MG PO ×3 (06:03→20:40)
[2022-11-06] MEDS: Escitalopram Oxalate 20 MG Tablet PO (06:03)
[2022-11-06] MEDS: Losartan Potassium 50 MG Tablet PO (06:03)
[2022-11-06] MEDS: Cholecalciferol (VIT D3) 25 MCG TABLET (1,000 UNITS) PO (06:03)
[2022-11-06] MEDS: Juven (unflavored) Packet 1 PACKET PO ×2 (08:13→17:46)
[2022-11-06] MEDS: Folic Acid 1 MG Tablet PO (08:13)
[2022-11-06] MEDS: Ferrous Sulfate 325 MG Tablet PO ×2 (08:13→17:49)
[2022-11-06] MEDS: Ensure Plus High Protein 120 ML LIQUID PO ×3 (08:17→18:26)
[2022-11-06 16:00] VITALS: BP 128/65; PULSE 86; RESP 15; TEMP 36.2; O2SAT 97
[2022-11-06] MEDS: Rivaroxaban 20 MG Tablet PO (17:46)
[2022-11-06] MEDS: Latanoprost 0.005% 1 Bottle 1 DRP EACH EYE (20:37)
[2022-11-06] MEDS: Pramipexole Di-HCl 0.25 MG Tablet 0.75 MG PO (20:40)
[2022-11-07] MEDS: Acetaminophen 500 MG Tablet 1000 MG PO ×3 (05:18→20:10)
[2022-11-07] MEDS: Cholecalciferol (VIT D3) 25 MCG TABLET (1,000 UNITS) PO (05:18)
[2022-11-07] MEDS: Escitalopram Oxalate 20 MG Tablet PO (05:19)
[2022-11-07] MEDS: Doxycycline 100 MG CAPSULE PO ×2 (05:19→17:25)
[2022-11-07] MEDS: Losartan Potassium 50 MG Tablet PO (05:19)
[2022-11-07] MEDS: Folic Acid 1 MG Tablet PO (08:23)
[2022-11-07] MEDS: Ferrous Sulfate 325 MG Tablet PO ×2 (08:23→17:26)
[2022-11-07] MEDS: Juven (unflavored) Packet 1 PACKET PO ×2 (08:23→17:26)
[2022-11-07] MEDS: Ensure Plus High Protein 120 ML LIQUID PO ×3 (08:27→17:26)
[2022-11-07 10:00] VITALS: PULSE 78; RESP 18; O2SAT 97
[2022-11-07 15:35] VITALS: BP 120/54; PULSE 78; RESP 18; TEMP 36.4; O2SAT 96
[2022-11-07] MEDS: Senna/Docusate Sodium 1 Tablet 2 TABLET PO (17:25)
[2022-11-07] MEDS: Rivaroxaban 20 MG Tablet PO (17:25)
[2022-11-07] MEDS: Latanoprost 0.005% 1 Bottle 1 DRP EACH EYE (20:09)
[2022-11-07] MEDS: Pramipexole Di-HCl 0.25 MG Tablet 0.75 MG PO (20:10)
[2022-11-08] MEDS: Losartan Potassium 50 MG Tablet PO (06:39)
[2022-11-08] MEDS: Doxycycline 100 MG CAPSULE PO ×2 (06:39→17:39)
[2022-11-08] MEDS: Acetaminophen 500 MG Tablet 1000 MG PO ×3 (06:39→20:40)
[2022-11-08] MEDS: Senna/Docusate Sodium 1 Tablet 2 TABLET PO (06:39)
[2022-11-08] MEDS: Cholecalciferol (VIT D3) 25 MCG TABLET (1,000 UNITS) PO (06:39)
[2022-11-08] MEDS: Escitalopram Oxalate 20 MG Tablet PO (06:39)
[2022-11-08] MEDS: Ensure Plus High Protein 120 ML LIQUID PO ×3 (08:13→17:39)
[2022-11-08] MEDS: Juven (unflavored) Packet 1 PACKET PO ×2 (08:13→17:39)
[2022-11-08] MEDS: Ferrous Sulfate 325 MG Tablet PO ×2 (08:13→17:39)
[2022-11-08] MEDS: Folic Acid 1 MG Tablet PO (08:13)
[2022-11-08 16:00] VITALS: BP 136/65; PULSE 71; RESP 16; TEMP 36.6; O2SAT 97
[2022-11-08] MEDS: Rivaroxaban 20 MG Tablet PO (17:38)
--- NOTE | 2022-11-08 18:26 | NURSING ---
dr arnett notified regarding pt c/o restless legs during day and causing rt knee pain, felt that mirapex 0.75mg at hs causes her to be to sleepy to use during day. new order for 0.25 PRN mirapex for daytime use. pt updated and verbalized understanding.
[2022-11-08] MEDS: Pramipexole Di-HCl 0.25 MG Tablet 0.75 MG PO (20:39)
[2022-11-08] MEDS: Latanoprost 0.005% 1 Bottle 1 DRP EACH EYE (20:39)
[2022-11-08 20:50] VITALS: PULSE 83; RESP 16; O2SAT 97
[2022-11-09 05:35] VITALS: BP 129/65; PULSE 73
[2022-11-09] MEDS: Doxycycline 100 MG CAPSULE PO ×2 (05:37→17:20)
[2022-11-09] MEDS: Cholecalciferol (VIT D3) 25 MCG TABLET (1,000 UNITS) PO (05:37)
[2022-11-09] MEDS: Losartan Potassium 50 MG Tablet PO (05:37)
[2022-11-09] MEDS: Escitalopram Oxalate 20 MG Tablet PO (05:38)
[2022-11-09] MEDS: Acetaminophen 500 MG Tablet 1000 MG PO ×3 (05:38→20:20)
[2022-11-09 05:42] LABS: Absolute Neutrophil Count 2.8 X10^3/uL (2.0-7.7); Basophil# 0.05 X10^3/uL; Eosinophil# 0.42 X10^3/uL; Eosinophils% 8.1 % (0-5); Hematocrit 32.6 % (37-47); Hemoglobin 10.2 g/dL (12.0-15.0); Lymphocyte % 28.9 % (19-41); Mean Corp Hgb Conc 31.3 g/dL (32-36); Mean Corpuscular Volume 92.6 fL (81-99); Mean Platelet Vol. 10.5 fl (6.2-12.0); Monocyte# 0.38 X10^3/uL; Monocyte% 7.3 % (0-10); NRBC Flagged by Analyzer 0 % (0-5); Neutrophil # 2.81 X10^3/uL (2.7-7.7); Neutrophil % 54.1 % (47-70); Platelet Count 212 K/mm3 (150-450); RBC Distribution Width CV 18.7 % (11.6-14.6); RBC Distribution Width SD 63.2 fl (35.1-43.9); Red Blood Count 3.52 M/mm3 (4.2-5.4); White Blood Count 5.2 K/mm3 (4.4-11.0)
[2022-11-09 06:02] LABS: Anion Gap 5 (5-15); BUN 28 mg/dL (7-18); BUN/Creat Ratio 50.3 RATIO (10-20); Calcium,Total 8.7 mg/dL (8.5-10.1); Chloride 107 mmol/L (98-107); Creatinine, Serum 0.56 mg/dL (0.55-1.02); EST Glomerular Filtration Rate 113 mL/min (>60); Est Glom Filt Rate - Afr Amer 137 mL/min (>60); Glucose 104 mg/dL (74-106); Potassium 4.5 mmol/L (3.5-5.1); Sodium Level 142 mmol/L (136-145)
[2022-11-09] MEDS: Ferrous Sulfate 325 MG Tablet PO ×2 (08:09→17:20)
[2022-11-09] MEDS: Ensure Plus High Protein 120 ML LIQUID PO ×3 (08:09→17:24)
[2022-11-09] MEDS: Juven (unflavored) Packet 1 PACKET PO ×2 (08:09→17:20)
[2022-11-09] MEDS: Folic Acid 1 MG Tablet PO (08:09)
--- NOTE | 2022-11-09 09:51 | NURSING ---
Spoke with Isabel at Dr. Munoz's office, notifying them that pt is requesting sutures to be removed on upper right thigh. Isabel stated she would speak with Dr. Munoz and let us know his response.
[2022-11-09 10:00] VITALS: PULSE 101; RESP 16; O2SAT 96
--- NOTE | 2022-11-09 12:24 | NURSING ---
Received return call from Isabel in Dr. Munoz's, per Dr. Munoz, sutures can be removed.
--- NOTE | 2022-11-09 14:00 | NURSING ---
Two sutures removed per Dr. Munoz to right upper thigh
--- NOTE | 2022-11-09 15:13 | WOUNDNOTE ---
wound photo: right knee
[2022-11-09 15:52] VITALS: BP 137/73; PULSE 72; RESP 16; TEMP 35.9; O2SAT 94
[2022-11-09] MEDS: Rivaroxaban 20 MG Tablet PO (17:20)
[2022-11-09] MEDS: Pramipexole Di-HCl 0.25 MG Tablet 0.75 MG PO (20:19)
[2022-11-09] MEDS: Latanoprost 0.005% 1 Bottle 1 DRP EACH EYE (20:19)
[2022-11-10] MEDS: Doxycycline 100 MG CAPSULE PO ×2 (04:38→17:15)
[2022-11-10] MEDS: Cholecalciferol (VIT D3) 25 MCG TABLET (1,000 UNITS) PO (04:38)
[2022-11-10] MEDS: Acetaminophen 500 MG Tablet 1000 MG PO ×3 (04:38→22:32)
[2022-11-10] MEDS: Escitalopram Oxalate 20 MG Tablet PO (04:38)
[2022-11-10] MEDS: Losartan Potassium 50 MG Tablet PO (04:39)
[2022-11-10] MEDS: Ensure Plus High Protein 120 ML LIQUID PO ×3 (08:25→17:16)
[2022-11-10] MEDS: Juven (unflavored) Packet 1 PACKET PO ×2 (08:25→17:16)
[2022-11-10] MEDS: Folic Acid 1 MG Tablet PO (08:25)
[2022-11-10] MEDS: Ferrous Sulfate 325 MG Tablet PO ×2 (08:25→17:15)
[2022-11-10 14:55] VITALS: BP 127/63; PULSE 83; RESP 16; TEMP 36.7; O2SAT 96
[2022-11-10] MEDS: Rivaroxaban 20 MG Tablet PO (17:15)
[2022-11-10] MEDS: Pramipexole Di-HCl 0.25 MG Tablet PO (17:20)
[2022-11-10 20:00] VITALS: RESP 16
[2022-11-10] MEDS: Latanoprost 0.005% 1 Bottle 1 DRP EACH EYE (22:31)
[2022-11-10] MEDS: Pramipexole Di-HCl 0.25 MG Tablet 0.75 MG PO (22:32)
[2022-11-11] MEDS: Acetaminophen 500 MG Tablet 1000 MG PO ×3 (04:38→20:19)
[2022-11-11] MEDS: Losartan Potassium 50 MG Tablet PO (04:38)
[2022-11-11] MEDS: Doxycycline 100 MG CAPSULE PO ×2 (04:39→17:39)
[2022-11-11] MEDS: Escitalopram Oxalate 20 MG Tablet PO (04:39)
[2022-11-11] MEDS: Cholecalciferol (VIT D3) 25 MCG TABLET (1,000 UNITS) PO (04:39)
[2022-11-11] MEDS: Ensure Plus High Protein 120 ML LIQUID PO ×3 (04:45→17:40)
[2022-11-11] MEDS: Folic Acid 1 MG Tablet PO (08:21)
[2022-11-11] MEDS: Ferrous Sulfate 325 MG Tablet PO ×2 (08:21→17:39)
[2022-11-11] MEDS: Juven (unflavored) Packet 1 PACKET PO ×2 (08:21→17:37)
[2022-11-11 10:00] VITALS: RESP 16; O2SAT 96
[2022-11-11 16:00] VITALS: BP 134/74; PULSE 90; RESP 14; TEMP 36.5; O2SAT 97
--- NOTE | 2022-11-11 16:04 | CASEMGMT ---
Addendum entered by Treva Cordoba 11/12/22 17:23: [facility] accept and provided pricing. [facility] is in review. SW followed up with pt and pt is requesting additional referrals to [facility], and [facility]. Referrals placed via [facility]. Addendum entered by Treva Cordoba 11/11/22 16:10: Pt no longer wants [facility] and requesting [facility]. Referral made. Original Note: Social Work IDT discussed patient's progress and DC plans. Recommending setting DC date and transferring to SNF. Pt already provided two SNFs - [facility] and [facility]. Referrals sent to both via [facility]. Will continue to follow. HANNAH DelgadoW
[2022-11-11] MEDS: Senna/Docusate Sodium 1 Tablet 2 TABLET PO (17:37)
[2022-11-11] MEDS: Rivaroxaban 20 MG Tablet PO (17:38)
[2022-11-11] MEDS: Latanoprost 0.005% 1 Bottle 1 DRP EACH EYE (20:18)
[2022-11-11] MEDS: Pramipexole Di-HCl 0.25 MG Tablet 0.75 MG PO (20:19)
[2022-11-12 05:45] VITALS: BP 132/59; PULSE 72
[2022-11-12] MEDS: Doxycycline 100 MG CAPSULE PO ×2 (05:47→18:15)
[2022-11-12] MEDS: Acetaminophen 500 MG Tablet 1000 MG PO ×3 (05:47→21:11)
[2022-11-12] MEDS: Escitalopram Oxalate 20 MG Tablet PO (05:47)
[2022-11-12] MEDS: Losartan Potassium 50 MG Tablet PO (05:47)
[2022-11-12] MEDS: Cholecalciferol (VIT D3) 25 MCG TABLET (1,000 UNITS) PO (05:47)
[2022-11-12] MEDS: Folic Acid 1 MG Tablet PO (08:19)
[2022-11-12] MEDS: Ensure Plus High Protein 120 ML LIQUID PO ×3 (08:19→18:14)
[2022-11-12] MEDS: Juven (unflavored) Packet 1 PACKET PO ×2 (08:19→18:14)
[2022-11-12] MEDS: Ferrous Sulfate 325 MG Tablet PO ×2 (08:19→18:15)
[2022-11-12 14:12] VITALS: BP 110/66; PULSE 86; RESP 17; TEMP 35.9; O2SAT 95
[2022-11-12] MEDS: Rivaroxaban 20 MG Tablet PO (18:14)
[2022-11-12] MEDS: Pramipexole Di-HCl 0.25 MG Tablet PO (18:18)
[2022-11-12] MEDS: Pramipexole Di-HCl 0.25 MG Tablet 0.75 MG PO (21:11)
[2022-11-12] MEDS: Latanoprost 0.005% 1 Bottle 1 DRP EACH EYE (21:12)
[2022-11-12 22:00] VITALS: PULSE 98; RESP 18; O2SAT 97
[2022-11-13] MEDS: Acetaminophen 500 MG Tablet 1000 MG PO ×3 (06:36→20:53)
[2022-11-13] MEDS: Doxycycline 100 MG CAPSULE PO ×2 (06:36→16:44)
[2022-11-13] MEDS: Cholecalciferol (VIT D3) 25 MCG TABLET (1,000 UNITS) PO (06:36)
[2022-11-13] MEDS: Losartan Potassium 50 MG Tablet PO (06:36)
[2022-11-13] MEDS: Escitalopram Oxalate 20 MG Tablet PO (06:36)
[2022-11-13 06:41] VITALS: BP 132/54; PULSE 79; RESP 16
[2022-11-13] MEDS: Juven (unflavored) Packet 1 PACKET PO ×2 (09:35→18:28)
[2022-11-13] MEDS: Folic Acid 1 MG Tablet PO (09:35)
[2022-11-13] MEDS: Ferrous Sulfate 325 MG Tablet PO ×2 (09:35→16:44)
[2022-11-13] MEDS: Ensure Plus High Protein 120 ML LIQUID PO ×3 (09:35→16:44)
[2022-11-13 14:40] VITALS: BP 127/77; PULSE 78; RESP 16; TEMP 35.8; O2SAT 96
[2022-11-13] MEDS: Rivaroxaban 20 MG Tablet PO (16:44)
[2022-11-13] MEDS: Latanoprost 0.005% 1 Bottle 1 DRP EACH EYE (20:52)
[2022-11-13] MEDS: Pramipexole Di-HCl 0.25 MG Tablet 0.75 MG PO (20:53)
[2022-11-14] MEDS: Escitalopram Oxalate 20 MG Tablet PO (05:37)
[2022-11-14] MEDS: Acetaminophen 500 MG Tablet 1000 MG PO ×3 (05:37→21:12)
[2022-11-14] MEDS: Losartan Potassium 50 MG Tablet PO (05:37)
[2022-11-14] MEDS: Cholecalciferol (VIT D3) 25 MCG TABLET (1,000 UNITS) PO (05:37)
[2022-11-14] MEDS: Doxycycline 100 MG CAPSULE PO ×2 (05:38→18:26)
[2022-11-14 05:48] VITALS: BP 128/57; PULSE 78; RESP 16
[2022-11-14] MEDS: Juven (unflavored) Packet 1 PACKET PO ×2 (08:57→18:26)
[2022-11-14] MEDS: Ferrous Sulfate 325 MG Tablet PO ×2 (08:57→18:25)
[2022-11-14] MEDS: Folic Acid 1 MG Tablet PO (08:57)
[2022-11-14] MEDS: Ensure Plus High Protein 120 ML LIQUID PO ×3 (09:10→18:30)
[2022-11-14 14:53] VITALS: BP 129/61; PULSE 83; RESP 16; TEMP 36.6; O2SAT 96
[2022-11-14] MEDS: Rivaroxaban 20 MG Tablet PO (18:25)
[2022-11-14] MEDS: Pramipexole Di-HCl 0.25 MG Tablet PO (18:28)
[2022-11-14] MEDS: Latanoprost 0.005% 1 Bottle 1 DRP EACH EYE (21:09)
[2022-11-14] MEDS: Pramipexole Di-HCl 0.25 MG Tablet 0.75 MG PO (21:12)
[2022-11-14 21:15] VITALS: PULSE 93; RESP 16; O2SAT 95
[2022-11-15] MEDS: Escitalopram Oxalate 20 MG Tablet PO (05:23)
[2022-11-15] MEDS: Doxycycline 100 MG CAPSULE PO ×2 (05:23→17:49)
[2022-11-15] MEDS: Acetaminophen 500 MG Tablet 1000 MG PO ×3 (05:23→22:02)
[2022-11-15] MEDS: Cholecalciferol (VIT D3) 25 MCG TABLET (1,000 UNITS) PO (05:23)
[2022-11-15] MEDS: Losartan Potassium 50 MG Tablet PO (05:23)
[2022-11-15] MEDS: Ensure Plus High Protein 120 ML LIQUID PO ×3 (08:36→17:49)
[2022-11-15] MEDS: Juven (unflavored) Packet 1 PACKET PO ×2 (08:36→17:50)
[2022-11-15] MEDS: Folic Acid 1 MG Tablet PO (08:37)
[2022-11-15] MEDS: Ferrous Sulfate 325 MG Tablet PO ×2 (08:39→17:49)
[2022-11-15 15:44] VITALS: BP 138/52; PULSE 79; RESP 16; TEMP 36.5; O2SAT 95
[2022-11-15] MEDS: Rivaroxaban 20 MG Tablet PO (17:49)
[2022-11-15] MEDS: Senna/Docusate Sodium 1 Tablet 2 TABLET PO (17:50)
[2022-11-15] MEDS: Menthol/Lanolin/Calamine/Znox 113 GM Tube 1 APPLIC TOPICAL (17:54)
[2022-11-15] MEDS: Latanoprost 0.005% 1 Bottle 1 DRP EACH EYE (22:01)
[2022-11-15] MEDS: Pramipexole Di-HCl 0.25 MG Tablet 0.75 MG PO (22:02)
[2022-11-16 05:38] LABS: Absolute Lymphocyte Count 1.35 X10^3/uL (0.83-4.51); Basophil# 0.04 X10^3/uL; Basophil% 0.8 % (0-1); Eosinophil# 0.46 X10^3/uL; Eosinophils% 8.7 % (0-5); Hematocrit 33.3 % (37-47); Hemoglobin 10.4 g/dL (12.0-15.0); Lymphocyte # 1.35 X10^3/ul (0.83-4.51); Lymphocyte % 25.5 % (19-41); Mean Corp Hgb Conc 31.2 g/dL (32-36); Mean Corpuscular Hgb 29.3 pg (27.0-32.0); Mean Corpuscular Volume 93.8 fL (81-99); Mean Platelet Vol. 10.3 fl (6.2-12.0); Monocyte# 0.42 X10^3/uL; Monocyte% 7.9 % (0-10); NRBC Flagged by Analyzer 0 % (0-5); Neutrophil # 3.01 X10^3/uL (2.7-7.7); Neutrophil % 56.7 % (47-70); Platelet Count 191 K/mm3 (150-450); RBC Distribution Width CV 17.5 % (11.6-14.6); RBC Distribution Width SD 61.4 fl (35.1-43.9); Red Blood Count 3.55 M/mm3 (4.2-5.4); White Blood Count 5.3 K/mm3 (4.4-11.0)
[2022-11-16] MEDS: Menthol/Lanolin/Calamine/Znox 113 GM Tube 1 APPLIC TOPICAL ×2 (05:51→17:32)
[2022-11-16] MEDS: Escitalopram Oxalate 20 MG Tablet PO (05:52)
[2022-11-16] MEDS: Acetaminophen 500 MG Tablet 1000 MG PO ×3 (05:52→20:54)
[2022-11-16] MEDS: Doxycycline 100 MG CAPSULE PO ×2 (05:52→17:32)
[2022-11-16] MEDS: Losartan Potassium 50 MG Tablet PO (05:52)
[2022-11-16] MEDS: Cholecalciferol (VIT D3) 25 MCG TABLET (1,000 UNITS) PO (05:53)
[2022-11-16 06:03] LABS: Anion Gap 5 (5-15); BUN 33 mg/dL (7-18); BUN/Creat Ratio 54.5 RATIO (10-20); Calcium,Total 8.8 mg/dL (8.5-10.1); Chloride 109 mmol/L (98-107); Creatinine, Serum 0.61 mg/dL (0.55-1.02); EST Glomerular Filtration Rate 103 mL/min (>60); Est Glom Filt Rate - Afr Amer 124 mL/min (>60); Glucose 99 mg/dL (74-106); Potassium 4.4 mmol/L (3.5-5.1); Sodium Level 143 mmol/L (136-145)
[2022-11-16] MEDS: Juven (unflavored) Packet 1 PACKET PO ×2 (08:18→17:32)
[2022-11-16] MEDS: Ferrous Sulfate 325 MG Tablet PO ×2 (08:18→17:32)
[2022-11-16] MEDS: Folic Acid 1 MG Tablet PO (08:19)
[2022-11-16] MEDS: Ensure Plus High Protein 120 ML LIQUID PO ×3 (08:26→17:32)
--- NOTE | 2022-11-16 10:57 | CASEMGMT ---
Social Work Spoke with patient about DC 11/19 to SNF. Updated pt that [facility] cannot accept. [facility] will contact pt for pricing. [facility] has no beds. Pt stated [facility] too expensive. [facility] can accept. Pt agreed to DC. Will continue to follow for final placement. Plan: DC to SNF, intermediate, private pay 11/19 HANNAH DelgadoW
[2022-11-16 15:23] VITALS: BP 126/79; PULSE 86; RESP 17; TEMP 36.6; O2SAT 96
[2022-11-16] MEDS: Rivaroxaban 20 MG Tablet PO (17:32)
--- NOTE | 2022-11-16 19:52 | DS.PCM_ITS ---
Providers Date of Admission: 10/25/22 Primary Care Physician: KEVIN Stock Consultations 10/25/22 15:42 Consult: Onc/Wound/lecturer in marketing Routine Comment: Reason For Visit: RT REMOVAL ANTIBIOTIC SPACER,RT KNEE REVISION Diagnosis Discharge Diagnosis (1) Debility: Status: Acute Code(s): R53.81 - Other malaise (2) Infection of prosthetic right knee joint: Status: Acute Code(s): T84.53XA - Infection and inflammatory reaction due to internal right knee prosthesis, initial encounter (3) Rupture of right quadriceps tendon: Status: Acute Code(s): S76.111A - Strain of right quadriceps muscle, fascia and tendon, initial encounter (4) Depression: Status: Acute Code(s): F32.A - Depression, unspecified (5) Iron deficiency anemia: Status: Acute Code(s): D50.9 - Iron deficiency anemia, unspecified (6) Glaucoma: Status: Acute Code(s): H40.9 - Unspecified glaucoma (7) Hypertension: Status: Chronic Code(s): I10 - Essential (primary) hypertension (8) Restless leg syndrome: Status: Acute Code(s): G25.81 - Restless legs syndrome (9) Deep vein thrombosis, lower right extremity: Status: Acute Code(s): I82.401 - Acute embolism and thrombosis of unspecified deep veins of right lower extremity (10) Vitamin D deficiency: Status: Acute Code(s): E55.9 - Vitamin D deficiency, unspecified Plan 72 year old female with below past medical history hospitalized for removal right knee fixator, right knee revision TKA, removal right knee spacer, MESH repair chronic extensor mechanism, placement right lower extremity long leg cast 10/21/[address] Munoz, admitted to TCU with debility, here for rehabilitation, strengthening, prior to discharge home alone. * Debility - PT/OT. * Pain - Tylenol 1000mg q8, Oxycodone 5-10mg q4h prn. * Bowel - senna/colace 2 tablets bid, Dulcolax 10mg pr x 1 prn, MOM 30ml po x 1 prn. * Adult immunization - Administer pneumonia vaccine, covid19 vaccine, flu vaccine as appropriate. * DVT prophylaxis - Not necessary, already on Xarelto. * Right prosthetic knee injection status post explant spacer/right knee revision TKA - Doxycycline 100mg bid thru 11/21/2022. * Depression - Lexapro 20mg daily, stable chronic skilled nursing use, GDR not recommended. * Iron deficiency anemia - Ferrous sulfate 325mg bidcm. * Folate deficiency - Folic acid 1mg daily. * Glaucoma - Latanoprost 1gtt ou qpm. * Hypertension - Losartan 50mg daily. * Restless Leg syndrome - Mirapex 0.25mg qhs. * Vitamin D deficiency - D3 25mcg daily. * Right lower extremity DVT - Xarelto 20mg daily. Medications at Discharge Home Medications cholecalciferol (vitamin D3) 25 mcg (1,000 unit) capsule (Vitamin D3) 25 mcg PO DAILY SUPPLEMENT 05/27/22 latanoprost 0.005 % eye drops 1 drp EACH EYE QPM GLAUCOMA 05/27/22 losartan 50 mg tablet 50 mg PO DAILY BP 05/27/22 pramipexole 1.5 mg tablet 0.75 mg PO QHS RESTLESS LEG 05/27/22 rivaroxaban 20 mg tablet (Xarelto) 20 mg PO DAILY DVT 05/27/22 acetaminophen 500 mg tablet 1,000 mg PO Q8H pain 06/12/22 doxycycline monohydrate 100 mg tablet 100 mg PO BID ANTIBIOTIC 10/07/22 escitalopram oxalate 20 mg tablet (Lexapro) 20 mg PO DAILY ANTIDEPRESSANT 10/07/22 ferrous sulfate 325 mg (65 mg iron) tablet (FeroSul) 325 mg PO BIDCM Supplement 10/25/22 folic acid 1 mg tablet 1 mg PO BREAKFAST Supplement 10/25/22 sennosides 8.6 mg-docusate sodium 50 mg tablet (Stool Softener-Stimulant Laxative) 2 tab PO BID Constipation 10/25/22 arginine 7 gram-glutam 7 gram-CaHMB 1.5 [id number] oral pwd pkt (Santos (with collagen)) 1 packet PO BIDCM #0 ea 11/16/22 food supplemt, lactose-reduced 0.08 gram-1.5 kcal/mL oral liquid (Ensure Plus High Protein) 120 ml PO TIDCM #0 mL 11/16/22 menthol 0.44 %-zinc oxide 20.6 % topical ointment (Calmoseptine) 1 applic topical BID #0 grams 11/16/22 pramipexole 0.25 mg tablet 0.25 mg PO DAILY PRN PRN restless legs during day #0 tabs 11/16/22 Hospital Course Operations - (See below.) Procedures None Summary of Care Provided Minutes Spent on Discharge: 35 Hospital Course: 72 year old female with below past medical history hospitalized for removal right knee fixator, right knee revision TKA, removal right knee spacer, MESH repair chronic extensor mechanism, placement right lower extremity long leg cast 10/21/[address] Munoz, admitted to TCU with debility, here for rehabilitation, strengthening, prior to discharge home alone. Discharge to Long-Term Facility 11/19/2022, intermediate, private pay. Physical Exam Const alert General Appearance: cooperative HEENT normocephalic Eyes PERRL and EOMs intact bilaterally Neck supple, no JVD and no carotid bruits Resp normal respiratory effort, normal air movement and clear to auscultation bilaterally Cardio regular rate and regular rhythm GI normal to inspection, nondistended, normoactive bowel sounds, non-tender and non-distended Extremity normal capillary refill General Extremity: Negative for edema Skin no rashes or lesions noted General Skin Exam: no breakdown Psych affect normal Appearance: appropriate Weight / BMI Weight Weight: 106.095 kg Body Mass Index (BMI) 38.4 ABG / Lab / Microbiology Data Result Diagrams: 11/16/22 05:25 11/16/22 05:25 Laboratory: Laboratory Results - last 24 hr 11/16/22 05:25: WBC 5.3, RBC 3.55 L, Hgb 10.4 L, Hct 33.3 L, MCV 93.8, MCH 29.3, MCHC 31.2 L, RDW Std Deviation 61.4 H, RDW Coeff of Karina 17.5 H, Plt Count 191, MPV 10.3, Immature Gran % (Auto) 0.400, Neut % (Auto) 56.7, Lymph % (Auto) 25.5, [place] % (Auto) 7.9, Eos % (Auto) 8.7 H, Baso % (Auto) 0.8, Absolute Neuts (auto) 3.0, Absolute Lymphs (auto) 1.35, Nucleated RBC % 0 11/16/22 05:25: Sodium 143, Potassium 4.4, Chloride 109 H, Carbon Dioxide 29.0, Anion Gap 5, BUN 33 H, Creatinine 0.61, Estim Creat Clear Calc 46.20, Est GFR (MDRD) Af Amer 124, Est GFR (MDRD) Non-Af 103, BUN/Creatinine Ratio 54.5 H, Glucose 99, Calcium 8.8 Microbiology: Microbiology 11/06/22 08:55 Nasal Secretion SARS-CoV-2 Antigen (Rapid) - Final 10/29/22 13:45 Nasal Secretion SARS-CoV-2 Antigen (Rapid) - Final 10/27/22 06:30 Nasal Secretion SARS-CoV-2 Antigen (Rapid) - Final D/C Instructions Discharge Diet: No restrictions Discharge Activity: Return to Normal Activity, May Shower and Use Walker Weight Bearing Status: Toe touch weight bearing (Right lower extremity.) Call your doctor if you observe: Fever of 101 or Higher, Inability to urinate, Inability to have a bowel movement, Shortness of breath, Dizziness, Fainting spells, Swelling in the ankles, Chest pain and Uncontrolled pain Additional Instructions: Discharge to Long-Term Facility 11/19/2022, intermediate, private pay. Please Follow Up With: MARILUZ Paredes When: As scheduled. Meaningful Use Info Meaningful Use Diagnoses (Choose all that apply): None applicable Discharge Plan Admission Admit Date/Time: 10/25/22 14:55 Primary Reason for Your Visit: Debility. Attending Provider: Jerrell Caldera Chi Primary Care Provider: Guerda Torrez NP Instructions Additional Instructions / Restrictions: Discharge to Long-Term Facility 11/19/2022, intermediate, private pay. Discharge Orders/Prescriptions Prescriptions: New menthol-zinc oxide [Calmoseptine] 0.44-20.6 % Ointment 1 applic topical BID Qty: 0 0RF Protocol: *Topical Application Instructions APPLICATION INSTRUCTIONS: apply to latha buttocks Ensure Plus High Protein 0.08 gram-1.5 kcal/mL Liquid 120 ml PO TIDCM Qty: 0 0RF Santos (with collagen) 7-7-1.5 gram Powder In Packet 1 packet PO BIDCM Qty: 0 0RF pramipexole 0.25 mg Tablet 0.25 mg PO DAILY PRN PRN (Reason: restless legs during day) Qty: 0 0RF Continued losartan 50 mg Tablet 50 mg PO DAILY latanoprost 0.005 % Drops 1 drp EACH EYE QPM pramipexole 1.5 mg Tablet 0.75 mg PO QHS Label Comments: TAKE 1 1/2 TAB BEDTIME cholecalciferol (vitamin D3) [Vitamin D3] 25 mcg (1,000 unit) Capsule 25 mcg PO DAILY Xarelto 20 mg Tablet 20 mg PO DAILY Label Comments: PT TO STOP PER PCP Rx Instructions: must administer with evening meal acetaminophen 500 mg tablet 1,000 mg PO Q8H Rx Instructions: Do not take more than 3000 mg Tylenol in a 24-hour period. escitalopram oxalate [Lexapro] 20 mg tablet 20 mg PO DAILY doxycycline monohydrate 100 mg tablet 100 mg PO BID Label Comments: TAKE 1 TABLET BY MOUTH TWICE A DAY BEGIN MEDICATION 2 WEEKS PRIOR TO SURGERY sennosides-docusate sodium [Stool Softener-Stimulant Laxat] 8.6-50 mg tablet 2 tab PO BID Rx Instructions: As needed if any constipation ferrous sulfate [FeroSul] 325 mg (65 mg iron) tablet 325 mg PO BIDCM folic acid 1 mg tablet 1 mg PO BREAKFAST Discontinued oxycodone 5 mg Tablet 5 - 10 mg PO Q4H PRN PRN (Reason: Pain Score 4-10) 7 Days Qty: 42 0RF Referrals / Follow Up: Guerda Torrez NP, SW[employer] CUTTER-C [Primary Care Provider] - Disposition Disposition (needs filled in before D/C Order can be placed): NonSkilled NH/Intermed Care
--- NOTE | 2022-11-16 19:57 | TREXTCAR_ITS ---
Diet Diet Order/Speech Therapy: 10/25/22 15:41 Diet: Regular - General Food consistency:: Regular Liquid Consistency:: Regular/Thin Is pt able to select menu?: Yes Routine Orders/Code Status Code Status: DNRCC-A (No intubation.) Wound(s) Right knee/ leg: Wound Type: Surgical Incision Dressing Change: dry dressing Therapies Weight Bearing: Toe-touch weight bearing (Right lower extremity.) Physical Therapy: Eval and Treat Occupational Therapy: Eval and Treat Problem/Diagnosis (1) Debility: Status: Acute Code(s): R53.81 - Other malaise (2) Infection of prosthetic right knee joint: Status: Acute Code(s): T84.53XA - Infection and inflammatory reaction due to internal right knee prosthesis, initial encounter (3) Rupture of right quadriceps tendon: Status: Acute Code(s): S76.111A - Strain of right quadriceps muscle, fascia and tendon, initial encounter (4) Depression: Status: Acute Code(s): F32.A - Depression, unspecified (5) Iron deficiency anemia: Status: Acute Code(s): D50.9 - Iron deficiency anemia, unspecified (6) Glaucoma: Status: Acute Code(s): H40.9 - Unspecified glaucoma (7) Hypertension: Status: Chronic Code(s): I10 - Essential (primary) hypertension (8) Restless leg syndrome: Status: Acute Code(s): G25.81 - Restless legs syndrome (9) Deep vein thrombosis, lower right extremity: Status: Acute Code(s): I82.401 - Acute embolism and thrombosis of unspecified deep veins of right lower extremity (10) Vitamin D deficiency: Status: Acute Code(s): E55.9 - Vitamin D deficiency, unspecified Plan 72 year old female with below past medical history hospitalized for removal right knee fixator, right knee revision TKA, removal right knee spacer, MESH repair chronic extensor mechanism, placement right lower extremity long leg cast 10/21/[address] Munoz, admitted to TCU with debility, here for rehabilitation, strengthening, prior to discharge home alone. * Debility - PT/OT. * Pain - Tylenol 1000mg q8, Oxycodone 5-10mg q4h prn. * Bowel - senna/colace 2 tablets bid, Dulcolax 10mg pr x 1 prn, MOM 30ml po x 1 prn. * Adult immunization - Administer pneumonia vaccine, covid19 vaccine, flu vaccine as appropriate. * DVT prophylaxis - Not necessary, already on Xarelto. * Right prosthetic knee injection status post explant spacer/right knee revision TKA - Doxycycline 100mg bid thru 11/21/2022. 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 * Iron deficiency anemia - Ferrous sulfate 325mg bidcm. * Folate deficiency - Folic acid 1mg daily. * Glaucoma - Latanoprost 1gtt ou qpm. * Hypertension - Losartan 50mg daily. * Restless Leg syndrome - Mirapex 0.25mg qhs. * Vitamin D deficiency - D3 25mcg daily. * Right lower extremity DVT - Xarelto 20mg daily. Allergies/Procedures Done in Hospital Allergies No Known Allergies Allergy (Verified 10/21/22 08:06) Procedures: - (As above.) Type of Care/Length of Stay Estimated LOS: More Than 30 Days Type of Care Needed: Intermediate Rehab Potential: Good Prognosis: Good Additional Orders/Day of Discharge Additional Orders: part B therapies Day of Discharge: 11/19/22 Dietary and Speech Recommendations Dietitian Recommendations/Changes: Continue liberal regular diet Will continue 120 ml ensure plus high protein tid w/ medpass per res preference Will continue Santos bid to help w/ surgical incision healing - once healed, then d/c Follow Up Care Please Follow Up With: MARILUZ Paredes Please Follow Up With: MARILUZ Paredes When: Wednesday Discharge Plan Admission Admit Date/Time: 10/25/22 14:55 Primary Reason for Your Visit: Debility. Attending Provider: Jerrell Caldera Chi Primary Care Provider: Guerda Torrez NP Instructions Additional Instructions / Restrictions: Discharge to Senior Living Facility 11/19/2022, intermediate, private pay. Discharge Orders/Prescriptions Prescriptions: New menthol-zinc oxide [Calmoseptine] 0.44-20.6 % Ointment 1 applic topical BID Qty: 0 0RF Protocol: *Topical Application Instructions APPLICATION INSTRUCTIONS: apply to latha buttocks Ensure Plus High Protein 0.08 gram-1.5 kcal/mL Liquid 120 ml PO TIDCM Qty: 0 0RF Santos (with collagen) 7-7-1.5 gram Powder In Packet 1 packet PO BIDCM Qty: 0 0RF pramipexole 0.25 mg Tablet 0.25 mg PO DAILY PRN PRN (Reason: restless legs during day) Qty: 0 0RF Continued losartan 50 mg Tablet 50 mg PO DAILY latanoprost 0.005 % Drops 1 drp EACH EYE QPM pramipexole 1.5 mg Tablet 0.75 mg PO QHS Label Comments: TAKE 1 1/2 TAB BEDTIME cholecalciferol (vitamin D3) [Vitamin D3] 25 mcg (1,000 unit) Capsule 25 mcg PO DAILY Xarelto 20 mg Tablet 20 mg PO DAILY Label Comments: PT TO STOP PER PCP Rx Instructions: must administer with evening meal acetaminophen 500 mg tablet 1,000 mg PO Q8H Rx Instructions: Do not take more than 3000 mg Tylenol in a 24-hour period. escitalopram oxalate [Lexapro] 20 mg tablet 20 mg PO DAILY doxycycline monohydrate 100 mg tablet 100 mg PO BID Label Comments: TAKE 1 TABLET BY MOUTH TWICE A DAY BEGIN MEDICATION 2 WEEKS PRIOR TO SURGERY sennosides-docusate sodium [Stool Softener-Stimulant Laxat] 8.6-50 mg tablet 2 tab PO BID Rx Instructions: As needed if any constipation ferrous sulfate [FeroSul] 325 mg (65 mg iron) tablet 325 mg PO BIDCM folic acid 1 mg tablet 1 mg PO BREAKFAST Discontinued oxycodone 5 mg Tablet 5 - 10 mg PO Q4H PRN PRN (Reason: Pain Score 4-10) 7 Days Qty: 42 0RF Referrals / Follow Up: Guerda Torrez NP, [employer] [Primary Care Provider] - Disposition Disposition (needs filled in before D/C Order can be placed): NonSkilled NH/Intermed Care
[2022-11-16 20:45] VITALS: PULSE 81; RESP 18; O2SAT 98
[2022-11-16] MEDS: Pramipexole Di-HCl 0.25 MG Tablet 0.75 MG PO (20:54)
[2022-11-16] MEDS: Latanoprost 0.005% 1 Bottle 1 DRP EACH EYE (20:54)
[2022-11-17] MEDS: Escitalopram Oxalate 20 MG Tablet PO (06:19)
[2022-11-17] MEDS: Doxycycline 100 MG CAPSULE PO ×2 (06:19→17:12)
[2022-11-17] MEDS: Cholecalciferol (VIT D3) 25 MCG TABLET (1,000 UNITS) PO (06:19)
[2022-11-17] MEDS: Losartan Potassium 50 MG Tablet PO (06:19)
[2022-11-17] MEDS: Acetaminophen 500 MG Tablet 1000 MG PO ×3 (06:19→20:35)
[2022-11-17] MEDS: Menthol/Lanolin/Calamine/Znox 113 GM Tube 1 APPLIC TOPICAL ×2 (06:20→17:20)
[2022-11-17] MEDS: Ensure Plus High Protein 120 ML LIQUID PO ×3 (08:25→17:24)
[2022-11-17] MEDS: Juven (unflavored) Packet 1 PACKET PO ×2 (08:25→18:36)
[2022-11-17] MEDS: Folic Acid 1 MG Tablet PO (08:25)
[2022-11-17] MEDS: Ferrous Sulfate 325 MG Tablet PO ×2 (08:25→17:12)
[2022-11-17 16:00] VITALS: BP 131/52; PULSE 87; RESP 18; TEMP 36.3; O2SAT 97
--- NOTE | 2022-11-17 16:58 | CASEMGMT ---
Social Work SW met with pt to discuss discharge plan. Pt is questioning if she would be appropriate for assisted living rather than ECF. SW discussed both options with team who agree pt may qualify for AL. Pt stating she would like to be in a facility in [place]. SW provided pt with a written list of Assisted Living facilities in [facility] and [facility]. SW contacted [facility] and [facility] and obtained information for pt including room availability and furnishings and estimated costs. Both facilities have rooms available. SW provided pt with this information. Pt states her sister will be visiting this evening and pt and sister will review options. SW to followup to continue discharge planning. REN Loredo
[2022-11-17] MEDS: Rivaroxaban 20 MG Tablet PO (17:12)
[2022-11-17] MEDS: Latanoprost 0.005% 1 Bottle 1 DRP EACH EYE (20:21)
[2022-11-17] MEDS: Pramipexole Di-HCl 0.25 MG Tablet 0.75 MG PO (20:22)
[2022-11-17 20:37] VITALS: PULSE 58; RESP 18; O2SAT 96
[2022-11-18] MEDS: Menthol/Lanolin/Calamine/Znox 113 GM Tube 1 APPLIC TOPICAL ×2 (05:35→17:53)
[2022-11-18] MEDS: Doxycycline 100 MG CAPSULE PO ×2 (05:36→17:51)
[2022-11-18] MEDS: Escitalopram Oxalate 20 MG Tablet PO (05:36)
[2022-11-18] MEDS: Acetaminophen 500 MG Tablet 1000 MG PO ×3 (05:36→20:48)
[2022-11-18] MEDS: Cholecalciferol (VIT D3) 25 MCG TABLET (1,000 UNITS) PO (05:36)
[2022-11-18] MEDS: Losartan Potassium 50 MG Tablet PO (05:37)
[2022-11-18 05:50] VITALS: BP 130/60; PULSE 82
[2022-11-18] MEDS: Folic Acid 1 MG Tablet PO (07:42)
[2022-11-18] MEDS: Ensure Plus High Protein 120 ML LIQUID PO ×3 (07:42→17:52)
[2022-11-18] MEDS: Ferrous Sulfate 325 MG Tablet PO ×2 (07:42→17:51)
--- NOTE | 2022-11-18 09:45 | CASEMGMT ---
Social Work Spoke with pt about DC plans. Pt would like to pursue respite options at a AL and DC will be postponed to allow DC planning. Pt [facility] . Pt inquired about paying privately at [facility]. SW educated to daily rate and pt cannot afford that rate. Sent referrals to [facility] via [facility]. Will continue to follow. Treva Cordoba, SENIOR RESEARCH FELLOW CIRCLE SHEAR OPERATOR
[2022-11-18 16:00] VITALS: BP 125/57; PULSE 74; RESP 16; TEMP 36.6; O2SAT 96
[2022-11-18] MEDS: Rivaroxaban 20 MG Tablet PO (17:52)
[2022-11-18] MEDS: Latanoprost 0.005% 1 Bottle 1 DRP EACH EYE (20:46)
[2022-11-18] MEDS: Pramipexole Di-HCl 0.25 MG Tablet 0.75 MG PO (20:48)
[2022-11-19] MEDS: Acetaminophen 500 MG Tablet 1000 MG PO ×3 (05:21→21:12)
[2022-11-19] MEDS: Cholecalciferol (VIT D3) 25 MCG TABLET (1,000 UNITS) PO (05:22)
[2022-11-19] MEDS: Escitalopram Oxalate 20 MG Tablet PO (05:22)
[2022-11-19] MEDS: Doxycycline 100 MG CAPSULE PO ×2 (05:22→17:56)
[2022-11-19] MEDS: Menthol/Lanolin/Calamine/Znox 113 GM Tube 1 APPLIC TOPICAL (05:22)
[2022-11-19] MEDS: Losartan Potassium 50 MG Tablet PO (05:22)
[2022-11-19] MEDS: Ferrous Sulfate 325 MG Tablet PO ×2 (08:12→17:57)
[2022-11-19] MEDS: Folic Acid 1 MG Tablet PO (08:12)
[2022-11-19] MEDS: Ensure Plus High Protein 120 ML LIQUID PO ×3 (08:12→17:58)
--- NOTE | 2022-11-19 08:50 | CASEMGMT ---
Social Work - TCU Per request of [facility] at [place]. Unable to access [facility], so asked that referral be sent via fax to [phone]. For continuity of care faxed requested information. Plan: Pending assisted living placement. -[facility]
--- NOTE | 2022-11-19 10:38 | CASEMGMT ---
Addendum entered by Treva Cordoba 11/20/22 14:28: Scheduled w/c transport for [facility] through [facility] Addendum entered by Treva Cordoba 11/19/22 16:35: Pt does not have Medicare part B coverage to pay for therapies or DME. Pt is understanding of this. Addendum entered by Treva Cordoba 11/19/22 16:32: Spoke with pt. Pt is selecting [facility] for DC 11/21. SW updated both [facility]. Pt to update this worker on transport time preference. Plan: DC 11/21 to [facility] Original Note: Social Work [facility] and [facility] both can accept pt. Both ALs are contacting pt directly to review pricing and scheduling an onsite assessment. SW to follow up with pt after conversations and plan for DC. [facility] accept 11/24. [facility] has not provided a date. Will continue to follow. HANNAH Delgado OSS ARCHITECT
[2022-11-19 15:17] VITALS: BP 119/65; PULSE 81; RESP 14; TEMP 36.7; O2SAT 94
[2022-11-19] MEDS: Rivaroxaban 20 MG Tablet PO (17:56)
[2022-11-19 19:56] VITALS: PULSE 74; RESP 18; O2SAT 96
[2022-11-19] MEDS: Latanoprost 0.005% 1 Bottle 1 DRP EACH EYE (21:11)
[2022-11-19] MEDS: Pramipexole Di-HCl 0.25 MG Tablet 0.75 MG PO (21:13)
[2022-11-20 00:38] VITALS: BP 122/43; PULSE 74; RESP 18; TEMP 36.5; O2SAT 96
[2022-11-20] MEDS: Menthol/Lanolin/Calamine/Znox 113 GM Tube 1 APPLIC TOPICAL ×2 (05:34→17:50)
[2022-11-20] MEDS: Escitalopram Oxalate 20 MG Tablet PO (05:35)
[2022-11-20] MEDS: Doxycycline 100 MG CAPSULE PO ×2 (05:35→17:48)
[2022-11-20] MEDS: Cholecalciferol (VIT D3) 25 MCG TABLET (1,000 UNITS) PO (05:35)
[2022-11-20] MEDS: Losartan Potassium 50 MG Tablet PO (05:35)
[2022-11-20] MEDS: Senna/Docusate Sodium 1 Tablet 2 TABLET PO (05:35)
[2022-11-20] MEDS: Acetaminophen 500 MG Tablet 1000 MG PO ×3 (05:35→21:11)
[2022-11-20] MEDS: Folic Acid 1 MG Tablet PO (08:25)
[2022-11-20] MEDS: Ferrous Sulfate 325 MG Tablet PO ×2 (08:33→17:49)
[2022-11-20] MEDS: Ensure Plus High Protein 120 ML LIQUID PO ×3 (08:33→17:47)
--- NOTE | 2022-11-20 10:05 | CASEMGMT ---
Social Work BIMS () and PHQ-9 () completed for MDS assessment. Treva Cordoba MSW AIRCRAFT COMMUNICATOR
--- NOTE | 2022-11-20 13:48 | MDS.RN ---
Pain interview for RE[facility]IO 11/21/22
[2022-11-20 15:54] VITALS: BP 133/52; PULSE 85; RESP 16; TEMP 36.8; O2SAT 96
[2022-11-20] MEDS: Rivaroxaban 20 MG Tablet PO (17:47)
[2022-11-20] MEDS: Pramipexole Di-HCl 0.25 MG Tablet PO (17:52)
[2022-11-20] MEDS: Latanoprost 0.005% 1 Bottle 1 DRP EACH EYE (21:10)
[2022-11-20] MEDS: Pramipexole Di-HCl 0.25 MG Tablet 0.75 MG PO (21:11)
[2022-11-21] MEDS: Senna/Docusate Sodium 1 Tablet 2 TABLET PO (05:42)
[2022-11-21] MEDS: Menthol/Lanolin/Calamine/Znox 113 GM Tube 1 APPLIC TOPICAL (05:42)
[2022-11-21] MEDS: Escitalopram Oxalate 20 MG Tablet PO (05:42)
[2022-11-21] MEDS: Losartan Potassium 50 MG Tablet PO (05:42)
[2022-11-21] MEDS: Cholecalciferol (VIT D3) 25 MCG TABLET (1,000 UNITS) PO (05:42)
[2022-11-21] MEDS: Doxycycline 100 MG CAPSULE PO (05:42)
[2022-11-21] MEDS: Acetaminophen 500 MG Tablet 1000 MG PO (05:42)
[2022-11-21] MEDS: Ferrous Sulfate 325 MG Tablet PO (08:21)
[2022-11-21] MEDS: Folic Acid 1 MG Tablet PO (08:21)
[2022-11-21 09:39] VITALS: BP 134/59; PULSE 78; RESP 18; TEMP 36.4; O2SAT 94
== END 2022-11-21 10:00 | disposition home or self-care (01) | DRG 949 ==
PROVIDERS: Admitting Provider Family Medicine Geriatric Medicine; PCP Registered Nurse; Visit Provider Family Medicine Geriatric Medicine
DX: T84.53XD Infection and inflammatory reaction due to internal right knee prosthesis, subsequent encounter (principal); I82.401 Acute embolism and thrombosis of unspecified deep veins of right lower extremity; D50.9 Iron deficiency anemia, unspecified; E55.9 Vitamin D deficiency, unspecified; G25.81 Restless legs syndrome; I10 Essential (primary) hypertension; E53.8 Deficiency of other specified B group vitamins; S76.111D Strain of right quadriceps muscle, fascia and tendon, subsequent encounter; H40.9 Unspecified glaucoma; F32.A Depression, unspecified; Z79.01 Long term (current) use of anticoagulants; Z86.718 Personal history of other venous thrombosis and embolism; Z79.899 Other long term (current) drug therapy; Y79.2 Prosthetic and other implants, materials and accessory orthopedic devices associated with adverse incidents
CPT/HCPCS: 36415; 80048; 85025; 87426; 87811; 97110; 97116; 97162; 97166; 97530; 97535; 97802; A4216

== ENCOUNTER 2022-12-23 10:00 | Outpatient (RCR) | payer MEDICARE, BC, SELFPAY ==
[2022-12-16 09:46] VITALS: BP 140/62; PULSE 83; TEMP 35.7
--- NOTE | 2022-12-16 11:07 | PCM.WC.HP ---
History of Present Illness Date of Service: 12/16/22 Chief Complaint: Right posterior thigh open wound and blister History of Wound: 72-year-old white female that had a right total knee in July 2022 down in [place]. It became infected and patient was not satisfied with care came up here to have the knee redone and ORIF was done patient is now in a full-length leg cast from thigh to foot. I developed a sore on the first cast and now they have cut it back, but she will have to wear the second cast now for another 5 weeks. Currently on Xarelto for her blood clot that was in the leg also really no other medications that she takes she is staying in a assisted living [place] [facility] with [facility] point for rehab and then will go back to [place]. 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) Anemia Arthritis Cancer Chronic cough DVT (deep venous thrombosis) History of edema History of pain when walking History of stress test Hx of vaginal delivery Hypertension Open wound Post-menopausal Restless legs Shortness of breath on exertion Walker as ambulation aid Wears glasses Home Medications cholecalciferol (vitamin D3) 25 mcg (1,000 unit) capsule (Vitamin D3) 25 mcg PO DAILY SUPPLEMENT 05/27/22 [History Last Taken 10/20/22] latanoprost 0.005 % eye drops 1 drp EACH EYE QPM GLAUCOMA 05/27/22 [History Last Taken 10/20/22] losartan 50 mg tablet 50 mg PO DAILY BP 05/27/22 [History Last Taken 10/20/22] pramipexole 1.5 mg tablet 0.75 mg PO QHS RESTLESS LEG 05/27/22 [History Last Taken 10/20/22] rivaroxaban 20 mg tablet (Xarelto) 20 mg PO DAILY DVT 05/27/22 [History Last Taken 10/16/22] acetaminophen 500 mg tablet 1,000 mg PO Q8H pain 06/12/22 [History Last Taken 10/20/22] doxycycline monohydrate 100 mg tablet 100 mg PO BID ANTIBIOTIC 10/07/22 [History Last Taken 10/20/22] escitalopram oxalate 20 mg tablet (Lexapro) 20 mg PO DAILY ANTIDEPRESSANT 10/07/22 [History Last Taken 10/20/22] ferrous sulfate 325 mg (65 mg iron) tablet (FeroSul) 325 mg PO BIDCM Supplement 10/25/22 [History Last Taken Unknown] folic acid 1 mg tablet 1 mg PO BREAKFAST Supplement 10/25/22 [History Last Taken Unknown] sennosides 8.6 mg-docusate sodium 50 mg tablet (Stool Softener-Stimulant Laxative) 2 tab PO BID Constipation 10/25/22 [History Last Taken Unknown] arginine 7 gram-glutam 7 gram-CaHMB 1.5 arpy-urumz-fg-min oral pwd pkt (Santos (with collagen)) 1 packet PO BIDCM #0 ea 11/16/22 [Rx Last Taken Unknown] food supplemt, lactose-reduced 0.08 gram-1.5 kcal/mL oral liquid (Ensure Plus High Protein) 120 ml PO TIDCM #0 mL 11/16/22 [Rx Last Taken Unknown] menthol 0.44 %-zinc oxide 20.6 % topical ointment (Calmoseptine) 1 applic topical BID #0 grams 11/16/22 [Rx Last Taken Unknown] pramipexole 0.25 mg tablet 0.25 mg PO DAILY PRN PRN restless legs during day #0 tabs 11/16/22 [Rx Last Taken Unknown] Allergy/AdvReac Type Severity Reaction Status Date / Time No Known Allergies Allergy Verified 10/21/22 08:06 Surgical History (Updated 10/25/22 @ 16:[address] Jerrell Caldera MD) History of facelift History of surgical procedure Hx of appendectomy Hx of colonoscopy Hx of hernia repair Hx of hysterectomy Hx of knee surgery Hx of surgical procedure Hx of surgical procedure Hx of surgical procedure Hx of tonsillectomy Hx of total knee replacement Social History household members: none Smoking Status: Never smoker alcohol intake: current alcohol intake frequency: holidays/special occasions only substance use type: does not use Vital Signs Vital Signs Vital Signs: 12/16/22 09:46 Temperature 96.2 F L Temperature Source Temporal Pulse Rate 83 Blood Pressure 140/62 H Blood Pressure Mean 88 Blood Pressure Source Monitor Physical Exam Const oriented x3 General Appearance: cooperative Exam Limitations: no limitations Resp normal respiratory effort Effort and Inspection: able to speak in complete sentences Auscultation: clear to auscultation bilaterally Cardio regular rate and regular rhythm Palpation: normal PMI Rate: regular rate Rhythm: regular rhythm GI Auscultation: normoactive bowel sounds Palpation: soft and no hepatosplenomegaly external exam normal Extremity normal to inspection General Extremity: normal exam except as noted Skin Skin Narrative: Right leg casted from foot to mid thigh just above the cast is an open wound from rubbing on the casting with 2 blisters lateral and beneath it. Hardened and intact we will not remove. Neuro oriented x3 Psych Appearance: grossly normal Speech: normal speech Thought Content: normal thought content Judgement: judgement good Debridement Note Debridement Note Wound debrided: Right posterior thigh open wound Wound Grade/Stage: Stage II Type of Debridement: Excisional debridement Anesthesia Used: 5% Lidocaine Gel Depth: in the subcutaneous layer Percentage of wound debrided: 100 Instrument Used: 5mm curette Tissue Removed: Fibrin Severity: Limited To Skin Breakdown Amount of bleeding with debridement: Mild Bleeding Controlled with: Compression and gauze Patient tolerated procedure: Patient tolerated procedure well Post-Debridement Measurements and Additional Note: Post-Debridement Measurements/Treatment - Nurse 1 - General Ulcer Assessment Start: 12/16/22 09:45 Freq: Status: Active Protocol: DANN Activity Type Activity Date Activity User E-sign Co-sign Detail Recorded Client Recorded Date Recorded By Document 12/16/22 09:46 GOMEZ [id number] 12/16/22 09:50 GOMEZ 12/16/22 09:46 WC - Today's Visit Information Type of service Initial Visit Arrival Mode Wheelchair Arrival Mode (Other) transport Patient Identification Verified (Name & Yes ) Patient Requires Transmission-Based No Precautions Safety Precautions NA Vital Signs Temperature (97.8 F-99.1 F) 96.2 F L Temperature Source Temporal Pulse Rate (60-100) 83 Pulse Location Monitor Blood Pressure (90/60-120/80) 140/62 H Blood Pressure Mean 88 Source Monitor History Since Last Visit- (Skip if this is Patient's initial visit) Left Footwear Regular Shoe Pain Scale: 0-10 Numeric Is Patient Pain Free? No - Nurse 1 - General Ulcer Measurement Start: 12/16/22 09:45 Freq: Status: Active Protocol: Activity Type Activity Date Activity User E-sign Co-sign Detail Recorded Client Recorded Date Recorded By Document 12/16/22 09:46 GOMEZ [id number] 12/16/22 09:50 AR 12/16/22 09:46 Wound Center Nurse 1 #1 R post thigh -Combined with other wound No -Current Size (cm) - Length 0.5 -Current Size (cm) - Width 3 -Current Size (cm) - Depth 0.1 -Total Square Cm 1.5 -Photo Taken Yes -Tunneling No -Undermining/Tunneling No -Circular Undermining No -Change in Wound Grade/Stage No -Exudate Amt Medium -Exudate Type Serosanguineous -Wound Margin Distinct, Outline Attached -Granulation Amt Large (67-100%) -Granulation Quality [place] -Slough/Fibrin No -Necrosis Amt None Present (0 %) -Structure Exposed N/A -Texture (Rebecca-wound Skin Appearance) No Abnormality, Assessed -Moisture (Rebecca-wound Skin Appearance) No Abnormality, Assessed -Color (Rebecca-wound Skin Appearance) No Abnormality, Assessed -Temperature (Rebecca-wound Skin No Abnormality Appearance) (Pt Warm) -Tenderness on Palpation (Rebecca-wound No Skin Appearance) -Ulcer Cleansing Rinsed/ Irrigated with Saline -Foul Odor after Cleansing No -Anesthetic Used 5% Lidocaine Gel -Wound Comment(s) Surrounding tissue has a healed area and a blister WC - Nurse 3 - General Ulcer D/C NN Start: 12/16/22 09:45 Freq: Status: Active Protocol: Activity Type Activity Date Activity User E-sign Co-sign Detail Recorded Client Recorded Date Recorded By Document 12/16/22 10:11 AR [id number] 12/16/22 10:12 AR 12/16/22 10:11 Wound Care Center Nurse 3 -Ulcer Cleansing Rinsed/ Irrigated with Saline -Foul Odor after Cleansing No -Negative Pressure Wound Therapy N/A -Primary Dressing Applied Aquacel Extra, Mepilex Border -Aquacel Extra 1 -Mepilex Border 1 Pain Scale: 0-10 Numeric Is Patient Pain Free? No WC - Visit Discharge Discharge Condition Stable Ambulatory Status Wheelchair Accompanied by [place] Medication Reconcilliation completed & Yes provided to patient/care provider Clinical Summary of Care Provided Yes Assessment/Plan Assessment/Plan (1) Nonhealing nonsurgical wound: CODE(S): T14.8XXA - Other injury of unspecified body region, initial encounter (2) Decubitus ulcer, stage II: CODE(S): L89.92 - Pressure ulcer of unspecified site, stage 2 QUALIFIERS: Pressure injury location: thigh Laterality: right Qualified Code(s): L89.212 - Pressure ulcer of right hip, stage 2 PLAN: Wash area with antibacterial soap apply Aquacel extra to wounds base moistened it with a foam dressing over top every day\ Follow-up in 1 week
[2022-12-23 10:12] VITALS: BP 148/86; PULSE 89; RESP 17; TEMP 36.1
--- NOTE | 2022-12-23 11:08 | PN.PCM_ITS ---
History of Present Illness Date of Service: 12/23/22 Chief Complaint: Right posterior thigh open wound and blister History of Wound: 72-year-old white female that had a right total knee in July 2022 down in [place]. It became infected and patient was not satisfied with care came up here to have the knee redone and ORIF was done patient is now in a full-length leg cast from thigh to foot. I developed a sore on the first cast and now they have cut it back, but she will have to wear the second cast now for another 5 weeks. Currently on Xarelto for her blood clot that was in the leg also really no other medications that she takes she is staying in a assisted living residential with [facility] for rehab and then will go back to [place]. Treating her for nonhealing nonsurgical wound decubitus ulcer from rubbing on the cast Progress of Wound: Today the wound is healed patient will be discharged from the wound center Subjective Subjective Patient states it just itches all the time Objective Data Objective Data Skin is well approximated with good skin coverage suggested just pad and protecting Vital Signs: Vital Signs Temp Pulse Resp BP 97 F L 89 17 148/86 H 12/23/22 10:12 12/23/22 10:12 12/23/22 10:12 12/23/22 10:12 Physical Exam Const oriented x3 General Appearance: cooperative Exam Limitations: no limitations Resp normal respiratory effort Effort and Inspection: able to speak in complete sentences Auscultation: clear to auscultation bilaterally Cardio regular rate and regular rhythm Palpation: normal PMI Rate: regular rate Rhythm: regular rhythm GI Auscultation: normoactive bowel sounds Palpation: soft and no hepatosplenomegaly external exam normal Extremity normal to inspection General Extremity: normal exam except as noted Skin Skin Narrative: Right leg casted from foot to mid thigh just above the cast is an open wound from rubbing on the casting with 2 blisters lateral and beneath it. Hardened and intact we will not remove. Neuro oriented x3 Psych Appearance: grossly normal Speech: normal speech Thought Content: normal thought content Judgement: judgement good Debridement Note Debridement Note Post-Debridement Measurements and Additional Note: Post-Debridement Measurements/Treatment EMILY - Nurse 1 - General Ulcer Assessment Start: 12/16/22 09:45 Freq: Status: Active Protocol: DANN Activity Type Activity Date Activity User E-sign Co-sign Detail Recorded Client Recorded Date Recorded By Document 12/16/22 09:46 AK [id number] 12/16/22 09:50 AK Document 12/23/22 10:12 ML [id number] 12/23/22 10:25 ML 12/16/22 12/23/22 09:46 10:12 - Today's Visit Information Type of service Initial Visit Follow-up Visit (Physician/CHIEF ACCOUNTANT ) Arrival Mode Wheelchair Wheelchair Arrival Mode (Other) transport Transfer Assistance None Patient Identification Verified (Name & Yes Yes ) Patient Requires Transmission-Based No No Precautions Safety Precautions NA NA Vital Signs Temperature (97.8 F-99.1 F) 96.2 F L 97 F L Temperature Source Temporal Temporal Pulse Rate (60-100) 83 89 Pulse Location Monitor Monitor Respiratory Rate (12-18) 17 Respiratory rate source Observation Blood Pressure (90/60-120/80) 140/62 H 148/86 H Blood Pressure Mean (mm Hg) 88 106 Source Monitor Monitor Position Sitting Blood Pressure Location Left Arm History Since Last Visit- (Skip if this is Patient's initial visit) Have you changed medications since your No last visit? Any new allergies or adverse reactions No Had a fall/change in ADL's that may No increase risk of falls Signs or symptoms of abuse and/or No neglect since last visit Have you been in the hospital since your No last visit? Has dressing in place as prescribed Yes Has compression in place as prescribed N/A Has offloadiing in place as prescribed N/A Experienced any changes in pain level or No management Left Footwear Regular Shoe Regular Shoe Right Footwear No Footwear Pain Scale: 0-10 Numeric Is Patient Pain Free? No Yes - Nurse 1 - General Ulcer Measurement Start: 12/16/22 09:45 Freq: Status: Active Protocol: Activity Type Activity Date Activity User E-sign Co-sign Detail Recorded Client Recorded Date Recorded By Document 12/16/22 09:46 AK [id number] 12/16/22 09:50 PA Document 12/23/22 10:12 ML [id number] 12/23/22 10:25 ML 12/16/22 12/23/22 09:46 10:12 Wound Center Nurse 1 #1 R post thigh -Combined with other wound No -Current Size (cm) - Length 0.5 1 -Current Size (cm) - Width 3 0.1 -Current Size (cm) - Depth 0.1 0.1 -Total Square Cm 1.5 0.1 -Photo Taken Yes -Tunneling No -Undermining/Tunneling No -Circular Undermining No -Change in Wound Grade/Stage No -Exudate Amt Medium Small -Exudate Type Serosanguineous Serosanguineous -Wound Margin Distinct, Distinct, Outline Outline Attached Attached -Granulation Amt Large (67-100%) -Granulation Quality [place] -Slough/Fibrin No Yes -Necrosis Amt None Present (0 Small (1-33%) %) -Necrotic Tissue Type Adherent Slough -Structure Exposed N/A -Texture (Rebecca-wound Skin Appearance) No Abnormality, Assessed Assessed -Moisture (Rebecca-wound Skin Appearance) No Abnormality, Assessed Assessed -Color (Rebecca-wound Skin Appearance) No Abnormality, Assessed Assessed -Temperature (Rebecca-wound Skin No Abnormality No Abnormality Appearance) (Pt Warm) (Pt Warm) -Tenderness on Palpation (Rebecca-wound No No Skin Appearance) -Ulcer Cleansing Rinsed/ Rinsed/ Irrigated with Irrigated with Saline Saline -Foul Odor after Cleansing No No -Anesthetic Used 5% Lidocaine 5% Lidocaine Gel Gel -Wound Comment(s) Surrounding tissue has a healed area and a blister WC - Nurse 2 - General Ulcer CM Notes Start: 12/16/22 09:45 Freq: Status: Active Protocol: Activity Type Activity Date Activity User E-sign Co-sign Detail Recorded Client Recorded Date Recorded By Document 12/16/22 11:25 PL [id number] 12/16/22 11:28 PL Document 12/23/22 10:37 MW [id number] 12/23/22 10:42 MW 12/16/22 12/23/22 11:25 10:37 Wound Center Nurse 2 #1 R post thigh -Time 09:55 10:41 -Correct Patient Yes Yes -Correct Side, Site, Position Yes Yes -Correct Procedure Yes Yes -Procedure Performed Yes No -Type of Procedure Debridement -Clinical Debridement Subcutaneous -Tissue Removed Subcutaneous -Post Debridement (cm) - Length 3.3 0 -Post Debridement (cm) - Width 7.5 0 -Post Debridement (cm) - Depth 0.1 -Total Square (Post) (cm) 24.75 0 -Area of Debridement (cm) - Length 3.3 -Area of Debridement (cm) - Width 7.5 -Total Square (Area) (cm) 24.75 -Tunneling No -Undermining/Tunneling No -Circular Undermining No -Wound/Ulcer Outcome Not Healed Healed- Epithelialized -Ulcer Cleansing Rinsed/ Irrigated with Saline -Foul Odor after Cleansing No -Bioengineered Tissue No -Bleeding Controlled with Pressure -Treatment Response Procedure Tolerated Well -Debridement - Subq, 1st 20sq cm Yes -Debridement, SubQ, ea addt'l 20sq cm 1 or part thereof Pain Scale: 0-10 Numeric Is Patient Pain Free? Yes Yes - Nurse 3 - General Ulcer D/C NN Start: 12/16/22 09:45 Freq: Status: Active Protocol: Activity Type Activity Date Activity User E-sign Co-sign Detail Recorded Client Recorded Date Recorded By Document 12/16/22 10:11 PA [id number] 12/16/22 10:12 PA Document 12/23/22 11:05 [facility] [id number] 12/23/22 11:06 [facility] 12/16/22 12/23/22 10:11 11:05 Wound Care Center Nurse 3 #1 R post thigh -Ulcer Cleansing Rinsed/ Irrigated with Saline -Foul Odor after Cleansing No -Negative Pressure Wound Therapy N/A -Primary Dressing Applied Aquacel Extra, Mepilex Border Mepilex Border -Other Dressing healed. border applied for protection -Aquacel Extra 1 -Mepilex Border 1 1 Treatment Response Procedure Tolerated Well Pain Scale: 0-10 Numeric Is Patient Pain Free? No Yes - Visit Discharge Discharge Condition Stable Stable Ambulatory Status Wheelchair Wheelchair Transportation ecf transport Accompanied by tabatha Medication Reconcilliation completed & Yes provided to patient/care provider Clinical Summary of Care Provided Yes Assessment/Plan Assessment/Plan (1) Nonhealing nonsurgical wound: CODE(S): T14.8XXA - Other injury of unspecified body region, initial enco unter (2) Decubitus ulcer, stage II: CODE(S): L89.92 - Pressure ulcer of unspecified site, stage 2 QUALIFIERS: Pressure injury location: thigh Laterality: right Qualified Code(s): L89.212 - Pressure ulcer of right hip, stage 2 PLAN: Wash area with antibacterial soap apply dry dressing for padding Discharge from the wound center and follow-up as needed
== END 2022-12-23 15:40 | disposition home or self-care (01) ==
LOC: WC 10:00
PROVIDERS: PCP Registered Nurse; Visit Provider Nurse Practitioner
DX: L89.892 Pressure ulcer of other site, stage 2 (principal); L89.212 Pressure ulcer of right hip, stage 2; I10 Essential (primary) hypertension; D64.9 Anemia, unspecified; Z79.01 Long term (current) use of anticoagulants; Z79.2 Long term (current) use of antibiotics; Z79.899 Other long term (current) drug therapy; Z86.718 Personal history of other venous thrombosis and embolism; Z96.651 Presence of right artificial knee joint
CPT/HCPCS: 11042; 11045; 99213; G0463